=== PATIENT | male | born 1960 | race Caucasian/White ===

== ENCOUNTER → 2016-03-19 | Outpatient (CLI) | payer MEDICARE, MEDICAID ==
[~2016-03-19] MED LIST: AMIT75TA PO; AMITRIPTYLINE PO; CELE-19 PO; CELE1CAP88 PO; CHLO25TA PO; CIAL5TAB PO; CIPR500S PO; COUM2.5T11 PO; DULC10SU2 PR; FENT12PA TD; FLOM5CAP PO; GABAPOW41 PO; LORA-376 PO; LYRI75CA PO; MELA0.02 PO; MELO7.5T6 PO; MOBIC PO; OXYC10TA12 PO; OXYC1TAB16 PO; PERC5TAB6 PO; PERCOCET PO; ROXI15TA12 PO; ROXI1TAB2 PO; SOMA350T PO; TYLE325T5 PO; TYLE650T25 PO; VENL75CA47 PO
--- NOTE | 2016-04-06 01:23 | ECWPNPC ---
PATIENT NAME: NOEL MENDEZ : 1960 GENDER: MALE VISIT DATE: 03/19/2016 DISCHARGE DATE: 03/19/16940 VISIT LOCKED DATE TIME: PHYSICIAN: ARMANDO ORR RESOURCE: ARMANDO ORR REASON FOR APPOINTMENT 1. POST PROECDURE, BACK PAIN HISTORY OF PRESENT ILLNESS HISTORY OF PRESENT ILLNESS: HERE FOR ROUTINE F/U AND MEDICINE MANAGEMENT FOR PERSISTENT LBP AND ABDOMINAL PAIN.RATING PAIN VAS 5/10.FINDS CURRENT CHRONIC PAIN MEDICATION EFFECTIVE AT REDUCING PAIN AND KEEPING HIM COMFORTABLE.CURRENTLY USING FENTANYL PATCH 50MCG Q72H,OXYCODONE 10/325 UP TO 4 PER DAY PRN,AMIRIPTYLINE 75MG AT HS AND CYCLOBENZAPRINE 5MG TID PRN. CONTINUES WITH C/O CONSTIPATION DESPITE COLACE 100MG TID.HAD AMAURY 02-26-16.REPORTS NO IMPROVEMENT IN PAIN POST PROCEDURE. PAIN THE PATIENT DESCRIBES THE PAIN... THE PATIENT DESCRIBES THE PAIN... THE PATIENT DESCRIBES THE PAIN... THE PATIENT DESCRIBES THE PAIN... FALL RISK SCREENING: SCREENING :NO FALLS IN THE PAST YEAR CURRENT MEDICATIONS TAKING KLONOPIN 1 MG TABLET 1 TABLET ORALLY TWICE A DAY (MDD2) TAKING COLACE 100 MG CAPSULE 1 CAPSULE NEEDED ORALLY TIDPRN TAKING METFORMIN HCL 500 MG TABLET 1 TABLET WITH MEALS ORALLY ONE PER DAY X 1 WEEK, THEN BID TAKING CHLORTHALIDONE 25 MG TABLET TAKE BY MOUTH DIRECTED EVERY MORNING ONCE A DAY TAKING EFFEXOR XR 75 MG CAPSULE EXTENDED RELEASE 24 HOUR 3 CAPS ORALLY ONCE A DAY TAKING AMITRIPTYLINE HCL 75 MG TABLET 1 ORALLY QHS TAKING MELOXICAM 7.5MG TABLET 1 TAB(S) ORALLY DAILY TAKING CYCLOBENZAPRINE HCL 5 MG TABLET 1 TABLET ORALLY THREE TIMES A DAY TAKING FENTANYL 50 MCG/HR PATCH 72 HOUR 1 PATCH TO SKIN TRANSDERMAL 1 PATCH Q 72H =MDD TAKING TRAZODONE HCL 50 MG TABLET 2 TABLETS AT BEDTIME NEEDED ORALLY ONCE A DAY TAKING EFFEXOR XR 150 MG CAPSULE EXTENDED RELEASE 24 HOUR TAKE ONE CAPSULE BY MOUTH ONCE A DAY WITH FOOD TAKING PERCOCET 10-325 MG TABLET 1 TABLET NEEDED ORALLY EVERY 6 HRS DISCONTINUED VALIUM 10 MG TABLET 1 ORALLY 1 TAB PRE PROCEDURE MDD1, NOTES: 02/26/16 1045 DISCONTINUED OXYCODONE-ACETAMINOPHEN 10-325 MG TABLET 1 TABLET NEEDED ORALLY EVERY 6 HRS PRN PAIN MDD4, NOTES: 02/25/16 2100 MEDICATION LIST REVIEWED AND RECONCILED WITH THE PATIENT PAST MEDICAL HISTORY HERNIAS RENAL CYST NEUROPATHY LEGS 2006 INITIAL INJURY TO LOWER BACK HERNIATED DISC.. REINJURED IN 2007 ALLERGIES FLAGYL: HIVES: SIDE EFFECTS PAPER ADHESION TAPE: BURNED SKIN OFF: ALLERGY SOCIAL HISTORY GENERAL: TOBACCO USE ARE YOU A:NONSMOKER LEARNING BARRIERS / SPECIAL NEEDS ORIENTED TO PLAN OF CARE: PATIENT, PAIN MANAGEMENT PATIENT, ORIENTED TO PLAN OF CARE: PATIENT, PAIN MANAGEMENT PATIENT. NEW PATIENT PAIN DIARY TODAY'S VISITNOTES FROM 0-10, WHAT LEVEL IS YOUR PAIN TODAY?0 PAIN CLINIC PFS, CLERGY, PUBLIC HEALTH REFERRALS PFS REFERRAL NEEDED?NO CLERGY REFERRAL NEEDED?NO PUBLIC HEALTH REFERRAL NEEDED?NO WAS THE PROVIDER NOTIFIED OF ANY PERTINENT INFO?NO PFS REFERRAL NEEDED?NO CLERGY REFERRAL NEEDED?NO PUBLIC HEALTH REFERRAL NEEDED?NO WAS THE PROVIDER NOTIFIED OF ANY PERTINENT INFO?NO REVIEW OF SYSTEMS CONSTITUTIONAL: ANY CHANGE IN YOUR MEDICAL CONDITION? NO . CHILLS NO . FEVER NO . INFECTION: DO YOU HAVE NEW INFECTIONS? NO . DO YOU HAVE HISTORY OF MRSA? NO . MUSCULOSKELETAL: ANY NEW PATTERNS OF PAIN OR NUMBNESS? NO . GASTROENTEROLOGY: ANY NEW CHANGE IN BOWEL CONTROL? NO . GENITOURINARY: ANY NEW CHANGE IN BLADDER CONTROL? NO . IS THERE A CHANCE YOU COULD BE ? NO . HEMATOLOGY/LYMPH: DO YOU TAKE ANY BLOOD THINNERS? (FOR EXAMPLE- COUMADIN, PLAVIX, AGGRENOX, PLATEL, PRADAXA, OR XARELTO) NO . WHEN WAS YOUR LAST DOSE? DATE: TIME: . NEUROLOGY: HAVE YOU FALLEN IN THE PAST 6 MONTHS? YES . ANY NEW EXTREMITY NUMBNESS OR WEAKNESS? NO . CARDIOLOGY: DO YOU HAVE A PACEMAKER OR DEFIBRILLATOR? NO . RESPIRATORY: HAVE YOU BEEN SICK IN THE PAST WEEK? YES, COLD, FLU LIKE SYMPTOMS . FEVER NO . FLU LIKE SYMPTOMS? NO . COUGH NO . INTEGUMENTARY: DO YOU HAVE ANY RASHES OR OPEN SORES? NO . ALLERGIC/IMMUNO: ARE YOU ALLERGIC TO SHELLFISH OR IV DYE? NO . ANY NEW ALLERGIES? NO . PSYCHIATRIC: DO YOU HAVE THOUGHTS OF HURTING YOURSELF OR SOMEONE ELSE? NO . ARE YOU ABUSED, NEGLECTED, OR IN AN UNSAFE ENVIRONMENT? NO . ENDOCRINOLOGY: ARE YOU DIABETIC? YES . OTHER: DO YOU NEED ANY PRESCRIPTIONS? NO . IF YES, PLEASE LIST: ____ . ANY NEW PROBLEMS WITH YOUR MEDICATIONS? NO . WHEN DID YOU LAST EAT? ____ . WHEN DID YOU LAST DRINK? ____ . WHAT DID YOU LAST DRINK? ____ . NAME OF PERSON DRIVING YOU HOME? ____ . DO YOU HAVE ANY OTHER QUESTIONS OR CONCERNS NO . REVIEWED BY: PROVIDER: ARMANDO ROSE . VITAL SIGNS WT 372 LBS, HT 69.5 IN, BMI 54.14 INDEX, BP 133/81 MM HG, HR 74 /MIN, RR 18 /MIN, TEMP 98.0 F, OXYGEN SAT % 96, NA INITIALS TL 0857, REVIEWED BY: CM. EXAMINATION GENERAL EXAMINATION: LUNGS:LUNG SOUNDS ARE CLEAR. HEART:HEART RATE REGULAR. MUSCULOSKELETAL:*. MUSCULOSKELETAL:*, MUSCLE STRENGTH TESTING 3/5 BILATERAL, PALPATION: POSITIVE FOR PAIN OVER L/S SPINE. POSITIVE FOR PAIN OVER L/S PARSPINALS. DIAGNOSTIC:MRI L/S [id number]-REVIEWED.. 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.27 (PRIMARY) LUMBAR RADICULOPATHY - M54.16 CHRONIC PRESCRIPTION OPIATE USE - Z79.891 TREATMENT PROTRUSION OF INTERVERTEBRAL DISC OF LUMBOSACRAL REGION CONTINUE AMITRIPTYLINE HCL TABLET, 75 MG, 1, ORALLY, QHS, NOTES: 02/25/16 2100 CONTINUE MELOXICAM TABLET, 7.5MG, 1 TAB(S), ORALLY, DAILY, NOTES: 02/26/16 0900 CONTINUE CYCLOBENZAPRINE HCL TABLET, 5 MG, 1 TABLET, ORALLY, THREE TIMES A DAY, NOTES: 02/26/16 0900 REFILL FENTANYL PATCH 72 HOUR, 50 MCG/HR, 1 PATCH TO SKIN, TRANSDERMAL, 1 PATCH Q 72H =MDD, 30 DAY(S), 10, REFILLS 0, NOTES: CHANGED 02/24/16 START OXYCODONE-ACETAMINOPHEN TABLET, 10-325 MG, 1 TABLET NEEDED, ORALLY, EVERY 6 HRS MDD4, 30 DAY(S), 120, REFILLS 0 NOTES: ISTOP REGISTRY REVIEWED AND DEMNOSTRATES COMPLLIANCE. BRINGS IN MEDICATIONS WHICH IS APPROPRIATE FOR WHAT WAS DISPENSED. RECENT URINE TOXICOLOGY REVIEWED. NO UNAUTHORIZED MEDICATIONS. NO ILLICIT SUBSTANCES AND PRESCRIBED MEDICATIONS WERE PRESENT. , RISKS AND BENEFITS OF NARCOTIC/OPIOD MEDICATIONS WERE REVIEWED WITH PATIENT - THIS INCLUDES BUT IS NOT LIMITED TO RISK OF DEPENDANCE/DEVELOPMENT OF ADDICTION, MOOD DISTURBANCE AND DEPRESSION, OSTEOPOROSIS, HORMONAL AND LABIDAL CHANGES, RESPIRATORY DEPRESSION AND . PATIENT IS ADVISED NOT TO DRIVE WHILE ON THESE MEDICATIONS.URINE TOX TODAY. PROCEDURE CODES FA211 ESTABILISHED PATIENT [facility] FACILITY CHARGE G8730 PAIN ASSESS POS TOOL F/U PLAN DOC G8427 DOC MEDS VERIFIED W/PT OR RE FOLLOW UP 2 MONTHS ELECTRONICALLY SIGNED BY MILTON HARRIS ON 04/05/2016 AT 02:58 PM EST DISCLAIMER : THIS IS A VISIT SUMMARY EXTRACTED FROM THE [employer] CHART. IT IS NOT A COPY OF THE [employer] PROGRESS NOTE. ANGELA
== END ==
LOC: M PAIN 09:00
PROVIDERS: ATTEND Nurse Practitioner Family
DX: Z09 Encounter for follow-up examination after completed treatment for conditions other than malignant neoplasm (principal); G89.29 Other chronic pain; M51.27 Other intervertebral disc displacement, lumbosacral region; M54.16 Radiculopathy, lumbar region; R10.9 Unspecified abdominal pain; E11.9 Type 2 diabetes mellitus without complications; Z88.8 Allergy status to other drugs, medicaments and biological substances; L23.1 Allergic contact dermatitis due to adhesives; Z79.891 Long term (current) use of opiate analgesic; Z79.84 Long term (current) use of oral hypoglycemic drugs

== ENCOUNTER → 2016-03-22 | Outpatient (CLI) | payer MEDICARE, MEDICAID ==
--- NOTE | 2016-03-22 14:19 | REP ---
URINARY TRACT SONOGRAM: HISTORY: Elevated serum creatinine. COMPARISON: Comparison CT study is from January 07, 2015. FINDINGS: Scanning at the level of the urinary bladder shows no abnormality. Renal cortical echogenicity pattern is normal bilaterally and contours are smooth. There is no evidence of hydronephrosis, cyst, mass, or calculus in either kidney. Scan quality is inhibited by patient body habitus and limited scanning windows. CT study from January 29, 2015 shows a calcified 2 cm lesion in the lower pole right kidney which cannot be seen sonographically. There appears to be some fatty infiltration of the liver. The right kidney measures 11.7 x 6.1 x 5.1 cm. Left renal dimensions are 12.5 x 5.9 x 5.7 cm. IMPRESSION: Normal urinary tract sonography. The complex lesion seen at the lower pole right kidney on January 07, 2015 CT is not visible sonographically. Signed by Chip Stuart MD 03/22/2016 03:34 P
== END ==
LOC: M RAD 11:03
PROVIDERS: ATTEND Physician Assistant
DX: R79.89 Other specified abnormal findings of blood chemistry (principal)

== ENCOUNTER → 2016-04-21 | Outpatient (CLI) | payer MEDICARE, MEDICAID ==
[~2016-04-21] VITALS: Ht 175.3 cm; Wt 127.0 kg
[~2016-04-21] MED LIST changes: +COLA100C PO; +CYCL5TA PO; +LIDOCAINE 2% INJ 100 MG/5 ML SDV (FOR ANES.) As Ordered ONE; +METF500T PO; +NS 1,000 ML IV SCH; +PROPOFOL 200 MG/20 ML VIAL As Ordered ONE; +TRAZ50TA4 PO
--- NOTE | 2016-04-21 09:29 | ROOR ---
Patient Name: Rio Dinero Procedure Date: 04/21/2016 8:47 AM Date of : 1960 Age: 55 Room: [facility] Gender: Male Note Status: Finalized Procedure: Colonoscopy Indications: Screening for colorectal malignant neoplasm Providers: Torey Montez MD Referring MD: Janey Herr Requesting Provider: Medicines: Monitored Anesthesia Care Complications: No immediate complications. Procedure: Pre-Anesthesia Assessment: - Prior to the procedure, a History and Physical was performed, and patient medications and allergies were reviewed. The patient is competent. The risks and benefits of the procedure and the sedation options and risks were discussed with the patient. All questions were answered and informed consent was obtained. Patient identification and proposed procedure were verified by the physician, the nurse and the anesthesiologist in the endoscopy suite. Mental Status Examination: alert and oriented. Airway Examination: normal oropharyngeal airway and neck mobility. Respiratory Examination: clear to auscultation. CV Examination: normal. Prophylactic Antibiotics: The patient does not require prophylactic antibiotics. Prior Anticoagulants: The patient has taken no previous anticoagulant or antiplatelet agents. ASA Grade Assessment: III - A patient with severe systemic disease. After reviewing the risks and benefits, the patient was deemed in satisfactory condition to undergo the procedure. The anesthesia plan was to use monitored anesthesia care (MAC). Immediately prior to administration of medications, the patient was re-assessed for adequacy to receive sedatives. The heart rate, respiratory rate, oxygen saturations, blood pressure, adequacy of pulmonary ventilation, and response to care were monitored throughout the procedure. The physical status of the patient was re-assessed after the procedure. The Colonoscope was introduced through the anus and advanced to the ileocolonic anastomosis. The colonoscopy was technically difficult and complex due to the patient's position intolerance. Successful completion of the procedure was aided by increasing the dose of sedation medication. The patient tolerated the procedure fairly well. The quality of the bowel preparation was adequate to identify polyps. Findings: The perianal exam findings include non-thrombosed external hemorrhoids. A 7 to 10 mm polyp was found in the rectum. The polyp was semi-pedunculated. The polyp was removed with a hot snare. Resection and retrieval were complete. Estimated blood loss was minimal. A 3 to 6 mm polyp was found in the rectum. The polyp was sessile. The polyp was removed with a hot snare. Resection and retrieval were complete. Estimated blood loss: none. A 3 to 6 mm polyp was found in the rectum. The polyp was sessile. The polyp was removed with a hot snare. Resection and retrieval were complete. Estimated blood loss was minimal. A few small-mouthed diverticula were found in the descending colon. There was evidence of a prior end-to-side colo-colonic anastomosis in the recto-sigmoid colon. This was patent and was characterized by healthy appearing mucosa. The anastomosis was traversed. There was evidence of a prior [id number] ileo-colonic anastomosis in the ascending colon. This was patent and was characterized by healthy appearing mucosa. The anastomosis was traversed. No additional abnormalities were found on retroflexion. Impression: - Non-thrombosed external hemorrhoids found on perianal exam. - One 7 to 10 mm polyp in the rectum, removed with a hot snare. Resected and retrieved. - One 3 to 6 mm polyp in the rectum, removed with a hot snare. Resected and retrieved. - One 3 to 6 mm polyp in the rectum, removed with a hot snare. Resected and retrieved. - Diverticulosis in the descending colon. - Patent end-to-side colo-colonic anastomosis, characterized by healthy appearing mucosa. - Patent [id number] ileo-colonic anastomosis, characterized by healthy appearing mucosa. Recommendation: - Discharge patient to home (ambulatory). - Repeat colonoscopy in 3 years for surveillance. - Telephone my office for pathology results in 2 weeks. Torey Montez MD Torey Montez MD 04/21/2016 9:28:55 AM This report has been signed electronically. Number of Addenda: 0 Note Initiated On: 04/21/2016 8:47 AM Estimated Blood Loss: Estimated blood loss was minimal.
[2016-04-21 09:50] VITALS: BP 149/91
== END | disposition home or self-care (01) ==
LOC: M OPP 07:36
PROVIDERS: ATTEND Surgery
DX: Z12.11 Encounter for screening for malignant neoplasm of colon (principal); K62.1 Rectal polyp; K57.30 Diverticulosis of large intestine without perforation or abscess without bleeding; I10 Essential (primary) hypertension; E11.9 Type 2 diabetes mellitus without complications; R12 Heartburn; R06.83 Snoring; M19.90 Unspecified osteoarthritis, unspecified site; F33.9 Major depressive disorder, recurrent, unspecified; F41.9 Anxiety disorder, unspecified; M51.9 Unspecified thoracic, thoracolumbar and lumbosacral intervertebral disc disorder; E66.01 Morbid (severe) obesity due to excess calories; Z98.0 Intestinal bypass and anastomosis status; Z87.891 Personal history of nicotine dependence; Z79.899 Other long term (current) drug therapy; Z79.891 Long term (current) use of opiate analgesic; Z79.84 Long term (current) use of oral hypoglycemic drugs; Z88.8 Allergy status to other drugs, medicaments and biological substances; Z91.048 Other nonmedicinal substance allergy status; Z86.14 Personal history of Methicillin resistant Staphylococcus aureus infection

== ENCOUNTER → 2016-05-17 | Outpatient (REF) | payer MEDICARE, MEDICAID ==
[~2016-05-17] MED LIST changes: -LIDOCAINE 2% INJ 100 MG/5 ML SDV (FOR ANES.) As Ordered ONE; -NS 1,000 ML IV SCH; -PROPOFOL 200 MG/20 ML VIAL As Ordered ONE
[2016-05-17 11:44] LABS: BASO % 0.4 % (0.0-1.0); EOS # 0.2 K/mm3 (0.0-0.50); EOS % 2.6 % (0.0-3.0); LARGE UNSTAINED CELL # 0.1 K/mm3 (0.0-0.4); LARGE UNSTAINED CELL % 1.4 % (0.0-4.0); LYMPH # 1.7 K/mm3 (1.5-4.5); MEAN CORPUSCULAR HEMOGLOBIN 31.2 pg (27.0-33.0); MEAN CORPUSCULAR HGB CONC 33.8 g/dl (32.0-36.5); MEAN CORPUSCULAR VOLUME 92.3 fl (80.0-96.0); MONO # 0.6 K/mm3 (0.0-0.8); MONO % 6.9 % (0.0-5.0); NEUTROPHILS # 6.2 K/mm3 (1.8-7.7); NEUTROPHILS % 70.6 % (36.0-66.0); PLATELET COUNT, AUTOMATED 216 k/mm3 (150-450); RED CELL DISTRIBUTION WIDTH 14.1 % (11.5-14.5); WHITE BLOOD COUNT 8.8 K/mm3 (4.0-10.0)
[2016-05-17 12:08] LABS: ANION GAP 11 MEQ/L (8-16); BLOOD UREA NITROGEN 24 MG/DL (7-18); CALCIUM LEVEL 9.3 MG/DL (8.5-10.1); CARBON DIOXIDE LEVEL 29 MEQ/L (21-32); CHLORIDE LEVEL 101 MEQ/L (98-107); CREATININE FOR GFR 1.19 MG/DL (0.70-1.30); GLOMERULAR FILTRATION RATE > 60.0 (>56); GLUCOSE, FASTING 124 MG/DL (70-105); POTASSIUM SERUM 3.7 MEQ/L (3.5-5.1); SODIUM LEVEL 141 MEQ/L (136-145)
== END ==
LOC: M LABDRAW1 11:14
PROVIDERS: ATTEND Internal Medicine Cardiovascular Disease
DX: Z01.818 Encounter for other preprocedural examination (principal); I10 Essential (primary) hypertension; E11.9 Type 2 diabetes mellitus without complications; Z79.84 Long term (current) use of oral hypoglycemic drugs; Z79.899 Other long term (current) drug therapy

== ENCOUNTER → 2016-05-28 | Outpatient (CLI) | payer MEDICARE, MEDICAID ==
[~2016-05-28] MED LIST changes: -COLA100C PO; +COLA100C3 PO
--- NOTE | 2016-05-29 00:10 | ECWPNPC ---
PATIENT NAME: NOEL MENDEZ : 1960 GENDER: MALE VISIT DATE: 05/28/2016 DISCHARGE DATE: 05/28/16 1013 VISIT LOCKED DATE TIME: PHYSICIAN: ARMANDO ORR RESOURCE: ARMANDO ORR REASON FOR APPOINTMENT 1. FOLLOWUP HISTORY OF PRESENT ILLNESS HISTORY OF PRESENT ILLNESS: HERE FOR ROUTINE F/U AND MEDICINE MANAGEMENT FOR PERSISTENT LBP AND ABDOMINAL PAIN.RATING PAIN VAS 3/10.FINDS CURRENT CHRONIC PAIN MEDICATION EFFECTIVE AT REDUCING PAIN AND KEEPING HIM COMFORTABLE.CURRENTLY USING FENTANYL PATCH 50MCG Q72H,OXYCODONE 10/325 UP TO 4 PER DAY PRN,AMIRIPTYLINE 75MG AT HS AND CYCLOBENZAPRINE 5MG TID PRN. HAD LESI 02-26-16.REPORTS NO IMPROVEMENT IN PAIN POST PROCEDURE. PAIN THE PATIENT DESCRIBES THE PAIN... THE PATIENT DESCRIBES THE PAIN... THE PATIENT DESCRIBES THE PAIN... THE PATIENT DESCRIBES THE PAIN... THE PATIENT DESCRIBES THE PAIN... FALL RISK SCREENING: SCREENING :NO FALLS IN THE PAST YEAR CURRENT MEDICATIONS TAKING COLACE 100 MG CAPSULE 1 CAPSULE NEEDED ORALLY TIDPRN TAKING PROAIR HFA 108 (90 BASE) MCG/ACT AEROSOL SOLUTION 2 PUFFS NEEDED INHALATION EVERY 4 HRS TAKING BREO ELLIPTA 100-25 MCG/INH AEROSOL POWDER BREATH ACTIVATED 1 PUFF INHALATION ONCE A DAY TAKING CHLORTHALIDONE 25 MG TABLET TAKE BY MOUTH DIRECTED EVERY MORNING ONCE A DAY TAKING EFFEXOR XR 75 MG CAPSULE EXTENDED RELEASE 24 HOUR 1 CAP ORALLY ONCE A DAY TAKING EFFEXOR XR 150 MG CAPSULE EXTENDED RELEASE 24 HOUR TAKE ONE CAPSULE BY MOUTH ONCE A DAY WITH FOOD TAKING CYCLOBENZAPRINE HCL 5 MG TABLET 1 TABLET ORALLY THREE TIMES A DAY, NOTES: 02/26/16 0900 TAKING OXYCODONE-ACETAMINOPHEN 10-325 MG TABLET 1 TABLET NEEDED ORALLY EVERY 6 HRS MDD4 TAKING FENTANYL 50 MCG/HR PATCH 72 HOUR 1 PATCH TO SKIN TRANSDERMAL 1 PATCH Q 72H =MDD, NOTES: CHANGED 02/24/16 TAKING METFORMIN HCL 500 MG TABLET 1 TABLET WITH MEALS ORALLY TWICE DAILY TAKING MELOXICAM 7.5MG TABLET 1 TAB(S) ORALLY DAILY, NOTES: 02/26/16 0900 TAKING AMITRIPTYLINE HCL 75 MG TABLET 1 ORALLY QHS, NOTES: 02/25/16 2100 TAKING TRAZODONE HCL 50 MG TABLET 1-2 TABLETS AT BEDTIME NEEDED ORALLY ONCE A DAY TAKING KLONOPIN 1 MG TABLET 1 TABLET ORALLY TWICE A DAY (MDD2) DISCONTINUED PERCOCET 10-325 MG TABLET 1 TABLET NEEDED ORALLY EVERY 6 HRS DISCONTINUED AZITHROMYCIN 250 MG TABLET 2 TABLETS ON THE FIRST DAY, THEN 1 TABLET DAILY FOR 4 DAYS ORALLY ONCE A DAY DISCONTINUED PREDNISONE 10 MG TABLET 6 TABS/DAY X 3 DAYS, 4 TABS/DAY X 3 DAYS, 2 TABS/DAY X 3 DAYS, 1 TAB/DAY X 3 DAYS ORALLY DIRECTED MEDICATION LIST REVIEWED AND RECONCILED WITH THE PATIENT PAST MEDICAL HISTORY HERNIAS RENAL CYST NEUROPATHY LEGS 2005 INITIAL INJURY TO LOWER BACK HERNIATED DISC.. REINJURED IN 2007 ALLERGIES FLAGYL: HIVES: SIDE EFFECTS PAPER ADHESION TAPE: BURNED SKIN OFF: ALLERGY SURGICAL HISTORY 2 HERNIA REPAIRS IN STOMACH 1989- DIVERTICULITIS SURGERY(4 SURGERIES WITH IN 2011 FOR THIS) 10/2011 HERNIA REPAIR ABD AREA 10/02/2013 RIGHT RENAL CYST ASPIRATION 09/26/13 L HIP REPLACEMENT 02/06/14 RIGHT PARTIAL NEPHRECTOMY 02/04/15 HEART CATH 05/26/2016 SOCIAL HISTORY GENERAL: TOBACCO USE ARE YOU A:CURRENT SMOKER HOW MANY CIGARETTES A DAY DO YOU SMOKE?21-30 HOW SOON AFTER YOU WAKE UP DO YOU SMOKE YOUR FIRST CIGARETTE?WITHIN 5 MIN HOW OFTEN DO YOU SMOKE CIGARETTES?EVERY DAY PATIENT COUNSELED ON THE DANGERS OF TOBACCO USE AND URGED TO QUIT:05/28/2016 ARE YOU INTERESTED IN QUITTING?NOT READY TO QUIT COUNSELED THE PATIENT ON SMOKING EFFECTS, EDUCATION [id number]/24/2017 SMOKING CESSATION INFORMATION GIVEN02/05/2016 VAPORNO E-CIGARETTENO BMI CARE GOAL FOLLOW-UP ABOVE NORMAL BMI FOLLOW-UPGIVING ENCOURAGEMENT TO EXERCISE ALCOHOL SCREENING DID YOU HAVE A DRINK CONTAINING ALCOHOL IN THE PAST YEAR?YES HOW OFTEN DID YOU HAVE SIX OR MORE DRINKS ON ONE OCCASION IN THE PAST YEAR?NEVER (0 POINTS) HOW MANY DRINKS DID YOU HAVE ON A TYPICAL DAY WHEN YOU WERE DRINKING IN THE PAST YEAR?3 OR 4 (1 POINT) HOW OFTEN DID YOU HAVE A DRINK CONTAINING ALCOHOL IN THE PAST YEAR?MONTHLY OR LESS (1 POINT) POINTS2 INTERPRETATIONNEGATIVE RECREATIONAL DRUG USE DRUG USE?NO CAFFEINE CAFFEINE USE?YES HOW OFTEN AND HOW MUCH? ONE CUP COFFEE AND ONE PEPSI HIV / HEP-C SCREENING HIV TEST OFFERED TO PATIENT:YES DATE OFFERED:03/15/2016 TEST ACCEPTED:NO HEP-C TEST OFFERED TO PATIENT:YES DATE OFFERED:03/15/2016 REASON:PATIENT DECLINED TEST ACCEPTED:NO REASON:PATIENT DECLINED OCCUPATION: DISABLED. EXERCISE: NONE. MARITAL STATUS: SINGLE. LANGUAGE: TUVALU[place]. LEARNING BARRIERS / SPECIAL NEEDS CHANGE FROM LAST VISIT?NO BARRIERS TO LEARNING?NO HEARING IMPAIRED?NO VISION IMPAIRED?NO COGNITIVELY IMPAIRED?NO READINESS TO LEARN?YES LEARNING PREFERENCES?NO LEARNING CAPABILITIES PRESENT?YES EMOTIONAL BARRIERS?NO SPECIAL DEVICES?NO NEW PATIENT PAIN DIARY FROM 0-10, WHAT LEVEL IS YOUR PAIN TODAY?3 PAIN CLINIC PFS, CLERGY, PUBLIC HEALTH REFERRALS PFS REFERRAL NEEDED? NO, CLERGY REFERRAL NEEDED? NO, PUBLIC HEALTH REFERRAL NEEDED? NO, WAS THE PROVIDER NOTIFIED OF ANY PERTINENT INFO? NO, PFS REFERRAL NEEDED? NO, CLERGY REFERRAL NEEDED? NO, PUBLIC HEALTH REFERRAL NEEDED? NO, WAS THE PROVIDER NOTIFIED OF ANY PERTINENT INFO? NO. HOSPITALIZATION/MAJOR DIAGNOSTIC PROCEDURE HERNIA REPAIR [place] 1989- [facility] 10/2011 [facility] HERNIA REPAIR 10/02/2013 [facility] SURGERY RELATED 02/06/14 REVIEW OF SYSTEMS CONSTITUTIONAL: ANY CHANGE IN YOUR MEDICAL CONDITION? YES, HAD HEART CATH 05/26/16 (-) . CHILLS NO . FEVER NO . INFECTION: DO YOU HAVE NEW INFECTIONS? NO . DO YOU HAVE HISTORY OF MRSA? YES, 07/2013 ON ABDOMEN . MUSCULOSKELETAL: ANY NEW PATTERNS OF PAIN OR NUMBNESS? YES, PAIN RIGHT SHOULDER--DUE TO POSTITION HE WAS IN FOR HEART CATH . GASTROENTEROLOGY: ANY NEW CHANGE IN BOWEL CONTROL? NO . GENITOURINARY: ANY NEW CHANGE IN BLADDER CONTROL? NO . IS THERE A CHANCE YOU COULD BE ? NO . HEMATOLOGY/LYMPH: DO YOU TAKE ANY BLOOD THINNERS? (FOR EXAMPLE- COUMADIN, PLAVIX, AGGRENOX, PLATEL, PRADAXA, OR XARELTO) NO . WHEN WAS YOUR LAST DOSE? DATE: TIME: . NEUROLOGY: HAVE YOU FALLEN IN THE PAST 6 MONTHS? NO . ANY NEW EXTREMITY NUMBNESS OR WEAKNESS? NO . CARDIOLOGY: DO YOU HAVE A PACEMAKER OR DEFIBRILLATOR? NO . RESPIRATORY: HAVE YOU BEEN SICK IN THE PAST WEEK? NO . FEVER NO . FLU LIKE SYMPTOMS? NO . COUGH NO . INTEGUMENTARY: DO YOU HAVE ANY RASHES OR OPEN SORES? NO . ALLERGIC/IMMUNO: ARE YOU ALLERGIC TO SHELLFISH OR IV DYE? NO . ANY NEW ALLERGIES? NO . PSYCHIATRIC: DO YOU HAVE THOUGHTS OF HURTING YOURSELF OR SOMEONE ELSE? NO . ARE YOU ABUSED, NEGLECTED, OR IN AN UNSAFE ENVIRONMENT? NO . ENDOCRINOLOGY: ARE YOU DIABETIC? YES . OTHER: DO YOU NEED ANY PRESCRIPTIONS? NO . IF YES, PLEASE LIST: ____ . ANY NEW PROBLEMS WITH YOUR MEDICATIONS? NO . WHEN DID YOU LAST EAT? ____ . WHEN DID YOU LAST DRINK? ____ . WHAT DID YOU LAST DRINK? ____ . NAME OF PERSON DRIVING YOU HOME? ____ . DO YOU HAVE ANY OTHER QUESTIONS OR CONCERNS NO . REVIEWED BY: PROVIDER: ARMANDO ROSE . VITAL SIGNS WT 282 LBS, HT 69.5 IN, BMI 41.04 INDEX, BP 145/79 MM HG, HR 102 /MIN, RR 18 /MIN, TEMP 98.9 F, OXYGEN SAT % 95%, NA INITIALS SC 09:28, REVIEWED BY: AD. EXAMINATION GENERAL EXAMINATION: LUNGS:LUNG SOUNDS ARE CLEAR. HEART:HEART RATE REGULAR. MUSCULOSKELETAL:*. MUSCULOSKELETAL:*, MUSCLE STRENGTH TESTING 3/5 BILATERAL, PALPATION: POSITIVE FOR PAIN OVER L/S SPINE. POSITIVE FOR PAIN OVER L/S PARSPINALS. DIAGNOSTIC:MRI L/S [id number]-REVIEWED.. 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.27 (PRIMARY) CHRONIC PRESCRIPTION OPIATE USE - Z79.891 TREATMENT PROTRUSION OF INTERVERTEBRAL DISC OF LUMBOSACRAL REGION CONTINUE COLACE CAPSULE, 100 MG, 1 CAPSULE NEEDED, ORALLY, TIDPRN CONTINUE CYCLOBENZAPRINE HCL TABLET, 5 MG, 1 TABLET, ORALLY, THREE TIMES A DAY, NOTES: 02/26/16 0900 REFILL OXYCODONE-ACETAMINOPHEN TABLET, 10-325 MG, 1 TABLET NEEDED, ORALLY, EVERY 6 HRS MDD4, 30 DAY(S), 120, REFILLS 0 REFILL FENTANYL PATCH 72 HOUR, 50 MCG/HR, 1 PATCH TO SKIN, TRANSDERMAL, 1 PATCH Q 72H =MDD, 30 DAY(S), 10, REFILLS 0, NOTES: CHANGED 02/24/16 CONTINUE MELOXICAM TABLET, 7.5MG, 1 TAB(S), ORALLY, DAILY, NOTES: 02/26/16 0900 CONTINUE AMITRIPTYLINE HCL TABLET, 75 MG, 1, ORALLY, QHS, NOTES: 02/25/162099 NOTES: FALLS CARE PLAN: 1. RECOMMEND REMOVING ALL THROW RUGS. 2. RECOMMEND NIGHT LIGHTS 3. RECOMMEND WEARING RUBBER SOLED SHOES AND TO NOT GO BAREFOOT. 4.. ADVISED TO CHANGE POSITION SLOWLY FROM SUPINE TO STANDING TO AVOID DIZZINESS. 5. ADVISED TO USE ASSISTIVE DEVICE SUCH CANE OR WALKER 6. USE [employer] OR KEEP PORTABLE PHONE READILY AVAILABLE, ISTOP REGISTRY REVIEWED AND DEMNOSTRATES COMPLLIANCE. BRINGS IN MEDICATIONS WHICH IS APPROPRIATE FOR WHAT WAS DISPENSED. RECENT URINE TOXICOLOGY REVIEWED. NO UNAUTHORIZED MEDICATIONS. NO ILLICIT SUBSTANCES AND PRESCRIBED MEDICATIONS WERE PRESENT. , #317- HYPERTENSION SCREENING AND F/U: PATIENT ADVISED TO DO BLOOD PRESSURE CHECKS AT HOMEOR LOCAL PHARMACY. ADVISED TO PRESENT THIS INFORMATION TO PRIMARY CARE PROVIDER IN NEAR FUTURE. LOW SALT DIET/WEIGHT LOSS WAS ADVISED., # 226 TOBACCO USE SCREENING/INTERVENTION: PATIENT CURRENTLY USED TOBACCO. WAS OFFERED SMOKING CESSATION FOR GUIDANCE IN QUITTING THROUGH THE [facility] QUITS PROGRAM AND THE [facility] CESSATION PROGRAM. , #128 - SCREENING BMI AND F/U PLAN IN : BMI ABOVE NORMAL TODAY. DISCUSSED WITH PATIENT NUTRITIONAL FOOD CHOICES TO ASSIST WITH WEIGHT LOSS. RECCOMMENDED REDUCING SALT, SUGAR, SODA INTAKE. RECOMMEND INCREASE ACTIVITY TO INCLUDE WALKING ON A REGULAR BASIS. PROFESSIONAL NUTRITIONAL NUTRITIONAL GUIDANCE WAS OFFERED AND WAS DECLINED. , PATIENT WAS ADVISED TO START A WALKING PROGRAM TO STRENGTHEN LUMBAR PARASPINAL MUSCLES AND IMPROVE MOBILITY. THEY WERE ADVISED THAT THIS WILL IMPROVE WEIGHT LOSS AND ALSO DEPRESSION/FIBROMYALGIA SYMPTOMS. ADVISED TO WALK 10 MINUTES EVERY OTHER DAY ON A FLAT SURFACE. EMPHASIZED THE IMPORTANCE OF DOING THIS CONSISTANTLY AND NOT SPORATICALLY TO AVOID INJURY. STRONG ADVISED NOT TO DO MORE THAN 10 MINUTES EVERY OTHER DSY FOR THE FIRST 4 WEEKS., RISKS AND BENEFITS OF NARCOTIC/OPIOD MEDICATIONS WERE REVIEWED WITH PATIENT - THIS INCLUDES BUT IS NOT LIMITED TO RISK OF DEPENDANCE/DEVELOPMENT OF ADDICTION, MOOD DISTURBANCE AND DEPRESSION, OSTEOPOROSIS, HORMONAL AND LABIDAL CHANGES, RESPIRATORY DEPRESSION AND . PATIENT IS ADVISED NOT TO DRIVE WHILE ON THESE MEDICATIONS. PREVENTIVE MEDICINE INFORMATION ON HCP AND SMOKING CESSATION CLASSES PROVIDED TO PATIENT. PROCEDURE CODES FA211 ESTABILISHED PATIENT [facility] FACILITY CHARGE E0953 BP SCR PRFRM RCMDD DEFIND SCR INTVL G6802 PAIN ASSESS POS TOOL F/U PLAN DOC 3016F PT SCRND UNHLTHY OH USE 1124F ACP DISCUSS-NO [id number] DOCD 0518F FALL PLAN OF CARE DOCD G8427 DOC MEDS VERIFIED W/PT OR RE G8417 BMI >=30 CALCUATE W/FOLLOWUP 3288F FALL RISK ASSESSMENT DOCD 4004F PT TOBACCO SCREEN RCVD TLK DISPOSITION & COMMUNICATION FOLLOW UP 2 MONTHS ELECTRONICALLY SIGNED BY MILTON HARRIS ON 05/28/2016 AT 11:07 AM EDT DISCLAIMER : THIS IS A VISIT SUMMARY EXTRACTED FROM THE [employer] CHART. IT IS NOT A COPY OF THE [facility] PROGRESS NOTE. MTDD
== END ==
LOC: M PAIN 09:20
PROVIDERS: ATTEND Nurse Practitioner Family
DX: M51.27 Other intervertebral disc displacement, lumbosacral region (principal); Z79.891 Long term (current) use of opiate analgesic; Z79.899 Other long term (current) drug therapy; Z79.84 Long term (current) use of oral hypoglycemic drugs; Z88.1 Allergy status to other antibiotic agents; Z91.048 Other nonmedicinal substance allergy status; F17.200 Nicotine dependence, unspecified, uncomplicated; I10 Essential (primary) hypertension; F32.9 Major depressive disorder, single episode, unspecified; E11.9 Type 2 diabetes mellitus without complications; E78.5 Hyperlipidemia, unspecified; J44.9 Chronic obstructive pulmonary disease, unspecified

== ENCOUNTER → 2016-06-07 | Outpatient (REF) | payer MEDICARE, OTHER, MEDICAID ==
[2016-06-07 17:46] LABS: ALBUMIN 3.5 GM/DL (3.2-5.2); ALBUMIN/GLOBULIN RATIO 0.88 (1.00-1.93); ALKALINE PHOSPHATASE 107 U/L (45-117); ALT/SGPT 36 U/L (12-78); ANION GAP 9 MEQ/L (8-16); AST/SGOT 16 U/L (15-37); BILIRUBIN,TOTAL 0.3 MG/DL (0.2-1.0); BLOOD UREA NITROGEN 13 MG/DL (7-18); CALCIUM LEVEL 8.8 MG/DL (8.5-10.1); CARBON DIOXIDE LEVEL 27 MEQ/L (21-32); CHLORIDE LEVEL 102 MEQ/L (98-107); CREATININE FOR GFR 1.22 MG/DL (0.70-1.30); GLOMERULAR FILTRATION RATE > 60.0 (>56); GLUCOSE, FASTING 193 MG/DL (70-105); POTASSIUM SERUM 3.7 MEQ/L (3.5-5.1); SODIUM LEVEL 138 MEQ/L (136-145); TOTAL PROTEIN 7.5 GM/DL (6.4-8.2)
== END ==
LOC: M SFHCCAPE 10:49
PROVIDERS: ATTEND Physician Assistant
DX: I10 Essential (primary) hypertension (principal); E11.9 Type 2 diabetes mellitus without complications; F41.8 Other specified anxiety disorders
CPT/HCPCS: 80053; 83036; 84443; G0463

== ENCOUNTER → 2016-06-16 | Outpatient (REF) | payer MEDICARE, OTHER, MEDICAID | LOC: M SFHCCAPE 10:48 | PROVIDERS: ATTEND Physician Assistant | DX: N52.9 Male erectile dysfunction, unspecified (principal) ==

== ENCOUNTER → 2016-07-26 | Outpatient (CLI) | payer MEDICARE, MEDICAID ==
--- NOTE | 2016-08-13 00:48 | ECWPNPC ---
PATIENT NAME: NOEL MENDEZ : 1960 GENDER: MALE VISIT DATE: 07/26/2016 DISCHARGE DATE: 07/26/16 1506 VISIT LOCKED DATE TIME: PHYSICIAN: ARMANDO ORR RESOURCE: ARMANDO ORR REASON FOR APPOINTMENT 1. BACK HISTORY OF PRESENT ILLNESS HISTORY OF PRESENT ILLNESS: HERE FOR ROUTINE F/U AND MEDICINE MANAGEMENT FOR PERSISTENT LBP AND ABDOMINAL PAIN.RATING PAIN VAS 5/10.FINDS CURRENT CHRONIC PAIN MEDICATION EFFECTIVE AT REDUCING PAIN AND KEEPING HIM COMFORTABLE.CURRENTLY USING FENTANYL PATCH 50MCG Q72H,OXYCODONE 10/325 UP TO 4 PER DAY PRN,AMIRIPTYLINE 75MG AT HS AND CYCLOBENZAPRINE 5MG TID PRN. HAD LESI 02-26-16.REPORTS NO IMPROVEMENT IN PAIN POST PROCEDURE.DESCRIBES PAIN CONSTANT BURNING AND ACHING. PAIN THE PATIENT DESCRIBES THE PAIN... THE PATIENT DESCRIBES THE PAIN... THE PATIENT DESCRIBES THE PAIN... THE PATIENT DESCRIBES THE PAIN... THE PATIENT DESCRIBES THE PAIN... THE PATIENT DESCRIBES THE PAIN... FALL RISK SCREENING: SCREENING :NO FALLS IN THE PAST YEAR CURRENT MEDICATIONS TAKING COLACE 100 MG CAPSULE 1 CAPSULE NEEDED ORALLY TIDPRN TAKING CYCLOBENZAPRINE HCL 5 MG TABLET 1 TABLET ORALLY THREE TIMES A DAY, NOTES: 02/26/16 0900 TAKING MELOXICAM 7.5MG TABLET 1 TAB(S) ORALLY DAILY, NOTES: 02/26/16 0900 TAKING AMITRIPTYLINE HCL 75 MG TABLET 1 ORALLY QHS, NOTES: 02/25/16 2100 TAKING PROAIR HFA 108 (90 BASE) MCG/ACT AEROSOL SOLUTION 2 PUFFS NEEDED INHALATION EVERY 4 HRS TAKING BREO ELLIPTA 100-25 MCG/INH AEROSOL POWDER BREATH ACTIVATED 1 PUFF INHALATION ONCE A DAY TAKING EFFEXOR XR 75 MG CAPSULE EXTENDED RELEASE 24 HOUR 1 CAP ORALLY ONCE A DAY TAKING EFFEXOR XR 150 MG CAPSULE EXTENDED RELEASE 24 HOUR TAKE ONE CAPSULE BY MOUTH ONCE A DAY WITH FOOD TAKING CHLORTHALIDONE 25 MG TABLET TAKE BY MOUTH DIRECTED EVERY MORNING ONCE A DAY TAKING GLUCOMETER 1 METER FOR TEST BLOOD SUGARS ONCE DAILY DX E11.9 TAKING LANCETS - MISCELLANEOUS 1 LANCET FOR DM TESTING DAILY DX E11.9 TAKING ACURA BLOOD GLUCOSE TEST - STRIP 1 STRIP IN VITRO DAILY DX E11.9 TAKING TRAZODONE HCL 50 MG TABLET 3 TABLETS AT BEDTIME NEEDED ORALLY ONCE A DAY TAKING FENTANYL 50 MCG/HR PATCH 72 HOUR 1 PATCH TO SKIN TRANSDERMAL 1 PATCH Q 72H =MDD, NOTES: CHANGED 02/24/16 TAKING OXYCODONE-ACETAMINOPHEN 10-325 MG TABLET 1 TABLET NEEDED ORALLY EVERY 6 HRS MDD4 TAKING METFORMIN HCL 500 MG TABLET 2 TABS ORALLY BID TAKING OXYBUTYNIN CHLORIDE ER 10 MG TABLET EXTENDED RELEASE 24 HOUR 1 TABLET ORALLY ONCE A DAY TAKING KLONOPIN 1 MG TABLET 1 TABLET ORALLY TWICE A DAY (MDD2) NOT-TAKING VIAGRA 100 MG TABLET 1/2-1 TABLET NEEDED ORALLY DAILY MEDICATION LIST REVIEWED AND RECONCILED WITH THE PATIENT PAST MEDICAL HISTORY HERNIAS RENAL CYST NEUROPATHY LEGS 2005 INITIAL INJURY TO LOWER BACK HERNIATED DISC.. REINJURED IN 2007 COPD HTN HYPERLIPIDEMIA MORBID OBESITY ALLERGIES FLAGYL: HIVES: SIDE EFFECTS PAPER ADHESION TAPE: BURNED SKIN OFF: ALLERGY SURGICAL HISTORY 2 HERNIA REPAIRS IN STOMACH DIVERTICULITIS SURGERY(4 SURGERIES WITH IN 2011 FOR THIS) 10/2011 HERNIA REPAIR ABD AREA 10/02/2013 RIGHT RENAL CYST ASPIRATION 09/26/13 L HIP REPLACEMENT 02/06/14 RIGHT PARTIAL NEPHRECTOMY 02/04/15 HEART CATH 05/26/2016 HOSPITALIZATION/MAJOR DIAGNOSTIC PROCEDURE HERNIA REPAIR [place] [facility] 10/2011 [place] HERN[facility] REPA[facility] 10/02/2013 [place] SURGERY RELATED 02/06/14 REVIEW OF SYSTEMS CONSTITUTIONAL: ANY CHANGE IN YOUR MEDICAL CONDITION? NO. PT STATES MEDICATION REGIMEN CONTROLS PAIN MOST OF THE TIME TO A TOLERABLE LEVEL. . CHILLS NO . FEVER NO . INFECTION: DO YOU HAVE NEW INFECTIONS? NO . DO YOU HAVE HISTORY OF MRSA? NO . MUSCULOSKELETAL: ANY NEW PATTERNS OF PAIN OR NUMBNESS? NO . GASTROENTEROLOGY: ANY NEW CHANGE IN BOWEL CONTROL? NO . GENITOURINARY: ANY NEW CHANGE IN BLADDER CONTROL? YES. PT STARTED ON OXYBUTYNIN FOR BLADDER CONTROL . IS THERE A CHANCE YOU COULD BE ? NO . HEMATOLOGY/LYMPH: DO YOU TAKE ANY BLOOD THINNERS? (FOR EXAMPLE- COUMADIN, PLAVIX, AGGRENOX, PLATEL, PRADAXA, OR XARELTO) NO . WHEN WAS YOUR LAST DOSE? DATE: TIME: . NEUROLOGY: HAVE YOU FALLEN IN THE PAST 6 MONTHS? NO . ANY NEW EXTREMITY NUMBNESS OR WEAKNESS? NO . CARDIOLOGY: DO YOU HAVE A PACEMAKER OR DEFIBRILLATOR? NO . RESPIRATORY: HAVE YOU BEEN SICK IN THE PAST WEEK? NO . FEVER NO . FLU LIKE SYMPTOMS? NO . COUGH NO . INTEGUMENTARY: DO YOU HAVE ANY RASHES OR OPEN SORES? NO . ALLERGIC/IMMUNO: ARE YOU ALLERGIC TO SHELLFISH OR IV DYE? NO . ANY NEW ALLERGIES? NO . PSYCHIATRIC: DO YOU HAVE THOUGHTS OF HURTING YOURSELF OR SOMEONE ELSE? NO . ARE YOU ABUSED, NEGLECTED, OR IN AN UNSAFE ENVIRONMENT? NO . ENDOCRINOLOGY: ARE YOU DIABETIC? YES . OTHER: DO YOU NEED ANY PRESCRIPTIONS? NO . IF YES, PLEASE LIST: ____ . ANY NEW PROBLEMS WITH YOUR MEDICATIONS? NO . WHEN DID YOU LAST EAT? ____ . WHEN DID YOU LAST DRINK? ____ . WHAT DID YOU LAST DRINK? ____ . NAME OF PERSON DRIVING YOU HOME? ____ . DO YOU HAVE ANY OTHER QUESTIONS OR CONCERNS NO . REVIEWED BY: PROVIDER: ARMANDO ROSE . VITAL SIGNS WT 290.6 LBS, HT 69.5 IN, BMI 42.29 INDEX, BP 157/90 MM HG, HR 100 /MIN, RR 18 /MIN, TEMP 98.3 F, OXYGEN SAT % 95, SAFE IN ENV? (Y/N) Y, NA INITIALS MP, REVIEWED BY: EMPATIENT STATES BP IS HIGH TODAY HE HAS NOT TAKEN WATER PILL. NURSE NOTIFIED. MP 07/26/16 1415. EXAMINATION GENERAL EXAMINATION: LUNGS:LUNG SOUNDS ARE CLEAR. HEART:HEART RATE REGULAR. MUSCULOSKELETAL:*. MUSCULOSKELETAL:*, MUSCLE STRENGTH TESTING 3/5 BILATERAL, PALPATION: POSITIVE FOR PAIN OVER L/S SPINE. POSITIVE FOR PAIN OVER L/S PARSPINALS. DIAGNOSTIC:MRI L/S [id number].. 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.27 (PRIMARY) CHRONIC PRESCRIPTION OPIATE USE - Z79.891 TREATMENT PROTRUSION OF INTERVERTEBRAL DISC OF LUMBOSACRAL REGION CONTINUE CYCLOBENZAPRINE HCL TABLET, 5 MG, 1 TABLET, ORALLY, THREE TIMES A DAY, NOTES: 02/26/16 0900 CONTINUE AMITRIPTYLINE HCL TABLET, 75 MG, 1, ORALLY, QHS, NOTES: 02/25/16 2100 CONTINUE FENTANYL PATCH 72 HOUR, 50 MCG/HR, 1 PATCH TO SKIN, TRANSDERMAL, 1 PATCH Q 72H =MDD, NOTES: CHANGED 02/24/16 REFILL OXYCODONE-ACETAMINOPHEN TABLET, 10-325 MG, 1 TABLET NEEDED, ORALLY, EVERY 6 HRS MDD4, 30 DAY(S), 120, REFILLS 0 NOTES: ISTOP REGISTRY REVIEWED AND DEMNOSTRATES COMPLLIANCE. BRINGS IN MEDICATIONS WHICH IS APPROPRIATE FOR WHAT WAS DISPENSED. RECENT URINE TOXICOLOGY REVIEWED. NO UNAUTHORIZED MEDICATIONS. NO ILLICIT SUBSTANCES AND PRESCRIBED MEDICATIONS WERE PRESENT. , RISKS AND BENEFITS OF NARCOTIC/OPIOD MEDICATIONS WERE REVIEWED WITH PATIENT - THIS INCLUDES BUT IS NOT LIMITED TO RISK OF DEPENDANCE/DEVELOPMENT OF ADDICTION, MOOD DISTURBANCE AND DEPRESSION, OSTEOPOROSIS, HORMONAL AND LABIDAL CHANGES, RESPIRATORY DEPRESSION AND . PATIENT IS ADVISED NOT TO DRIVE WHILE ON THESE MEDICATIONS, REVIEWED WITH PATIENT THE POTENTIAL RISK OF INCREASED SEDATION, RESPIRATORY SUPPRESSION AND WITH THE COMBINATION OF BENZODIAZAPINE AND OPIOD MEDICATIONS. PATIENT STATES HE UNDERSTANDS THIS RISK AND WISHES TO CONTINUE WITH THERAPY. PROCEDURE CODES FA211 ESTABILISHED PATIENT [facility] CHARGE DISPOSITION & COMMUNICATION FOLLOW UP 2 MONTHS ELECTRONICALLY SIGNED BY MILTON HARRIS ON 08/12/2016 AT 05:11 PM EDT DISCLAIMER : THIS IS A VISIT SUMMARY EXTRACTED FROM THE [employer] CHART. IT IS NOT A COPY OF THE [employer] PROGRESS NOTE. ANGELA
== END ==
LOC: M PAIN 14:20
PROVIDERS: ATTEND Nurse Practitioner Family
DX: M51.27 Other intervertebral disc displacement, lumbosacral region (principal); R10.84 Generalized abdominal pain; Z79.899 Other long term (current) drug therapy; Z79.84 Long term (current) use of oral hypoglycemic drugs; N40.0 Benign prostatic hyperplasia without lower urinary tract symptoms; I10 Essential (primary) hypertension; F32.9 Major depressive disorder, single episode, unspecified; E11.9 Type 2 diabetes mellitus without complications; E78.5 Hyperlipidemia, unspecified; J44.1 Chronic obstructive pulmonary disease with (acute) exacerbation; Z88.1 Allergy status to other antibiotic agents; Z91.048 Other nonmedicinal substance allergy status

== ENCOUNTER → 2016-08-12 | Outpatient (CLI) | payer MEDICARE, MEDICAID ==
--- NOTE | 2016-08-16 08:39 | SLEEPCENT ---
DATE OF PROCEDURE: 08/12/2016 REQUESTING PROVIDER: Venice Colin NP INTERPRETATION: Nocturnal polysomnography was performed due to concern for the obstructive sleep apnea syndrome in this patient with disrupted sleep and morning headaches. 8 hours and 11 minutes of data were reviewed. There were only 409 minutes of sleep identified. Sleep latency was prolonged at 30 minutes. The patient did not achieve rapid eye movement (REM) sleep. Sleep architecture showed poor progression throughout. Overall sleep efficiency was 85%. There was no N3 nor REM sleep identified. The patient's electrocardiogram (EKG) showed a sinus rhythm with an average heart rate of 80 beats per minute. Electroencephalogram (EEG) was mildly artifactual and showed some coarsening in background, possibly medication effect. There are also some alpha intrusions suggesting chronic pain. There were 37 respiratory events identified of 10 seconds in duration or greater for an apnea-hypopnea index of 5.4. The events were primarily obstructive, not exclusive to sleep stage nor body posture. Arousals from respiratory events occurred 3.4 times per hour with some limb activity, but arousals were few. IMPRESSION: Mild obstructive sleep apnea syndrome (G47.33). Apnea-hypopnea index of 5.4. RECOMMENDATIONS: The patient should be encouraged to return to the sleep disorder center for pressure therapy. In the interim, alcohol and sedative avoidance should be practiced and caution exercised during the operation of motor vehicles.
== END ==
LOC: M SLEEP 19:02
PROVIDERS: ATTEND Nurse Practitioner Adult Health
DX: G47.30 Sleep apnea, unspecified (principal)

== ENCOUNTER → 2016-09-06 | Outpatient (REF) | payer MEDICARE ==
[~2016-09-06] MED LIST changes: -CELE-19 PO; +CELE1CAP4 PO; -COLA100C3 PO; +COLA100C5 PO; -COUM2.5T11 PO; +COUM2.5T17 PO; -CYCL5TA PO; +CYCL5TAB PO; -LORA-376 PO; +LORA0.5T11 PO; -MELA0.02 PO; +MELA3TAB49 PO; -MELO7.5T6 PO; +MELO7.5T7 PO; -METF500T PO; +METF500T13 PO; +PERC5TAB12 PO; -PERC5TAB6 PO; +TRAZ50TA11 PO; -TRAZ50TA4 PO
== END ==
LOC: M SMT 12:55
PROVIDERS: ATTEND Urology
DX: N32.81 Overactive bladder (principal); N39.0 Urinary tract infection, site not specified

== ENCOUNTER → 2016-09-21 | Outpatient (CLI) | payer MEDICARE, SELFPAY ==
--- NOTE | 2016-09-22 03:55 | ECWPNPC ---
PATIENT NAME: NOEL MENDEZ : 1960 GENDER: MALE VISIT DATE: 09/21/2016 DISCHARGE DATE: 09/21/16 1451 VISIT LOCKED DATE TIME: PHYSICIAN: ARMANDO ORR RESOURCE: ARMANDO ORR REASON FOR APPOINTMENT 1. BACK HISTORY OF PRESENT ILLNESS HISTORY OF PRESENT ILLNESS: HERE FOR ROUTINE F/U AND MEDICINE MANAGEMENT FOR PERSISTENT LBP AND ABDOMINAL PAIN.RATING PAIN VAS 5/10.FINDS CURRENT CHRONIC PAIN MEDICATION EFFECTIVE AT REDUCING PAIN AND KEEPING HIM COMFORTABLE.CURRENTLY USING FENTANYL PATCH 50MCG Q72H,OXYCODONE 10/325 UP TO 4 PER DAY PRN,AMIRIPTYLINE 75MG AT HS AND CYCLOBENZAPRINE 5MG TID PRN. HAD LESI 02-26-16.REPORTS NO IMPROVEMENT IN PAIN POST PROCEDURE.DESCRIBES PAIN CONSTANT BURNING AND ACHING. PAIN THE PATIENT DESCRIBES THE PAIN... THE PATIENT DESCRIBES THE PAIN... THE PATIENT DESCRIBES THE PAIN... THE PATIENT DESCRIBES THE PAIN... THE PATIENT DESCRIBES THE PAIN... THE PATIENT DESCRIBES THE PAIN... THE PATIENT DESCRIBES THE PAIN... FALL RISK SCREENING: SCREENING :NO FALLS IN THE PAST YEAR CURRENT MEDICATIONS TAKING COLACE 100 MG CAPSULE 1 CAPSULE NEEDED ORALLY TIDPRN TAKING MELOXICAM 7.5MG TABLET 1 TAB(S) ORALLY DAILY TAKING BREO ELLIPTA 100-25 MCG/INH AEROSOL POWDER BREATH ACTIVATED 1 PUFF INHALATION ONCE A DAY TAKING GLUCOMETER 1 METER FOR TEST BLOOD SUGARS ONCE DAILY DX E11.9 TAKING LANCETS - MISCELLANEOUS 1 LANCET FOR DM TESTING DAILY DX E11.9 TAKING ACURA BLOOD GLUCOSE TEST - STRIP 1 STRIP IN VITRO DAILY DX E11.9 TAKING TRAZODONE HCL 50 MG TABLET 3 TABLETS AT BEDTIME NEEDED ORALLY ONCE A DAY TAKING METFORMIN HCL 500 MG TABLET 2 TABS ORALLY BID TAKING OXYBUTYNIN CHLORIDE ER 10 MG TABLET EXTENDED RELEASE 24 HOUR 1 TABLET ORALLY ONCE A DAY TAKING EFFEXOR XR 75 MG CAPSULE EXTENDED RELEASE 24 HOUR 1 CAP ORALLY ONCE A DAY TAKING HYDROXYZINE HCL 50 MG TABLET 1 TABLET NEEDED ORALLY EVERY 8 HRS TAKING PROAIR HFA 108 (90 BASE) MCG/ACT AEROSOL SOLUTION 2 PUFFS NEEDED INHALATION EVERY 4 HRS TAKING CHLORTHALIDONE 25 MG TABLET TAKE BY MOUTH DIRECTED EVERY MORNING ONCE A DAY TAKING FENTANYL 50 MCG/HR PATCH 72 HOUR 1 PATCH TO SKIN TRANSDERMAL 1 PATCH Q 72H =MDD TAKING OXYCODONE-ACETAMINOPHEN 10-325 MG TABLET 1 TABLET NEEDED ORALLY EVERY 6 HRS MDD4 TAKING CYCLOBENZAPRINE HCL 5 MG TABLET 1 TABLET ORALLY THREE TIMES A DAY TAKING CIPROFLOXACIN HCL 500 MG TABLET 1 TABLET 1 HOUR PRIOR TO YOUR CYSTOSCOPY ORALLY ONCE TAKING EFFEXOR XR 150 MG CAPSULE EXTENDED RELEASE 24 HOUR TAKE ONE CAPSULE BY MOUTH ONCE A DAY WITH FOOD NOT-TAKING AMITRIPTYLINE HCL 50 MG TABLET 1 ORALLY QHS, NOTES: 02/25/16 2100 NOT-TAKING KLONOPIN 0.5 MG TABLET 1 TABLET ORALLY TWICE A DAY (MDD2) NOT-TAKING TRAZODONE HCL 50 MG TABLET 3 TABLETS AT BEDTIME NEEDED ORALLY ONCE A DAY NOT-TAKING VIAGRA 100 MG TABLET 1/2-1 TABLET NEEDED ORALLY DAILY MEDICATION LIST REVIEWED AND RECONCILED WITH THE PATIENT PAST MEDICAL HISTORY HERNIAS RENAL CYST NEUROPATHY LEGS 2005 INITIAL INJURY TO LOWER BACK HERNIATED DISC.. REINJURED IN 2007 COPD HTN HYPERLIPIDEMIA MORBID OBESITY ALLERGIES FLAGYL: HIVES: SIDE EFFECTS PAPER ADHESION TAPE: BURNED SKIN OFF: ALLERGY SOCIAL HISTORY GENERAL: TOBACCO USE ARE YOU A:CURRENT SMOKER HOW MANY CIGARETTES A DAY DO YOU SMOKE?21-30 HOW SOON AFTER YOU WAKE UP DO YOU SMOKE YOUR FIRST CIGARETTE?WITHIN 5 MIN HOW OFTEN DO YOU SMOKE CIGARETTES?EVERY DAY PATIENT COUNSELED ON THE DANGERS OF TOBACCO USE AND URGED TO QUIT:06/16/2016 ARE YOU INTERESTED IN QUITTING?NOT READY TO QUIT COUNSELED THE PATIENT ON SMOKING EFFECTS, EDUCATION [id number]/12/2017 VAPORNO E-CIGARETTENO BMI CARE GOAL FOLLOW-UP ABOVE NORMAL BMI FOLLOW-UPGIVING ENCOURAGEMENT TO EXERCISE ALCOHOL SCREENING DID YOU HAVE A DRINK CONTAINING ALCOHOL IN THE PAST YEAR?NO POINTS0 INTERPRETATIONNEGATIVE RECREATIONAL DRUG USE DRUG USE?NO CAFFEINE CAFFEINE USE?YES HIV / HEP-C SCREENING HIV TEST OFFERED TO PATIENT:YES DATE OFFERED:06/16/2016 CONSENT ON FILE TEST ACCEPTED:NO REASON:PATIENT DECLINED TESTED IN PAST HEP-C TEST OFFERED TO PATIENT:YES DATE OFFERED:06/16/2016 TEST ACCEPTED:NO REASON:PATIENT DECLINED CONSENT ON FILE OCCUPATION: DISABLED. DIET: REGULAR. EXERCISE: NONE. MARITAL STATUS: SINGLE. LANGUAGE RWANDAN. LEARNING BARRIERS / SPECIAL NEEDS CHANGE FROM LAST VISIT?NO 07/28/2016 BARRIERS TO LEARNING?NO HEARING IMPAIRED?NO VISION IMPAIRED?NO COGNITIVELY IMPAIRED?NO READINESS TO LEARN?YES LEARNING PREFERENCES?NO LEARNING CAPABILITIES PRESENT?YES EMOTIONAL BARRIERS?NO SPECIAL DEVICES?NO ADMIRALTY LAWYER NEEDED?NO NEW PATIENT PAIN DIARY FROM 0-10, WHAT LEVEL IS YOUR PAIN TODAY?3 PAIN CLINIC PFS, CLERGY, PUBLIC HEALTH REFERRALS PFS REFERRAL NEEDED?NO CLERGY REFERRAL NEEDED?NO PUBLIC HEALTH REFERRAL NEEDED?NO HAS THE PATIENT BEEN EDUCATED REGARDING HIS/HER PLAN OF CARE?YES HAS THE PATIENT BEEN EDUCATED REGARDING PAIN, THE RISK FOR PAIN, THE IMPORTANCE OF EFFECTIVE PAIN MANAGEMENT, AND THE PAIN ASSESSMENT PROCESS?YES REVIEW OF SYSTEMS REVIEWED BY: PROVIDER: ARMANDO ROSE . CONSTITUTIONAL: ANY CHANGE IN YOUR MEDICAL CONDITION? NO . CHILLS NO . FEVER NO . INFECTION: DO YOU HAVE NEW INFECTIONS? NO . DO YOU HAVE HISTORY OF MRSA? NO . MUSCULOSKELETAL: ANY NEW PATTERNS OF PAIN OR NUMBNESS? YES, TORN MUSCLES IN RIGHT LOWER ARM . GASTROENTEROLOGY: ANY NEW CHANGE IN BOWEL CONTROL? NO . GENITOURINARY: ANY NEW CHANGE IN BLADDER CONTROL? NO . IS THERE A CHANCE YOU COULD BE ? NO . HEMATOLOGY/LYMPH: DO YOU TAKE ANY BLOOD THINNERS? (FOR EXAMPLE- COUMADIN, PLAVIX, AGGRENOX, PLATEL, PRADAXA, OR XARELTO) NO . WHEN WAS YOUR LAST DOSE? DATE: TIME: . NEUROLOGY: HAVE YOU FALLEN IN THE PAST 6 MONTHS? NO . ANY NEW EXTREMITY NUMBNESS OR WEAKNESS? NO . CARDIOLOGY: DO YOU HAVE A PACEMAKER OR DEFIBRILLATOR? NO . RESPIRATORY: HAVE YOU BEEN SICK IN THE PAST WEEK? NO . FEVER NO . FLU LIKE SYMPTOMS? NO . COUGH NO . INTEGUMENTARY: DO YOU HAVE ANY RASHES OR OPEN SORES? NO . ALLERGIC/IMMUNO: ARE YOU ALLERGIC TO SHELLFISH OR IV DYE? NO . ANY NEW ALLERGIES? NO . PSYCHIATRIC: DO YOU HAVE THOUGHTS OF HURTING YOURSELF OR SOMEONE ELSE? NO . ARE YOU ABUSED, NEGLECTED, OR IN AN UNSAFE ENVIRONMENT? NO . ENDOCRINOLOGY: ARE YOU DIABETIC? YES . OTHER: DO YOU NEED ANY PRESCRIPTIONS? NO . IF YES, PLEASE LIST: ____ . ANY NEW PROBLEMS WITH YOUR MEDICATIONS? NO . WHEN DID YOU LAST EAT? ____ . WHEN DID YOU LAST DRINK? ____ . WHAT DID YOU LAST DRINK? ____ . NAME OF PERSON DRIVING YOU HOME? ____ . DO YOU HAVE ANY OTHER QUESTIONS OR CONCERNS NO . VITAL SIGNS WT 286.0 LBS, HT 69.5 IN, BMI 41.62 INDEX, BP 141/90 MM HG, HR 106 /MIN, RR 18 /MIN, TEMP 96.0 F, OXYGEN SAT % 96%, NA INITIALS TL 1411, REVIEWED BY: GIA. EXAMINATION GENERAL EXAMINATION: LUNGS:LUNG SOUNDS ARE CLEAR. HEART:HEART RATE REGULAR. MUSCULOSKELETAL:*. MUSCULOSKELETAL:*, MUSCLE STRENGTH TESTING 3/5 BILATERAL, PALPATION: POSITIVE FOR PAIN OVER L/S SPINE. POSITIVE FOR PAIN OVER L/S PARSPINALS. DIAGNOSTIC:MRI L/S [id number]-REVIEWED.. 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 BRINGS IN MEDICATIONS WHICH IS APPROPRIATE FOR WHAT WAS DISPENSED. RECENT URINE TOXICOLOGY REVIEWED. NO UNAUTHORIZED MEDICATIONS. NO ILLICIT SUBSTANCES AND PRESCRIBED MEDICATIONS WERE PRESENT. , RISKS AND BENEFITS OF NARCOTIC/OPIOD MEDICATIONS WERE REVIEWED WITH PATIENT - THIS INCLUDES BUT IS NOT LIMITED TO RISK OF DEPENDANCE/DEVELOPMENT OF ADDICTION, MOOD DISTURBANCE AND DEPRESSION, OSTEOPOROSIS, HORMONAL AND LABIDAL CHANGES, RESPIRATORY DEPRESSION AND . PATIENT IS ADVISED NOT TO DRIVE WHILE ON THESE MEDICATIONS.URINE TOX TODAY. PROCEDURE CODES FA211 ESTABILISHED PATIENT [facility] FACILITY CHARGE DISPOSITION & COMMUNICATION FOLLOW UP 2 MONTHS ELECTRONICALLY SIGNED BY MILTON HARRIS ON 09/21/2016 AT 03:32 PM EDT DISCLAIMER : THIS IS A VISIT SUMMARY EXTRACTED FROM THE [employer] CHART. IT IS NOT A COPY OF THE [employer] PROGRESS NOTE. JOSSD
== END ==
LOC: M PAIN 14:20
PROVIDERS: ATTEND Nurse Practitioner Family
DX: G89.28 Other chronic postprocedural pain (principal); M51.27 Other intervertebral disc displacement, lumbosacral region; J44.9 Chronic obstructive pulmonary disease, unspecified; I10 Essential (primary) hypertension; E78.5 Hyperlipidemia, unspecified; E66.9 Obesity, unspecified; K43.2 Incisional hernia without obstruction or gangrene; F41.8 Other specified anxiety disorders; F51.04 Psychophysiologic insomnia; E11.9 Type 2 diabetes mellitus without complications; G47.33 Obstructive sleep apnea (adult) (pediatric); F17.210 Nicotine dependence, cigarettes, uncomplicated; Z68.41 Body mass index [BMI] 40.0-44.9, adult; Z88.8 Allergy status to other drugs, medicaments and biological substances; L23.1 Allergic contact dermatitis due to adhesives; Z79.51 Long term (current) use of inhaled steroids; Z79.84 Long term (current) use of oral hypoglycemic drugs; Z79.891 Long term (current) use of opiate analgesic; Z79.899 Other long term (current) drug therapy

== ENCOUNTER → 2016-10-21 | Outpatient (CLI) | payer MEDICARE | LOC: M SLEEP 19:41 | PROVIDERS: ATTEND Nurse Practitioner Adult Health | DX: G47.33 Obstructive sleep apnea (adult) (pediatric) (principal) ==

== ENCOUNTER → 2016-11-22 | Outpatient (CLI) | payer MEDICARE, MEDICAID ==
--- NOTE | 2016-12-06 00:50 | ECWPNPC ---
PATIENT NAME: NOEL MENDEZ : 1960 GENDER: MALE VISIT DATE: 11/22/2016 DISCHARGE DATE: 11/22/16 1512 VISIT LOCKED DATE TIME: PHYSICIAN: ARMANDO ORR RESOURCE: ARMANDO ORR REASON FOR APPOINTMENT 1. FOLLOWUP HISTORY OF PRESENT ILLNESS HISTORY OF PRESENT ILLNESS: HERE FOR ROUTINE F/U AND MEDICINE MANAGEMENT FOR PERSISTENT LBP AND ABDOMINAL PAIN.RATING PAIN VAS 3/10.FINDS CURRENT CHRONIC PAIN MEDICATION EFFECTIVE AT REDUCING PAIN AND KEEPING HIM COMFORTABLE.CURRENTLY USING FENTANYL PATCH 50MCG Q72H,OXYCODONE 10/325 UP TO 4 PER DAY PRN,AMIRIPTYLINE 75MG AT HS AND CYCLOBENZAPRINE 5MG TID PRN. HAD LESI 02-26-16.REPORTED NO IMPROVEMENT IN PAIN POST PROCEDURE.DESCRIBES PAIN CONSTANT BURNING AND ACHING.HISTORY OF MULTIPLE ABDOMINAL SURGERIES.MULTIPLE ATTEMPTS AT PT WITH NO IMPROVEMENT. PAIN THE PATIENT DESCRIBES THE PAIN... THE PATIENT DESCRIBES THE PAIN... THE PATIENT DESCRIBES THE PAIN... THE PATIENT DESCRIBES THE PAIN... THE PATIENT DESCRIBES THE PAIN... THE PATIENT DESCRIBES THE PAIN... THE PATIENT DESCRIBES THE PAIN... THE PATIENT DESCRIBES THE PAIN... FALL RISK SCREENING: SCREENING :NO FALLS IN THE PAST YEAR CURRENT MEDICATIONS TAKING COLACE 100 MG CAPSULE 1 CAPSULE NEEDED ORALLY TIDPRN TAKING MELOXICAM 7.5MG TABLET 1 TAB(S) ORALLY DAILY TAKING GLUCOMETER 1 METER FOR TEST BLOOD SUGARS ONCE DAILY DX E11.9 TAKING LANCETS - MISCELLANEOUS 1 LANCET FOR DM TESTING DAILY DX E11.9 TAKING ACURA BLOOD GLUCOSE TEST - STRIP 1 STRIP IN VITRO DAILY DX E11.9 TAKING OXYBUTYNIN CHLORIDE ER 10 MG TABLET EXTENDED RELEASE 24 HOUR 1 TABLET ORALLY ONCE A DAY TAKING CYCLOBENZAPRINE HCL 5 MG TABLET 1 TABLET ORALLY THREE TIMES A DAY TAKING TRAZODONE HCL 50 MG TABLET 3 TABLETS AT BEDTIME NEEDED ORALLY ONCE A DAY TAKING METFORMIN HCL 500 MG TABLET 2 TABS ORALLY BID TAKING CHLORTHALIDONE 25 MG TABLET TAKE BY MOUTH DIRECTED EVERY MORNING ONCE A DAY TAKING EFFEXOR XR 150 MG CAPSULE EXTENDED RELEASE 24 HOUR TAKE ONE CAPSULE BY MOUTH ONCE A DAY WITH FOOD TAKING HYDROXYZINE HCL 50 MG TABLET 1 TABLET NEEDED ORALLY EVERY 8 HRS TAKING EFFEXOR XR 75 MG CAPSULE EXTENDED RELEASE 24 HOUR 1 CAP ORALLY ONCE A DAY TAKING BREO ELLIPTA 100-25 MCG/INH AEROSOL POWDER BREATH ACTIVATED 1 PUFF INHALATION ONCE A DAY TAKING FENTANYL 50 MCG/HR PATCH 72 HOUR 1 PATCH TO SKIN TRANSDERMAL 1 PATCH Q 72H =MDD TAKING OXYCODONE-ACETAMINOPHEN 10-325 MG TABLET 1 TABLET NEEDED ORALLY EVERY 6 HRS MDD4 TAKING PROAIR HFA 108 (90 BASE) MCG/ACT AEROSOL SOLUTION 2 PUFFS NEEDED INHALATION EVERY 4 HRS NOT-TAKING CIPROFLOXACIN HCL 500 MG TABLET 1 TABLET 1 HOUR PRIOR TO YOUR CYSTOSCOPY ORALLY ONCE NOT-TAKING AMITRIPTYLINE HCL 50 MG TABLET 1 ORALLY QHS, NOTES: 02/25/162099 NOT-TAKING KLONOPIN 0.5 MG TABLET 1 TABLET ORALLY TWICE A DAY (MDD2) NOT-TAKING TRAZODONE HCL 50 MG TABLET 3 TABLETS AT BEDTIME NEEDED ORALLY ONCE A DAY NOT-TAKING VIAGRA 100 MG TABLET 1/2-1 TABLET NEEDED ORALLY DAILY MEDICATION LIST REVIEWED AND RECONCILED WITH THE PATIENT PAST MEDICAL HISTORY HERNIAS RENAL CYST NEUROPATHY LEGS 2005 INITIAL INJURY TO LOWER BACK HERNIATED DISC.. REINJURED IN 2007 COPD HTN HYPERLIPIDEMIA MORBID OBESITY ALLERGIES FLAGYL: HIVES: SIDE EFFECTS PAPER ADHESION TAPE: BURNED SKIN OFF: ALLERGY SOCIAL HISTORY GENERAL: TOBACCO USE ARE YOU A:CURRENT SMOKER HOW MANY CIGARETTES A DAY DO YOU SMOKE?21-30 HOW SOON AFTER YOU WAKE UP DO YOU SMOKE YOUR FIRST CIGARETTE?WITHIN 5 MIN HOW OFTEN DO YOU SMOKE CIGARETTES?EVERY DAY PATIENT COUNSELED ON THE DANGERS OF TOBACCO USE AND URGED TO QUIT:11/22/2016 ARE YOU INTERESTED IN QUITTING?THINKING ABOUT QUITTING PT REFUSES INFORMATION ABOUT QUITTING OR CLASSES AT THIS TIME PREVIOUS QUIT ATTEMPTS?YES, MORE THAN 6 MONTHS AGO. COUNSELED THE PATIENT ON SMOKING CESSATION, EDUCATION [id number]/18/2017 VAPORNO E-CIGARETTENO BMI CARE GOAL FOLLOW-UP ABOVE NORMAL BMI FOLLOW-UPGIVING ENCOURAGEMENT TO EXERCISE ALCOHOL SCREENING DID YOU HAVE A DRINK CONTAINING ALCOHOL IN THE PAST YEAR?NO POINTS0 INTERPRETATIONNEGATIVE RECREATIONAL DRUG USE DRUG USE?NO CAFFEINE CAFFEINE USE?YES 1 PEPSI A DAY HIV / HEP-C SCREENING HIV TEST OFFERED TO PATIENT:YES DATE OFFERED:06/16/2016 CONSENT ON FILE TEST ACCEPTED:NO REASON:PATIENT DECLINED TESTED IN PAST HEP-C TEST OFFERED TO PATIENT:YES DATE OFFERED:06/16/2016 TEST ACCEPTED:NO REASON:PATIENT DECLINED CONSENT ON FILE OCCUPATION: DISABLED. DIET: REGULAR. EXERCISE: NONE. MARITAL STATUS: SINGLE. LANGUAGE LUXEMBOURGISH. LEARNING BARRIERS / SPECIAL NEEDS CHANGE FROM LAST VISIT?NO 09/28/2016 BARRIERS TO LEARNING?NO HEARING IMPAIRED?NO VISION IMPAIRED?NO COGNITIVELY IMPAIRED?NO READINESS TO LEARN?YES LEARNING PREFERENCES?NO LEARNING CAPABILITIES PRESENT?YES EMOTIONAL BARRIERS?NO SPECIAL DEVICES?NO NIB ADJUSTER NEEDED?NO NEW PATIENT PAIN DIARY FROM 0-10, WHAT LEVEL IS YOUR PAIN TODAY?3 PAIN CLINIC PFS, CLERGY, PUBLIC HEALTH REFERRALS PFS REFERRAL NEEDED?NO CLERGY REFERRAL NEEDED?NO PUBLIC HEALTH REFERRAL NEEDED?NO HAS THE PATIENT BEEN EDUCATED REGARDING HIS/HER PLAN OF CARE?YES HAS THE PATIENT BEEN EDUCATED REGARDING PAIN, THE RISK FOR PAIN, THE IMPORTANCE OF EFFECTIVE PAIN MANAGEMENT, AND THE PAIN ASSESSMENT PROCESS?YES REVIEW OF SYSTEMS REVIEWED BY: PROVIDER: ARMANDO ROSE . CONSTITUTIONAL: ANY CHANGE IN YOUR MEDICAL CONDITION? NO . CHILLS NO . FEVER NO . INFECTION: DO YOU HAVE NEW INFECTIONS? NO . DO YOU HAVE HISTORY OF MRSA? NO . MUSCULOSKELETAL: ANY NEW PATTERNS OF PAIN OR NUMBNESS? NO . GASTROENTEROLOGY: ANY NEW CHANGE IN BOWEL CONTROL? NO . GENITOURINARY: ANY NEW CHANGE IN BLADDER CONTROL? NO . IS THERE A CHANCE YOU COULD BE ? NO . HEMATOLOGY/LYMPH: DO YOU TAKE ANY BLOOD THINNERS? (FOR EXAMPLE- COUMADIN, PLAVIX, AGGRENOX, PLATEL, PRADAXA, OR XARELTO) NO . WHEN WAS YOUR LAST DOSE? DATE: TIME: . NEUROLOGY: HAVE YOU FALLEN IN THE PAST 6 MONTHS? NO . ANY NEW EXTREMITY NUMBNESS OR WEAKNESS? NO . CARDIOLOGY: DO YOU HAVE A PACEMAKER OR DEFIBRILLATOR? NO . RESPIRATORY: HAVE YOU BEEN SICK IN THE PAST WEEK? NO . FEVER NO . FLU LIKE SYMPTOMS? NO . COUGH NO . INTEGUMENTARY: DO YOU HAVE ANY RASHES OR OPEN SORES? NO . ALLERGIC/IMMUNO: ARE YOU ALLERGIC TO SHELLFISH OR IV DYE? NO . ANY NEW ALLERGIES? NO . PSYCHIATRIC: DO YOU HAVE THOUGHTS OF HURTING YOURSELF OR SOMEONE ELSE? NO . ARE YOU ABUSED, NEGLECTED, OR IN AN UNSAFE ENVIRONMENT? NO . ENDOCRINOLOGY: ARE YOU DIABETIC? YES . OTHER: DO YOU NEED ANY PRESCRIPTIONS? YES . IF YES, PLEASE LIST: __"ALL" __CYCLOBENZAPRINE, FENTANYL PATCH, OXYCODONE . ANY NEW PROBLEMS WITH YOUR MEDICATIONS? NO . WHEN DID YOU LAST EAT? ____ . WHEN DID YOU LAST DRINK? ____ . WHAT DID YOU LAST DRINK? ____ . NAME OF PERSON DRIVING YOU HOME? ____ . DO YOU HAVE ANY OTHER QUESTIONS OR CONCERNS NO . VITAL SIGNS WT 280.4 LBS, HT 69.5 IN, BMI 40.81 INDEX, BP 162/79 MM HG, HR 101 /MIN, RR 18 /MIN, TEMP 97.7 F, OXYGEN SAT % 97%, SAFE IN ENV? (Y/N) YES, REVIEWED BY: BELLA. EXAMINATION GENERAL EXAMINATION: LUNGS:LUNG SOUNDS ARE CLEAR. HEART:HEART RATE REGULAR. MUSCULOSKELETAL:*. MUSCULOSKELETAL:*, MUSCLE STRENGTH TESTING 3/5 BILATERAL, PALPATION: POSITIVE FOR PAIN OVER L/S SPINE. POSITIVE FOR PAIN OVER L/S PARSPINALS. DIAGNOSTIC:MRI L/S [id number].. GASTROENTEROLOGY: GENERAL APPEARANCES:MORBIDLY OBESE.MULTPLE SURGICAL SCARS.. ABDOMEN:NO GUARDING, RIGIDITY OR REBOUND. 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.27 (PRIMARY) PAIN, CHRONIC POSTOPERATIVE - G89.28 CHRONIC PRESCRIPTION OPIATE USE - Z79.891 TREATMENT PROTRUSION OF INTERVERTEBRAL DISC OF LUMBOSACRAL REGION CONTINUE COLACE CAPSULE, 100 MG, 1 CAPSULE NEEDED, ORALLY, TIDPRN REFILL FENTANYL PATCH 72 HOUR, 50 MCG/HR, 1 PATCH TO SKIN, TRANSDERMAL, 1 PATCH Q 72H =MDD, 30 DAY(S), 10, REFILLS 0 REFILL OXYCODONE-ACETAMINOPHEN TABLET, 10-325 MG, 1 TABLET NEEDED, ORALLY, EVERY 6 HRS MDD4, 30 DAY(S), 120, REFILLS 0 NOTES: ISTOP REGISTRY [id number] AND DEMNOSTRATES COMPLLIANCE. BRINGS IN MEDICATIONS WHICH IS APPROPRIATE FOR WHAT WAS DISPENSED. RECENT URINE TOXICOLOGY REVIEWED. NO UNAUTHORIZED MEDICATIONS. NO ILLICIT SUBSTANCES AND PRESCRIBED MEDICATIONS WERE PRESENT. , RISKS AND BENEFITS OF NARCOTIC/OPIOD MEDICATIONS WERE REVIEWED WITH PATIENT - THIS INCLUDES BUT IS NOT LIMITED TO RISK OF DEPENDANCE/DEVELOPMENT OF ADDICTION, MOOD DISTURBANCE AND DEPRESSION, OSTEOPOROSIS, HORMONAL AND LABIDAL CHANGES, RESPIRATORY DEPRESSION AND . PATIENT IS ADVISED NOT TO DRIVE WHILE ON THESE MEDICATIONS. PROCEDURE CODES FA211 ESTABILISHED PATIENT [facility] CHARGE DISPOSITION & COMMUNICATION FOLLOW UP 2 MONTHS ELECTRONICALLY SIGNED BY MILTON HARRIS ON 12/05/2016 AT 10:38 PM EDT DISCLAIMER : THIS IS A VISIT SUMMARY EXTRACTED FROM THE [employer] CHART. IT IS NOT A COPY OF THE [employer] PROGRESS NOTE. ANGELA
== END ==
LOC: M PAIN 14:45
PROVIDERS: ATTEND Nurse Practitioner Family
DX: M51.27 Other intervertebral disc displacement, lumbosacral region (principal); G89.28 Other chronic postprocedural pain; F17.210 Nicotine dependence, cigarettes, uncomplicated; I10 Essential (primary) hypertension; E11.9 Type 2 diabetes mellitus without complications; F32.9 Major depressive disorder, single episode, unspecified; E78.5 Hyperlipidemia, unspecified; J44.9 Chronic obstructive pulmonary disease, unspecified; Z79.891 Long term (current) use of opiate analgesic; Z79.899 Other long term (current) drug therapy; Z79.84 Long term (current) use of oral hypoglycemic drugs; Z88.1 Allergy status to other antibiotic agents; Z91.09 Other allergy status, other than to drugs and biological substances

== ENCOUNTER → 2016-12-30 | Outpatient (REF) | payer MEDICARE, MEDICAID ==
[2016-12-30 18:43] LABS: ALBUMIN 4.2 GM/DL (3.2-5.2); ALBUMIN/GLOBULIN RATIO 1.02 (1.00-1.93); BILIRUBIN,TOTAL 0.5 MG/DL (0.2-1.0); CALCIUM LEVEL 9.6 MG/DL (8.5-10.1); CREATININE FOR GFR 1.37 MG/DL (0.70-1.30); FREE T4 0.98 NG/DL (0.76-1.46); GLOMERULAR FILTRATION RATE 57.4 (>56); POTASSIUM SERUM 4.2 MEQ/L (3.5-5.1); TOTAL PROTEIN 8.3 GM/DL (6.4-8.2)
== END ==
LOC: M SFHCCAPE 10:04
PROVIDERS: ATTEND Physician Assistant
DX: E11.9 Type 2 diabetes mellitus without complications (principal)

== ENCOUNTER → 2017-02-03 | Outpatient (CLI) | payer MEDICARE, MEDICAID ==
--- NOTE | 2017-02-18 01:25 | ECWPNPC ---
PATIENT NAME: NOEL MENDEZ : 1960 GENDER: MALE VISIT DATE: 02/03/2017 DISCHARGE DATE: 02/03/17 1211 VISIT LOCKED DATE TIME: PHYSICIAN: ARMANDO ORR RESOURCE: ARMANDO ORR REASON FOR APPOINTMENT 1. BACK HISTORY OF PRESENT ILLNESS HISTORY OF PRESENT ILLNESS: HERE FOR ROUTINE F/U AND MEDICINE MANAGEMENT FOR PERSISTENT LBP AND ABDOMINAL PAIN.RATING PAIN VAS 5/10.COMPLAINING THAT FENTANYL PATCH FALLS OFF FREQUENTLY DUE TO SWEATING EPISODES. DISCUSSED TRYING TO SLOWLY REDUCE AND DISCONTINUE NARCOTIC PAIN MEDICATION.HE IS RECEPTIVE BUT SCARED HE WILL LOOSE HIS ABILITY TO FUNCTION.KOREY ASSURED HIM THAT WE ARE HERE TO HELP AND THIS WOULD BE A SLOW PROCESS.CURRENTLY USING FENTANYL PATCH 50MCG Q72H,OXYCODONE 10/325 UP TO 4 PER DAY PRN,AND CYCLOBENZAPRINE 5MG TID PRN. HAD LESI 02-26-16.REPORTED NO IMPROVEMENT IN PAIN POST PROCEDURE.DESCRIBES PAIN CONSTANT BURNING AND ACHING.HISTORY OF MULTIPLE ABDOMINAL SURGERIES.MULTIPLE ATTEMPTS AT PT WITH NO IMPROVEMENT. PAIN THE PATIENT DESCRIBES THE PAIN... THE PATIENT DESCRIBES THE PAIN... THE PATIENT DESCRIBES THE PAIN... THE PATIENT DESCRIBES THE PAIN... THE PATIENT DESCRIBES THE PAIN... THE PATIENT DESCRIBES THE PAIN... THE PATIENT DESCRIBES THE PAIN... THE PATIENT DESCRIBES THE PAIN... THE PATIENT DESCRIBES THE PAIN... FALL RISK SCREENING: SCREENING :NO FALLS IN THE PAST YEAR CURRENT MEDICATIONS TAKING HYDROXYZINE HCL 50 MG TABLET 1 TABLET NEEDED ORALLY EVERY 8 HRS TAKING EFFEXOR XR 75 MG CAPSULE EXTENDED RELEASE 24 HOUR 1 CAP ORALLY ONCE A DAY TAKING BREO ELLIPTA 100-25 MCG/INH AEROSOL POWDER BREATH ACTIVATED 1 PUFF INHALATION ONCE A DAY TAKING PROAIR HFA 108 (90 BASE) MCG/ACT AEROSOL SOLUTION 2 PUFFS NEEDED INHALATION EVERY 4 HRS TAKING OXYBUTYNIN CHLORIDE ER 10 MG TABLET EXTENDED RELEASE 24 HOUR 1 TABLET ORALLY ONCE A DAY TAKING CHANTIX STARTING MONTH SARAH 0.5 MG X 11 & 1 MG X 42 TABLET 1 TAB ORALLY DAILY TAKING ATORVASTATIN CALCIUM 10 MG TABLET 1 TABLET ORALLY ONCE A DAY TAKING OXYCODONE-ACETAMINOPHEN 10-325 MG TABLET 1 TABLET NEEDED ORALLY EVERY 6 HRS MDD4 TAKING FENTANYL 50 MCG/HR PATCH 72 HOUR 1 PATCH TO SKIN TRANSDERMAL 1 PATCH Q 72H =MDD TAKING AMBIEN 5 MG TABLET 1 TABLET AT BEDTIME ORALLY ONCE A DAY TAKING MELOXICAM 7.5MG TABLET 1 TAB(S) ORALLY DAILY TAKING CHLORTHALIDONE 25 MG TABLET TAKE ONE TABLET BY MOUTH ONCE A DAY EVERY MORNING TAKING ZOLPIDEM TARTRATE 5 MG TABLET 1 TABLET AT BEDTIME ORALLY ONCE A DAY NOT-TAKING TRAZODONE HCL 50 MG TABLET TAKE THREE TABLETS BY MOUTH ONCE A DAY AT BEDTIME NEEDED DISCONTINUED COLACE 100 MG CAPSULE 1 CAPSULE NEEDED ORALLY TIDPRN UNKNOWN GLUCOMETER 1 METER FOR TEST BLOOD SUGARS ONCE DAILY DX E11.9 UNKNOWN LANCETS - MISCELLANEOUS 1 LANCET FOR DM TESTING DAILY DX E11.9 UNKNOWN ACURA BLOOD GLUCOSE TEST - STRIP 1 STRIP IN VITRO DAILY DX E11.9 UNKNOWN CYCLOBENZAPRINE HCL 5 MG TABLET 1 TABLET ORALLY THREE TIMES A DAY UNKNOWN METFORMIN HCL 500 MG TABLET 2 TABS ORALLY BID UNKNOWN EFFEXOR XR 150 MG CAPSULE EXTENDED RELEASE 24 HOUR TAKE ONE CAPSULE BY MOUTH ONCE A DAY WITH FOOD MEDICATION LIST REVIEWED AND RECONCILED WITH THE PATIENT PAST MEDICAL HISTORY HERNIAS RENAL CYST NEUROPATHY LEGS 2005 INITIAL INJURY TO LOWER BACK HERNIATED DISC.. REINJURED IN 2007 COPD HTN HYPERLIPIDEMIA MORBID OBESITY QUINTON-NONCOMPLIANT WITH MACHINE NUMBNESS IN LEFT THUMB FREQUENT NOSE BLEEDS ALLERGIES FLAGYL: HIVES: SIDE EFFECTS PAPER ADHESION TAPE: BURNED SKIN OFF: ALLERGY SOCIAL HISTORY GENERAL: TOBACCO USE ARE YOU A:CURRENT SMOKER ARE YOU INTERESTED IN QUITTING?THINKING ABOUT QUITTING PT REFUSES INFORMATION ABOUT QUITTING OR CLASSES AT THIS TIME PREVIOUS QUIT ATTEMPTS?YES, MORE THAN 6 MONTHS AGO. COUNSELED THE PATIENT ON SMOKING CESSATION, EDUCATION [id number]/30/2017 HOW MANY CIGARETTES A DAY DO YOU SMOKE?21-30 HOW SOON AFTER YOU WAKE UP DO YOU SMOKE YOUR FIRST CIGARETTE?WITHIN 5 MIN HOW OFTEN DO YOU SMOKE CIGARETTES?EVERY DAY PATIENT COUNSELED ON THE DANGERS OF TOBACCO USE AND URGED TO QUIT:02/03/2017 VAPORNO E-CIGARETTENO BMI CARE GOAL FOLLOW-UP ABOVE NORMAL BMI FOLLOW-UPGIVING ENCOURAGEMENT TO EXERCISE ALCOHOL SCREENING DID YOU HAVE A DRINK CONTAINING ALCOHOL IN THE PAST YEAR?NO POINTS0 INTERPRETATIONNEGATIVE RECREATIONAL DRUG USE DRUG USE?NO CAFFEINE CAFFEINE USE?YES 1 PEPSI A DAY HIV / HEP-C SCREENING HIV TEST OFFERED TO PATIENT:YES DATE OFFERED:06/16/2016 CONSENT ON FILE TEST ACCEPTED:NO REASON:PATIENT DECLINED TESTED IN PAST HEP-C TEST OFFERED TO PATIENT:YES DATE OFFERED:06/16/2016 TEST ACCEPTED:NO REASON:PATIENT DECLINED CONSENT ON FILE OCCUPATION: DISABLED. DIET: REGULAR. EXERCISE: NONE. MARITAL STATUS: SINGLE. LANGUAGE NEPALI. 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 CONSTITUTIONAL: ANY CHANGE IN YOUR MEDICAL CONDITION? NO . CHILLS NO . FEVER NO . INFECTION: DO YOU HAVE NEW INFECTIONS? NO . DO YOU HAVE HISTORY OF MRSA? NO . MUSCULOSKELETAL: ANY NEW PATTERNS OF PAIN OR NUMBNESS? YES . GASTROENTEROLOGY: ANY NEW CHANGE IN BOWEL CONTROL? NO . GENITOURINARY: ANY NEW CHANGE IN BLADDER CONTROL? NO . IS THERE A CHANCE YOU COULD BE ? NO . HEMATOLOGY/LYMPH: DO YOU TAKE ANY BLOOD THINNERS? (FOR EXAMPLE- COUMADIN, PLAVIX, AGGRENOX, PLATEL, PRADAXA, OR XARELTO) NO . WHEN WAS YOUR LAST DOSE? DATE: TIME: . NEUROLOGY: HAVE YOU FALLEN IN THE PAST 6 MONTHS? NO . ANY NEW EXTREMITY NUMBNESS OR WEAKNESS? NO . CARDIOLOGY: DO YOU HAVE A PACEMAKER OR DEFIBRILLATOR? NO . RESPIRATORY: HAVE YOU BEEN SICK IN THE PAST WEEK? NO . FEVER NO . FLU LIKE SYMPTOMS? NO . COUGH NO . INTEGUMENTARY: DO YOU HAVE ANY RASHES OR OPEN SORES? NO . ALLERGIC/IMMUNO: ARE YOU ALLERGIC TO SHELLFISH OR IV DYE? NO . ANY NEW ALLERGIES? NO . PSYCHIATRIC: DO YOU HAVE THOUGHTS OF HURTING YOURSELF OR SOMEONE ELSE? NO . ARE YOU ABUSED, NEGLECTED, OR IN AN UNSAFE ENVIRONMENT? NO . ENDOCRINOLOGY: ARE YOU DIABETIC? YES . OTHER: DO YOU NEED ANY PRESCRIPTIONS? NO . IF YES, PLEASE LIST: ____ . ANY NEW PROBLEMS WITH YOUR MEDICATIONS? NO . WHEN DID YOU LAST EAT? ____ . WHEN DID YOU LAST DRINK? ____ . WHAT DID YOU LAST DRINK? ____ . NAME OF PERSON DRIVING YOU HOME? ____ . DO YOU HAVE ANY OTHER QUESTIONS OR CONCERNS NO . VITAL SIGNS WT 281.0 LBS, HT 69.5 IN, BMI 40.90 INDEX, BP 146/84 MM HG, HR 89 /MIN, RR 18 /MIN, TEMP 98.1 F, OXYGEN SAT % 96%, SAFE IN ENV? (Y/N) YES, NA INITIALS TL 1122, REVIEWED BY: REBEKAH. EXAMINATION GENERAL EXAMINATION: LUNGS:LUNG SOUNDS ARE CLEAR. HEART:HEART RATE REGULAR. MUSCULOSKELETAL:*. DIAGNOSTIC:MRI L/S [id number]-REVIEWED.. GASTROENTEROLOGY: GENERAL APPEARANCES:MORBIDLY OBESE.MULTPLE SURGICAL SCARS.. ABDOMEN:NO GUARDING, RIGIDITY OR REBOUND. 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.27 (PRIMARY) PAIN, CHRONIC POSTOPERATIVE - G89.28 CHRONIC PRESCRIPTION OPIATE USE - Z79.891 TREATMENT PROTRUSION OF INTERVERTEBRAL DISC OF LUMBOSACRAL REGION CONTINUE OXYCODONE-ACETAMINOPHEN TABLET, 10-325 MG, 1 TABLET NEEDED, ORALLY, EVERY 6 HRS MDD4 DECREASE FENTANYL PATCH 72 HOUR, 25 MCG/HR, 1 PATCH TO SKIN, TRANSDERMAL, 1 PATCH Q 72H =MDD, 30 DAY(S), 10, REFILLS 0 CONTINUE CYCLOBENZAPRINE HCL TABLET, 5 MG, 1 TABLET, ORALLY, THREE TIMES A DAY NOTES: ISTOP REGISTRY REVIEWED [id number] AND DEMNOSTRATES COMPLLIANCE. BRINGS IN MEDICATIONS WHICH IS APPROPRIATE FOR WHAT WAS DISPENSED. RECENT URINE TOXICOLOGY REVIEWED. NO UNAUTHORIZED MEDICATIONS. NO ILLICIT SUBSTANCES AND PRESCRIBED MEDICATIONS WERE PRESENT. , RISKS AND BENEFITS OF NARCOTIC/OPIOD MEDICATIONS WERE REVIEWED WITH PATIENT - THIS INCLUDES BUT IS NOT LIMITED TO RISK OF DEPENDANCE/DEVELOPMENT OF ADDICTION, MOOD DISTURBANCE AND DEPRESSION, OSTEOPOROSIS, HORMONAL AND LABIDAL CHANGES, RESPIRATORY DEPRESSION AND . PATIENT IS ADVISED NOT TO DRIVE WHILE ON THESE MEDICATIONS. PROCEDURE CODES FA211 ESTABILISHED PATIENT [facility] CHARGE DISPOSITION & COMMUNICATION FOLLOW UP 4 WEEKS ELECTRONICALLY SIGNED BY MILTON HARRIS ON 02/17/2017 AT 04:30 PM EST DISCLAIMER : THIS IS A VISIT SUMMARY EXTRACTED FROM THE [employer] CHART. IT IS NOT A COPY OF THE [employer] PROGRESS NOTE. ANGELA
== END ==
LOC: M PAIN 11:15
PROVIDERS: ATTEND Nurse Practitioner Family
DX: M51.27 Other intervertebral disc displacement, lumbosacral region (principal); G89.28 Other chronic postprocedural pain; I10 Essential (primary) hypertension; E78.5 Hyperlipidemia, unspecified; J44.9 Chronic obstructive pulmonary disease, unspecified; F17.210 Nicotine dependence, cigarettes, uncomplicated; Z79.891 Long term (current) use of opiate analgesic; Z79.899 Other long term (current) drug therapy; Z88.8 Allergy status to other drugs, medicaments and biological substances; Z91.048 Other nonmedicinal substance allergy status

== ENCOUNTER → 2017-03-09 | Outpatient (CLI) | payer MEDICARE, MEDICAID | LOC: M PAIN 15:00 | DX: M51.27 Other intervertebral disc displacement, lumbosacral region (principal); G89.28 Other chronic postprocedural pain; J44.9 Chronic obstructive pulmonary disease, unspecified; I10 Essential (primary) hypertension; E11.9 Type 2 diabetes mellitus without complications; E78.5 Hyperlipidemia, unspecified; E66.01 Morbid (severe) obesity due to excess calories; Z68.39 Body mass index [BMI] 39.0-39.9, adult; G47.33 Obstructive sleep apnea (adult) (pediatric); F17.210 Nicotine dependence, cigarettes, uncomplicated; L23.1 Allergic contact dermatitis due to adhesives; Z88.8 Allergy status to other drugs, medicaments and biological substances; Z79.891 Long term (current) use of opiate analgesic; Z79.899 Other long term (current) drug therapy | CPT/HCPCS: G0463 ==

== ENCOUNTER → 2017-03-18 | Outpatient (REF) | payer MEDICARE, MEDICAID | LOC: M SMT 17:27 | DX: R30.0 Dysuria (principal) | CPT/HCPCS: 87186 ==

== ENCOUNTER → 2017-03-30 | Outpatient (REF) | payer MEDICARE, MEDICAID ==
[2017-03-30 20:02] LABS: PSA SCREENING 0.83 NG/ML (< 4.0)
== END ==
LOC: M LABNEURO 10:44
DX: Z12.5 Encounter for screening for malignant neoplasm of prostate (principal)

== ENCOUNTER → 2017-03-30 | Outpatient (REF) | payer MEDICARE, MEDICAID ==
[2017-03-30 19:58] LABS: TOTAL PROTEIN 8.2 GM/DL (6.4-8.2)
[2017-03-30 20:00] LABS: FOLATE 8.6 NG/ML; VITAMIN B12 LEVEL 495 PG/ML
[2017-03-30 21:14] LABS: ESTIMATED AVERAGE GLUCOSE 123 MG/DL (60-110); HEMOGLOBIN A1c 5.9 %
[2017-03-31 10:52] LABS: ALBUMIN 4.58 GM/DL (3.29-5.55); ALBUMIN % 55.9 % (55.8-66.1); ALPHA-1-GLOBULIN % 3.5 % (2.9-4.9); ALPHA-2-GLOBULINS % 10.2 % (7.1-11.8); BETA-1-GLOBULINS % 7.2 % (4.7-7.2); BETA-2-GLOBULINS % 5.9 % (3.2-6.5); GAMMA GLOBULIN % 17.3 % (11.1-18.8)
[2017-03-31 10:53] LABS: ALPHA-1-GLOBULINS 0.29 GM/DL (0.17-0.41); ALPHA-2-GLOBULINS 0.84 GM/DL (0.42-0.99); BETA-1-GLOBULINS 0.59 GM/DL (0.28-0.60); BETA-2-GLOBULINS 0.48 GM/DL (0.19-0.55); GAMMA GLOBULINS 1.42 GM/DL (0.65-1.58)
== END ==
LOC: M LABNEURO 10:46
DX: E11.42 Type 2 diabetes mellitus with diabetic polyneuropathy (principal); Z12.5 Encounter for screening for malignant neoplasm of prostate; Z79.899 Other long term (current) drug therapy
CPT/HCPCS: 82525

== ENCOUNTER → 2017-04-08 | Outpatient (CLI) | payer MEDICARE, MEDICAID ==
[2017-04-08 13:45] LABS: BASO # 0.1 10^3/uL (0.0-0.2); BASO % 0.9 % (0.0-1.0); EOS # 0.3 10^3/uL (0.0-0.50); EOS % 3.9 % (0.0-3.0); HEMATOCRIT 50.7 % (42.0-52.0); HEMOGLOBIN 16.3 g/dl (14.0-18.0); IMMATURE GRANULOCYTE % 0.4 % (0-0); LYMPH # 2.3 10^3/uL (1.5-4.5); MEAN CORPUSCULAR HEMOGLOBIN 28.4 pg (27.0-33.0); MEAN CORPUSCULAR HGB CONC 32.1 g/dl (32.0-36.5); MEAN CORPUSCULAR VOLUME 88.5 fl (80.0-96.0); MONO # 0.9 10^3/uL (0.0-0.8); MONO % 10.9 % (0.0-5.0); NEUTROPHILS # 4.3 10^3/uL (1.8-7.7); NEUTROPHILS % 54.9 % (36.0-66.0); PLATELET COUNT, AUTOMATED 198 10^3/uL (150-450); RED BLOOD COUNT 5.73 10^6/uL (4.30-6.10); RED CELL DISTRIBUTION WIDTH 13.2 % (11.5-14.5); WHITE BLOOD COUNT 7.8 10^3/uL (4.0-10.0)
[2017-04-08 14:07] LABS: ALBUMIN/GLOBULIN RATIO 1.08 (1.00-1.93); ALKALINE PHOSPHATASE 112 U/L (45-117); ALT/SGPT 45 U/L (12-78); ANION GAP 7 MEQ/L (8-16); AST/SGOT 36 U/L (7-37); BILIRUBIN,TOTAL 0.3 MG/DL (0.2-1.0); BLOOD UREA NITROGEN 20 MG/DL (7-18); CARBON DIOXIDE LEVEL 29 MEQ/L (21-32); CHLORIDE LEVEL 104 MEQ/L (98-107); CHOLESTEROL LEVEL 176 MG/DL (<200); CHOLESTEROL RISK RATIO 5.333 (<5); CREATININE FOR GFR 1.19 MG/DL (0.70-1.30); GLOMERULAR FILTRATION RATE > 60.0 (>56); GLUCOSE, FASTING 101 MG/DL (70-100); HDL CHOLESTEROL 33 MG/DL (>40); NON-HDL-C 143 MG/DL; POTASSIUM SERUM 4.3 MEQ/L (3.5-5.1); SODIUM LEVEL 140 MEQ/L (136-145); TOTAL PROTEIN 7.7 GM/DL (6.4-8.2); TRIGLYCERIDES LEVEL 325 MG/DL (<150)
[2017-04-08 14:47] LABS: ESTIMATED AVERAGE GLUCOSE 123 MG/DL (60-110); HEMOGLOBIN A1c 5.9 %
== END ==
LOC: M SMT 09:36
DX: E11.9 Type 2 diabetes mellitus without complications (principal); I10 Essential (primary) hypertension; E78.2 Mixed hyperlipidemia
CPT/HCPCS: 80053

== ENCOUNTER → 2017-05-30 | Outpatient (CLI) | payer MEDICARE | LOC: M PAIN 14:00 | DX: M51.27 Other intervertebral disc displacement, lumbosacral region (principal); G62.9 Polyneuropathy, unspecified; J44.9 Chronic obstructive pulmonary disease, unspecified; I10 Essential (primary) hypertension; E78.5 Hyperlipidemia, unspecified; G47.33 Obstructive sleep apnea (adult) (pediatric); R73.03 Prediabetes; F17.210 Nicotine dependence, cigarettes, uncomplicated; Z79.51 Long term (current) use of inhaled steroids; Z79.899 Other long term (current) drug therapy; Z88.8 Allergy status to other drugs, medicaments and biological substances; Z91.09 Other allergy status, other than to drugs and biological substances; Z96.642 Presence of left artificial hip joint | CPT/HCPCS: G0463 ==

== ENCOUNTER → 2017-07-11 | Outpatient (CLI) | payer MEDICARE | LOC: M PAIN 10:30 | DX: M51.27 Other intervertebral disc displacement, lumbosacral region (principal); J44.9 Chronic obstructive pulmonary disease, unspecified; I10 Essential (primary) hypertension; E78.5 Hyperlipidemia, unspecified; G47.33 Obstructive sleep apnea (adult) (pediatric); E11.9 Type 2 diabetes mellitus without complications; F17.210 Nicotine dependence, cigarettes, uncomplicated; E66.01 Morbid (severe) obesity due to excess calories; Z68.41 Body mass index [BMI] 40.0-44.9, adult; Z79.51 Long term (current) use of inhaled steroids; Z79.84 Long term (current) use of oral hypoglycemic drugs; Z79.891 Long term (current) use of opiate analgesic; Z79.899 Other long term (current) drug therapy; Z88.8 Allergy status to other drugs, medicaments and biological substances; Z91.09 Other allergy status, other than to drugs and biological substances; Z96.641 Presence of right artificial hip joint; Z95.5 Presence of coronary angioplasty implant and graft | CPT/HCPCS: G0463 ==

== ENCOUNTER → 2017-08-11 | Outpatient (CLI) | payer MEDICARE | LOC: M PAIN 13:00 | DX: M51.27 Other intervertebral disc displacement, lumbosacral region (principal); G62.9 Polyneuropathy, unspecified; J44.9 Chronic obstructive pulmonary disease, unspecified; E11.9 Type 2 diabetes mellitus without complications; I10 Essential (primary) hypertension; E78.5 Hyperlipidemia, unspecified; G47.33 Obstructive sleep apnea (adult) (pediatric); F17.210 Nicotine dependence, cigarettes, uncomplicated; Z79.51 Long term (current) use of inhaled steroids; Z79.891 Long term (current) use of opiate analgesic; Z79.899 Other long term (current) drug therapy; Z88.8 Allergy status to other drugs, medicaments and biological substances; Z91.09 Other allergy status, other than to drugs and biological substances; Z96.642 Presence of left artificial hip joint | CPT/HCPCS: G0463 ==

== ENCOUNTER → 2017-09-08 | Outpatient (CLI) | payer MEDICARE | LOC: M PAIN 14:30 | DX: M51.27 Other intervertebral disc displacement, lumbosacral region (principal); G89.29 Other chronic pain; E11.9 Type 2 diabetes mellitus without complications; J44.9 Chronic obstructive pulmonary disease, unspecified; I10 Essential (primary) hypertension; E78.5 Hyperlipidemia, unspecified; G47.33 Obstructive sleep apnea (adult) (pediatric); F17.210 Nicotine dependence, cigarettes, uncomplicated; E66.01 Morbid (severe) obesity due to excess calories; Z68.41 Body mass index [BMI] 40.0-44.9, adult; Z79.51 Long term (current) use of inhaled steroids; Z79.84 Long term (current) use of oral hypoglycemic drugs; Z79.891 Long term (current) use of opiate analgesic; Z79.899 Other long term (current) drug therapy; Z88.8 Allergy status to other drugs, medicaments and biological substances; Z91.09 Other allergy status, other than to drugs and biological substances; Z96.642 Presence of left artificial hip joint | CPT/HCPCS: G0463 ==

== ENCOUNTER → 2017-09-12 | Outpatient (REF) | payer MEDICARE ==
[2017-09-12 19:14] LABS: ALBUMIN 3.9 GM/DL (3.2-5.2); ALKALINE PHOSPHATASE 115 U/L (45-117); ALT/SGPT 42 U/L (12-78); ANION GAP 9 MEQ/L (8-16); AST/SGOT 35 U/L (7-37); BILIRUBIN,TOTAL 0.3 MG/DL (0.2-1.0); BLOOD UREA NITROGEN 25 MG/DL (7-18); CALCIUM LEVEL 8.9 MG/DL (8.5-10.1); CARBON DIOXIDE LEVEL 29 MEQ/L (21-32); CHLORIDE LEVEL 101 MEQ/L (98-107); CHOLESTEROL LEVEL 151 MG/DL (<200); CHOLESTEROL RISK RATIO 4.718 (<5); CREATININE FOR GFR 1.28 MG/DL (0.70-1.30); GLOMERULAR FILTRATION RATE > 60.0 (>56); GLUCOSE, FASTING 97 MG/DL (70-100); HDL CHOLESTEROL 32 MG/DL (>40); LDL CHOLESTEROL 77.4 MG/DL (<100); NON-HDL-C 119 MG/DL; POTASSIUM SERUM 3.5 MEQ/L (3.5-5.1); SODIUM LEVEL 139 MEQ/L (136-145); TOTAL PROTEIN 7.8 GM/DL (6.4-8.2); TRIGLYCERIDES LEVEL 208 MG/DL (<150)
[2017-09-12 19:21] LABS: ESTIMATED AVERAGE GLUCOSE 128 MG/DL (60-110); HEMOGLOBIN A1c 6.1 %
== END ==
LOC: M SFHCCAPE 10:24
DX: I10 Essential (primary) hypertension (principal); E11.9 Type 2 diabetes mellitus without complications; E78.2 Mixed hyperlipidemia
CPT/HCPCS: 80053

== ENCOUNTER → 2017-11-09 | Outpatient (CLI) | payer MEDICARE | LOC: M PAIN 14:00 | DX: M51.27 Other intervertebral disc displacement, lumbosacral region (principal); G89.29 Other chronic pain; J44.9 Chronic obstructive pulmonary disease, unspecified; I10 Essential (primary) hypertension; E11.9 Type 2 diabetes mellitus without complications; E78.5 Hyperlipidemia, unspecified; G47.33 Obstructive sleep apnea (adult) (pediatric); F17.200 Nicotine dependence, unspecified, uncomplicated; Z79.51 Long term (current) use of inhaled steroids; Z79.84 Long term (current) use of oral hypoglycemic drugs; Z79.891 Long term (current) use of opiate analgesic; Z79.899 Other long term (current) drug therapy; Z88.8 Allergy status to other drugs, medicaments and biological substances; Z91.09 Other allergy status, other than to drugs and biological substances; Z96.642 Presence of left artificial hip joint | CPT/HCPCS: G0463 ==

== ENCOUNTER → 2017-12-14 | Outpatient (CLI) | payer MEDICARE ==
[~2017-12-14] MED LIST changes: -AMIT75TA PO; -AMITRIPTYLINE PO; -CELE1CAP4 PO; -CELE1CAP88 PO; -CHLO25TA PO; -CIAL5TAB PO; -CIPR500S PO; -COLA100C5 PO; -COUM2.5T17 PO; -CYCL5TAB PO; -DULC10SU2 PR; -FENT12PA TD; -FLOM5CAP PO; -GABAPOW41 PO; +ISOVUE-M 300 61% 15ML VIAL (Q9967) As Ordered; +LIDOCAINE 1% SDV INJ 30 ML VIAL As Ordered; -LORA0.5T11 PO; -LYRI75CA PO; -MELA3TAB49 PO; -MELO7.5T7 PO; -METF500T13 PO; -MOBIC PO; -OXYC10TA12 PO; -OXYC1TAB16 PO; -PERC5TAB12 PO; -PERCOCET PO; -ROXI15TA12 PO; -ROXI1TAB2 PO; -SOMA350T PO; -TRAZ50TA11 PO; -TYLE325T5 PO; -TYLE650T25 PO; -VENL75CA47 PO; +diazePAM 5 MG TAB As Ordered; +methylPREDNISolone SUSP 40 MG/ML (DEPO-medrol) VIAL (J1030) As Ordered; +oxyCODONE 5MG TAB As Ordered
== END ==
LOC: M PAIN 11:15
DX: M51.17 Intervertebral disc disorders with radiculopathy, lumbosacral region (principal); G57.93 Unspecified mononeuropathy of bilateral lower limbs; J44.9 Chronic obstructive pulmonary disease, unspecified; I10 Essential (primary) hypertension; E78.5 Hyperlipidemia, unspecified; E66.01 Morbid (severe) obesity due to excess calories; G47.33 Obstructive sleep apnea (adult) (pediatric); R73.03 Prediabetes; F17.210 Nicotine dependence, cigarettes, uncomplicated; Z79.82 Long term (current) use of aspirin; Z79.84 Long term (current) use of oral hypoglycemic drugs; Z79.891 Long term (current) use of opiate analgesic; Z79.899 Other long term (current) drug therapy; Z88.1 Allergy status to other antibiotic agents; Z91.048 Other nonmedicinal substance allergy status
CPT/HCPCS: J1030

== ENCOUNTER → 2017-12-30 | Outpatient (CLI) | payer MEDICARE | LOC: M PAIN 11:30 | DX: M51.27 Other intervertebral disc displacement, lumbosacral region (principal); J44.9 Chronic obstructive pulmonary disease, unspecified; I10 Essential (primary) hypertension; E11.9 Type 2 diabetes mellitus without complications; E78.5 Hyperlipidemia, unspecified; G47.33 Obstructive sleep apnea (adult) (pediatric); G62.9 Polyneuropathy, unspecified; F17.210 Nicotine dependence, cigarettes, uncomplicated; Z79.51 Long term (current) use of inhaled steroids; Z79.84 Long term (current) use of oral hypoglycemic drugs; Z79.82 Long term (current) use of aspirin; Z79.899 Other long term (current) drug therapy; Z88.8 Allergy status to other drugs, medicaments and biological substances; Z91.09 Other allergy status, other than to drugs and biological substances; Z96.642 Presence of left artificial hip joint | CPT/HCPCS: G0463 ==

== ENCOUNTER → 2018-02-06 | Outpatient (REF) | payer MEDICARE ==
[2018-02-06 17:15] LABS: BASO % 0.3 % (0.0-1.0); EOS # 0.1 10^3/uL (0.0-0.50); EOS % 0.7 % (0.0-3.0); HEMOGLOBIN 18.3 g/dl (13.5-17.5); IMMATURE GRANULOCYTE % 0.5 % (0-3.0); LYMPH # 1.6 10^3/uL (1.5-4.5); LYMPH % 13.8 % (24.0-44.0); MEAN CORPUSCULAR HGB CONC 32.7 g/dl (32.0-36.5); MEAN CORPUSCULAR VOLUME 88.6 fl (80.0-96.0); MONO # 0.7 10^3/uL (0.0-0.8); MONO % 5.9 % (0.0-5.0); NEUTROPHILS % 78.8 % (36.0-66.0); PLATELET COUNT, AUTOMATED 231 10^3/uL (150-450); RED BLOOD COUNT 6.32 10^6/uL (4.30-6.10); RED CELL DISTRIBUTION WIDTH 14.4 % (11.5-14.5); WHITE BLOOD COUNT 11.5 10^3/uL (4.0-10.0)
[2018-02-06 17:27] LABS: ALBUMIN 3.9 GM/DL (3.2-5.2); ALBUMIN/GLOBULIN RATIO 0.95 (1.00-1.93); ALKALINE PHOSPHATASE 111 U/L (45-117); ALT/SGPT 41 U/L (12-78); ANION GAP 11 MEQ/L (8-16); AST/SGOT 43 U/L (7-37); BILIRUBIN,TOTAL 0.6 MG/DL (0.2-1.0); BLOOD UREA NITROGEN 17 MG/DL (7-18); CALCIUM LEVEL 9.4 MG/DL (8.5-10.1); CARBON DIOXIDE LEVEL 26 MEQ/L (21-32); CHLORIDE LEVEL 101 MEQ/L (98-107); CHOLESTEROL LEVEL 187 MG/DL (<200); CHOLESTEROL RISK RATIO 6.032 (<5); GLOMERULAR FILTRATION RATE > 60.0 (>56); GLUCOSE, FASTING 113 MG/DL (70-100); HDL CHOLESTEROL 31 MG/DL (>40); LDL CHOLESTEROL 117 MG/DL (<100); NON-HDL-C 156 MG/DL; POTASSIUM SERUM 3.8 MEQ/L (3.5-5.1); SODIUM LEVEL 138 MEQ/L (136-145); TRIGLYCERIDES LEVEL 195 MG/DL (<150)
[2018-02-06 17:35] LABS: ESTIMATED AVERAGE GLUCOSE 123 MG/DL (60-110); HEMOGLOBIN A1c 5.9 %
== END ==
LOC: M SFHCCAPE 10:21
DX: E78.2 Mixed hyperlipidemia (principal); E11.9 Type 2 diabetes mellitus without complications
CPT/HCPCS: 84443

== ENCOUNTER → 2018-04-26 | Outpatient (CLI) | payer MEDICARE ==
[~2018-04-26] MED LIST changes: +AMBI10TA PO; +AMIT75TA PO; +AMITRIPTYLINE PO; +ATOR1TAB19 PO; +BREO1INH INH; +BUTR5DIS TOP; +CELE1CAP4 PO; +CELE1CAP88 PO; +CHLO25TA PO; +CIAL5TAB PO; +CIPR500S PO; +COLA100C5 PO; +COUM2.5T17 PO; +CYCL5TAB PO; +DULC10SU2 PR; +FENT12PA TD; +FLOM0.4C39 PO; +GABAPOW41 PO; +HYDRO50TAB PO; -ISOVUE-M 300 61% 15ML VIAL (Q9967) As Ordered; -LIDOCAINE 1% SDV INJ 30 ML VIAL As Ordered; +LORA0.5T11 PO; +LYRI75CA PO; +MELA3TAB49 PO; +MELO7.5T7 PO; +METF500T13 PO; +MOBIC PO; +NEUR300C PO; +OXYB15TA PO; +OXYC10TA12 PO; +OXYC10TA3 PO; +PERC5TAB12 PO; +PERCOCET PO; +PROAAER10 INH; +ROXI15TA12 PO; +ROXI1TAB2 PO; +SOMA350T PO; +TRAZ-160 PO; +TYLE325T5 PO; +TYLE650T25 PO; +VENL75CA47 PO; -diazePAM 5 MG TAB As Ordered; -methylPREDNISolone SUSP 40 MG/ML (DEPO-medrol) VIAL (J1030) As Ordered; -oxyCODONE 5MG TAB As Ordered
--- NOTE | 2018-05-09 02:14 | ECWPNPC ---
PATIENT NAME: NOEL MENDEZ : 1960 GENDER: MALE VISIT DATE: 04/26/2018 DISCHARGE DATE: 04/26/18 1529 VISIT LOCKED DATE TIME: PHYSICIAN: ARMANDO ORR RESOURCE: ARMANDO ORR REASON FOR APPOINTMENT 1. 2 MONTHS HISTORY OF PRESENT ILLNESS HISTORY OF PRESENT ILLNESS: HERE FOR F/U OF CHRONIC LOW BACK PAIN ,ABDOMINAL PAIN AND BILATERAL SHOULDER PAIN.REPORTING NEW ONSET OF RIGHT HIP PAIN.HISTORY OF LEFT HIP REPLACEMENT SEVERAL YEARS AGO.HISTORY OF MULTIPLE ABDOMINAL SURGERIES AND HAS CHRONIC SEVERE UMBILICAL HERNIA.RATING PAIN VAS 8/10.FEELS BUTRANS PATCH STARTD 4 MONTHS AGO IS INEFFECTIVE. PAIN THE PATIENT DESCRIBES THE PAIN... FALL RISK SCREENING: SCREENING : NO FALLS IN THE PAST YEAR. CURRENT MEDICATIONS TAKING GLUCOMETER 1 METER FOR TEST BLOOD SUGARS ONCE DAILY DX E11.9 TAKING HYDROXYZINE HCL 50 MG TABLET 1 TABLET NEEDED ORALLY EVERY 8 HRS, NOTES: NONE RECENT TAKING FLOMAX 0.4 MG CAPSULE 1 CAPSULE ORALLY ONCE A DAY TAKING BREO ELLIPTA 100-25 MCG/INH AEROSOL POWDER BREATH ACTIVATED 1 PUFF INHALATION ONCE A DAY TAKING METFORMIN HCL 500 MG TABLET TAKE TWO TABLETS BY MOUTH TWICE A DAY TAKING ASPIRIN 81 81 MG TABLET CHEWABLE 1 TABLET ORALLY ONCE A DAY TAKING LANCETS - MISCELLANEOUS 1 LANCET FOR DM TESTING DAILY DX E11.9 TAKING ACURA BLOOD GLUCOSE TEST - STRIP DIRECTED (ANY GENERIC STRIP AVAILABLE) IN VITRO DAILY DX E11.9 TAKING OXYBUTYNIN CHLORIDE ER 15 MG TABLET EXTENDED RELEASE 24 HOUR 1 TABLET ORALLY ONCE A DAY TAKING MELOXICAM 7.5MG TABLET 1 TAB(S) ORALLY DAILY TAKING ATORVASTATIN CALCIUM 20 MG TABLET 1 TABLET ORALLY ONCE A DAY TAKING OVERNIGHT PULSE OXIMETRY DIRECTED TAKING CYCLOBENZAPRINE HCL 5 MG TABLET 1 TABLET ORALLY 1 TAB AM,1 TAB MIDDAY AND 2 AT BEDTIME TAKING BUTRANS 20 MCG/HR PATCH WEEKLY 1 PATCH TO SKIN TRANSDERMAL Q 7 DAYS =MDD TAKING OXYCODONE-ACETAMINOPHEN 10-325 MG TABLET 1 TABLET NEEDED ORALLY EVERY 6 HRS MDD4 TAKING GABAPENTIN 300 MG CAPSULE 1 CAPSULE ORALLY FOR PAIN TID TAKING ZOLPIDEM TARTRATE 10 MG TABLET 1 TABLET AT BEDTIME NEEDED ORALLY ONCE A DAY TAKING CHLORTHALIDONE 25 MG TABLET TAKE ONE TABLET BY MOUTH ONCE A DAY EVERY MORNING TAKING EFFEXOR XR 150 MG CAPSULE EXTENDED RELEASE 24 HOUR TAKE ONE CAPSULE BY MOUTH ONCE A DAY WITH FOOD TAKING EFFEXOR XR 75 MG CAPSULE EXTENDED RELEASE 24 HOUR 1 CAP ORALLY ONCE A DAY TAKING PROAIR HFA 108 (90 BASE) MCG/ACT AEROSOL SOLUTION 2 PUFFS NEEDED INHALATION EVERY 4 HRS MEDICATION LIST REVIEWED AND RECONCILED WITH THE PATIENT PAST MEDICAL HISTORY HERNIAS RENAL CYST NEUROPATHY LEGS 2005 INITIAL INJURY TO LOWER BACK HERNIATED DISC.. REINJURED IN 2007 COPD HTN HYPERLIPIDEMIA MORBID OBESITY QUINTON-NONCOMPLIANT WITH MACHINE NUMBNESS IN LEFT THUMB FREQUENT NOSE BLEEDS BORDERLINE DIABETES ALLERGIES FLAGYL: HIVES: SIDE EFFECTS PAPER ADHESION TAPE: BURNED SKIN OFF: ALLERGY SURGICAL HISTORY 2 HERNIA REPAIRS IN STOMACH DIVERTICULITIS SURGERY(4 SURGERIES WITH IN 2011 FOR THIS) 10/2011 HERNIA REPAIR ABD AREA 10/02/2013 RIGHT RENAL CYST ASPIRATION 09/26/13 L HIP REPLACEMENT 02/06/14 RIGHT PARTIAL NEPHRECTOMY 02/04/15 HEART CATH 05/26/2016 FAMILY HISTORY FATHER: , DIAGNOSED WITH HEART DISEASE MOTHER: , DIAGNOSED WITH DIABETES SIBLINGS: ALIVE, ONE BROTHER ON A FISHING TRIP. THREE SISTER'S , DIAGNOSED WITH DIABETES, HEART DISEASE SON(S): ALIVE DAUGHTER(S): ALIVE 2 BROTHER(S) , 8 SISTER(S) . 2 SON(S) , 1 DAUGHTER(S) . HOSPITALIZATION/MAJOR DIAGNOSTIC PROCEDURE [facility] 10/2011 REVIEW OF SYSTEMS REVIEWED BY: PROVIDER: ARMANDO ROSE . CONSTITUTIONAL: ANY CHANGE IN YOUR MEDICAL CONDITION? NO . CHILLS NO . FEVER NO . INFECTION: DO YOU HAVE NEW INFECTIONS? NO . DO YOU HAVE HISTORY OF MRSA? NO . MUSCULOSKELETAL: ANY NEW PATTERNS OF PAIN OR NUMBNESS? NO . GASTROENTEROLOGY: ANY NEW CHANGE IN BOWEL CONTROL? NO . GENITOURINARY: ANY NEW CHANGE IN BLADDER CONTROL? NO . IS THERE A CHANCE YOU COULD BE ? NO . HEMATOLOGY/LYMPH: DO YOU TAKE ANY BLOOD THINNERS? (FOR EXAMPLE- COUMADIN, PLAVIX, AGGRENOX, PLATEL, PRADAXA, OR XARELTO) NO . WHEN WAS YOUR LAST DOSE? DATE: TIME: . NEUROLOGY: HAVE YOU FALLEN IN THE PAST 12 MONTHS? YES, PRIOR TO LAST VISIT . ANY NEW EXTREMITY NUMBNESS OR WEAKNESS? NO . CARDIOLOGY: DO YOU HAVE A PACEMAKER OR DEFIBRILLATOR? NO . RESPIRATORY: HAVE YOU BEEN SICK IN THE PAST WEEK? NO . FEVER NO . FLU LIKE SYMPTOMS? NO . COUGH NO . INTEGUMENTARY: DO YOU HAVE ANY RASHES OR OPEN SORES? NO . ALLERGIC/IMMUNO: ARE YOU ALLERGIC TO IV DYE? NO . ANY NEW ALLERGIES? NO . PSYCHIATRIC: DO YOU HAVE THOUGHTS OF HURTING YOURSELF OR SOMEONE ELSE? NO . ARE YOU ABUSED, NEGLECTED, OR IN AN UNSAFE ENVIRONMENT? NO . ENDOCRINOLOGY: ARE YOU DIABETIC? YES . OTHER: DO YOU NEED ANY PRESCRIPTIONS? NO . IF YES, PLEASE LIST: ____ . ANY NEW PROBLEMS WITH YOUR MEDICATIONS? NO . WHEN DID YOU LAST EAT? ____ . WHEN DID YOU LAST DRINK? ____ . WHAT DID YOU LAST DRINK? ____ . NAME OF PERSON DRIVING YOU HOME? ____ . DO YOU HAVE ANY OTHER QUESTIONS OR CONCERNS NO . VITAL SIGNS WT 287.6 LBS, HT 69.5 IN, BMI 41.86 INDEX, BP 150/89 MM HG, HR 103 /MIN, RR 18 /MIN, TEMP 96.8 F, OXYGEN SAT % 95%, NA INITIALS SC 14:18, REVIEWED BY: EM. EXAMINATION GENERAL EXAMINATION: GENERAL APPEARANCE:AWAKE,ALERT ,PLEAASANT . PSYCHAFFECT NORMAL . LUNGS:LUNG BOYD ARE CLEAR TO AUSCULTATION BILATERALLY. GOOD MOVEMENT OF AIR . HEART:S1, S2 IN A REGULAR RATE AND RHYTHM. NO SIGNIFICANT MURMURS, RUBS OR GALLOPS NOTED . 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.27 (PRIMARY) INCISIONAL HERNIA - K43.2 CHRONIC POST-OPERATIVE PAIN - G89.28 CHRONIC PRESCRIPTION OPIATE USE - Z79.899 TREATMENT PROTRUSION OF INTERVERTEBRAL DISC OF LUMBOSACRAL REGION CONTINUE MELOXICAM TABLET, 7.5MG, 1 TAB(S), ORALLY, DAILY CONTINUE CYCLOBENZAPRINE HCL TABLET, 5 MG, 1 TABLET, ORALLY, 1 TAB AM,1 TAB MIDDAY AND 2 AT BEDTIME STOP BUTRANS PATCH WEEKLY, 20 MCG/HR, 1 PATCH TO SKIN, TRANSDERMAL, Q 7 DAYS =MDD REFILL OXYCODONE-ACETAMINOPHEN TABLET, 10-325 MG, 1 TABLET NEEDED, ORALLY, EVERY 6 HRS MDD4, 30 DAY(S), 120, REFILLS 0 START MORPHINE SULFATE ER TABLET EXTENDED RELEASE, 15 MG, 1 TABLET, ORALLY, EVERY 12 HRS MDD2, 30 DAY(S), 60, REFILLS 0 NOTES: ISTOP REGISTRY REVIEWED AND DEMONSTRATES COMPLLIANCE. (REF #[id number] ) BRINGS IN MEDICATIONS WHICH IS APPROPRIATE FOR WHAT WAS DISPENSED. RECENT URINE TOXICOLOGY REVIEWED. NO UNAUTHORIZED MEDICATIONS. NO ILLICIT SUBSTANCES AND PRESCRIBED MEDICATIONS WERE PRESENT. URINE TOX TODAY, RISKS AND BENEFITS OF NARCOTIC/OPIOD MEDICATIONS WERE REVIEWED WITH PATIENT - THIS INCLUDES BUT IS NOT LIMITED TO RISK OF DEPENDANCE/DEVELOPMENT OF ADDICTION, MOOD DISTURBANCE AND DEPRESSION, OSTEOPOROSIS, HORMONAL AND LABIDAL CHANGES, RESPIRATORY DEPRESSION AND . PATIENT IS ADVISED NOT TO DRIVE OR DRINK ALCOHOL WHILE ON THESE MEDICATIONS, [facility] NARCOTIC AGREEMENT WAS REVIEWED AND UPDATEDSIGNED TODAY BY THE PATIENT. SEE ATTACHED DOCUMENT FOR FULL DETAILS; SPECIFIC ISSUES WERE REVIEWED: 1) KEEP PAIN MEDS IN THEIR ORIGINAL BOTTLES AND ANY WEEKLY PLANNERS ARE TO BE BROUGHT TO THE PAIN CENTER AT EVERY VISIT. 2) THE PATIENT IS NOT TO INCREASE DOSING OR TIMING OF THEIR PAIN MEDICATION WITHOUT SPECIFIC DIRECTION OF THEIR PAIN CENTERPROVIDER (NOT ER OR OTHER PROVIDERS). 3) ALL PAIN MEDS ARE TO BE KEPT SECURED, IN A LOCKED BOX. 4) NO PAIN MEDS ARE TO BE SHARED WITH ANY OTHER PERSON FOR ANY REASON. 5) NO PAIN MEDS MAY BE TAKEN FROM ANY FRIENDS OR RELATIVES FOR ANY REASON 6) NO MEDS OR SUBSTANCES WHICH ARE NOT LEGAL ARE TO BE USED- NO MARIJUANA, NO COCAINE, AMPHETAMINES, HEROIN, OR OTHERS ARE EVER TO BE USED. 7)URINE TESTING IS DONE TO ACCOUNT FOR MEDS AND SUBSTANCES BEING TAKEN AND WILL BE DONE RANDOMLY. PROCEDURE CODES FA211 ESTABILISHED PATIENT [facility] CHARGE DISPOSITION & COMMUNICATION FOLLOW UP 6-8WKS ELECTRONICALLY SIGNED BY MILTON MEAD ON 05/08/2018 AT 01:27 PM EST DISCLAIMER : THIS IS A VISIT SUMMARY EXTRACTED FROM THE [facility] CHART. IT IS NOT A COPY OF THE [employer] PROGRESS NOTE. ANGELA
== END ==
LOC: M PAIN 14:30
PROVIDERS: ATTEND Nurse Practitioner Family
DX: M51.27 Other intervertebral disc displacement, lumbosacral region (principal); G89.28 Other chronic postprocedural pain; K43.2 Incisional hernia without obstruction or gangrene; E11.9 Type 2 diabetes mellitus without complications; J44.9 Chronic obstructive pulmonary disease, unspecified; I10 Essential (primary) hypertension; E78.5 Hyperlipidemia, unspecified; G47.33 Obstructive sleep apnea (adult) (pediatric); E66.01 Morbid (severe) obesity due to excess calories; Z68.41 Body mass index [BMI] 40.0-44.9, adult; Z79.51 Long term (current) use of inhaled steroids; Z79.84 Long term (current) use of oral hypoglycemic drugs; Z79.82 Long term (current) use of aspirin; Z79.891 Long term (current) use of opiate analgesic; Z79.899 Other long term (current) drug therapy; Z88.8 Allergy status to other drugs, medicaments and biological substances; Z91.09 Other allergy status, other than to drugs and biological substances; Z86.79 Personal history of other diseases of the circulatory system; Z96.642 Presence of left artificial hip joint

== ENCOUNTER → 2018-06-07 | Outpatient (REF) | payer MEDICARE ==
[~2018-06-07] MED LIST changes: +MORP15TASA PO
[2018-06-07 16:55] LABS: ALBUMIN 4.1 GM/DL (3.2-5.2); ALT/SGPT 36 U/L (12-78); BILIRUBIN,TOTAL 0.5 MG/DL (0.2-1.0); BLOOD UREA NITROGEN 21 MG/DL (7-18); CALCIUM LEVEL 9.2 MG/DL (8.5-10.1); CARBON DIOXIDE LEVEL 29 MEQ/L (21-32); CHLORIDE LEVEL 98 MEQ/L (98-107); CHOLESTEROL LEVEL 154 MG/DL (<200); CHOLESTEROL RISK RATIO 4.967 (<5); CREATININE FOR GFR 1.28 MG/DL (0.70-1.30); GLOMERULAR FILTRATION RATE > 60.0 (>56); GLUCOSE, FASTING 108 MG/DL (70-100); HDL CHOLESTEROL 31 MG/DL (>40); LDL CHOLESTEROL 97 MG/DL (<100); NON-HDL-C 123 MG/DL; POTASSIUM SERUM 3.7 MEQ/L (3.5-5.1); SODIUM LEVEL 136 MEQ/L (136-145); TOTAL PROTEIN 8.4 GM/DL (6.4-8.2); TRIGLYCERIDES LEVEL 130 MG/DL (<150)
[2018-06-07 17:08] LABS: BASO # 0.1 10^3/uL (0.0-0.2); BASO % 0.6 % (0.0-1.0); EOS # 0.3 10^3/uL (0.0-0.50); EOS % 3.1 % (0.0-3.0); HEMATOCRIT 54.2 % (42.0-52.0); LYMPH % 24.2 % (24.0-44.0); MEAN CORPUSCULAR HEMOGLOBIN 29.3 pg (27.0-33.0); MEAN CORPUSCULAR HGB CONC 33.2 g/dl (32.0-36.5); MEAN CORPUSCULAR VOLUME 88.1 fl (80.0-96.0); MONO # 0.8 10^3/uL (0.0-0.8); NEUTROPHILS # 5.2 10^3/uL (1.8-7.7); NEUTROPHILS % 61.9 % (36.0-66.0); PLATELET COUNT, AUTOMATED 237 10^3/uL (150-450); RED BLOOD COUNT 6.15 10^6/uL (4.30-6.10); WHITE BLOOD COUNT 8.3 10^3/uL (4.0-10.0)
== END ==
LOC: M SFHCCAPE 09:36
PROVIDERS: ATTEND Physician Assistant
DX: D75.1 Secondary polycythemia (principal); E78.2 Mixed hyperlipidemia

== ENCOUNTER → 2018-06-12 | Outpatient (REF) | payer MEDICARE ==
[~2018-06-12] MED LIST changes: +CHLO125TA PO; +FENT12DI12 TD; -FENT12PA TD
[2018-06-13 17:07] LABS: FREE T4 1.1 NG/DL (0.76-1.46); THYROID STIMULATING HORMONE 3.46 uIU/ML (0.358-3.740)
[2018-06-13 17:08] LABS: APPEARANCE, URINE MANUAL TURBID (CLEAR); COLOR, URINE MANUAL YELLOW (YELLOW)
[2018-06-13 17:09] LABS: BILIRUBIN, URINE MANUAL NEGATIVE (NEGATIVE); GLUCOSE, URINE (UA) MANUAL NEGATIVE (NEGATIVE); KETONE, URINE MANUAL NEGATIVE (NEGATIVE); LEUKOCYTE ESTERASE, URINE MAN TRACE (NEGATIVE); NITRITE, URINE MANUAL NEGATIVE (NEGATIVE); PROTEIN, URINE MANUAL 1+ mg/dL (NEGATIVE); SPECIFIC GRAVITY,URINE MANUAL 1.025 (1.002-1.035); UROBILINOGEN, URINE MANUAL NORMAL (NORMAL)
[2018-06-13 17:10] LABS: BLOOD URINE MANUAL NEGATIVE (NEGATIVE)
[2018-06-13 17:20] LABS: HEMOGLOBIN A1c 5.8 %
[2018-06-13 17:29] LABS: AMORPHOUS SEDIMENT, URINE LARGE AMOUNT (NEGATIVE); BACTERIA, URINE NONE SEEN; HYALINE CAST, URINE NONE SEEN /lpf (0-1); RBC, URINE NONE SEEN /hpf (0-3); SQUAMOUS EPITHELIAL CELL URINE SMALL AMOUNT /hpf (SMALL AMT)
== END ==
LOC: M SFHCCAPE 15:07
PROVIDERS: ATTEND Physician Assistant
DX: R63.4 Abnormal weight loss (principal); R73.09 Other abnormal glucose; Z12.5 Encounter for screening for malignant neoplasm of prostate; R68.81 Early satiety
CPT/HCPCS: 81000; 83036; 84439; 84443; 87086; G0103

== ENCOUNTER → 2018-06-28 | Outpatient (CLI) | payer MEDICARE ==
[~2018-06-28] MED LIST changes: +GASTROGRAFIN SOLUTION 30ML (Q9963) As Ordered ONE; +ISOVUE-370 76% 100ML VIAL (Q9967) As Ordered ONE
--- NOTE | 2018-06-28 11:36 | REP ---
Noncontrast chest CT: History: Low dose screening exam. Tobacco dependence. Abdomen fullness. Hernia. No comparison chest CT. Comparison chest x-ray is from January 27, 2015. Findings: Digital preliminary grinder carbon plant radiograph is unremarkable. There is a 4 mm nodule in the right posterior lung sulcus in the right lower lobe on page 79 of 95. There is also a 4 mm noncalcified nodule with somewhat ill-defined margins in the left lower lobe on page 68 of 95. No other pulmonary nodule is appreciated. There is some areas of fissural thickening on the right in the minor fissure and in the major fissure. These are benign. Vascular calcification is noted along the course of the left coronary artery. No other significant finding. A low-density area is visible in the left lobe of the liver consistent with the patient's known hepatic cyst. Impression: Lung-RADS category 2 benign findings. There is a 4 mm nodule in each lower lobe. Repeat screening CT study recommended 1 year. Electronically Signed by Chip Stuart MD 06/28/2018 03:48 P
--- NOTE | 2018-06-28 13:41 | REP ---
CT abdomen and pelvis with IV and oral contrast: History: Abdominal fullness. Hernia. Without obstruction. Early satiety. Comparison CT study: July 25, 2014. CT contrast dose: 100 mL of intravenous Isovue [address] findings: Digital preliminary barrel drum cutter radiograph demonstrates bowel loops in a epigastric abdominal wall hernia. Bowel gas pattern is unremarkable. Axial CT images demonstrate the lung bases are essentially clear. No pleural effusion or abdominal ascites is seen. There is a cyst in the left lobe of the liver again noted measuring 3.5 cm in greatest diameter. This is a little larger but not new when compared with the 2015 study. The liver and spleen are otherwise homogeneous in texture. Normal in size. No adrenal lesion is seen. No abnormality is noted in the gallbladder or the pancreas. The kidneys enhance symmetrically. There is focal cortical scarring in the lower pole of the right kidney with some peripheral parenchymal cortical calcification or suturing. There is some adjacent fibrosis in a linear fashion in the inferior perirenal fat and the findings are felt to be most compatible with postsurgical change. The patient is apparently status post partial nephrectomy on the right. The previously noted complex cystic lesion is no longer apparent. The left kidney is unremarkable. No retroperitoneal mass or adenopathy is seen. There is a tiny right paralumbar hernia transmitting retroperitoneal fat postoperatively. There is a large epigastric ventral hernia transmitting a portion of the transverse colon and a smaller short loop of small intestine. Neither of these loops appear to be obstructed. The abdominal wall defect measures 9 cm and right to left dimension by 10 cm craniocaudal. Urinary bladder, seminal vesicles, and prostate are unremarkable. Moderate colonic stool is present. The patient appears to be status post partial right hemicolectomy. There is also evidence of a suture line in the left colon. No colonic mass lesion is seen. No pelvic adenopathy is observed. Bone window settings show some degenerative changes in the spine. A prosthetic left hip is present. Impression: Large ventral hernia containing unobstructed loops of transverse colon and small bowel. Status post partial right nephrectomy. Benign left hepatic cyst. Status post previous partial colonic resections. Electronically Signed by Chip Stuart MD 06/28/2018 04:01 P
== END ==
LOC: M RAD 09:08
PROVIDERS: ATTEND Physician Assistant
DX: Z12.2 Encounter for screening for malignant neoplasm of respiratory organs (principal); R68.81 Early satiety; K43.2 Incisional hernia without obstruction or gangrene; F17.210 Nicotine dependence, cigarettes, uncomplicated; R91.8 Other nonspecific abnormal finding of lung field; K76.89 Other specified diseases of liver; Z90.49 Acquired absence of other specified parts of digestive tract
CPT/HCPCS: 74177; G0297; Q9963; Q9967

== ENCOUNTER → 2018-06-29 | Outpatient (CLI) | payer MEDICARE ==
[~2018-06-29] MED LIST changes: -GASTROGRAFIN SOLUTION 30ML (Q9963) As Ordered ONE; -ISOVUE-370 76% 100ML VIAL (Q9967) As Ordered ONE
--- NOTE | 2018-07-15 23:38 | ECWPNPC ---
PATIENT NAME: NOEL MENDEZ : 1960 GENDER: MALE VISIT DATE: 06/29/2018 DISCHARGE DATE: 06/29/18 1122 VISIT LOCKED DATE TIME: PHYSICIAN: ARMANDO ORR RESOURCE: ARMANDO ORR REASON FOR APPOINTMENT 1. BACK HISTORY OF PRESENT ILLNESS HISTORY OF PRESENT ILLNESS: HERE FOR F/U OF CHRONIC LOW BACK PAIN ,ABDOMINAL PAIN AND BILATERAL SHOULDER PAIN.REPORTING NEW ONSET OF RIGHT HIP PAIN.HISTORY OF LEFT HIP REPLACEMENT SEVERAL YEARS AGO.HISTORY OF MULTIPLE ABDOMINAL SURGERIES AND HAS CHRONIC SEVERE UMBILICAL HERNIA.RATING PAIN VAS 7/10.CURRENTLY FOLLOWING WITH ONCOLOGY FOR BLOOD DYSCRASIA. PAIN THE PATIENT DESCRIBES THE PAIN... THE PATIENT DESCRIBES THE PAIN... FALL RISK SCREENING: SCREENING :NO FALLS REPORTED IN THE LAST YEAR CURRENT MEDICATIONS TAKING GLUCOMETER 1 METER FOR TEST BLOOD SUGARS ONCE DAILY DX E11.9 TAKING LANCETS - MISCELLANEOUS 1 LANCET FOR DM TESTING DAILY DX E11.9 TAKING ACURA BLOOD GLUCOSE TEST - STRIP DIRECTED (ANY GENERIC STRIP AVAILABLE) IN VITRO DAILY DX E11.9 TAKING OVERNIGHT PULSE OXIMETRY DIRECTED TAKING MELOXICAM 7.5MG TABLET 1 TAB(S) ORALLY DAILY TAKING EFFEXOR XR 75 MG CAPSULE EXTENDED RELEASE 24 HOUR 1 CAP ORALLY ONCE A DAY TAKING EFFEXOR XR 150 MG CAPSULE EXTENDED RELEASE 24 HOUR TAKE ONE CAPSULE BY MOUTH ONCE A DAY WITH FOOD TAKING CYCLOBENZAPRINE HCL 5 MG TABLET 1 TABLET ORALLY 1 TAB AM,1 TAB MIDDAY AND 2 AT BEDTIME TAKING GABAPENTIN 300 MG CAPSULE 1 CAPSULE ORALLY FOR PAIN TID TAKING HYDROXYZINE HCL 50 MG TABLET 1 TABLET NEEDED ORALLY EVERY 8 HRS TAKING FLOMAX 0.4 MG CAPSULE 1 CAPSULE ORALLY ONCE A DAY TAKING METFORMIN HCL 500 MG TABLET TAKE TWO TABLETS BY MOUTH TWICE A DAY TAKING ASPIRIN 81 81 MG TABLET CHEWABLE 1 TABLET ORALLY ONCE A DAY TAKING OXYBUTYNIN CHLORIDE ER 15 MG TABLET EXTENDED RELEASE 24 HOUR 1 TABLET ORALLY ONCE A DAY TAKING ATORVASTATIN CALCIUM 20 MG TABLET 1 TABLET ORALLY ONCE A DAY TAKING PROAIR HFA 108 (90 BASE) MCG/ACT AEROSOL SOLUTION 2 PUFFS NEEDED INHALATION EVERY 4 HRS TAKING BREO ELLIPTA 100-25 MCG/INH AEROSOL POWDER BREATH ACTIVATED 1 PUFF INHALATION ONCE A DAY TAKING CHLORTHALIDONE 25 MG TABLET TAKE ONE TABLET BY MOUTH ONCE A DAY EVERY MORNING TAKING OXYCODONE-ACETAMINOPHEN 10-325 MG TABLET 1 TABLET NEEDED ORALLY EVERY 6 HRS MDD4 TAKING MORPHINE SULFATE ER 15 MG TABLET EXTENDED RELEASE 1 TABLET ORALLY EVERY 12 HRS MDD2 TAKING ZOLPIDEM TARTRATE 10 MG TABLET 1 TABLET AT BEDTIME NEEDED ORALLY ONCE A DAY MEDICATION LIST REVIEWED AND RECONCILED WITH THE PATIENT PAST MEDICAL HISTORY HERNIAS RENAL CYST NEUROPATHY LEGS 2005 INITIAL INJURY TO LOWER BACK HERNIATED DISC.. REINJURED IN 2007 COPD HTN HYPERLIPIDEMIA MORBID OBESITY QUINTON-NONCOMPLIANT WITH MACHINE NUMBNESS IN LEFT THUMB FREQUENT NOSE BLEEDS BORDERLINE DIABETES HIGH RED BLOOD CELL COUNT ALLERGIES FLAGYL: HIVES - SIDE EFFECTS PAPER ADHESION TAPE: BURNED SKIN OFF - ALLERGY SURGICAL HISTORY 2 HERNIA REPAIRS IN STOMACH DIVERTICULITIS SURGERY(4 SURGERIES WITH IN 2011 FOR THIS) 10/2011 HERNIA REPAIR ABD AREA 10/02/2013 RIGHT RENAL CYST ASPIRATION 09/26/13 L HIP REPLACEMENT 02/06/14 RIGHT PARTIAL NEPHRECTOMY 02/04/15 HEART CATH 05/26/2016 FAMILY HISTORY FATHER: , DIAGNOSED WITH HEART DISEASE MOTHER: , DIABETES SIBLINGS: ALIVE, ONE BROTHER ON A FISHING TRIP. THREE SISTER'S , DIABETES, HEART DISEASE SON(S): ALIVE DAUGHTER(S): ALIVE 2 BROTHER(S) , 8 SISTER(S) . 2 SON(S) , 1 DAUGHTER(S) . SOCIAL HISTORY GENERAL: TOBACCO USE ARE YOU A:CURRENT SMOKER ARE YOU INTERESTED IN QUITTING?NOT READY TO QUIT COUNSELED THE PATIENT ON SMOKING EFFECTS, EDUCATION [id number] HOW MANY CIGARETTES A DAY DO YOU SMOKE?11-20 HOW OFTEN DO YOU SMOKE CIGARETTES?EVERY DAY PATIENT COUNSELED ON THE DANGERS OF TOBACCO USE AND URGED TO QUIT:06/29/2018 VAPORNO E-CIGARETTENO HIV / HEP-C SCREENING HIV TEST OFFERED TO PATIENT:YES DATE OFFERED:06/16/2016 CONSENT ON FILE TEST ACCEPTED:NO REASON:PATIENT DECLINED TESTED IN PAST HEP-C TEST OFFERED TO PATIENT:YES DATE OFFERED:06/16/2016 TEST ACCEPTED:NO REASON:PATIENT DECLINED CONSENT ON FILE EDUCATION LEVEL OF EDUCATION:HIGH SCHOOL DIET: REGULAR. LANGUAGE CUBAN. NEW PATIENT PAIN DIARY FROM 0-10, WHAT LEVEL IS YOUR PAIN TODAY?5 BMI CARE GOAL FOLLOW-UP ABOVE NORMAL BMI FOLLOW-UPGIVING ENCOURAGEMENT TO EXERCISE RECREATIONAL DRUG USE DRUG USE?NO EXERCISE: NONE. LEARNING BARRIERS / SPECIAL NEEDS CHANGE FROM LAST VISIT?NO 06/12/2018 BARRIERS TO LEARNING?NO HEARING IMPAIRED?NO VISION IMPAIRED?NO COGNITIVELY IMPAIRED?NO READINESS TO LEARN?YES LEARNING PREFERENCES?NO LEARNING CAPABILITIES PRESENT?YES EMOTIONAL BARRIERS?NO SPECIAL DEVICES?NO LACE MENDER NEEDED?NO LUNG CANCER SCREENING SMOKING STATUS:CURRENT SMOKER IS THE PATIENT BETWEEN THE AGE OF 56 AND 78?YES HAS THE PATIENT EVER BEEN DIAGNOSED WITH LUNG CANCER?NO PACK YEARS = NUMBER OF PACKS PER DAY SMOKED X NUMBER OF YEARS SMOKED:40 CREATE REFERRAL:GENERATE AND CREATE REFERRAL TO THE ONCOLOGY NURSE NAVIGATOR (SMP) LISTING USING THE LDCT SCAN PROCEDURE PAIN CLINIC PFS, CLERGY, PUBLIC HEALTH REFERRALS PFS REFERRAL NEEDED?NO CLERGY REFERRAL NEEDED?NO PUBLIC HEALTH REFERRAL NEEDED?NO HAS THE PATIENT BEEN EDUCATED REGARDING HIS/HER PLAN OF CARE?YES HAS THE PATIENT BEEN EDUCATED REGARDING PAIN, THE RISK FOR PAIN, THE IMPORTANCE OF EFFECTIVE PAIN MANAGEMENT, AND THE PAIN ASSESSMENT PROCESS?YES LATEX QUESTIONNAIRE LATEX ALLERGY : HAVE YOU EVER DEVELOPED ANY TYPE OF REACTION AFTER HANDLING LATEX PRODUCTS SUCH RUBBER GLOVES, CONDOMS, DIAPHRAGMS, BALLOONS, SOCKS, OR UNDERWEAR?NO LATEX ALLERGY : HAVE YOU EVER DEVELOPED ANY TYPE OF REACTION DURING OR AFTER DENTAL APPOINTMENT, VAGINAL/RECTAL EXAMINATION, SURGICAL PROCEDURE, OR ANY OTHER EXPOSURE?NO LATEX RISK : HAVE YOU EVER HAD ANY DIFFICULTY BREATHING OR HIVES AFTER EATING OR HANDLING ANY FRUITS, OR VEGETABLES; SUCH KIWI, BANANAS, STONE FRUITS, OR CHESTNUTSNO LATEX RISK : DO YOU HAVE A PREVIOUS PERSONAL HISTORY OF MORE THAN NINE SURGERIES, SPINA BIFIDA, OR REPEATED CATHERTIZATIONS? NO LATEX RISK : ARE YOU FREQUENTLY EXPOSED TO LATEX PRODUCTS IN YOUR OCCUPATION?NO DATE ASKED : 06/12/2018 CAFFEINE CAFFEINE USE?YES 1 PEPSI A DAY ADVANCE DIRECTIVE ADVANCE DIRECTIVE DISCUSSED WITH PATIENT:YES PATIENT GIVEN HCP INFORMATION. PATIENT DECLINED ASSISTANCE IN FILLING OUT. 06/29/18 JERICA QUAKER [id number] SCIENTOLOGIST MARITAL STATUS: SINGLE. ALCOHOL SCREENING DID YOU HAVE A DRINK CONTAINING ALCOHOL IN THE PAST YEAR?NO POINTS0 INTERPRETATIONNEGATIVE OCCUPATION: DISABLED. SEXUAL HX HAD SEX IN THE LAST 12 MONTHS (VAGINAL, ORAL, OR ANAL)?YES WITHWOMEN ONLY USE PROTECTION?NO HAVE YOU EVER HAD AN STD?NO REVIEWED WITH PATIENT 06/29/18 1046 JS. HOSPITALIZATION/MAJOR DIAGNOSTIC PROCEDURE [facility] 10/2011 REVIEW OF SYSTEMS REVIEWED BY: PROVIDER: ARMANDO ROSE . CONSTITUTIONAL: ANY CHANGE IN YOUR MEDICAL CONDITION? NO . CHILLS NO . FEVER NO . INFECTION: DO YOU HAVE NEW INFECTIONS? NO . DO YOU HAVE HISTORY OF MRSA? YES . MUSCULOSKELETAL: ANY NEW PATTERNS OF PAIN OR NUMBNESS? NO . GASTROENTEROLOGY: ANY NEW CHANGE IN BOWEL CONTROL? NO . GENITOURINARY: ANY NEW CHANGE IN BLADDER CONTROL? NO . IS THERE A CHANCE YOU COULD BE ? NO . HEMATOLOGY/LYMPH: DO YOU TAKE ANY BLOOD THINNERS? (FOR EXAMPLE- COUMADIN, PLAVIX, AGGRENOX, PLATEL, PRADAXA, OR XARELTO) NO . WHEN WAS YOUR LAST DOSE? DATE: TIME: . NEUROLOGY: HAVE YOU FALLEN IN THE PAST 12 MONTHS? NO . ANY NEW EXTREMITY NUMBNESS OR WEAKNESS? NO . CARDIOLOGY: DO YOU HAVE A PACEMAKER OR DEFIBRILLATOR? NO . RESPIRATORY: HAVE YOU BEEN SICK IN THE PAST WEEK? YES, STATES HE HAD A COLD LAST WEEK, ONLY FEELING A LITTLE BETTER NOW . FEVER YES . FLU LIKE SYMPTOMS? NO . COUGH YES . INTEGUMENTARY: DO YOU HAVE ANY RASHES OR OPEN SORES? NO . ALLERGIC/IMMUNO: ARE YOU ALLERGIC TO IV DYE? NO . ANY NEW ALLERGIES? NO . PSYCHIATRIC: DO YOU HAVE THOUGHTS OF HURTING YOURSELF OR SOMEONE ELSE? NO . ARE YOU ABUSED, NEGLECTED, OR IN AN UNSAFE ENVIRONMENT? NO . ENDOCRINOLOGY: ARE YOU DIABETIC? YES . OTHER: DO YOU NEED ANY PRESCRIPTIONS? NO . IF YES, PLEASE LIST: ____ . ANY NEW PROBLEMS WITH YOUR MEDICATIONS? NO . WHEN DID YOU LAST EAT? ____ . WHEN DID YOU LAST DRINK? ____ . WHAT DID YOU LAST DRINK? ____ . NAME OF PERSON DRIVING YOU HOME? ____ . DO YOU HAVE ANY OTHER QUESTIONS OR CONCERNS NO . VITAL SIGNS WT 280 LBS, HT 69.5 IN, BMI 40.75 INDEX, BP 132/77 MM HG, HR 90 /MIN, RR 18 /MIN, TEMP 98.1 F, OXYGEN SAT % 95%, SAFE IN ENV? (Y/N) YES, NA INITIALS WY 10:37, REVIEWED BY: JS. EXAMINATION GENERAL EXAMINATION: GENERAL APPEARANCE:AWAKE,ALERT ,PLEAASANT . PSYCHAFFECT NORMAL . LUNGS:LUNG BOYD ARE CLEAR TO AUSCULTATION BILATERALLY. GOOD MOVEMENT OF AIR . HEART:S1, S2 IN A REGULAR RATE AND RHYTHM. NO SIGNIFICANT MURMURS, RUBS OR GALLOPS NOTED . 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.27 (PRIMARY) INCISIONAL HERNIA - K43.2 CHRONIC POST-OPERATIVE PAIN - G89.28 CHRONIC PRESCRIPTION OPIATE USE - Z79.899 TREATMENT PROTRUSION OF INTERVERTEBRAL DISC OF LUMBOSACRAL REGION REFILL OXYCODONE-ACETAMINOPHEN TABLET, 10-325 MG, 1 TABLET NEEDED, ORALLY, EVERY 6 HRS MDD4, 30 DAY(S), 120, REFILLS 0 REFILL MORPHINE SULFATE ER TABLET EXTENDED RELEASE, 15 MG, 1 TABLET, ORALLY, EVERY 12 HRS MDD2, 30 DAY(S), 60, REFILLS 0 NOTES: ISTOP REGISTRY REVIEWED AND DEMONSTRATES COMPLLIANCE. BRINGS IN MEDICATIONS WHICH IS APPROPRIATE FOR WHAT WAS DISPENSED. RECENT URINE TOXICOLOGY REVIEWED. NO UNAUTHORIZED MEDICATIONS. NO ILLICIT SUBSTANCES AND PRESCRIBED MEDICATIONS WERE PRESENT. , RISKS AND BENEFITS OF NARCOTIC/OPIOD MEDICATIONS WERE REVIEWED WITH PATIENT - THIS INCLUDES BUT IS NOT LIMITED TO RISK OF DEPENDANCE/DEVELOPMENT OF ADDICTION, MOOD DISTURBANCE AND DEPRESSION, OSTEOPOROSIS, HORMONAL AND LABIDAL CHANGES, RESPIRATORY DEPRESSION AND . PATIENT IS ADVISED NOT TO DRIVE OR DRINK ALCOHOL WHILE ON THESE MEDICATIONS. PROCEDURE CODES FA211 ESTABILISHED PATIENT [facility] CHARGE DISPOSITION & COMMUNICATION FOLLOW UP 3 MONTHS ELECTRONICALLY SIGNED BY MILTON MEAD ON 07/15/2018 AT 08:18 AM EDT DISCLAIMER : THIS IS A VISIT SUMMARY EXTRACTED FROM THE [employer] CHART. IT IS NOT A COPY OF THE [employer] PROGRESS NOTE. ANGELA
== END ==
LOC: M PAIN 10:00
PROVIDERS: ATTEND Nurse Practitioner Family
DX: M51.27 Other intervertebral disc displacement, lumbosacral region (principal); K43.2 Incisional hernia without obstruction or gangrene; G89.28 Other chronic postprocedural pain; Z96.642 Presence of left artificial hip joint; J44.9 Chronic obstructive pulmonary disease, unspecified; I10 Essential (primary) hypertension; E78.5 Hyperlipidemia, unspecified; G47.33 Obstructive sleep apnea (adult) (pediatric); F17.210 Nicotine dependence, cigarettes, uncomplicated; Z88.1 Allergy status to other antibiotic agents; Z91.09 Other allergy status, other than to drugs and biological substances; Z86.14 Personal history of Methicillin resistant Staphylococcus aureus infection; E11.9 Type 2 diabetes mellitus without complications; E66.01 Morbid (severe) obesity due to excess calories; Z68.41 Body mass index [BMI] 40.0-44.9, adult; Z79.51 Long term (current) use of inhaled steroids; Z79.82 Long term (current) use of aspirin; Z79.84 Long term (current) use of oral hypoglycemic drugs; Z79.891 Long term (current) use of opiate analgesic; Z79.899 Other long term (current) drug therapy

== ENCOUNTER → 2018-10-16 | Outpatient (CLI) | payer MEDICARE ==
[~2018-10-16] MED LIST changes: +HYDR1TAB33 PO; -HYDRO50TAB PO; -TRAZ-160 PO; +TRAZ-252 PO
--- NOTE | 2018-11-02 00:02 | ECWPNPC ---
PATIENT NAME: NOEL MENDEZ : 1960 GENDER: MALE VISIT DATE: 10/16/2018 DISCHARGE DATE: 10/16/18 1204 VISIT LOCKED DATE TIME: PHYSICIAN: ARMANDO ORR RESOURCE: ARMANDO ORR REASON FOR APPOINTMENT 1. BACK HISTORY OF PRESENT ILLNESS HISTORY OF PRESENT ILLNESS: HERE FOR F/U OF CHRONIC LOW BACK PAIN ,ABDOMINAL PAIN AND BILATERAL SHOULDER PAIN.HISTORY OF LEFT HIP REPLACEMENT SEVERAL YEARS AGO.HISTORY OF MULTIPLE ABDOMINAL SURGERIES AND HAS CHRONIC SEVERE UMBILICAL HERNIA.RATING PAIN VAS 5/10. PAIN THE PATIENT DESCRIBES THE PAIN... THE PATIENT DESCRIBES THE PAIN... THE PATIENT DESCRIBES THE PAIN... FALL RISK SCREENING: SCREENING :NO FALLS REPORTED IN THE LAST YEAR CURRENT MEDICATIONS TAKING GLUCOMETER 1 METER FOR TEST BLOOD SUGARS ONCE DAILY DX E11.9 TAKING LANCETS - MISCELLANEOUS 1 LANCET FOR DM TESTING DAILY DX E11.9 TAKING ACURA BLOOD GLUCOSE TEST - STRIP DIRECTED (ANY GENERIC STRIP AVAILABLE) IN VITRO DAILY DX E11.9 TAKING OVERNIGHT PULSE OXIMETRY DIRECTED TAKING EFFEXOR XR 150 MG CAPSULE EXTENDED RELEASE 24 HOUR TAKE ONE CAPSULE BY MOUTH ONCE A DAY WITH FOOD TAKING CYCLOBENZAPRINE HCL 5 MG TABLET 1 TABLET ORALLY 1 TAB AM,1 TAB MIDDAY AND 2 AT BEDTIME TAKING GABAPENTIN 300 MG CAPSULE 1 CAPSULE ORALLY FOR PAIN TID TAKING HYDROXYZINE HCL 50 MG TABLET 1 TABLET NEEDED ORALLY EVERY 8 HRS TAKING HYDROXYZINE HCL 50 MG TABLET 1 TABLET NEEDED ORALLY EVERY 8 HRS TAKING METFORMIN HCL 500 MG TABLET TAKE TWO TABLETS BY MOUTH TWICE A DAY TAKING ASPIRIN 81 81 MG TABLET CHEWABLE 1 TABLET ORALLY ONCE A DAY TAKING OXYBUTYNIN CHLORIDE ER 15 MG TABLET EXTENDED RELEASE 24 HOUR 1 TABLET ORALLY ONCE A DAY TAKING PROAIR HFA 108 (90 BASE) MCG/ACT AEROSOL SOLUTION 2 PUFFS NEEDED INHALATION EVERY 4 HRS TAKING BREO ELLIPTA 100-25 MCG/INH AEROSOL POWDER BREATH ACTIVATED 1 PUFF INHALATION ONCE A DAY TAKING ATORVASTATIN CALCIUM 20 MG TABLET 1 TABLET ORALLY ONCE A DAY TAKING CHLORTHALIDONE 25 MG TABLET TAKE ONE TABLET BY MOUTH ONCE A DAY EVERY MORNING TAKING ZOLPIDEM TARTRATE 10 MG TABLET 1 TABLET AT BEDTIME NEEDED ORALLY ONCE A DAY TAKING FLOMAX 0.4 MG CAPSULE 1 CAPSULE ORALLY ONCE A DAY TAKING MORPHINE SULFATE ER 15 MG TABLET EXTENDED RELEASE 1 TABLET ORALLY EVERY 12 HRS MDD2 TAKING OXYCODONE-ACETAMINOPHEN 10-325 MG TABLET 1 TABLET NEEDED ORALLY EVERY 6 HRS MDD4 TAKING EFFEXOR XR 75 MG CAPSULE EXTENDED RELEASE 24 HOUR 1 CAP ORALLY ONCE A DAY TAKING MELOXICAM 7.5MG TABLET 1 TAB(S) ORALLY DAILY TAKING EFFEXOR XR 150 MG CAPSULE EXTENDED RELEASE 24 HOUR 1 CAPSULE WITH FOOD ORALLY ONCE A DAY MEDICATION LIST REVIEWED AND RECONCILED WITH THE PATIENT PAST MEDICAL HISTORY HERNIAS RENAL CYST NEUROPATHY LEGS 2005 INITIAL INJURY TO LOWER BACK HERNIATED DISC.. REINJURED IN 2007 COPD HTN HYPERLIPIDEMIA MORBID OBESITY QUINTON-NONCOMPLIANT WITH MACHINE NUMBNESS IN LEFT THUMB FREQUENT NOSE BLEEDS BORDERLINE DIABETES HIGH RED BLOOD CELL COUNT ALLERGIES FLAGYL: HIVES - SIDE EFFECTS PAPER ADHESION TAPE: BURNED SKIN OFF - ALLERGY SURGICAL HISTORY 2 HERNIA REPAIRS IN STOMACH 1989- DIVERTICULITIS SURGERY(4 SURGERIES WITH IN 2011 FOR THIS) 10/2011 HERNIA REPAIR ABD AREA 10/02/2013 RIGHT RENAL CYST ASPIRATION 09/26/13 L HIP REPLACEMENT 02/06/14 RIGHT PARTIAL NEPHRECTOMY 02/04/15 HEART CATH 05/26/2016 FAMILY HISTORY FATHER: , DIAGNOSED WITH HEART DISEASE MOTHER: , DIABETES SIBLINGS: ALIVE, ONE BROTHER ON A FISHING TRIP. THREE SISTER'S , DIABETES, HEART DISEASE SON(S): ALIVE DAUGHTER(S): ALIVE 2 BROTHER(S) , 8 SISTER(S) . 2 SON(S) , 1 DAUGHTER(S) . SOCIAL HISTORY GENERAL: TOBACCO USE ARE YOU A:CURRENT SMOKER ARE YOU INTERESTED IN QUITTING?NOT READY TO QUIT COUNSELED THE PATIENT ON SMOKING EFFECTS, EDUCATION [id number]/25/2019 HOW MANY CIGARETTES A DAY DO YOU SMOKE?11-20 HOW OFTEN DO YOU SMOKE CIGARETTES?EVERY DAY PATIENT COUNSELED ON THE DANGERS OF TOBACCO USE AND URGED TO QUIT:10/16/2018 VAPORNO E-CIGARETTENO HIV / HEP-C SCREENING HIV TEST OFFERED TO PATIENT:YES DATE OFFERED:06/16/2016 CONSENT ON FILE TEST ACCEPTED:NO REASON:PATIENT DECLINED TESTED IN PAST HEP-C TEST OFFERED TO PATIENT:YES DATE OFFERED:06/16/2016 TEST ACCEPTED:NO REASON:PATIENT DECLINED CONSENT ON FILE EDUCATION LEVEL OF EDUCATION:HIGH SCHOOL DIET: REGULAR. LANGUAGE SAO TOMEAN. NEW PATIENT PAIN DIARY FROM 0-10, WHAT LEVEL IS YOUR PAIN TODAY?5 BMI CARE GOAL FOLLOW-UP ABOVE NORMAL BMI FOLLOW-UPGIVING ENCOURAGEMENT TO EXERCISE RECREATIONAL DRUG USE DRUG USE?NO EXERCISE: NONE. LEARNING BARRIERS / SPECIAL NEEDS CHANGE FROM LAST VISIT?NO 06/12/2018 BARRIERS TO LEARNING?NO HEARING IMPAIRED?NO VISION IMPAIRED?NO COGNITIVELY IMPAIRED?NO READINESS TO LEARN?YES LEARNING PREFERENCES?NO LEARNING CAPABILITIES PRESENT?YES EMOTIONAL BARRIERS?NO SPECIAL DEVICES?NO TRANSPLANT CASE MANAGER NEEDED?NO LUNG CANCER SCREENING SMOKING STATUS:CURRENT SMOKER IS THE PATIENT BETWEEN THE AGE OF 56 AND 78?YES HAS THE PATIENT EVER BEEN DIAGNOSED WITH LUNG CANCER?NO PACK YEARS = NUMBER OF PACKS PER DAY SMOKED X NUMBER OF YEARS SMOKED:40 CREATE REFERRAL:GENERATE AND CREATE REFERRAL TO THE ONCOLOGY NURSE NAVIGATOR (SMP) LISTING USING THE LDCT SCAN PROCEDURE PAIN CLINIC PFS, CLERGY, PUBLIC HEALTH REFERRALS PFS REFERRAL NEEDED?NO CLERGY REFERRAL NEEDED?NO PUBLIC HEALTH REFERRAL NEEDED?NO WAS THE PROVIDER NOTIFIED OF ANY PERTINENT INFO?YES HAS THE PATIENT BEEN EDUCATED REGARDING HIS/HER PLAN OF CARE?YES HAS THE PATIENT BEEN EDUCATED REGARDING PAIN, THE RISK FOR PAIN, THE IMPORTANCE OF EFFECTIVE PAIN MANAGEMENT, AND THE PAIN ASSESSMENT PROCESS?YES LATEX QUESTIONNAIRE LATEX ALLERGY : HAVE YOU EVER DEVELOPED ANY TYPE OF REACTION AFTER HANDLING LATEX PRODUCTS SUCH RUBBER GLOVES, CONDOMS, DIAPHRAGMS, BALLOONS, SOCKS, OR UNDERWEAR?NO LATEX ALLERGY : HAVE YOU EVER DEVELOPED ANY TYPE OF REACTION DURING OR AFTER DENTAL APPOINTMENT, VAGINAL/RECTAL EXAMINATION, SURGICAL PROCEDURE, OR ANY OTHER EXPOSURE?NO LATEX RISK : HAVE YOU EVER HAD ANY DIFFICULTY BREATHING OR HIVES AFTER EATING OR HANDLING ANY FRUITS, OR VEGETABLES; SUCH KIWI, BANANAS, STONE FRUITS, OR CHESTNUTSNO LATEX RISK : DO YOU HAVE A PREVIOUS PERSONAL HISTORY OF MORE THAN NINE SURGERIES, SPINA BIFIDA, OR REPEATED CATHERIZATIONS? NO LATEX RISK : ARE YOU FREQUENTLY EXPOSED TO LATEX PRODUCTS IN YOUR OCCUPATION?NO DATE ASKED : 10/16/2018 CAFFEINE CAFFEINE USE?YES 1 PEPSI A DAY ADVANCE DIRECTIVE ADVANCE DIRECTIVE DISCUSSED WITH PATIENT:YES PT DECLINES ASSISTANCE, DECLINES HCP AT THIS TIME RESTORATIONISM [id number] BUDDHISM MARITAL STATUS: SINGLE. ALCOHOL SCREENING DID YOU HAVE A DRINK CONTAINING ALCOHOL IN THE PAST YEAR?NO POINTS0 INTERPRETATIONNEGATIVE OCCUPATION: DISABLED. SEXUAL HX HAD SEX IN THE LAST 12 MONTHS (VAGINAL, ORAL, OR ANAL)?YES WITHWOMEN ONLY USE PROTECTION?NO HAVE YOU EVER HAD AN STD?NO REVIEWED WITH PATIENT 06/29/18 1046 JS. HOSPITALIZATION/MAJOR DIAGNOSTIC PROCEDURE [facility] 10/2011 REVIEW OF SYSTEMS REVIEWED BY: PROVIDER: ARMANDO ROSE . CONSTITUTIONAL: ANY CHANGE IN YOUR MEDICAL CONDITION? NO . CHILLS NO . FEVER NO . INFECTION: DO YOU HAVE NEW INFECTIONS? NO . DO YOU HAVE HISTORY OF MRSA? YES, PT STATES IT WAS AN OLD WOUND IN ABDOMEN 2013, NO ISSUES . MUSCULOSKELETAL: ANY NEW PATTERNS OF PAIN OR NUMBNESS? NO . GASTROENTEROLOGY: ANY NEW CHANGE IN BOWEL CONTROL? NO . GENITOURINARY: ANY NEW CHANGE IN BLADDER CONTROL? NO . IS THERE A CHANCE YOU COULD BE ? NO . HEMATOLOGY/LYMPH: DO YOU TAKE ANY BLOOD THINNERS? (FOR EXAMPLE- COUMADIN, PLAVIX, AGGRENOX, PLATEL, PRADAXA, OR XARELTO) NO . WHEN WAS YOUR LAST DOSE? DATE: TIME: . NEUROLOGY: HAVE YOU FALLEN IN THE PAST 12 MONTHS? NO . ANY NEW EXTREMITY NUMBNESS OR WEAKNESS? NO . CARDIOLOGY: DO YOU HAVE A PACEMAKER OR DEFIBRILLATOR? NO . RESPIRATORY: HAVE YOU BEEN SICK IN THE PAST WEEK? NO . FEVER NO . FLU LIKE SYMPTOMS? NO . COUGH NO . INTEGUMENTARY: DO YOU HAVE ANY RASHES OR OPEN SORES? NO . ALLERGIC/IMMUNO: ARE YOU ALLERGIC TO IV DYE? NO . ANY NEW ALLERGIES? NO . PSYCHIATRIC: DO YOU HAVE THOUGHTS OF HURTING YOURSELF OR SOMEONE ELSE? NO . ARE YOU ABUSED, NEGLECTED, OR IN AN UNSAFE ENVIRONMENT? NO . ENDOCRINOLOGY: ARE YOU DIABETIC? YES, FSBS 140 . OTHER: DO YOU NEED ANY PRESCRIPTIONS? NO . IF YES, PLEASE LIST: ____ . ANY NEW PROBLEMS WITH YOUR MEDICATIONS? NO . WHEN DID YOU LAST EAT? ____ . WHEN DID YOU LAST DRINK? ____ . WHAT DID YOU LAST DRINK? ____ . NAME OF PERSON DRIVING YOU HOME? ____ . DO YOU HAVE ANY OTHER QUESTIONS OR CONCERNS NO . VITAL SIGNS WT 292.8 LBS, HT 69.5 IN, BMI 42.61 INDEX, BP 140/84 MM HG, HR 83 /MIN, RR 18 /MIN, TEMP 98.6 F, OXYGEN SAT % 96%, SAFE IN ENV? (Y/N) Y, NA INITIALS AW 1118, REVIEWED BY: IVETTE. EXAMINATION GENERAL EXAMINATION: GENERALAWAKE,ALERT ,PLEAASANT . PSYCHAFFECT NORMAL . LUNGS:LUNG BOYD ARE CLEAR TO AUSCULTATION BILATERALLY. GOOD MOVEMENT OF AIR . HEART:S1, S2 IN A REGULAR RATE AND RHYTHM. NO SIGNIFICANT MURMURS, RUBS OR GALLOPS NOTED . 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.27 (PRIMARY) ABDOMINAL PAIN, CHRONIC, GENERALIZED - R10.84 TREATMENT PROTRUSION OF INTERVERTEBRAL DISC OF LUMBOSACRAL REGION CONTINUE CYCLOBENZAPRINE HCL TABLET, 5 MG, 1 TABLET, ORALLY, 1 TAB AM,1 TAB MIDDAY AND 2 AT BEDTIME REFILL GABAPENTIN CAPSULE, 300 MG, 1 CAPSULE, ORALLY FOR PAIN, TID, 30 DAY(S), 90 CAPSULE, REFILLS 5 CONTINUE MORPHINE SULFATE ER TABLET EXTENDED RELEASE, 15 MG, 1 TABLET, ORALLY, EVERY 12 HRS MDD2 REFILL OXYCODONE-ACETAMINOPHEN TABLET, 10-325 MG, 1 TABLET NEEDED, ORALLY, EVERY 6 HRS MDD4, 30 DAY(S), 120, REFILLS 0 NOTES: ISTOP REGISTRY REVIEWED AND DEMONSTRATES COMPLLIANCE. BRINGS IN MEDICATIONS WHICH IS APPROPRIATE FOR WHAT WAS DISPENSED. RECENT URINE TOXICOLOGY REVIEWED. NO UNAUTHORIZED MEDICATIONS. NO ILLICIT SUBSTANCES AND PRESCRIBED MEDICATIONS WERE PRESENT. , RISKS AND BENEFITS OF NARCOTIC/OPIOD MEDICATIONS WERE REVIEWED WITH PATIENT - THIS INCLUDES BUT IS NOT LIMITED TO RISK OF DEPENDANCE/DEVELOPMENT OF ADDICTION, MOOD DISTURBANCE AND DEPRESSION, OSTEOPOROSIS, HORMONAL AND LABIDAL CHANGES, RESPIRATORY DEPRESSION AND . PATIENT IS ADVISED NOT TO DRIVE OR DRINK ALCOHOL WHILE ON THESE MEDICATIONS. PROCEDURE CODES FA211 ESTABILISHED PATIENT [facility] CHARGE DISPOSITION & COMMUNICATION FOLLOW UP 3 MONTHS (REASON: MED MGMNT) ELECTRONICALLY SIGNED BY MILTON MEDA ON 11/01/2018 AT 09:53 AM EDT DISCLAIMER : THIS IS A VISIT SUMMARY EXTRACTED FROM THE [facility] CHART. IT IS NOT A COPY OF THE [facility] PROGRESS NOTE. MTDD
== END ==
LOC: M PAIN 11:15
PROVIDERS: ATTEND Nurse Practitioner Family
DX: M51.27 Other intervertebral disc displacement, lumbosacral region (principal); R10.84 Generalized abdominal pain; G89.29 Other chronic pain; J44.9 Chronic obstructive pulmonary disease, unspecified; I10 Essential (primary) hypertension; E78.5 Hyperlipidemia, unspecified; G47.33 Obstructive sleep apnea (adult) (pediatric); E11.9 Type 2 diabetes mellitus without complications; Z96.642 Presence of left artificial hip joint; F17.210 Nicotine dependence, cigarettes, uncomplicated; Z88.1 Allergy status to other antibiotic agents; Z91.09 Other allergy status, other than to drugs and biological substances; Z86.14 Personal history of Methicillin resistant Staphylococcus aureus infection; E66.01 Morbid (severe) obesity due to excess calories; Z68.41 Body mass index [BMI] 40.0-44.9, adult; Z79.82 Long term (current) use of aspirin; Z79.51 Long term (current) use of inhaled steroids; Z79.84 Long term (current) use of oral hypoglycemic drugs; Z79.891 Long term (current) use of opiate analgesic; Z79.899 Other long term (current) drug therapy

== ENCOUNTER → 2018-10-17 | Outpatient (REF) | payer MEDICARE ==
[2018-10-17 17:06] LABS: BASO % 0.5 % (0.0-1.0); EOS # 0.2 10^3/uL (0.0-0.50); EOS % 2.9 % (0.0-3.0); HEMATOCRIT 52.7 % (42.0-52.0); HEMOGLOBIN 17.1 g/dl (13.5-17.5); LYMPH # 1.7 10^3/uL (1.5-4.5); LYMPH % 21.9 % (24.0-44.0); MEAN CORPUSCULAR HEMOGLOBIN 29.2 pg (27.0-33.0); MEAN CORPUSCULAR HGB CONC 32.4 g/dl (32.0-36.5); MEAN CORPUSCULAR VOLUME 90.1 fl (80.0-96.0); MONO # 0.5 10^3/uL (0.0-0.8); MONO % 6.8 % (0.0-5.0); NEUTROPHILS # 5.1 10^3/uL (1.8-7.7); NEUTROPHILS % 67.4 % (36.0-66.0); PLATELET COUNT, AUTOMATED 180 10^3/uL (150-450); RED BLOOD COUNT 5.85 10^6/uL (4.30-6.10); WHITE BLOOD COUNT 7.6 10^3/uL (4.0-10.0)
[2018-10-17 17:25] LABS: ALBUMIN 3.8 GM/DL (3.2-5.2); ALT/SGPT 47 U/L (12-78); BILIRUBIN,TOTAL 0.3 MG/DL (0.2-1.0); BLOOD UREA NITROGEN 15 MG/DL (7-18); CARBON DIOXIDE LEVEL 26 MEQ/L (21-32); CHLORIDE LEVEL 103 MEQ/L (98-107); CHOLESTEROL LEVEL 178 MG/DL (<200); CHOLESTEROL RISK RATIO 5.393 (<5); GLOMERULAR FILTRATION RATE > 60.0 (>56); GLUCOSE, FASTING 96 MG/DL (70-100); HDL CHOLESTEROL 33 MG/DL (>40); LDL CHOLESTEROL 68 MG/DL (<100); NON-HDL-C 145 MG/DL; POTASSIUM SERUM 4.2 MEQ/L (3.5-5.1); SODIUM LEVEL 138 MEQ/L (136-145); TOTAL PROTEIN 7.8 GM/DL (6.4-8.2); TRIGLYCERIDES LEVEL 385 MG/DL (<150)
[2018-10-17 17:29] LABS: HEMOGLOBIN A1c 6.4 %
== END ==
LOC: M SFHCCAPE 10:32
PROVIDERS: ATTEND Physician Assistant
DX: I10 Essential (primary) hypertension (principal); E11.9 Type 2 diabetes mellitus without complications; R79.89 Other specified abnormal findings of blood chemistry

== ENCOUNTER 2018-11-13 08:57 | Emergency (ER) | payer MEDICARE ==
[~2018-11-13] VITALS: Ht 180.3 cm; Wt 127.3 kg
[2018-11-13] MEDS ORDERED: ONDANSETRON 4MG/2ML VIAL (J2405) IV ONE (09:45)
[2018-11-13] MEDS: MORPHINE 4 MG/ML 1ML VIAL/SYRINGE (J2270) IV PRN ×2 (10:02→11:04)
[2018-11-13 12:18] VITALS: BP 130/84
--- NOTE | 2018-11-13 12:24 | REP ---
Left tib-fib series: Two views. History: Trauma. Findings: There is a nondisplaced and possibly incomplete fracture of the proximal fibular diaphysis. No proximal tibial fracture is seen. Impression: Nondisplaced proximal fibular diaphyseal fracture. Electronically Signed by Chip Stuart MD 11/13/2018 10:13 A
--- NOTE | 2018-11-13 12:24 | REP ---
Left ankle series: Four views. History: Trauma. Findings: Four views of the left ankle demonstrate a posterior tibial fracture which is intra-articular seen on the lateral radiograph. The medial malleolus and lateral malleolus appear intact. There is some medial malleolar spurring. Achilles calcaneal spurring is noted. There is soft tissue swelling anteriorly and medially and laterally about the ankle. Impression: Isolated posterior tibial "malleolar" fracture. Interarticular. Diffuse swelling. Tibiotalar spurring. Heel spurring. Electronically Signed by Chip Stuart MD 11/13/2018 10:12 A
[2018-11-22] MEDS ORDERED: MOBI4TAB PO (14:24)
== END 2018-11-13 12:29 | disposition home or self-care (01) ==
LOC: EDBD 08:57 → M ED 08:57
DX: S82.832A Other fracture of upper and lower end of left fibula, initial encounter for closed fracture (principal); S82.892A Other fracture of left lower leg, initial encounter for closed fracture; W01.0XXA Fall on same level from slipping, tripping and stumbling without subsequent striking against object, initial encounter; Y92.018 Other place in single-family (private) house as the place of occurrence of the external cause; E11.9 Type 2 diabetes mellitus without complications; J44.9 Chronic obstructive pulmonary disease, unspecified; I10 Essential (primary) hypertension; G62.9 Polyneuropathy, unspecified; G89.29 Other chronic pain; Z79.899 Other long term (current) drug therapy; Z79.84 Long term (current) use of oral hypoglycemic drugs; Z88.8 Allergy status to other drugs, medicaments and biological substances; Z91.048 Other nonmedicinal substance allergy status; F17.210 Nicotine dependence, cigarettes, uncomplicated
CPT/HCPCS: 29515; 73590; 73610; 96374; 96375; 96376; 99284; J2270; J2405

== ENCOUNTER → 2018-11-22 | Outpatient (REF) | payer MEDICARE ==
[~2018-11-22] MED LIST changes: +MOBI4TAB PO
[2018-11-23 12:04] LABS: HEMATOCRIT 51.6 % (42.0-52.0); HEMOGLOBIN 16.4 g/dl (13.5-17.5); MEAN CORPUSCULAR HEMOGLOBIN 27.9 pg (27.0-33.0); MEAN CORPUSCULAR HGB CONC 31.8 g/dl (32.0-36.5); MEAN CORPUSCULAR VOLUME 87.9 fl (80.0-96.0); PLATELET COUNT, AUTOMATED 215 10^3/uL (150-450); RED BLOOD COUNT 5.87 10^6/uL (4.30-6.10); WHITE BLOOD COUNT 6.5 10^3/uL (4.0-10.0)
[2018-11-23 12:14] LABS: INR 1.03; PROTHROMBIN TIME 13.2 SECONDS (11.8-14.0)
== END ==
LOC: M LABDRAWC 11:23
PROVIDERS: ATTEND Orthopaedic Surgery Sports Medicine
DX: Z01.818 Encounter for other preprocedural examination (principal); S82.392A Other fracture of lower end of left tibia, initial encounter for closed fracture

== ENCOUNTER → 2018-11-22 | Outpatient (CLI) | payer MEDICARE ==
--- NOTE | 2018-11-22 16:43 | REP ---
CHEST, TWO VIEWS: Two views of the chest are performed and compared to prior study of 01/27/2015. There is mild stable chronic interstitial prominence. No acute infiltrate is seen. The heart is not enlarged. The mediastinal silhouette is unchanged with mild calcification of the thoracic aorta. There are mild degenerative changes of the spine. IMPRESSION: No acute pulmonary disease. Electronically Signed by Madi Gilliam MD 11/23/2018 04:59 P
== END ==
LOC: M CLY 14:43
PROVIDERS: ATTEND Orthopaedic Surgery Sports Medicine
DX: Z01.818 Encounter for other preprocedural examination (principal); S82.892A Other fracture of left lower leg, initial encounter for closed fracture; G47.33 Obstructive sleep apnea (adult) (pediatric); W19.XXXA Unspecified fall, initial encounter; Y92.9 Unspecified place or not applicable

== ENCOUNTER 2018-12-07 11:12 | Day surgery (SDC) | payer MEDICARE ==
[~2018-12-07] VITALS: Ht 177.8 cm; Wt 125.2 kg
[~2018-12-07 11:12] MED LIST changes: +LIDOCAINE 1% MDV 20ML VIAL SQ PRN; +LIDOCAINE 2% INJ 100 MG/5 ML SDV (FOR ANES.) As Ordered ONE; +LR 1,000 ML IV ONE; +ONDANSETRON 4MG/2ML VIAL (J2405) As Ordered ONE; +PROPOFOL 200 MG/20 ML VIAL As Ordered ONE; +ROCURONIUM BROMIDE 50 MG/5 ML VIAL As Ordered ONE; +ceFAZolin SOD 2 GM in IV 1 EA IV ONE; +dexameTHASONE 4 MG/ML 1ML VIAL (J1100) As Ordered ONE
[2018-12-07] MEDS ORDERED: LIDOCAINE 1% MDV 20ML VIAL ONE ×2 (11:13)
[2018-12-07] MEDS ORDERED: dexameTHASONE 10 MG/1 ML VIAL PRES.FREE (J1100) ONE (11:13)
[2018-12-07] MEDS ORDERED: PROPOFOL 200 MG/20 ML VIAL As Ordered ONE (12:41)
[2018-12-07] MEDS ORDERED: METOCLOPRAMIDE INJ 10MG/2ML VIAL (J2765) As Ordered ONE (12:41)
[2018-12-07] MEDS ORDERED: ONDANSETRON 4MG/2ML VIAL (J2405) As Ordered ONE ×2 (12:41→15:10)
[2018-12-07] MEDS ORDERED: LIDOCAINE 2% INJ 100 MG/5 ML SDV (FOR ANES.) As Ordered ONE (12:41)
[2018-12-07] MEDS ORDERED: ceFAZolin 1GM INJ (J0690 PER 500MG) As Ordered ONE (12:43)
[2018-12-07] MEDS ORDERED: ROCURONIUM BROMIDE 50 MG/5 ML VIAL As Ordered ONE (12:44)
[2018-12-07] MEDS ORDERED: fentaNYL 100 MCG/2 ML INJECTION (J3010) As Ordered ONE ×5 (12:48→16:12)
[2018-12-07] MEDS ORDERED: BUPIVACAINE HCL 0.25% 10 ML VIAL As Ordered ONE (12:57)
[2018-12-07] MEDS ORDERED: MIDAZOLAM INJ 2 MG/2 ML VIAL (J2250) As Ordered ONE ×2 (12:57→15:56)
[2018-12-07] MEDS ORDERED: BUPIVACAINE HCL 0.25% 30 ML VIAL As Ordered ONE ×3 (12:57→15:13)
[2018-12-07] MEDS ORDERED: ALBUTEROL SULFATE 2.5 MG/0.5 ML INH NEB SOLN As Ordered ONE (12:58)
[2018-12-07] MEDS ORDERED: SUGAMMADEX SODIUM 500 MG/5 ML VIAL (BRIDION) As Ordered ONE (14:15)
[2018-12-07] MEDS ORDERED: MIDAZOLAM INJ 2 MG/2 ML VIAL (J2250) IV ONE (15:00)
[2018-12-07] MEDS ORDERED: METOCLOPRAMIDE INJ 10MG/2ML VIAL (J2765) IV PRN (15:00)
[2018-12-07] MEDS ORDERED: LR 1,000 ML IV SCH ×2 (15:00→15:30)
[2018-12-07] MEDS ORDERED: ONDANSETRON 4MG/2ML VIAL (J2405) IV PRN ×2 (15:00→15:30)
[2018-12-07] MEDS ORDERED: HYDROMORPHONE HCL 0.5 MG/ 0.5 ML SYRINGE (J1170 PER 1) As Ordered ONE ×2 (15:01→15:11)
[2018-12-07] MEDS ORDERED: ACETAMINOPHEN 1000MG 100ML IV BTL (OFIRMEV) (J0131 PER 10MG) As Ordered ONE (15:02)
[2018-12-07] MEDS: fentaNYL 100 MCG/2 ML INJECTION (J3010) IV PRN ×4 (15:05→15:25)
[2018-12-07] MEDS ORDERED: oxyCODONE 5MG TAB As Ordered ONE ×2 (15:11→15:51)
[2018-12-07] MEDS: HYDROMORPHONE HCL 0.5 MG/ 0.5 ML SYRINGE (J1170 PER 1) IV PRN ×2 (15:15→15:30)
[2018-12-07] MEDS: oxyCODONE 5MG TAB PO PRN ×2 (15:20→15:54)
[2018-12-07] MEDS ORDERED: PERCOCET 5MG/325MG TAB PO PRN (15:30)
[2018-12-07] MEDS ORDERED: GASTROGRAFIN SOLUTION 30ML PO SCH (15:30)
[2018-12-07] MEDS ORDERED: ONDANSETRON 4 MG TAB (S0181) PO PRN (15:30)
[2018-12-07] MEDS ORDERED: MORPHINE 4 MG/ML 1ML VIAL/SYRINGE (J2270) IV PRN (15:30)
[2018-12-07] MEDS ORDERED: ACETAMINOPHEN *IV* 1,000 MG IV ONE ×2 (15:30)
--- NOTE | 2018-12-07 15:57 | RO ---
DATE OF SURGERY: 12/07/2018 PREOPERATIVE DIAGNOSIS: Left ankle fracture. POSTOPERATIVE DIAGNOSIS: Left ankle fracture. PREOPERATIVE PLANNED PROCEDURE: Left ankle open reduction, internal fixation (syndesmosis screws). PROCEDURE PERFORMED: Left ankle open reduction, internal fixation (syndesmosis screws). SURGEON: Dr. Ramos WEB PORTAL DEVELOPER: Dr. Mccormack TYPE OF ANESTHETIC: General anesthesia anesthetic plus block. OPERATIVE PREAMBLE: This 58-year-old man tripped on a laundry basket. He sustained a syndesmosis injury to his left ankle. This confirmed in the clinic by stress views widening on the syndesmosis as well as the medial joint space and high fibula fracture. We talked about the pros, cons, risks, benefits of nonsurgical versus surgical management to perform an open reduction, internal fixation. I reiterated these risks in preoperative holding. I marked the left lower extremity and proceeded with surgery. OPERATIVE REPORT: Patient was brought to operating theater. Placed supine on the operating table. Bone foam leg elevator was used. All bony prominences were padded. Bump was placed under left hip. 42 inch tourniquet was applied and appropriately padded to the left thigh. Two grams of IV Ancef was administered. General anesthesia was induced. The leg was prepped and draped in the usual sterile fashion, allowed to thoroughly dry at least 3 minutes before draping. Preoperative time-out was performed to confirm the site and the patient and the operation. I began by identifying the level of the syndesmosis with intraoperative radiographs as well as a ruler placed on the skin. I made a 2 inch incision centered over the lateral aspect to the distal fibula of the limb of syndesmosis. I carried this dissection down through skin and subcutaneous tissue to meticulous hemostasis. I identified level of the syndesmosis. I placed a [place] elevator into the syndesmosis. It was indeed unstable and had an obvious syndesmosis injury. I then used a 2.5 mm long drill from the [employer] foot. This was from the [employer] modular foot to drill two parallel screws across the joint surface at the level the syndesmosis. These were 60 mm long and 55 mm long 3.5 mm corticoid cortical screws. I tightened these down but did not over tension the syndesmosis. I drilled and placed the screws with the ankle in neutral amount of dorsiflexion. I used direct visualization of the syndesmosis as well as squeezing the syndesmosis together by hand. I took final radiographs AP, mortise and lateral radiographs. The reduction appeared anatomic. No obvious widening with external rotation testing. I took contralateral radiographs again to compare and these appeared to have comparable syndesmosis on both sides. I thoroughly irrigated the wound. Tourniquet was let down. Subcutaneous tissues were closed with interrupted #2-0 Vicryl suture. The skin was cleaned with dry dressing, followed by application of rossana to close the skin. Adaptic, 4 x 8 gauze and ABD dressing with sterile below knee 6 inch cast padding was applied. Three-sided plaster of Melvina splint was applied and overwrapped with sterile 6 inch Joaquín bandages. Drapes and dressings were removed. This was allowed to harden with the foot in neutral. The patient was woken up from general anesthetic, transferred off the operating table and taken to the postanesthetic care unit stable condition. All sponge, needle and instruments counts were correct. Estimated blood loss 50 mL. No complications. Plan for the patient is he is to be non-weightbearing with crutches. Followup in clinic in 2 weeks' time. They should be discharged home criteria as long they are stable postoperative.
[2018-12-07] MEDS ORDERED: ACETAMINOPHEN TAB 650MG DOSE (2X325MG) PO PRN (16:00)
--- NOTE | 2018-12-07 16:24 | REP ---
Partial left ankle series: Three views. History: ORIF. Intraoperative imaging. 46 seconds of fluoroscopy time is reported. Findings: A sequence of three last image hold fluoroscopic spot radiographs of the ankle document tib-fib screw fixation. No laterality markers are visible. Electronically Signed by Chip Stuart MD 12/07/2018 04:34 P
[2018-12-07 17:30] VITALS: BP 138/79
== END 2018-12-07 17:45 | disposition home or self-care (01) ==
LOC: M SDC 11:12
PROVIDERS: ATTEND Orthopaedic Surgery Sports Medicine
DX: S82.92XA Unspecified fracture of left lower leg, initial encounter for closed fracture (principal); W18.00XA Striking against unspecified object with subsequent fall, initial encounter; Y92.008 Other place in unspecified non-institutional (private) residence as the place of occurrence of the external cause; Y93.89 Activity, other specified; Y99.9 Unspecified external cause status; I10 Essential (primary) hypertension; J44.9 Chronic obstructive pulmonary disease, unspecified; E78.49 Other hyperlipidemia; G47.33 Obstructive sleep apnea (adult) (pediatric); F17.210 Nicotine dependence, cigarettes, uncomplicated; E66.01 Morbid (severe) obesity due to excess calories; E11.9 Type 2 diabetes mellitus without complications; K21.9 Gastro-esophageal reflux disease without esophagitis; K44.9 Diaphragmatic hernia without obstruction or gangrene; F41.9 Anxiety disorder, unspecified; F32.9 Major depressive disorder, single episode, unspecified; Z79.84 Long term (current) use of oral hypoglycemic drugs; Z79.899 Other long term (current) drug therapy
CPT/HCPCS: 27829; 76000; C1713; J0131; J0690; J1100; J2250; J2405; J2765; J3010

== ENCOUNTER → 2019-02-26 | Outpatient (CLI) | payer MEDICARE ==
[~2019-02-26] MED LIST changes: -LIDOCAINE 1% MDV 20ML VIAL SQ PRN; -LIDOCAINE 2% INJ 100 MG/5 ML SDV (FOR ANES.) As Ordered ONE; -LR 1,000 ML IV ONE; -ONDANSETRON 4MG/2ML VIAL (J2405) As Ordered ONE; -OXYB15TA PO; +OXYB1TAB13 PO; -PROPOFOL 200 MG/20 ML VIAL As Ordered ONE; -ROCURONIUM BROMIDE 50 MG/5 ML VIAL As Ordered ONE; -ceFAZolin SOD 2 GM in IV 1 EA IV ONE; -dexameTHASONE 4 MG/ML 1ML VIAL (J1100) As Ordered ONE
--- NOTE | 2019-03-06 00:44 | ECWPNPC ---
PATIENT NAME: NOEL MENDEZ : 1960 GENDER: MALE VISIT DATE: 02/26/2019 DISCHARGE DATE: 02/26/19 1300 VISIT LOCKED DATE TIME: PHYSICIAN: ARMANDO ORR RESOURCE: ARMANDO ORR REASON FOR APPOINTMENT 1. MEDICARE BLUE/BACK HISTORY OF PRESENT ILLNESS HISTORY OF PRESENT ILLNESS: HERE FOR F/U OF CHRONIC ABDOMINAL AND LOW BACK PAIN.HAD A FALL IN AND FRACTURED LEFT ANKLE.HAS HAD A CAST ON AND USING CRUTCHES.SINCE THEN HE HAS HAD A SIGNIFICANT INCREASE IN LOW BACK PAIN.RATING PAIN VAS 3-8/10 VAS.REVIEWED MRI AND DISCUSSED TREATMENT OPTIONS.FINDS CURRENT MEDICATION SOMEWHAT EFFECTIVE BUT SINCE FALL HE HAS BEEN VERY UNCOMFORTABLE. PAIN THE PATIENT DESCRIBES THE PAIN... FALL RISK SCREENING: SCREENING :NO FALLS REPORTED IN THE LAST YEAR CURRENT MEDICATIONS TAKING CHLORTHALIDONE 25 MG TABLET TAKE ONE TABLET BY MOUTH ONCE A DAY EVERY MORNING TAKING FLOMAX 0.4 MG CAPSULE 1 CAPSULE ORALLY ONCE A DAY TAKING EFFEXOR XR 75 MG CAPSULE EXTENDED RELEASE 24 HOUR 1 CAP ORALLY ONCE A DAY TAKING EFFEXOR XR 150 MG CAPSULE EXTENDED RELEASE 24 HOUR 1 CAPSULE WITH FOOD ORALLY ONCE A DAY TAKING MELOXICAM 7.5MG TABLET 1 TAB(S) ORALLY DAILY TAKING HYDROXYZINE HCL 50 MG TABLET 1 TABLET NEEDED ORALLY EVERY 8 HRS TAKING BREO ELLIPTA 100-25 MCG/INH AEROSOL POWDER BREATH ACTIVATED 1 PUFF INHALATION ONCE A DAY TAKING GLUCOMETER 1 METER FOR TEST BLOOD SUGARS ONCE DAILY DX E11.9 TAKING LANCETS - MISCELLANEOUS 1 LANCET FOR DM TESTING DAILY DX E11.9 TAKING ACURA BLOOD GLUCOSE TEST - STRIP DIRECTED (ANY GENERIC STRIP AVAILABLE) IN VITRO DAILY DX E11.9 TAKING OVERNIGHT PULSE OXIMETRY DIRECTED TAKING NOCTURNAL OXIMETRY ROOM AIR DIRECTED TAKING METFORMIN HCL 500 MG TABLET 2 TABS ORALLY BID TAKING PROAIR HFA 108 (90 BASE) MCG/ACT AEROSOL SOLUTION 2 PUFFS NEEDED INHALATION EVERY 4 HRS TAKING CYCLOBENZAPRINE HCL 5 MG TABLET 1 TABLET ORALLY 1 TAB AM,1 TAB MIDDAY AND 2 AT BEDTIME TAKING GABAPENTIN 300 MG CAPSULE 1 CAPSULE ORALLY FOR PAIN TID TAKING ZOLPIDEM TARTRATE 10 MG TABLET 1 TABLET AT BEDTIME NEEDED ORALLY ONCE A DAY TAKING OXYCODONE-ACETAMINOPHEN 10-325 MG TABLET 1 TABLET NEEDED ORALLY EVERY 6 HRS MDD4 TAKING MORPHINE SULFATE ER 15 MG TABLET EXTENDED RELEASE 1 TABLET ORALLY EVERY 12 HRS MDD2 TAKING OXYBUTYNIN CHLORIDE ER 15 MG TABLET EXTENDED RELEASE 24 HOUR 1 TABLET ORALLY ONCE A DAY TAKING ATORVASTATIN CALCIUM 20 MG TABLET 1 TABLET ORALLY ONCE A DAY TAKING ASPIRIN 81 81 MG TABLET CHEWABLE 1 TABLET ORALLY ONCE A DAY MEDICATION LIST REVIEWED AND RECONCILED WITH THE PATIENT PAST MEDICAL HISTORY HERNIAS RENAL CYST NEUROPATHY LEGS 2005 INITIAL INJURY TO LOWER BACK HERNIATED DISC.. 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 THREE SISTER'S , DIABETES, UNSPECIFIED HEART DISEASE SON(S): ALIVE DAUGHTER(S): ALIVE 2 BROTHER(S) , 8 SISTER(S) . 2 SON(S) , 1 DAUGHTER(S) . SOCIAL HISTORY GENERAL: TOBACCO USE ARE YOU A:CURRENT SMOKER ARE YOU INTERESTED IN QUITTING?NOT READY TO QUIT COUNSELED THE PATIENT ON SMOKING EFFECTS, EDUCATION [id number]/23/2019 HOW MANY CIGARETTES A DAY DO YOU SMOKE?21-30 HOW SOON AFTER YOU WAKE UP DO YOU SMOKE YOUR FIRST CIGARETTE?6-30 MIN HOW OFTEN DO YOU SMOKE CIGARETTES?EVERY DAY PATIENT COUNSELED ON THE DANGERS OF TOBACCO USE AND URGED TO QUIT:02/26/2019 ADDITIONAL FINDINGS: TOBACCO USERHEAVY CIGARETTE SMOKER (20-39 CIGS/DAY) SMOKING CESSATION INFORMATION GIVEN11/22/2018 VAPORNO E-CIGARETTENO HIV / HEP-C SCREENING HIV TEST OFFERED TO PATIENT:YES DATE OFFERED:11/22/2018 CONSENT ON FILE TEST ACCEPTED:NO HEP-C TEST OFFERED TO PATIENT:YES DATE OFFERED:11/22/2018 REASON:PATIENT DECLINED TESTED IN PAST TEST ACCEPTED:NO REASON:PATIENT DECLINED CONSENT ON FILE BROCHURE PROVIDED TO PATIENTNO -DECLINED OTHERS AT HOME: CHILD. EDUCATION LEVEL OF EDUCATION:HIGH SCHOOL DIET: REGULAR. LANGUAGE MONGOLIAN. DOMESTIC VIOLENCE DO YOU FEEL SAFE IN YOUR ENVIRONMENT?YES BMI CARE GOAL FOLLOW-UP ABOVE NORMAL BMI FOLLOW-UPGIVING ENCOURAGEMENT TO EXERCISE RECREATIONAL DRUG USE DRUG USE?NO EXERCISE: NONE. LEARNING BARRIERS / SPECIAL NEEDS CHANGE FROM LAST VISIT?NO 11/22/18 BARRIERS TO LEARNING?NO HEARING IMPAIRED?NO VISION IMPAIRED?NO COGNITIVELY IMPAIRED?NO READINESS TO LEARN?YES LEARNING PREFERENCES?NO LEARNING CAPABILITIES PRESENT?YES EMOTIONAL BARRIERS?NO SPECIAL DEVICES?YES :WALKER -CAST SCOW HAND NEEDED?NO LUNG CANCER SCREENING SMOKING STATUS:CURRENT SMOKER IS THE PATIENT BETWEEN THE AGE OF 56 AND 78?YES HAS THE PATIENT EVER BEEN DIAGNOSED WITH LUNG CANCER?NO PACK YEARS = NUMBER OF PACKS PER DAY SMOKED X NUMBER OF YEARS SMOKED:40 CREATE REFERRAL:GENERATE AND CREATE REFERRAL TO THE ONCOLOGY NURSE NAVIGATOR (SMP) LISTING USING THE LDCT SCAN PROCEDURE PAIN CLINIC PFS, CLERGY, PUBLIC HEALTH REFERRALS PFS REFERRAL NEEDED?NO CLERGY REFERRAL NEEDED?NO PUBLIC HEALTH REFERRAL NEEDED?NO WAS THE PROVIDER NOTIFIED OF ANY PERTINENT INFO?YES HAS THE PATIENT BEEN EDUCATED REGARDING HIS/HER PLAN OF CARE?YES HAS THE PATIENT BEEN EDUCATED REGARDING PAIN, THE RISK FOR PAIN, THE IMPORTANCE OF EFFECTIVE PAIN MANAGEMENT, AND THE PAIN ASSESSMENT PROCESS?YES LATEX QUESTIONNAIRE LATEX ALLERGY : HAVE YOU EVER DEVELOPED ANY TYPE OF REACTION AFTER HANDLING LATEX PRODUCTS SUCH RUBBER GLOVES, CONDOMS, DIAPHRAGMS, BALLOONS, SOCKS, OR UNDERWEAR?NO LATEX ALLERGY : HAVE YOU EVER DEVELOPED ANY TYPE OF REACTION DURING OR AFTER DENTAL APPOINTMENT, VAGINAL/RECTAL EXAMINATION, SURGICAL PROCEDURE, OR ANY OTHER EXPOSURE?NO LATEX RISK : HAVE YOU EVER HAD ANY DIFFICULTY BREATHING OR HIVES AFTER EATING OR HANDLING ANY FRUITS, OR VEGETABLES; SUCH KIWI, BANANAS, STONE FRUITS, OR CHESTNUTSNO LATEX RISK : DO YOU HAVE A PREVIOUS PERSONAL HISTORY OF MORE THAN NINE SURGERIES, SPINA BIFIDA, OR REPEATED CATHERIZATIONS? YES - PLEASE INDICATE : > 9 SURGERIES LATEX RISK : ARE YOU FREQUENTLY EXPOSED TO LATEX PRODUCTS IN YOUR OCCUPATION?NO DATE ASKED : 02/26/2019 CAFFEINE CAFFEINE USE?YES 1 PEPSI A DAY ADVANCE DIRECTIVE ADVANCE DIRECTIVE DISCUSSED WITH PATIENT:YES 02/26/19 PT DOES NOT HAVE ANY ADVANCED DIRECTIVES, HCP INFORMATION GIVEN TO AND ASSISTANCE OFFERED IN COMPLETING FORM IF NEEDED. 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 ALCOHOL SCREENING DID YOU HAVE A DRINK CONTAINING ALCOHOL IN THE PAST YEAR?NO POINTS0 INTERPRETATIONNEGATIVE OCCUPATION: DISABLED. SEXUAL HX HAD SEX IN THE LAST 12 MONTHS (VAGINAL, ORAL, OR ANAL)?YES WITHWOMEN ONLY USE PROTECTION?NO HAVE YOU EVER HAD AN STD?NO REVIEWED WITH PATIENT 06/29/18 1046 JS. HOSPITALIZATION/MAJOR DIAGNOSTIC PROCEDURE [facility] 10/2011 MULTIPLE FOR SURGERIES REVIEW OF SYSTEMS REVIEWED BY: PROVIDER: ARMANDO ROSE . CONSTITUTIONAL: ANY CHANGE IN YOUR MEDICAL CONDITION? YES, FRACTURED LEFT ANKLE IN . CHILLS NO . FEVER NO . INFECTION: DO YOU HAVE NEW INFECTIONS? NO . DO YOU HAVE HISTORY OF MRSA? YES, ABDOMINAL WOUND AFTER 2012 . MUSCULOSKELETAL: ANY NEW PATTERNS OF PAIN OR NUMBNESS? YES, PAIN IN LEFT GOES HALF WAY DOWN HIS LEG. THIS HAS INCREASED OVER THE LAST 3 MONTHS. NUMBNESS LEFT HAND AND BOTH FEET IS WORSE OVER THE PAST COUPLE OF MONTHS . GASTROENTEROLOGY: ANY NEW CHANGE IN BOWEL CONTROL? NO . GENITOURINARY: ANY NEW CHANGE IN BLADDER CONTROL? NO . IS THERE A CHANCE YOU COULD BE ? NO . HEMATOLOGY/LYMPH: DO YOU TAKE ANY BLOOD THINNERS? (FOR EXAMPLE- COUMADIN, PLAVIX, AGGRENOX, PLATEL, PRADAXA, OR XARELTO) NO . WHEN WAS YOUR LAST DOSE? DATE: TIME: . NEUROLOGY: HAVE YOU FALLEN IN THE PAST 12 MONTHS? YES, ONCE IN NOV. TRIPPED ON A SHEET. FRACTURED LEFT ANKLE . ANY NEW EXTREMITY NUMBNESS OR WEAKNESS? NO . CARDIOLOGY: DO YOU HAVE A PACEMAKER OR DEFIBRILLATOR? NO . RESPIRATORY: HAVE YOU BEEN SICK IN THE PAST WEEK? NO PT MARKED WRONG ON TODAY'S PAIN DIARY . FEVER NO . FLU LIKE SYMPTOMS? NO . COUGH NO . INTEGUMENTARY: DO YOU HAVE ANY RASHES OR OPEN SORES? NO . ALLERGIC/IMMUNO: ARE YOU ALLERGIC TO IV DYE? NO . ANY NEW ALLERGIES? NO . PSYCHIATRIC: DO YOU HAVE THOUGHTS OF HURTING YOURSELF OR SOMEONE ELSE? NO . ARE YOU ABUSED, NEGLECTED, OR IN AN UNSAFE ENVIRONMENT? NO . ENDOCRINOLOGY: ARE YOU DIABETIC? YES, . OTHER: DO YOU NEED ANY PRESCRIPTIONS? YES . IF YES, PLEASE LIST: ALL . ANY NEW PROBLEMS WITH YOUR MEDICATIONS? NO . WHEN DID YOU LAST EAT? ____ . WHEN DID YOU LAST DRINK? ____ . WHAT DID YOU LAST DRINK? ____ . NAME OF PERSON DRIVING YOU HOME? ____ . DO YOU HAVE ANY OTHER QUESTIONS OR CONCERNS PLANS ON GETTING FLU SHOT IN MAR . VITAL SIGNS WT 290.2 LBS, HT 69.5 IN, BMI 42.24 INDEX, BP 146/78 MM HG, HR 99 /MIN, RR 18 /MIN, TEMP 98.9 F, OXYGEN SAT % 96%, SAFE IN ENV? (Y/N) Y, NA INITIALS SC 12:04, REVIEWED BY: ALTAGRACIA. EXAMINATION GENERAL EXAMINATION: GENERAL ALERT,NO DISTRESS . PSYCH AFFECT NORMAL . LUNGS: LUNG SOUNDS ARE CLEAR . HEART: HEART RATE REGULAR . MUSCULOSKELETAL: MST 5/5 BILAT. LOWER EXTREMITIES . FOR BILAT. SIJ TENDERNESS LEFT SIJ . DIAGNOSTIC TESTS REVIEWED CT L/S [id number] . 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.27 (PRIMARY) SACROILIITIS - M46.1 TREATMENT PROTRUSION OF INTERVERTEBRAL DISC OF LUMBOSACRAL REGION INCREASE GABAPENTIN TABLET, 600 MG, 1 CAPSULE, ORALLY, TID, 30 DAY(S), 90, REFILLS 5 REFILL OXYCODONE-ACETAMINOPHEN TABLET, 10-325 MG, 1 TABLET NEEDED, ORALLY, EVERY 6 HRS MDD4, 30 DAY(S), 120, REFILLS 0 REFILL MORPHINE SULFATE ER TABLET EXTENDED RELEASE, 15 MG, 1 TABLET, ORALLY, EVERY 12 HRS MDD2, 30 DAYS, 60, REFILLS 0 NOTES: LEFT SIJ, ISTOP REGISTRY REVIEWED AND DEMONSTRATES COMPLLIANCE. BRINGS IN MEDICATIONS WHICH IS APPROPRIATE FOR WHAT WAS DISPENSED. RECENT URINE TOXICOLOGY REVIEWED. NO UNAUTHORIZED MEDICATIONS. NO ILLICIT SUBSTANCES AND PRESCRIBED MEDICATIONS WERE PRESENT. . OTHERS NOTES: SACROILIAC JOINT PAIN MATERIAL WAS PRINTED. PREVENTIVE MEDICINE PAIN CLINIC TEACHING: PROCEDURE TEACHING PRINTED INFORMATION ON SACROILIAC JOINT PAIN GIVEN TO PT. AND THE SACROILIAC JOINT BLOCK PROCEDURE EXPLAINED TO PT. ALONG WITH PRE-PROCEDURE INSTRUCTIONS AND PT. VERBALIZED UNDERSTANDING. PT. WAS REMINDED TO HAVE FLU SHOT 30 DAYS PRIOR TO OR AFTER THE PROCEDURE.. PROCEDURE CODES FA211 ESTABILISHED PATIENT [facility] FACILITY CHARGE DISPOSITION & COMMUNICATION FOLLOW UP POST/URINE TOX TOO (REASON: LEFT SIJ) ELECTRONICALLY SIGNED BY MILTON MEAD ON 03/05/2019 AT 01:52 PM EST DISCLAIMER : THIS IS A VISIT SUMMARY EXTRACTED FROM THE [employer] CHART. IT IS NOT A COPY OF THE [employer] PROGRESS NOTE. ANGELA
== END ==
LOC: M PAIN 11:30
PROVIDERS: ATTEND Nurse Practitioner Family
DX: M51.27 Other intervertebral disc displacement, lumbosacral region (principal); M46.1 Sacroiliitis, not elsewhere classified

== ENCOUNTER → 2019-03-12 | Outpatient (REF) | payer MEDICARE ==
[2019-03-12 16:59] LABS: BASO % 0.6 % (0.0-1.0); EOS # 0.3 10^3/uL (0.0-0.5); EOS % 3.7 % (0.0-3.0); HEMATOCRIT 49.8 % (42.0-52.0); HEMOGLOBIN 15.4 g/dl (13.5-17.5); LYMPH # 1.7 10^3/uL (1.5-5.0); LYMPH % 24.9 % (24.0-44.0); MEAN CORPUSCULAR HEMOGLOBIN 27.6 pg (27.0-33.0); MEAN CORPUSCULAR HGB CONC 30.9 g/dl (32.0-36.5); MEAN CORPUSCULAR VOLUME 89.4 fl (80.0-96.0); MONO # 0.7 10^3/uL (0.0-0.8); MONO % 10.4 % (0.0-5.0); NEUTROPHILS # 4.1 10^3/uL (1.5-8.5); NEUTROPHILS % 60.1 % (36.0-66.0); PLATELET COUNT, AUTOMATED 209 10^3/uL (150-450); RED BLOOD COUNT 5.57 10^6/uL (4.30-6.10); WHITE BLOOD COUNT 6.8 10^3/uL (4.0-10.0)
[2019-03-12 17:03] LABS: ALBUMIN 3.6 GM/DL (3.2-5.2); ALT/SGPT 26 U/L (12-78); BILIRUBIN,TOTAL 0.6 MG/DL (0.2-1.0); BLOOD UREA NITROGEN 23 MG/DL (7-18); CALCIUM LEVEL 9.1 MG/DL (8.5-10.1); CARBON DIOXIDE LEVEL 29 MEQ/L (21-32); CHLORIDE LEVEL 105 MEQ/L (98-107); CHOLESTEROL LEVEL 130 MG/DL (<200); CHOLESTEROL RISK RATIO 4.482 (<5); FOLATE 8.9 NG/ML; GLOMERULAR FILTRATION RATE > 60.0 (>56); GLUCOSE, FASTING 99 MG/DL (70-100); HDL CHOLESTEROL 29 MG/DL (>40); LDL CHOLESTEROL 63 MG/DL (<100); NON-HDL-C 101 MG/DL; POTASSIUM SERUM 3.8 MEQ/L (3.5-5.1); SODIUM LEVEL 140 MEQ/L (136-145); TOTAL 25(OH) VITAMIN D 12.5 NG/ML (30.0-100.0); TOTAL PROTEIN 7.4 GM/DL (6.4-8.2); TRIGLYCERIDES LEVEL 192 MG/DL (<150); VITAMIN B12 LEVEL 888 PG/ML
[2019-03-12 17:07] LABS: HEMOGLOBIN A1c 6.1 %
== END ==
LOC: M SFHCCAPE 10:29
PROVIDERS: ATTEND Physician Assistant
DX: E11.9 Type 2 diabetes mellitus without complications (principal); R53.83 Other fatigue; I10 Essential (primary) hypertension; D75.1 Secondary polycythemia

== ENCOUNTER → 2019-03-14 | Outpatient (REF) | payer MEDICARE ==
[2019-03-15 18:46] LABS: CREATININE, URINE 88.7 MG/DL; MALB URINE SIEMENS 14.1 MG/L; MAU/CREAT RATIO 15.8 MCG/MG (0.0-30.0)
== END ==
LOC: M SFHCCAPE 16:59
PROVIDERS: ATTEND Physician Assistant
DX: E11.9 Type 2 diabetes mellitus without complications (principal)

== ENCOUNTER → 2019-05-16 | Outpatient (CLI) | payer MEDICARE ==
[~2019-05-16] MED LIST changes: +BUPIVACAINE HCL 0.25% 30 ML VIAL As Ordered ONE; +ISOVUE-M 300 61% 15ML VIAL (Q9967) As Ordered ONE; +LIDOCAINE 1% SDV INJ 30 ML VIAL As Ordered ONE; -LORA0.5T11 PO; +LORA0.5T5 PO; +OXYB15TA14 PO; -OXYB1TAB13 PO; +TRIAMCINOLONE ACETONIDE SUSP 40 MG/ML VIAL (J3301) As Ordered ONE; +diazePAM 5 MG TAB As Ordered ONE; +oxyCODONE 5MG TAB As Ordered ONE
--- NOTE | 2019-05-16 16:38 | REP ---
A left SI joint: Two views limited study. History: Left SI joint injection for pain. 30 seconds of fluoroscopy time is reported. Findings: Two last image hold fluoroscopically obtained spot radiographs document needle position associated with SI joint injection procedure. Electronically Signed by Chip Stuart MD 05/16/2019 04:29 P
--- NOTE | 2019-05-19 05:13 | ECWPNPC ---
PATIENT NAME: NOEL MENDEZ : 1960 GENDER: MALE VISIT DATE: 05/16/2019 DISCHARGE DATE: 05/16/19 1503 VISIT LOCKED DATE TIME: PHYSICIAN: ALAYNA REED MD RESOURCE: ALAYNA REED MD REASON FOR APPOINTMENT 1. LEFT SIJ HISTORY OF PRESENT ILLNESS HISTORY OF PRESENT ILLNESS: PAIN THE PATIENT DESCRIBES THE PAIN... FALL RISK SCREENING: SCREENING :NO FALLS REPORTED IN THE LAST YEAR CURRENT MEDICATIONS TAKING MELOXICAM 7.5MG TABLET 1 TAB(S) ORALLY DAILY, NOTES: 05/15/2019 1000 TAKING GLUCOMETER 1 METER FOR TEST BLOOD SUGARS ONCE DAILY DX E11.9 TAKING LANCETS - MISCELLANEOUS 1 LANCET FOR DM TESTING DAILY DX E11.9 TAKING ACURA BLOOD GLUCOSE TEST - STRIP DIRECTED (ANY GENERIC STRIP AVAILABLE) IN VITRO DAILY DX E11.9 TAKING OVERNIGHT PULSE OXIMETRY DIRECTED TAKING NOCTURNAL OXIMETRY ROOM AIR DIRECTED TAKING OXYBUTYNIN CHLORIDE ER 15 MG TABLET EXTENDED RELEASE 24 HOUR 1 TABLET ORALLY ONCE A DAY, NOTES: 05/15/2019 1000 TAKING GABAPENTIN 600 MG TABLET 1 CAPSULE ORALLY TID, NOTES: 05/16/2019 1100 TAKING OXYGEN DIRECTED NASAL CANNULA TAKING FLOMAX 0.4 MG CAPSULE 1 CAPSULE ORALLY ONCE A DAY, NOTES: 05/15/2019 1000 TAKING BREO ELLIPTA 100-25 MCG/INH AEROSOL POWDER BREATH ACTIVATED 1 PUFF INHALATION ONCE A DAY, NOTES: 05/15/2019 1000 TAKING METFORMIN HCL 500 MG TABLET 2 TABS ORALLY BID, NOTES: 05/15/2019 PM TAKING PROAIR HFA 108 (90 BASE) MCG/ACT AEROSOL SOLUTION 2 PUFFS NEEDED INHALATION EVERY 4 HRS, NOTES: 05/15/2019 1000 TAKING ATORVASTATIN CALCIUM 20 MG TABLET 1 TABLET ORALLY ONCE A DAY, NOTES: 05/15/2019 1000 TAKING ASPIRIN 81 81 MG TABLET CHEWABLE 1 TABLET ORALLY ONCE A DAY, NOTES: 2 ONTHS AGO TAKING ERGOCALCIFEROL 1.25 MG (20768 UT) CAPSULE 1 CAPSULE ORALLY ONCE A WEEK, NOTES: 05/15/2019 1000 TAKING HYDROXYZINE HCL 50 MG TABLET 1 TABLET NEEDED ORALLY EVERY 8 HRS, NOTES: 05/15/2019 1000 TAKING OXYCODONE-ACETAMINOPHEN 10-325 MG TABLET 1 TABLET NEEDED ORALLY EVERY 6 HRS MDD4, NOTES: 05/15/2019 2300 TAKING MORPHINE SULFATE ER 15 MG TABLET EXTENDED RELEASE 1 TABLET ORALLY EVERY 12 HRS MDD2, NOTES: 05/16/2019 1100 TAKING CYCLOBENZAPRINE HCL 5 MG TABLET 1 TABLET ORALLY 1 TAB AM,1 TAB MIDDAY AND 2 AT BEDTIME, NOTES: 05/15/2019 2300 TAKING CHLORTHALIDONE 25 MG TABLET TAKE ONE TABLET BY MOUTH ONCE A DAY EVERY MORNING , NOTES: 05/15/2019 28647 TAKING EFFEXOR XR 75 MG CAPSULE EXTENDED RELEASE 24 HOUR 1 CAP ORALLY ONCE A DAY, NOTES: 05/15/2019 1000 TAKING EFFEXOR XR 150 MG CAPSULE EXTENDED RELEASE 24 HOUR 1 CAPSULE WITH FOOD ORALLY ONCE A DAY, NOTES: 05/15/2019 1000 TAKING ZOLPIDEM TARTRATE 10 MG TABLET 1 TABLET AT BEDTIME NEEDED ORALLY ONCE A DAY, NOTES: 05/15/2019 230 MEDICATION LIST REVIEWED AND RECONCILED WITH THE PATIENT PAST MEDICAL HISTORY HERNIAS RENAL CYST NEUROPATHY LEGS 2005 INITIAL INJURY TO LOWER BACK HERNIATED DISC.. 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 THREE SISTER'S , DIABETES, UNSPECIFIED HEART DISEASE SON(S): ALIVE DAUGHTER(S): ALIVE 2 BROTHER(S) , 8 SISTER(S) . 2 SON(S) , 1 DAUGHTER(S) . SOCIAL HISTORY GENERAL: TOBACCO USE ARE YOU A:CURRENT SMOKER ARE YOU INTERESTED IN QUITTING?NOT READY TO QUIT COUNSELED THE PATIENT ON SMOKING EFFECTS, EDUCATION [id number]/23/2019 HOW MANY CIGARETTES A DAY DO YOU SMOKE?21-30 HOW SOON AFTER YOU WAKE UP DO YOU SMOKE YOUR FIRST CIGARETTE?6-30 MIN HOW OFTEN DO YOU SMOKE CIGARETTES?EVERY DAY PATIENT COUNSELED ON THE DANGERS OF TOBACCO USE AND URGED TO QUIT:05/16/2019 ADDITIONAL FINDINGS: TOBACCO USERHEAVY CIGARETTE SMOKER (20-39 CIGS/DAY) SMOKING CESSATION INFORMATION GIVEN11/22/2018 VAPORNO E-CIGARETTENO HIV / HEP-C SCREENING HIV TEST OFFERED TO PATIENT:YES DATE OFFERED:11/22/2018 CONSENT ON FILE TEST ACCEPTED:NO HEP-C TEST OFFERED TO PATIENT:YES DATE OFFERED:11/22/2018 REASON:PATIENT DECLINED TESTED IN PAST TEST ACCEPTED:NO REASON:PATIENT DECLINED CONSENT ON FILE BROCHURE PROVIDED TO PATIENTNO -DECLINED OTHERS AT HOME: CHILD. EDUCATION LEVEL OF EDUCATION:HIGH SCHOOL DIET: REGULAR. LANGUAGE SOMALI. DOMESTIC VIOLENCE DO YOU FEEL SAFE IN YOUR ENVIRONMENT?YES BMI CARE GOAL FOLLOW-UP ABOVE NORMAL BMI FOLLOW-UPGIVING ENCOURAGEMENT TO EXERCISE RECREATIONAL DRUG USE DRUG USE?NO EXERCISE: NONE. LEARNING BARRIERS / SPECIAL NEEDS CHANGE FROM LAST VISIT?NO 11/22/18 BARRIERS TO LEARNING?NO HEARING IMPAIRED?NO VISION IMPAIRED?NO COGNITIVELY IMPAIRED?NO READINESS TO LEARN?YES LEARNING PREFERENCES?NO LEARNING CAPABILITIES PRESENT?YES EMOTIONAL BARRIERS?NO SPECIAL DEVICES?YES :WALKER -CAST CENTER CONSULTANT NEEDED?NO LUNG CANCER SCREENING SMOKING STATUS:CURRENT SMOKER IS THE PATIENT BETWEEN THE AGE OF 56 AND 78?YES HAS THE PATIENT EVER BEEN DIAGNOSED WITH LUNG CANCER?NO PACK YEARS = NUMBER OF PACKS PER DAY SMOKED X NUMBER OF YEARS SMOKED:40 CREATE REFERRAL:GENERATE AND CREATE REFERRAL TO THE ONCOLOGY NURSE NAVIGATOR (SMP) LISTING USING THE LDCT SCAN PROCEDURE PAIN CLINIC PFS, CLERGY, PUBLIC HEALTH REFERRALS PFS REFERRAL NEEDED?NO CLERGY REFERRAL NEEDED?NO PUBLIC HEALTH REFERRAL NEEDED?NO WAS THE PROVIDER NOTIFIED OF ANY PERTINENT INFO?YES HAS THE PATIENT BEEN EDUCATED REGARDING HIS/HER PLAN OF CARE?YES HAS THE PATIENT BEEN EDUCATED REGARDING PAIN, THE RISK FOR PAIN, THE IMPORTANCE OF EFFECTIVE PAIN MANAGEMENT, AND THE PAIN ASSESSMENT PROCESS?YES LATEX QUESTIONNAIRE LATEX ALLERGY : HAVE YOU EVER DEVELOPED ANY TYPE OF REACTION AFTER HANDLING LATEX PRODUCTS SUCH RUBBER GLOVES, CONDOMS, DIAPHRAGMS, BALLOONS, SOCKS, OR UNDERWEAR?NO LATEX ALLERGY : HAVE YOU EVER DEVELOPED ANY TYPE OF REACTION DURING OR AFTER DENTAL APPOINTMENT, VAGINAL/RECTAL EXAMINATION, SURGICAL PROCEDURE, OR ANY OTHER EXPOSURE?NO DATE ASKED : 02/26/2019 LATEX RISK : HAVE YOU EVER HAD ANY DIFFICULTY BREATHING OR HIVES AFTER EATING OR HANDLING ANY FRUITS, OR VEGETABLES; SUCH KIWI, BANANAS, STONE FRUITS, OR CHESTNUTSNO LATEX RISK : DO YOU HAVE A PREVIOUS PERSONAL HISTORY OF MORE THAN NINE SURGERIES, SPINA BIFIDA, OR REPEATED CATHERIZATIONS? YES - PLEASE INDICATE : > 9 SURGERIES LATEX RISK : ARE YOU FREQUENTLY EXPOSED TO LATEX PRODUCTS IN YOUR OCCUPATION?NO CAFFEINE CAFFEINE USE?YES 1 PEPSI A DAY ADVANCE DIRECTIVE ADVANCE DIRECTIVE DISCUSSED WITH PATIENT:YES 02/26/19 PT DOES NOT HAVE ANY ADVANCED DIRECTIVES, HCP INFORMATION GIVEN TO AND ASSISTANCE OFFERED IN COMPLETING FORM IF NEEDED. SYNAGOGUE [id number] ORTHODOXY MARITAL STATUS: SINGLE. ALCOHOL SCREENING DID YOU HAVE A DRINK CONTAINING ALCOHOL IN THE PAST YEAR?NO POINTS0 INTERPRETATIONNEGATIVE OCCUPATION: DISABLED. SEXUAL HX HAD SEX IN THE LAST 12 MONTHS (VAGINAL, ORAL, OR ANAL)?YES WITHWOMEN ONLY USE PROTECTION?NO HAVE YOU EVER HAD AN STD?NO REVIEWED WITH PATIENT 06/29/18 1046 JS. HOSPITALIZATION/MAJOR DIAGNOSTIC PROCEDURE [facility] 10/2011 MULTIPLE FOR SURGERIES REVIEW OF SYSTEMS REVIEWED BY: PROVIDER: . CONSTITUTIONAL: ANY CHANGE IN YOUR MEDICAL CONDITION? NO . CHILLS NO . FEVER NO . INFECTION: DO YOU HAVE NEW INFECTIONS? NO . DO YOU HAVE HISTORY OF MRSA? YES . MUSCULOSKELETAL: ANY NEW PATTERNS OF PAIN OR NUMBNESS? NO . GASTROENTEROLOGY: ANY NEW CHANGE IN BOWEL CONTROL? NO . GENITOURINARY: ANY NEW CHANGE IN BLADDER CONTROL? NO . IS THERE A CHANCE YOU COULD BE ? NO . HEMATOLOGY/LYMPH: DO YOU TAKE ANY BLOOD THINNERS? (FOR EXAMPLE- COUMADIN, PLAVIX, AGGRENOX, PLATEL, PRADAXA, OR XARELTO) NO . WHEN WAS YOUR LAST DOSE? DATE: TIME: . NEUROLOGY: HAVE YOU FALLEN IN THE PAST 12 MONTHS? YES- FELL NOV 2018 FRACTURED LEFT ANKLE . ANY NEW EXTREMITY NUMBNESS OR WEAKNESS? NO . CARDIOLOGY: DO YOU HAVE A PACEMAKER OR DEFIBRILLATOR? NO . RESPIRATORY: HAVE YOU BEEN SICK IN THE PAST WEEK? NO . FEVER NO . FLU LIKE SYMPTOMS? NO . COUGH NO . INTEGUMENTARY: DO YOU HAVE ANY RASHES OR OPEN SORES? YES- ABRASION ON RIGHT HAND . ALLERGIC/IMMUNO: ARE YOU ALLERGIC TO IV DYE? NO . ANY NEW ALLERGIES? NO . PSYCHIATRIC: DO YOU HAVE THOUGHTS OF HURTING YOURSELF OR SOMEONE ELSE? NO . ARE YOU ABUSED, NEGLECTED, OR IN AN UNSAFE ENVIRONMENT? NO . ENDOCRINOLOGY: ARE YOU DIABETIC? YES . OTHER: DO YOU NEED ANY PRESCRIPTIONS? NO . IF YES, PLEASE LIST: ____ . ANY NEW PROBLEMS WITH YOUR MEDICATIONS? NO . WHEN DID YOU LAST EAT? 05/15/2019 2200 . WHEN DID YOU LAST DRINK? 05/16/2019 1000 . WHAT DID YOU LAST DRINK? PEPSI . NAME OF PERSON DRIVING YOU HOME? YOLY- SISTER . DO YOU HAVE ANY OTHER QUESTIONS OR CONCERNS NO . VITAL SIGNS WT 291.4 LBS, HT 69.5 IN, BMI 42.41 INDEX, BP 140/78 MM HG, HR 91 /MIN, RR 18 /MIN, TEMP 97.4 F, OXYGEN SAT % 95%, SAFE IN ENV? (Y/N) YES, NA INITIALS AW 1339, REVIEWED BY: NINI. ASSESSMENTS SACROILIITIS - M46.1 (PRIMARY) TREATMENT SACROILIITIS [facility] FLUORO GUIDANCE (PAIN)[id number] PROCEDURES PN SI PRE PROCEDURE DIAGNOSIS SACROILIITIS, SACROILIAC JOINT DYSFUNCTION POST PROCEDURE DIAGNOSIS SACROILIITIS, SACROILIAC JOINT DYSFUNCTION PROCEDURE LEFT SACROILIAC JOINT BLOCK SURGEON DR. ALAYNA REED SOURCING CONSULTANT NONE ANESTHESIA LOCAL PRE PROCEDURE NOTE PATIENT WITH HISTORY OF CHRONIC LOW BACK PAIN. I EVALUATED THE PATIENT AND REVIEWED THE CHART. I WENT OVER THE RISKS, ALTERNATIVES, AND BENEFITS ASSOCIATED WITH THIS PROCEDURE. THE PATIENT WOULD LIKE TO PROCEED AND GAVE CONSENT TO PERFORM THE PROCEDURE. THE PATIENT DENIES UNEXPLAINABLE WEIGHT LOSS, FEVER, CHILLS, OR NEW CHANGES IN URINARY OR BOWEL CONTROL DESCRIPTION OF PROCEDURE THE PATIENT WAS BROUGHT TO THE PROCEDURE ROOM AND PLACED IN THE PRONE POSITION. THE LUMBOSACRAL AREA WAS CLEANED WITH CHLORAPREP SOLUTION AND DRAPED ASEPTICALLY. THE PROCEDURE WAS DONE UNDER STERILE CONDITIONS. I CHECKED LATERALITY AND THE LEVEL WHERE THE PROCEDURE WAS GOING TO BE PERFORMED WITH THE PATIENT AND THE SUPPORTING STAFF AT THE MOMENT OF THE TIME OUT IN THE PROCEDURE ROOM. UNDER FLUOROSCOPIC GUIDANCE, TARGET POINT WAS SELECTED AT THE LOWER BORDER OF THE LEFT SACROILIAC JOINT. TARGET POINT WAS SELECTED AFTER MEDIAL ROTATION AND TILT OF THE MAGNIFIER OF THE C-ARM. LIDOCAINE WAS USED TO NUMB THE SKIN AND SUBCUTANEOUS TISSUE BELOW IT. A SPINAL NEEDLE, 22-GAUGE, WAS ADVANCED UNDER FLUOROSCOPIC GUIDANCE AND FOLLOWING PATIENT FEEDBACK UNTIL THE TARGET AREA WAS TOUCHED. THE POSITION OF THE NEEDLE WAS VERIFIED WITH AP AND LATERAL VIEWS. AFTER PROPER POSITION OF THE NEEDLE WAS ACHIEVED, ISOVUE M DYE 30%, 0.25 ML, WAS INJECTED SHOWING SPREAD OF THE DYE. THEN, A SOLUTION OF 40 MG OF KENALOG WAS INJECTED IN LEFT JOINT WITH 3 ML OF BUPIVACAINE 0.125%. THERE WAS NO EVIDENCE OF BLOOD, PARESTHESIA OR CEREBROSPINAL FLUID DURING THE PROCEDURE. THE PATIENT WAS SENT TO THE RECOVERY ROOM. THE PATIENT WAS MOVING THE EXTREMITIES AND DOING WELL. THERE WAS NO COMPLICATION DURING THE PROCEDURE. FLUOROSCOPY TIME WAS 30 SECONDS POST PROCEDURE NOTE THE PATIENT WILL BE SEEN IN A FOLLOW UP IN THE NEXT FEW WEEKS. I AM LOOKING FOR LONG LASTING PAIN RELIEF FOR THE PATIENT WITH THIS INJECTION. INSTRUCTIONS WERE GIVEN, QUESTIONS WERE ANSWERED, AND THE PATIENT EXPRESSED UNDERSTANDING AND AGREED WITH THE PLAN. I, SHANEL TATUM, DOCUMENTED THE ABOVE INFORMATION ACTING A SCRIBE FOR DR. REED. I HAVE REVIEWED THE ABOVE DOCUMENT, WRITTEN BY SHANEL TATUM SCRIBE AND I VERIFY THAT IT IS ACCURATE. PROCEDURE CODES 09053 INJECT SACROILIAC JOINT, MODIFIERS: LT [id number] RADXPS IN END [id number] PXD DISPOSITION & COMMUNICATION FOLLOW UP 3 WEEKS ELECTRONICALLY SIGNED BY ALAYNA REED MD, MD ON 05/18/2019 AT 09:37 AM EDT DISCLAIMER : THIS IS A VISIT SUMMARY EXTRACTED FROM THE [employer] CHART. IT IS NOT A COPY OF THE [employer] PROGRESS NOTE. MTDD
== END ==
LOC: M PAIN 13:30
PROVIDERS: ATTEND Anesthesiology
DX: M46.1 Sacroiliitis, not elsewhere classified (principal); J44.9 Chronic obstructive pulmonary disease, unspecified; I10 Essential (primary) hypertension; E78.5 Hyperlipidemia, unspecified; G47.33 Obstructive sleep apnea (adult) (pediatric); E11.9 Type 2 diabetes mellitus without complications; Z96.642 Presence of left artificial hip joint; F17.210 Nicotine dependence, cigarettes, uncomplicated; Z88.1 Allergy status to other antibiotic agents; Z91.09 Other allergy status, other than to drugs and biological substances; Z86.14 Personal history of Methicillin resistant Staphylococcus aureus infection; E66.01 Morbid (severe) obesity due to excess calories; Z68.41 Body mass index [BMI] 40.0-44.9, adult; Z79.51 Long term (current) use of inhaled steroids; Z79.82 Long term (current) use of aspirin; Z79.84 Long term (current) use of oral hypoglycemic drugs; Z79.891 Long term (current) use of opiate analgesic; Z79.899 Other long term (current) drug therapy
CPT/HCPCS: G0260; J3301; Q9967

== ENCOUNTER → 2019-07-02 | Outpatient (CLI) | payer MEDICARE ==
[~2019-07-02] MED LIST changes: -BUPIVACAINE HCL 0.25% 30 ML VIAL As Ordered ONE; -ISOVUE-M 300 61% 15ML VIAL (Q9967) As Ordered ONE; -LIDOCAINE 1% SDV INJ 30 ML VIAL As Ordered ONE; -TRIAMCINOLONE ACETONIDE SUSP 40 MG/ML VIAL (J3301) As Ordered ONE; -diazePAM 5 MG TAB As Ordered ONE; -oxyCODONE 5MG TAB As Ordered ONE
--- NOTE | 2019-07-05 02:18 | ECWPNPC ---
PATIENT NAME: NOEL MENDEZ : 1960 GENDER: MALE VISIT DATE: 07/02/2019 DISCHARGE DATE: 07/02/19 06 VISIT LOCKED DATE TIME: PHYSICIAN: ARMANDO ORR RESOURCE: ARMANDO ORR REASON FOR APPOINTMENT 1. POST [facility] HISTORY OF PRESENT ILLNESS HISTORY OF PRESENT ILLNESS: PATIENT IS AGREEABLE TO TELEPHONE VISIT TODAY. HAD LEFT [facility] ON 05/16/2019. REPORTING 2 OR 3 DAYS OF IMPROVEMENT AND THEN PAIN ABRUPTLY RETURNED TO BASELINE. MEDICATION IS SOMEWHAT EFFECTIVE AT REDUCING PAIN AND KEEPING HIM FUNCTIONAL. RATING PAIN VAS 7/10. DENIES SIDE EFFECTS WITH HIS MEDICATIONS. CONTINUES WITH BURNING PAIN IN BOTH HANDS AND FEET. GABAPENTIN IS AT MAXIMUM DOSE OF 600 MG 3 TIMES A DAY. HE HAS NOTICED SOME IMPROVEMENT WITH GABAPENTIN BUT FEELS IT MIGHT BE WEARING OFF. PAIN THE PATIENT DESCRIBES THE PAIN... FALL RISK SCREENING: SCREENING :NO FALLS REPORTED IN THE LAST YEAR CURRENT MEDICATIONS TAKING MELOXICAM 7.5MG TABLET 1 TAB(S) ORALLY DAILY TAKING GLUCOMETER 1 METER FOR TEST BLOOD SUGARS ONCE DAILY DX E11.9 TAKING LANCETS - MISCELLANEOUS 1 LANCET FOR DM TESTING DAILY DX E11.9 TAKING ACURA BLOOD GLUCOSE TEST - STRIP DIRECTED (ANY GENERIC STRIP AVAILABLE) IN VITRO DAILY DX E11.9 TAKING OVERNIGHT PULSE OXIMETRY DIRECTED TAKING NOCTURNAL OXIMETRY ROOM AIR DIRECTED TAKING OXYBUTYNIN CHLORIDE ER 15 MG TABLET EXTENDED RELEASE 24 HOUR 1 TABLET ORALLY ONCE A DAY TAKING GABAPENTIN 600 MG TABLET 1 CAPSULE ORALLY TID TAKING OXYGEN DIRECTED NASAL CANNULA TAKING FLOMAX 0.4 MG CAPSULE 1 CAPSULE ORALLY ONCE A DAY TAKING BREO ELLIPTA 100-25 MCG/INH AEROSOL POWDER BREATH ACTIVATED 1 PUFF INHALATION ONCE A DAY TAKING PROAIR HFA 108 (90 BASE) MCG/ACT AEROSOL SOLUTION 2 PUFFS NEEDED INHALATION EVERY 4 HRS TAKING ATORVASTATIN CALCIUM 20 MG TABLET 1 TABLET ORALLY ONCE A DAY TAKING ASPIRIN 81 81 MG TABLET CHEWABLE 1 TABLET ORALLY ONCE A DAY TAKING ERGOCALCIFEROL 1.25 MG (81783 UT) CAPSULE 1 CAPSULE ORALLY ONCE A WEEK TAKING HYDROXYZINE HCL 50 MG TABLET 1 TABLET NEEDED ORALLY EVERY 8 HRS TAKING CYCLOBENZAPRINE HCL 5 MG TABLET 1 TABLET ORALLY 1 TAB AM,1 TAB MIDDAY AND 2 AT BEDTIME TAKING EFFEXOR XR 75 MG CAPSULE EXTENDED RELEASE 24 HOUR 1 CAP ORALLY ONCE A DAY TAKING EFFEXOR XR 150 MG CAPSULE EXTENDED RELEASE 24 HOUR 1 CAPSULE WITH FOOD ORALLY ONCE A DAY TAKING ZOLPIDEM TARTRATE 10 MG TABLET 1 TABLET AT BEDTIME NEEDED ORALLY ONCE A DAY TAKING METFORMIN HCL 500 MG TABLET TAKE TWO TABLETS BY MOUTH TWICE A DAY TAKING CHLORTHALIDONE 25 MG TABLET TAKE ONE TABLET BY MOUTH ONCE A DAY EVERY MORNING TAKING OXYCODONE-ACETAMINOPHEN 10-325 MG TABLET 1 TABLET NEEDED ORALLY EVERY 6 HRS MDD4 TAKING MORPHINE SULFATE ER 15 MG TABLET EXTENDED RELEASE 1 TABLET ORALLY EVERY 12 HRS MDD2 MEDICATION LIST REVIEWED AND RECONCILED WITH THE PATIENT PAST MEDICAL HISTORY HERNIAS RENAL CYST NEUROPATHY LEGS 2005 INITIAL INJURY TO LOWER BACK HERNIATED DISC.. 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 THREE SISTER'S , DIABETES, UNSPECIFIED HEART DISEASE SON(S): ALIVE DAUGHTER(S): ALIVE 2 BROTHER(S) , 8 SISTER(S) . 2 SON(S) , 1 DAUGHTER(S) . SOCIAL HISTORY GENERAL: TOBACCO USE ARE YOU A:CURRENT SMOKER ARE YOU INTERESTED IN QUITTING?NOT READY TO QUIT COUNSELED THE PATIENT ON SMOKING EFFECTS, EDUCATION [id number]/27/2020 HOW MANY CIGARETTES A DAY DO YOU SMOKE?21-30 HOW SOON AFTER YOU WAKE UP DO YOU SMOKE YOUR FIRST CIGARETTE?6-30 MIN HOW OFTEN DO YOU SMOKE CIGARETTES?EVERY DAY PATIENT COUNSELED ON THE DANGERS OF TOBACCO USE AND URGED TO QUIT:07/02/2019 ADDITIONAL FINDINGS: TOBACCO USERHEAVY CIGARETTE SMOKER (20-39 CIGS/DAY) SMOKING CESSATION INFORMATION GIVEN11/22/2018 VAPORNO E-CIGARETTENO LATEX QUESTIONNAIRE LATEX ALLERGY : HAVE YOU EVER DEVELOPED ANY TYPE OF REACTION AFTER HANDLING LATEX PRODUCTS SUCH RUBBER GLOVES, CONDOMS, DIAPHRAGMS, BALLOONS, SOCKS, OR UNDERWEAR?NO LATEX ALLERGY : HAVE YOU EVER DEVELOPED ANY TYPE OF REACTION DURING OR AFTER DENTAL APPOINTMENT, VAGINAL/RECTAL EXAMINATION, SURGICAL PROCEDURE, OR ANY OTHER EXPOSURE?NO LATEX RISK : HAVE YOU EVER HAD ANY DIFFICULTY BREATHING OR HIVES AFTER EATING OR HANDLING ANY FRUITS, OR VEGETABLES; SUCH KIWI, BANANAS, STONE FRUITS, OR CHESTNUTSNO LATEX RISK : DO YOU HAVE A PREVIOUS PERSONAL HISTORY OF MORE THAN NINE SURGERIES, SPINA BIFIDA, OR REPEATED CATHERIZATIONS? YES - PLEASE INDICATE : > 9 SURGERIES LATEX RISK : ARE YOU FREQUENTLY EXPOSED TO LATEX PRODUCTS IN YOUR OCCUPATION?NO DATE ASKED : 07/02/2019 LUNG CANCER SCREENING SMOKING STATUS:CURRENT SMOKER IS THE PATIENT BETWEEN THE AGE OF 56 AND 78?YES HAS THE PATIENT EVER BEEN DIAGNOSED WITH LUNG CANCER?NO PACK YEARS = NUMBER OF PACKS PER DAY SMOKED X NUMBER OF YEARS SMOKED:40 CREATE REFERRAL:GENERATE AND CREATE REFERRAL TO THE ONCOLOGY NURSE NAVIGATOR (SMP) LISTING USING THE LDCT SCAN PROCEDURE BMI CARE GOAL FOLLOW-UP ABOVE NORMAL BMI FOLLOW-UPGIVING ENCOURAGEMENT TO EXERCISE ALCOHOL SCREENING DID YOU HAVE A DRINK CONTAINING ALCOHOL IN THE PAST YEAR?NO POINTS0 INTERPRETATIONNEGATIVE RECREATIONAL DRUG USE DRUG USE?NO CAFFEINE CAFFEINE USE?YES 1 PEPSI A DAY SEXUAL HX HAD SEX IN THE LAST 12 MONTHS (VAGINAL, ORAL, OR ANAL)?YES WITHWOMEN ONLY USE PROTECTION?NO HAVE YOU EVER HAD AN STD?NO HIV / HEP-C SCREENING HIV TEST OFFERED TO PATIENT:YES DATE OFFERED:11/22/2018 CONSENT ON FILE TEST ACCEPTED:NO HEP-C TEST OFFERED TO PATIENT:YES DATE OFFERED:11/22/2018 REASON:PATIENT DECLINED TESTED IN PAST TEST ACCEPTED:NO REASON:PATIENT DECLINED CONSENT ON FILE BROCHURE PROVIDED TO PATIENTNO -DECLINED VOODOO [id number] [employer]ANI LANGUAGE [employer]. EDUCATION LEVEL OF EDUCATION:HIGH SCHOOL LEARNING BARRIERS / SPECIAL NEEDS CHANGE FROM LAST VISIT?NO 11/22/18 BARRIERS TO LEARNING?NO HEARING IMPAIRED?NO VISION IMPAIRED?NO COGNITIVELY IMPAIRED?NO READINESS TO LEARN?YES LEARNING PREFERENCES?NO LEARNING CAPABILITIES PRESENT?YES EMOTIONAL BARRIERS?NO SPECIAL DEVICES?YES :WALKER -CAST FLIGHT INFORMATION EXPEDITER NEEDED?NO DOMESTIC VIOLENCE DO YOU FEEL SAFE IN YOUR ENVIRONMENT?YES OCCUPATION: DISABLED. DIET: REGULAR. EXERCISE: NONE. MARITAL STATUS: SINGLE. OTHERS AT HOME: CHILD. NEW PATIENT PAIN DIARY TODAY'S VISITNOTES 07/02/2019 PATIENT DESCRIBES PAIN :ACHING, HAVE IT ALL THE TIME, SHOOTING FROM 0-10, WHAT LEVEL IS YOUR PAIN TODAY?5 PAIN CLINIC PFS, CLERGY, PUBLIC HEALTH REFERRALS PFS REFERRAL NEEDED?NO CLERGY REFERRAL NEEDED?NO PUBLIC HEALTH REFERRAL NEEDED?NO WAS THE PROVIDER NOTIFIED OF ANY PERTINENT INFO?YES HAS THE PATIENT BEEN EDUCATED REGARDING HIS/HER PLAN OF CARE?YES HAS THE PATIENT BEEN EDUCATED REGARDING PAIN, THE RISK FOR PAIN, THE IMPORTANCE OF EFFECTIVE PAIN MANAGEMENT, AND THE PAIN ASSESSMENT PROCESS?YES ADVANCE DIRECTIVE ADVANCE DIRECTIVE DISCUSSED WITH PATIENT:YES 07/02/2019 PT DOES NOT HAVE ANY ADVANCED DIRECTIVES, HCP INFORMATION GIVEN AT LAST VISIT, DECLINED ASSISTANCE WITH FORM. JS HOSPITALIZATION/MAJOR DIAGNOSTIC PROCEDURE [facility] 10/2011 MULTIPLE FOR SURGERIES REVIEW OF SYSTEMS REVIEWED BY: PROVIDER: ARMANDO ROSE . CONSTITUTIONAL: ANY CHANGE IN YOUR MEDICAL CONDITION? NO . CHILLS NO . FEVER NO . INFECTION: DO YOU HAVE NEW INFECTIONS? NO . DO YOU HAVE HISTORY OF MRSA? NO . MUSCULOSKELETAL: ANY NEW PATTERNS OF PAIN OR NUMBNESS? NO . GASTROENTEROLOGY: ANY NEW CHANGE IN BOWEL CONTROL? NO . GENITOURINARY: ANY NEW CHANGE IN BLADDER CONTROL? NO . IS THERE A CHANCE YOU COULD BE ? NO . HEMATOLOGY/LYMPH: DO YOU TAKE ANY BLOOD THINNERS? (FOR EXAMPLE- COUMADIN, PLAVIX, AGGRENOX, PLATEL, PRADAXA, OR XARELTO) NO . WHEN WAS YOUR LAST DOSE? DATE: TIME: . NEUROLOGY: HAVE YOU FALLEN IN THE PAST 12 MONTHS? YES, STATES FALL , DISCUSSED AT PREVIOUS VISIT . ANY NEW EXTREMITY NUMBNESS OR WEAKNESS? NO . CARDIOLOGY: DO YOU HAVE A PACEMAKER OR DEFIBRILLATOR? NO . RESPIRATORY: HAVE YOU BEEN SICK IN THE PAST WEEK? NO . FEVER NO . FLU LIKE SYMPTOMS? NO . COUGH NO . INTEGUMENTARY: DO YOU HAVE ANY RASHES OR OPEN SORES? NO . ALLERGIC/IMMUNO: ARE YOU ALLERGIC TO IV DYE? NO . ANY NEW ALLERGIES? NO . PSYCHIATRIC: DO YOU HAVE THOUGHTS OF HURTING YOURSELF OR SOMEONE ELSE? NO . ARE YOU ABUSED, NEGLECTED, OR IN AN UNSAFE ENVIRONMENT? NO . ENDOCRINOLOGY: ARE YOU DIABETIC? YES, BORDERLINE . OTHER: DO YOU NEED ANY PRESCRIPTIONS? NO . IF YES, PLEASE LIST: ____ . ANY NEW PROBLEMS WITH YOUR MEDICATIONS? NO . WHEN DID YOU LAST EAT? ____ . WHEN DID YOU LAST DRINK? ____ . WHAT DID YOU LAST DRINK? ____ . NAME OF PERSON DRIVING YOU HOME? ____ . DO YOU HAVE ANY OTHER QUESTIONS OR CONCERNS NO . 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.27 (PRIMARY) CHRONIC PRESCRIPTION OPIATE USE - Z79.899 CHRONIC POST-OPERATIVE PAIN - G89.28 TREATMENT PROTRUSION OF INTERVERTEBRAL DISC OF LUMBOSACRAL REGION CONTINUE OXYCODONE-ACETAMINOPHEN TABLET, 10-325 MG, 1 TABLET NEEDED, ORALLY, EVERY 6 HRS MDD4 CONTINUE MORPHINE SULFATE ER TABLET EXTENDED RELEASE, 15 MG, 1 TABLET, ORALLY, EVERY 12 HRS MDD2 NOTES: ISTOP REGISTRY REVIEWED AND DEMONSTRATES COMPLLIANCE.RECENT URINE TOXICOLOGY REVIEWED. NO UNAUTHORIZED MEDICATIONS. NO ILLICIT SUBSTANCES AND PRESCRIBED MEDICATIONS WERE PRESENT. URINE TOX AT FOLLOW-UP TOTAL TIME SPENT DURING TELEPHONE VISIT WAS APPROXIMATELY 12 MINUTES. OTHERS NOTES: NO VITALS OBTAINED DUE TO PHONE VISIT. DISPOSITION & COMMUNICATION FOLLOW UP 6 WEEKS (REASON: URINE TOX/MED MGMNT) ELECTRONICALLY SIGNED BY MILTON MEAD ON 07/04/2019 AT 02:40 PM EDT DISCLAIMER : THIS IS A VISIT SUMMARY EXTRACTED FROM THE [employer] CHART. IT IS NOT A COPY OF THE [employer] PROGRESS NOTE. ANGELA
== END ==
LOC: M PAIN 10:30
PROVIDERS: ATTEND Nurse Practitioner Family
DX: M51.27 Other intervertebral disc displacement, lumbosacral region (principal); G89.28 Other chronic postprocedural pain; J44.9 Chronic obstructive pulmonary disease, unspecified; I10 Essential (primary) hypertension; E11.9 Type 2 diabetes mellitus without complications; G47.33 Obstructive sleep apnea (adult) (pediatric); Z96.642 Presence of left artificial hip joint; F17.210 Nicotine dependence, cigarettes, uncomplicated; Z88.1 Allergy status to other antibiotic agents; Z91.09 Other allergy status, other than to drugs and biological substances; Z79.51 Long term (current) use of inhaled steroids; Z79.82 Long term (current) use of aspirin; Z79.84 Long term (current) use of oral hypoglycemic drugs; Z79.891 Long term (current) use of opiate analgesic; Z79.899 Other long term (current) drug therapy

== ENCOUNTER → 2019-08-09 | Outpatient (REF) | payer MEDICARE ==
[2019-08-09 13:11] LABS: BASO # 0.1 10^3/uL (0.0-0.2); BASO % 0.6 % (0.0-1.0); EOS # 0.3 10^3/uL (0.0-0.5); EOS % 3.2 % (0.0-3.0); HEMATOCRIT 51.5 % (42.0-52.0); HEMOGLOBIN 16.9 g/dl (13.5-17.5); LYMPH % 25.2 % (24.0-44.0); MEAN CORPUSCULAR HEMOGLOBIN 29.3 pg (27.0-33.0); MEAN CORPUSCULAR HGB CONC 32.8 g/dl (32.0-36.5); MEAN CORPUSCULAR VOLUME 89.3 fl (80.0-96.0); MONO # 0.8 10^3/uL (0.0-0.8); MONO % 9.5 % (0.0-5.0); NEUTROPHILS # 4.8 10^3/uL (1.5-8.5); NEUTROPHILS % 61.2 % (36.0-66.0); PLATELET COUNT, AUTOMATED 198 10^3/uL (150-450); RED BLOOD COUNT 5.77 10^6/uL (4.30-6.10); WHITE BLOOD COUNT 7.9 10^3/uL (4.0-10.0)
[2019-08-09 14:00] LABS: ALBUMIN 3.8 GM/DL (3.2-5.2); ALT/SGPT 70 U/L (12-78); BILIRUBIN,TOTAL 0.3 MG/DL (0.2-1.0); BLOOD UREA NITROGEN 22 MG/DL (7-18); CARBON DIOXIDE LEVEL 25 MEQ/L (21-32); CHLORIDE LEVEL 103 MEQ/L (98-107); CHOLESTEROL LEVEL 176 MG/DL (<200); CHOLESTEROL RISK RATIO 6.518 (<5); CREATININE FOR GFR 1.36 MG/DL (0.70-1.30); GLOMERULAR FILTRATION RATE 57.5 (>56); GLUCOSE, FASTING 146 MG/DL (70-100); HDL CHOLESTEROL 27 MG/DL (>40); NON-HDL-C 149 MG/DL; POTASSIUM SERUM 3.5 MEQ/L (3.5-5.1); SODIUM LEVEL 138 MEQ/L (136-145); TOTAL 25(OH) VITAMIN D 29.3 NG/ML (30.0-100.0); TOTAL PROTEIN 7.9 GM/DL (6.4-8.2); TRIGLYCERIDES LEVEL 464 MG/DL (<150)
[2019-08-09 14:06] LABS: HEMOGLOBIN A1c 6.2 %
[2019-08-14 12:19] LABS: TESTOSTERONE %FREE+WEAKLY BOUN 15.5 % (9.0-46.0); TESTOSTERONE FREE+WEAKLY BOUND 17.2 ng/dL (40.0-250.0); TESTOSTERONE TOTAL 111 ng/dL (264-916)
== END ==
LOC: M SFHCCLAY 08:00
PROVIDERS: ATTEND Physician Assistant
DX: I10 Essential (primary) hypertension (principal); E11.9 Type 2 diabetes mellitus without complications; E78.2 Mixed hyperlipidemia; R79.89 Other specified abnormal findings of blood chemistry; R53.83 Other fatigue; E55.9 Vitamin D deficiency, unspecified

== ENCOUNTER → 2019-08-13 | Outpatient (CLI) | payer MEDICARE ==
--- NOTE | 2019-08-15 03:46 | ECWPNPC ---
PATIENT NAME: NOEL MENDEZ : 1960 GENDER: MALE VISIT DATE: 08/13/2019 DISCHARGE DATE: 08/13/19 1103 VISIT LOCKED DATE TIME: PHYSICIAN: ARMANDO ORR RESOURCE: ARMANDO ORR REASON FOR APPOINTMENT 1. URINE TOX/MED MGMNT-PHYSICAL VISIT HISTORY OF PRESENT ILLNESS GENERAL: THIS IS A 3 MONTH FOLLOW-UP AND MEDICINE MANAGEMENT FOR PERSISTENT LOW BACK PAIN, ABDOMINAL PAIN AND GENERALIZED JOINT PAIN. CONTINUES TO FIND MEDICATION HELPFUL AT REDUCING HIS PAIN AND KEEPING HIM FUNCTIONAL. DENIES SIDE EFFECTS. BRINGS IN MEDICATIONS WHICH IS APPROPRIATE FOR WHAT WAS DISPENSED. -. FALL RISK SCREENING: SCREENING :ONE FALL WITH INJURY IN THE PAST YEAR PAIN SCREENING: PATIENT HAS A COMPLAINT OF ACUTE OR CHRONIC PAIN :YES 08/13/19 INTENSITY OF PAIN (SCALE OF 1 TO 10):5 WHAT DOES YOUR PAIN FEEL LIKE:ACHING, BURNING, CONTINOUS, SHARP, STABBING, THROBBING, SHOOTING PAIN IS INCREASED BY: STANDING PAIN IS DECREASED BY: SITTING, REST NURSING NOTE: -. PAIN CENTER INTAKE QUESTIONS: DO YOU HAVE A HISTORY OF MRSA? :YES STOMACH DO YOU TAKE A BLOOD THINNERS? :NO DO YOU HAVE ANY BLEEDING DISORDERS? :NO ANY NEW NUMBNESS OR WEAKNESS IN YOUR LEGS OR ARMS? :NO ANY PACEMAKER,DEFIBRILLATOR, OR DORSAL COLUMN STIMULATOR? :NO DO YOU HAVE ANY RASHES OR OPEN SORES? :NO ARE YOU ALLERGIC TO IV DYE? :NO ARE YOU DIABETIC? :YES ANY NEW PROBLEMS WITH YOUR MEDICATIONS? :NO HAVE YOU RECEIVED A VACCINE IN THE PAST 30 DAYS? :NO DO YOU PLAN TO RECEIVE A VACCINE IN THE NEXT 21 DAYS? :NO DO YOU NEED ANY PRESCRIPTION? :YES OXY, MORPHINE DO YOU TAKE ANY IMMUNOSUPPRESSIVE MEDICATIONS? :NO CURRENT MEDICATIONS TAKING MELOXICAM 7.5MG TABLET 1 TAB(S) ORALLY DAILY TAKING GLUCOMETER 1 METER FOR TEST BLOOD SUGARS ONCE DAILY DX E11.9 TAKING LANCETS - MISCELLANEOUS 1 LANCET FOR DM TESTING DAILY DX E11.9 TAKING ACURA BLOOD GLUCOSE TEST - STRIP DIRECTED (ANY GENERIC STRIP AVAILABLE) IN VITRO DAILY DX E11.9 TAKING OVERNIGHT PULSE OXIMETRY DIRECTED TAKING NOCTURNAL OXIMETRY ROOM AIR DIRECTED TAKING OXYBUTYNIN CHLORIDE ER 15 MG TABLET EXTENDED RELEASE 24 HOUR 1 TABLET ORALLY ONCE A DAY TAKING GABAPENTIN 600 MG TABLET 1 CAPSULE ORALLY TID TAKING OXYGEN DIRECTED NASAL CANNULA TAKING FLOMAX 0.4 MG CAPSULE 1 CAPSULE ORALLY ONCE A DAY TAKING PROAIR HFA 108 (90 BASE) MCG/ACT AEROSOL SOLUTION 2 PUFFS NEEDED INHALATION EVERY 4 HRS TAKING ATORVASTATIN CALCIUM 20 MG TABLET 1 TABLET ORALLY ONCE A DAY TAKING ERGOCALCIFEROL 1.25 MG (29371 UT) CAPSULE 1 CAPSULE ORALLY ONCE A WEEK TAKING HYDROXYZINE HCL 50 MG TABLET 1 TABLET NEEDED ORALLY EVERY 8 HRS TAKING CYCLOBENZAPRINE HCL 5 MG TABLET 1 TABLET ORALLY 1 TAB AM,1 TAB MIDDAY AND 2 AT BEDTIME TAKING EFFEXOR XR 75 MG CAPSULE EXTENDED RELEASE 24 HOUR 1 CAP ORALLY ONCE A DAY TAKING EFFEXOR XR 150 MG CAPSULE EXTENDED RELEASE 24 HOUR 1 CAPSULE WITH FOOD ORALLY ONCE A DAY TAKING METFORMIN HCL 500 MG TABLET TAKE TWO TABLETS BY MOUTH TWICE A DAY TAKING CHLORTHALIDONE 25 MG TABLET TAKE ONE TABLET BY MOUTH ONCE A DAY EVERY MORNING TAKING ZOLPIDEM TARTRATE 10 MG TABLET 1 TABLET AT BEDTIME NEEDED ORALLY ONCE A DAY TAKING BREO ELLIPTA 100-25 MCG/INH AEROSOL POWDER BREATH ACTIVATED 1 PUFF INHALATION ONCE A DAY TAKING OXYCODONE-ACETAMINOPHEN 10-325 MG TABLET 1 TABLET NEEDED ORALLY EVERY 6 HRS MDD4 TAKING MORPHINE SULFATE ER 15 MG TABLET EXTENDED RELEASE 1 TABLET ORALLY EVERY 12 HRS MDD2 NOT-TAKING ASPIRIN 81 81 MG TABLET CHEWABLE 1 TABLET ORALLY ONCE A DAY MEDICATION LIST REVIEWED AND RECONCILED WITH THE PATIENT PAST MEDICAL HISTORY HERNIAS RENAL CYST NEUROPATHY LEGS 2005 INITIAL INJURY TO LOWER BACK HERNIATED DISC.. 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 THREE SISTER'S , DIABETES, UNSPECIFIED HEART DISEASE SON(S): ALIVE DAUGHTER(S): ALIVE 2 BROTHER(S) , 8 SISTER(S) . 2 SON(S) , 1 DAUGHTER(S) . SOCIAL HISTORY GENERAL: TOBACCO USE ARE YOU A:CURRENT SMOKER ARE YOU INTERESTED IN QUITTING?NOT READY TO QUIT COUNSELED THE PATIENT ON SMOKING EFFECTS, EDUCATION [id number]/08/2020 HOW MANY CIGARETTES A DAY DO YOU SMOKE?21-30 HOW SOON AFTER YOU WAKE UP DO YOU SMOKE YOUR FIRST CIGARETTE?6-30 MIN HOW OFTEN DO YOU SMOKE CIGARETTES?EVERY DAY PATIENT COUNSELED ON THE DANGERS OF TOBACCO USE AND URGED TO QUIT:07/02/2019 ADDITIONAL FINDINGS: TOBACCO USERHEAVY CIGARETTE SMOKER (20-39 CIGS/DAY) SMOKING CESSATION INFORMATION GIVEN11/22/2018 VAPORNO E-CIGARETTENO LATEX QUESTIONNAIRE LATEX ALLERGY : HAVE YOU EVER DEVELOPED ANY TYPE OF REACTION AFTER HANDLING LATEX PRODUCTS SUCH RUBBER GLOVES, CONDOMS, DIAPHRAGMS, BALLOONS, SOCKS, OR UNDERWEAR?NO LATEX ALLERGY : HAVE YOU EVER DEVELOPED ANY TYPE OF REACTION DURING OR AFTER DENTAL APPOINTMENT, VAGINAL/RECTAL EXAMINATION, SURGICAL PROCEDURE, OR ANY OTHER EXPOSURE?NO DATE ASKED : 07/02/2019 LATEX RISK : HAVE YOU EVER HAD ANY DIFFICULTY BREATHING OR HIVES AFTER EATING OR HANDLING ANY FRUITS, OR VEGETABLES; SUCH KIWI, BANANAS, STONE FRUITS, OR CHESTNUTSNO LATEX RISK : DO YOU HAVE A PREVIOUS PERSONAL HISTORY OF MORE THAN NINE SURGERIES, SPINA BIFIDA, OR REPEATED CATHERIZATIONS? YES - PLEASE INDICATE : > 9 SURGERIES LATEX RISK : ARE YOU FREQUENTLY EXPOSED TO LATEX PRODUCTS IN YOUR OCCUPATION?NO LUNG CANCER SCREENING SMOKING STATUS:CURRENT SMOKER IS THE PATIENT BETWEEN THE AGE OF 56 AND 78?YES HAS THE PATIENT EVER BEEN DIAGNOSED WITH LUNG CANCER?NO PACK YEARS = NUMBER OF PACKS PER DAY SMOKED X NUMBER OF YEARS SMOKED:40 CREATE REFERRAL:GENERATE AND CREATE REFERRAL TO THE ONCOLOGY NURSE NAVIGATOR (SMP) LISTING USING THE LDCT SCAN PROCEDURE BMI CARE GOAL FOLLOW-UP ABOVE NORMAL BMI FOLLOW-UPGIVING ENCOURAGEMENT TO EXERCISE ALCOHOL SCREENING DID YOU HAVE A DRINK CONTAINING ALCOHOL IN THE PAST YEAR?NO POINTS0 INTERPRETATIONNEGATIVE RECREATIONAL DRUG USE DRUG USE?NO CAFFEINE CAFFEINE USE?YES 1 PEPSI A DAY SEXUAL HX HAD SEX IN THE LAST 12 MONTHS (VAGINAL, ORAL, OR ANAL)?YES WITHWOMEN ONLY USE PROTECTION?NO HAVE YOU EVER HAD AN STD?NO HIV / HEP-C SCREENING HIV TEST OFFERED TO PATIENT:YES DATE OFFERED:11/22/2018 CONSENT ON FILE TEST ACCEPTED:NO HEP-C TEST OFFERED TO PATIENT:YES DATE OFFERED:11/22/2018 REASON:PATIENT DECLINED TESTED IN PAST TEST ACCEPTED:NO REASON:PATIENT DECLINED CONSENT ON FILE BROCHURE PROVIDED TO PATIENTNO -DECLINED GNOSTICIST [id number] [employer] LANGUAGE [employer]. 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 DIET: REGULAR. EXERCISE: NONE. MARITAL STATUS: SINGLE. OTHERS AT HOME: CHILD. NEW PATIENT PAIN DIARY TODAY'S VISITNOTES 07/02/2019 PATIENT DESCRIBES PAIN :ACHING, HAVE IT ALL THE TIME, SHOOTING FROM 0-10, WHAT LEVEL IS YOUR PAIN TODAY?5 PAIN CLINIC PFS, CLERGY, PUBLIC HEALTH REFERRALS PFS REFERRAL NEEDED?NO CLERGY REFERRAL NEEDED?NO PUBLIC HEALTH REFERRAL NEEDED?NO WAS THE PROVIDER NOTIFIED OF ANY PERTINENT INFO?YES HAS THE PATIENT BEEN EDUCATED REGARDING HIS/HER PLAN OF CARE?YES HAS THE PATIENT BEEN EDUCATED REGARDING PAIN, THE RISK FOR PAIN, THE IMPORTANCE OF EFFECTIVE PAIN MANAGEMENT, AND THE PAIN ASSESSMENT PROCESS?YES ADVANCE DIRECTIVE ADVANCE DIRECTIVE DISCUSSED WITH PATIENT:YES PT DOES NOT HAVE ANY ADVANCED DIRECTIVES, HCP INFORMATION GIVEN AT LAST VISIT, DECLINED ASSISTANCE WITH FORM. HOSPITALIZATION/MAJOR DIAGNOSTIC PROCEDURE [facility] 10/2011 MULTIPLE FOR SURGERIES REVIEW OF SYSTEMS CONSTITUTIONAL: ANY RECENT FEVER OR ILLNESS NO . CHILLS NO . GASTROENTEROLOGY: BOWEL INCONTINENCE NO . ANY NEW CHANGE IN BOWEL CONTROL? NO . ABDOMINAL PAIN NO . CONSTIPATION NO . GENITOURINARY: ANY NEW CHANGE IN BLADDER CONTROL? NO . IS THERE A CHANCE YOU COULD BE ? NO . URINARY INCONTINENCE NO . CARDIOLOGY: CHEST PRESSURE NO . CHEST PAIN NO . RESPIRATORY: COUGH NO . SHORTNESS OF BREATH NO . VITAL SIGNS WT 308.2 LBS, HT 69.5 IN, BMI 44.86 INDEX, BP 137/91 MM HG, HR 101 /MIN, RR 18 /MIN, TEMP 97.3 F, OXYGEN SAT % 95%, SAFE IN ENV? (Y/N) Y, NA INITIALS SC 10:17, REVIEWED BY: DAE. EXAMINATION GENERAL EXAMINATION: GENERALAWAKE,ALERT ,PLEASANT . PSYCHAFFECT NORMAL . LUNGS:LUNG BOYD ARE CLEAR TO AUSCULTATION BILATERALLY. GOOD MOVEMENT OF AIR . HEART:S1, S2 IN A REGULAR RATE AND RHYTHM. NO SIGNIFICANT MURMURS, RUBS OR GALLOPS NOTED . 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 (REF # ) BRINGS IN MEDICATIONS WHICH IS APPROPRIATE FOR WHAT WAS DISPENSED. RECENT URINE TOXICOLOGY REVIEWED. NO UNAUTHORIZED MEDICATIONS. NO ILLICIT SUBSTANCES AND PRESCRIBED MEDICATIONS WERE PRESENT. ORAL SWAB FOR TOXICOLOGY TODAY , RISKS OF NARCOTIC/OPIOD MEDICATIONS INCLUDES BUT IS NOT LIMITED TO RISK OF DEPENDANCE/DEVELOPMENT OF ADDICTION, MOOD DISTURBANCE AND DEPRESSION, OSTEOPOROSIS, HORMONAL AND LABIDAL CHANGES, RESPIRATORY DEPRESSION AND . PATIENT IS ADVISED NOT TO DRIVE OR DRINK ALCOHOL WHILE ON THESE MEDICATIONS. PROCEDURE CODES [id number] ESTABILISHED PATIENT [facility] CHARGE DISPOSITION & COMMUNICATION FOLLOW UP 3 MONTHS (REASON: MED MGMNT/ABDOMINAL PAIN/LBP) ELECTRONICALLY SIGNED BY MILTON MEAD ON 08/14/2019 AT 03:03 PM EDT DISCLAIMER : THIS IS A VISIT SUMMARY EXTRACTED FROM THE [employer] CHART. IT IS NOT A COPY OF THE [employer] PROGRESS NOTE. ANGELA
== END ==
LOC: M PAIN 10:15
PROVIDERS: ATTEND Nurse Practitioner Family
DX: M51.27 Other intervertebral disc displacement, lumbosacral region (principal); Z79.899 Other long term (current) drug therapy; G89.28 Other chronic postprocedural pain

== ENCOUNTER → 2019-12-04 | Outpatient (REF) | payer MEDICARE ==
[2019-12-04 12:44] LABS: BASO # 0.1 10^3/uL (0.0-0.2); BASO % 0.6 % (0.0-1.0); EOS # 0.3 10^3/uL (0.0-0.5); EOS % 3.4 % (0.0-3.0); HEMATOCRIT 50.5 % (42.0-52.0); HEMOGLOBIN 16.3 g/dl (13.5-17.5); LYMPH # 2.3 10^3/uL (1.5-5.0); LYMPH % 27.3 % (24.0-44.0); MEAN CORPUSCULAR HEMOGLOBIN 29.2 pg (27.0-33.0); MEAN CORPUSCULAR HGB CONC 32.3 g/dl (32.0-36.5); MEAN CORPUSCULAR VOLUME 90.5 fl (80.0-96.0); MONO % 11.8 % (0.0-5.0); NEUTROPHILS # 4.8 10^3/uL (1.5-8.5); NEUTROPHILS % 56.3 % (36.0-66.0); PLATELET COUNT, AUTOMATED 197 10^3/uL (150-450); RED BLOOD COUNT 5.58 10^6/uL (4.30-6.10); WHITE BLOOD COUNT 8.5 10^3/uL (4.0-10.0)
[2019-12-04 13:48] LABS: HEMOGLOBIN A1c 6.3 %
[2019-12-04 14:52] LABS: MALB URINE SIEMENS 11.6 MG/L
[2019-12-04 18:18] LABS: ALBUMIN 3.8 GM/DL (3.2-5.2); ALT/SGPT 61 U/L (12-78); BILIRUBIN,TOTAL 0.5 MG/DL (0.2-1.0); BLOOD UREA NITROGEN 26 MG/DL (7-18); CALCIUM LEVEL 9.4 MG/DL (8.5-10.1); CARBON DIOXIDE LEVEL 27 MEQ/L (21-32); CHLORIDE LEVEL 100 MEQ/L (98-107); CHOLESTEROL LEVEL 168 MG/DL (<200); CHOLESTEROL RISK RATIO 4.941 (<5); FREE T4 0.82 NG/DL (0.76-1.46); GLOMERULAR FILTRATION RATE > 60.0 (>56); GLUCOSE, FASTING 114 MG/DL (70-100); HDL CHOLESTEROL 34 MG/DL (>40); LDL CHOLESTEROL 66 MG/DL (<100); NON-HDL-C 134 MG/DL; POTASSIUM SERUM 3.9 MEQ/L (3.5-5.1); SODIUM LEVEL 138 MEQ/L (136-145); TOTAL 25(OH) VITAMIN D 40.2 NG/ML (30.0-100.0); TOTAL PROTEIN 7.7 GM/DL (6.4-8.2); TRIGLYCERIDES LEVEL 340 MG/DL (<150)
== END ==
LOC: M SFHCCLAY 11:02
PROVIDERS: ATTEND Physician Assistant
DX: R94.6 Abnormal results of thyroid function studies (principal); R63.5 Abnormal weight gain; R13.10 Dysphagia, unspecified; E11.9 Type 2 diabetes mellitus without complications; E55.9 Vitamin D deficiency, unspecified; N40.0 Benign prostatic hyperplasia without lower urinary tract symptoms
CPT/HCPCS: 36415; 80053; 80061; 82043; 82306; 83036; 84439; 84443; 85025; G0103

== ENCOUNTER → 2019-12-11 | Outpatient (CLI) | payer MEDICARE ==
--- NOTE | 2019-12-17 10:35 | REP ---
THYROID ULTRASOUND HISTORY: Right-sided thyroid fullness. TECHNIQUE: Real-time sonographic evaluation of the thyroid is performed. FINDINGS: The thyroid is not significantly enlarged. The right lobes measures 4.2 x 2.2 x 2.9 cm and the left lobe 4.6 x 2.0 x 2.4 cm. Echotexture is diffusely heterogeneous with somewhat lobulated margins of the thyroid. However, no discrete cystic or solid nodule is seen. IMPRESSION: Heterogeneous lobulated thyroid is not significantly enlarged. No discrete cystic of solid nodule bilaterally. MTDD
== END ==
LOC: M RAD 11:57
PROVIDERS: ATTEND Physician Assistant
DX: E07.89 Other specified disorders of thyroid (principal); R94.6 Abnormal results of thyroid function studies

== ENCOUNTER → 2019-12-12 | Outpatient (CLI) | payer MEDICARE ==
--- NOTE | 2019-12-17 16:36 | ECWPNPC ---
PATIENT NAME: NOEL MENDEZ : 1960 GENDER: MALE VISIT DATE: 12/12/2019 DISCHARGE DATE: 12/12/19 1018 VISIT LOCKED DATE TIME: PHYSICIAN: ARMANDO ORR PHYSICIAN PAGER NO: ACTIVE RESOURCE: ARMANDO ORR REASON FOR APPOINTMENT 1. LOW BACK PAIN/ABD PAIN HISTORY OF PRESENT ILLNESS PAIN CENTER INTAKE QUESTIONS: DO YOU HAVE A HISTORY OF MRSA? :NO DO YOU TAKE A BLOOD THINNERS? :NO DO YOU HAVE ANY BLEEDING DISORDERS? :NO ANY NEW NUMBNESS OR WEAKNESS IN YOUR LEGS OR ARMS? :NO ANY PACEMAKER,DEFIBRILLATOR, OR DORSAL COLUMN STIMULATOR? :NO DO YOU HAVE ANY RASHES OR OPEN SORES? :NO ARE YOU ALLERGIC TO IV DYE? :NO ARE YOU DIABETIC? :NO ANY NEW PROBLEMS WITH YOUR MEDICATIONS? :NO HAVE YOU RECEIVED A VACCINE IN THE PAST 30 DAYS? :NO DO YOU PLAN TO RECEIVE A VACCINE IN THE NEXT 21 DAYS? :NO DO YOU NEED ANY PRESCRIPTION? :NO DO YOU TAKE ANY IMMUNOSUPPRESSIVE MEDICATIONS? :NO IS THERE A CHANCE YOU COULD BE ? :NO ARE YOU BREAST FEEDING? :NO GENERAL: THIS IS A 3 MONTH FOLLOW-UP AND MEDICINE MANAGEMENT FOR PERSISTENT LOW BACK PAIN, ABDOMINAL PAIN AND GENERALIZED JOINT PAIN. CONTINUES TO FIND MEDICATION HELPFUL AT REDUCING HIS PAIN AND KEEPING HIM FUNCTIONAL. DENIES SIDE EFFECTS. BRINGS IN MEDICATIONS WHICH IS APPROPRIATE FOR WHAT WAS DISPENSED. - - -. FALL RISK SCREENING: SCREENING :NO FALLS REPORTED IN THE LAST YEAR PAIN SCREENING: PATIENT HAS A COMPLAINT OF ACUTE OR CHRONIC PAIN :YES LOCATION OF PAIN:NECK, LEFT SHOULDER, RIGHT SHOULDER, MID BACK, FEET NURSING NOTE: - -. CURRENT MEDICATIONS TAKING MELOXICAM 7.5MG TABLET 1 TAB(S) ORALLY DAILY TAKING GLUCOMETER 1 METER FOR TEST BLOOD SUGARS ONCE DAILY DX E11.9 TAKING LANCETS - MISCELLANEOUS 1 LANCET FOR DM TESTING DAILY DX E11.9 TAKING ACURA BLOOD GLUCOSE TEST - STRIP DIRECTED (ANY GENERIC STRIP AVAILABLE) IN VITRO DAILY DX E11.9 TAKING OVERNIGHT PULSE OXIMETRY DIRECTED TAKING NOCTURNAL OXIMETRY ROOM AIR DIRECTED TAKING OXYBUTYNIN CHLORIDE ER 15 MG TABLET EXTENDED RELEASE 24 HOUR 1 TABLET ORALLY ONCE A DAY TAKING OXYGEN DIRECTED NASAL CANNULA TAKING FLOMAX 0.4 MG CAPSULE 1 CAPSULE ORALLY ONCE A DAY TAKING PROAIR HFA 108 (90 BASE) MCG/ACT AEROSOL SOLUTION 2 PUFFS NEEDED INHALATION EVERY 4 HRS TAKING ERGOCALCIFEROL 1.25 MG (62545 UT) CAPSULE 1 CAPSULE ORALLY ONCE A WEEK TAKING HYDROXYZINE HCL 50 MG TABLET 1 TABLET NEEDED ORALLY EVERY 8 HRS TAKING EFFEXOR XR 75 MG CAPSULE EXTENDED RELEASE 24 HOUR 1 CAP ORALLY ONCE A DAY TAKING EFFEXOR XR 150 MG CAPSULE EXTENDED RELEASE 24 HOUR 1 CAPSULE WITH FOOD ORALLY ONCE A DAY TAKING METFORMIN HCL 500 MG TABLET TAKE TWO TABLETS BY MOUTH TWICE A DAY TAKING CHLORTHALIDONE 25 MG TABLET TAKE ONE TABLET BY MOUTH ONCE A DAY EVERY MORNING TAKING ZOLPIDEM TARTRATE 10 MG TABLET 1 TABLET AT BEDTIME NEEDED ORALLY ONCE A DAY TAKING BREO ELLIPTA 100-25 MCG/INH AEROSOL POWDER BREATH ACTIVATED 1 PUFF INHALATION ONCE A DAY TAKING ATORVASTATIN CALCIUM 20 MG TABLET 1 TABLET ORALLY ONCE A DAY TAKING GABAPENTIN 600 MG TABLET 1 CAPSULE ORALLY TID TAKING CYCLOBENZAPRINE HCL 5 MG TABLET 1 TABLET ORALLY 1 TAB AM,1 TAB MIDDAY AND 2 AT BEDTIME TAKING OXYCODONE-ACETAMINOPHEN 10-325 MG TABLET 1 TABLET NEEDED ORALLY EVERY 6 HRS MDD4 TAKING MORPHINE SULFATE ER 15 MG TABLET EXTENDED RELEASE 1 TABLET ORALLY EVERY 12 HRS MDD2 NOT-TAKING ASPIRIN 81 81 MG TABLET CHEWABLE 1 TABLET ORALLY ONCE A DAY MEDICATION LIST REVIEWED AND RECONCILED WITH THE PATIENT PAST MEDICAL HISTORY HERNIAS RENAL CYST NEUROPATHY LEGS 2005 INITIAL INJURY TO LOWER BACK HERNIATED DISC.. 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 THREE SISTER'S , UNSPECIFIED HEART DISEASE, DIABETES SON(S): ALIVE DAUGHTER(S): ALIVE 2 BROTHER(S) , 8 SISTER(S) . 2 SON(S) , 1 DAUGHTER(S) . SOCIAL HISTORY GENERAL: TOBACCO USE ARE YOU A:CURRENT SMOKER ARE YOU INTERESTED IN QUITTING?NOT READY TO QUIT COUNSELED THE PATIENT ON SMOKING EFFECTS, EDUCATION [id number]/08/2020 HOW MANY CIGARETTES A DAY DO YOU SMOKE?11-20 HOW SOON AFTER YOU WAKE UP DO YOU SMOKE YOUR FIRST CIGARETTE?6-30 MIN HOW OFTEN DO YOU SMOKE CIGARETTES?EVERY DAY PATIENT COUNSELED ON THE DANGERS OF TOBACCO USE AND URGED TO QUIT:07/02/2019 ADDITIONAL FINDINGS: TOBACCO USERHEAVY CIGARETTE SMOKER (20-39 CIGS/DAY) SMOKING CESSATION INFORMATION GIVEN12/12/2019 VAPORNO E-CIGARETTENO LATEX QUESTIONNAIRE LATEX ALLERGY : HAVE YOU EVER DEVELOPED ANY TYPE OF REACTION AFTER HANDLING LATEX PRODUCTS SUCH RUBBER GLOVES, CONDOMS, DIAPHRAGMS, BALLOONS, SOCKS, OR UNDERWEAR?NO LATEX ALLERGY : HAVE YOU EVER DEVELOPED ANY TYPE OF REACTION DURING OR AFTER DENTAL APPOINTMENT, VAGINAL/RECTAL EXAMINATION, SURGICAL PROCEDURE, OR ANY OTHER EXPOSURE?NO DATE ASKED : 07/02/2019 LATEX RISK : HAVE YOU EVER HAD ANY DIFFICULTY BREATHING OR HIVES AFTER EATING OR HANDLING ANY FRUITS, OR VEGETABLES; SUCH KIWI, BANANAS, STONE FRUITS, OR CHESTNUTSNO LATEX RISK : DO YOU HAVE A PREVIOUS PERSONAL HISTORY OF MORE THAN NINE SURGERIES, SPINA BIFIDA, OR REPEATED CATHERIZATIONS? YES - PLEASE INDICATE : > 9 SURGERIES LATEX RISK : ARE YOU FREQUENTLY EXPOSED TO LATEX PRODUCTS IN YOUR OCCUPATION?NO LUNG CANCER SCREENING SMOKING STATUS:CURRENT SMOKER IS THE PATIENT BETWEEN THE AGE OF 56 AND 78?YES HAS THE PATIENT EVER BEEN DIAGNOSED WITH LUNG CANCER?NO PACK YEARS = NUMBER OF PACKS PER DAY SMOKED X NUMBER OF YEARS SMOKED:40 CREATE REFERRAL:GENERATE AND CREATE REFERRAL TO THE ONCOLOGY NURSE NAVIGATOR (SMP) LISTING USING THE LDCT SCAN PROCEDURE BMI CARE GOAL FOLLOW-UP ABOVE NORMAL BMI FOLLOW-UPGIVING ENCOURAGEMENT TO EXERCISE ALCOHOL SCREENING DID YOU HAVE A DRINK CONTAINING ALCOHOL IN THE PAST YEAR?NO POINTS0 INTERPRETATIONNEGATIVE RECREATIONAL DRUG USE DRUG USE?NO CAFFEINE CAFFEINE USE?YES 1 PEPSI A DAY SEXUAL HX HAD SEX IN THE LAST 12 MONTHS (VAGINAL, ORAL, OR ANAL)?YES WITHWOMEN ONLY USE PROTECTION?NO HAVE YOU EVER HAD AN STD?NO HIV / HEP-C SCREENING HIV TEST OFFERED TO PATIENT:YES DATE OFFERED:11/22/2018 CONSENT ON FILE TEST ACCEPTED:NO HEP-C TEST OFFERED TO PATIENT:YES DATE OFFERED:11/22/2018 REASON:PATIENT DECLINED TESTED IN PAST TEST ACCEPTED:NO REASON:PATIENT DECLINED CONSENT ON FILE BROCHURE PROVIDED TO PATIENTNO -DECLINED ANGLICAN [id number] 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 EDUCATION LEVEL OF EDUCATION:HIGH SCHOOL LEARNING BARRIERS / SPECIAL NEEDS CHANGE FROM LAST VISIT?NO 11/22/18 BARRIERS TO LEARNING?NO HEARING IMPAIRED?NO VISION IMPAIRED?NO COGNITIVELY IMPAIRED?NO READINESS TO LEARN?YES LEARNING PREFERENCES?NO LEARNING CAPABILITIES PRESENT?YES EMOTIONAL BARRIERS?NO SPECIAL DEVICES?YES :WALKER -CAST DIGITAL CONTROLS TECHNICAL OFFICER NEEDED?NO DOMESTIC VIOLENCE DO YOU FEEL SAFE IN YOUR ENVIRONMENT?YES OCCUPATION: DISABLED. DIET: REGULAR. EXERCISE: NONE. MARITAL STATUS: SINGLE. OTHERS AT HOME: CHILD. NEW PATIENT PAIN DIARY TODAY'S VISITNOTES 07/02/2019 PATIENT DESCRIBES PAIN :ACHING, HAVE IT ALL THE TIME, SHOOTING FROM 0-10, WHAT LEVEL IS YOUR PAIN TODAY?5 PAIN CLINIC PFS, CLERGY, PUBLIC HEALTH REFERRALS PFS REFERRAL NEEDED?NO CLERGY REFERRAL NEEDED?NO PUBLIC HEALTH REFERRAL NEEDED?NO WAS THE PROVIDER NOTIFIED OF ANY PERTINENT INFO?YES HAS THE PATIENT BEEN EDUCATED REGARDING HIS/HER PLAN OF CARE?YES HAS THE PATIENT BEEN EDUCATED REGARDING PAIN, THE RISK FOR PAIN, THE IMPORTANCE OF EFFECTIVE PAIN MANAGEMENT, AND THE PAIN ASSESSMENT PROCESS?YES ADVANCE DIRECTIVE ADVANCE DIRECTIVE DISCUSSED WITH PATIENT:YES PT DOES NOT HAVE ANY ADVANCED DIRECTIVES, HCP INFORMATION GIVEN AT LAST VISIT, DECLINED ASSISTANCE WITH FORM. HOSPITALIZATION/MAJOR DIAGNOSTIC PROCEDURE [facility] 10/2011 MULTIPLE FOR SURGERIES REVIEW OF SYSTEMS CONSTITUTIONAL: ANY RECENT FEVER NO . CHILLS NO . GASTROENTEROLOGY: BOWEL INCONTINENCE NO . ANY NEW CHANGE IN BOWEL CONTROL? NO . HISTORY OF UNUSUAL ABDOMINAL PAIN OR CRAMPING NOT MENTIONED NO . CONSTIPATION NO . GENITOURINARY: ANY NEW CHANGE IN BLADDER CONTROL? NO . IS THERE A CHANCE YOU COULD BE ? NO . URINARY INCONTINENCE NO . CARDIOLOGY: NEW CHEST PRESSURE NO . HISTORY OF CHEST PAIN,IRREGULAR HEART BEAT NOT MENTIONED NO . RESPIRATORY: COUGH NO . SHORTNESS OF BREATH NO . VITAL SIGNS WT 311.8 LBS, HT 69.5 IN, BMI 45.38 INDEX, BP 142/78 MM HG, HR 99 /MIN, RR 18 /MIN, TEMP 97.6 F, OXYGEN SAT % 95%, NA INITIALS AW 0941. EXAMINATION GENERAL EXAMINATION: GENERALAWAKE,ALERT ,PLEASANT . PSYCHAFFECT NORMAL . LUNGS:LUNG BOYD ARE CLEAR TO AUSCULTATION BILATERALLY. GOOD MOVEMENT OF AIR . HEART:S1, S2 IN A REGULAR RATE AND RHYTHM. NO SIGNIFICANT MURMURS, RUBS OR GALLOPS NOTED . 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.27 (PRIMARY) OTHER CHRONIC PAIN - G89.29 GENERALIZED ABDOMINAL PAIN - R10.84 CHRONIC PRESCRIPTION OPIATE USE - Z79.891 TREATMENT PROTRUSION OF INTERVERTEBRAL DISC OF LUMBOSACRAL REGION REFILL OXYCODONE-ACETAMINOPHEN TABLET, 10-325 MG, 1 TABLET NEEDED, ORALLY, EVERY 6 HRS MDD4, 30 DAYS, 120, REFILLS 0 REFILL MORPHINE SULFATE ER TABLET EXTENDED RELEASE, 15 MG, 1 TABLET, ORALLY, EVERY 12 HRS MDD2, 30 DAYS, 60, REFILLS 0 CONTINUE GABAPENTIN TABLET, 600 MG, 1 CAPSULE, ORALLY, TID CONTINUE CYCLOBENZAPRINE HCL TABLET, 5 MG, 1 TABLET, ORALLY, 1 TAB AM,1 TAB MIDDAY AND 2 AT BEDTIME PROCEDURE CODES FA211 ESTABILISHED PATIENT [facility] CHARGE DISPOSITION & COMMUNICATION FOLLOW UP 3 MONTHS (REASON: MED MGMNT LBP/ABD PAIN) ELECTRONICALLY SIGNED BY MILTON MEAD ON 12/17/2019 AT 03:46 PM EDT DISCLAIMER : THIS IS A VISIT SUMMARY EXTRACTED FROM THE [employer] CHART. IT IS NOT A COPY OF THE [employer] PROGRESS NOTE. MTDD
== END ==
LOC: M PAIN 09:30
PROVIDERS: ATTEND Nurse Practitioner Family
DX: M51.27 Other intervertebral disc displacement, lumbosacral region (principal); G89.29 Other chronic pain; R10.84 Generalized abdominal pain; J44.9 Chronic obstructive pulmonary disease, unspecified; I10 Essential (primary) hypertension; E66.01 Morbid (severe) obesity due to excess calories; G47.33 Obstructive sleep apnea (adult) (pediatric); R73.03 Prediabetes; F17.210 Nicotine dependence, cigarettes, uncomplicated; Z79.84 Long term (current) use of oral hypoglycemic drugs; Z79.891 Long term (current) use of opiate analgesic; Z79.899 Other long term (current) drug therapy; Z88.1 Allergy status to other antibiotic agents; Z91.048 Other nonmedicinal substance allergy status; Z68.42 Body mass index [BMI] 45.0-49.9, adult

== ENCOUNTER → 2020-01-17 | Outpatient (REF) | payer MEDICARE ==
[2020-01-17 16:28] LABS: ALBUMIN 3.8 GM/DL (3.2-5.2); BILIRUBIN,DIRECT 0.2 MG/DL (0.0-0.2); BILIRUBIN,TOTAL 0.7 MG/DL (0.2-1.0); FREE T4 0.88 NG/DL (0.76-1.46); THYROID STIMULATING HORMONE 2.63 uIU/ML (0.358-3.740)
== END ==
LOC: M SFHCCLAY 10:28
PROVIDERS: ATTEND Physician Assistant
DX: R79.89 Other specified abnormal findings of blood chemistry (principal); Z79.899 Other long term (current) drug therapy

== ENCOUNTER → 2020-02-11 | Outpatient (CLI) | payer MEDICARE ==
--- NOTE | 2020-02-11 13:10 | REP ---
INDICATION: LUNG SCREENING. COMPARISON: Low-dose lung screening CT of the chest dated 06/28/2018. TECHNIQUE: The study is performed without IV contrast. The images are presented at lung windowing only. FINDINGS: There is a 4 mm left lower lobe lung nodule on image 66, unchanged. There is a 4 mm right lower lobe lung nodule on image 81, unchanged. These lung nodules are category 2 lung lesions with the probability of malignancy less than 1%. There is a new right lung ground-glass density measuring 9 mm on image 48. There is a new ground-glass right lung density measuring 10 mm on image 49. These new ground-glass densities are category 2 lung lesions with the probability of malignancy less than 1%. There are no other lung nodules or masses. There are no infiltrates pleural effusions. IMPRESSION: There are 4 category 1 lung lesions as described all of which are category 2 lung lesions. Probability of malignancy less than 1%. Recommend follow-up low-dose lung screening chest CT in 1 year. <Electronically signed by Madi Gil > 02/11/20 [id number]
== END ==
LOC: M RAD 10:03
PROVIDERS: ATTEND Physician Assistant
DX: Z12.2 Encounter for screening for malignant neoplasm of respiratory organs (principal); Z87.891 Personal history of nicotine dependence

== ENCOUNTER → 2020-02-15 | Outpatient (CLI) | payer MEDICARE | LOC: M LABSMTC 11:14 | PROVIDERS: ATTEND Anesthesiology | DX: Z01.812 Encounter for preprocedural laboratory examination (principal); Z20.828 Contact with and (suspected) exposure to other viral communicable diseases ==

== ENCOUNTER → 2020-03-14 | Outpatient (CLI) | payer MEDICARE | LOC: M LABSMTC 09:42 | PROVIDERS: ATTEND Anesthesiology | DX: Z01.812 Encounter for preprocedural laboratory examination (principal); Z20.822 Contact with and (suspected) exposure to COVID-19 ==

== ENCOUNTER 2020-03-19 08:18 | Day surgery (SDC) | payer MEDICARE ==
[~2020-03-19] VITALS: Ht 177.8 cm; Wt 133.8 kg
[~2020-03-19 08:18] MED LIST changes: +LIDOCAINE 2% 100MG/5ML SDV (FOR ANES.) As Ordered ONE; +NS 1,000 ML IV ONE; +propofoL 200 MG/20 ML VIAL As Ordered ONE
--- OUTSIDE RECORDS SUMMARY | 2020-03-19 08:23 | CCD ---
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 Name Role Phone Loli Balderas Unavailable PROBLEMS Type Condition ICD9-CM Code [id number] Code Onset Dates Condition S tatus SNOMED Code Notes Problem Intervertebral disc disorders with radiculopathy , lumbosacral region M51.17 Active 5558024 Problem Depression with anxiety F41.8 Active 74544082 6 Problem COPD exacerbation J44.1 Active 406414835 Problem Moderate chronic obstructive pulmonary disease J44 .9 Active 873982925 Problem Current smoker F17.200 Active 46195232 Problem Psychophysiological insomnia F51.04 Active 425 996816 Problem Chronic prescription opiate use Z79.891 Active 651715177 Problem Intervertebral disc disorder with radiculopathy of lumbosacral region M51.17 Active 88607154 Problem Hyperlipidemia E78.5 Active 08227758 Problem BPH loc w urin obs/LUTS N40.1 Active 00090835 7 Problem Abdominal pain, chronic, generalized R10.84 Act tayler 150393796 Problem Protrusion of intervertebral disc of lumbosacral region M51.27 Active 76525471 Problem Diabetes E11.9 Active 55133813 Problem Tobacco dependence due to cigarettes F17.210 Active [id number] Problem QUINTON (obstructive sleep apnea) G47.33 Active 66 017894 Problem Tobacco dependence F17.200 Active 77001771 Problem Polycythemia D75.1 Active 244907279 Problem Mixed hyperlipidemia E78.2 Active 455027445 Problem Morbid obesity with BMI of 40.0-44.9, adult E66.01 Active 668909697 Problem Prostate cancer screening Z12.5 Active 898603 002 Problem Bilateral low back pain, with sciatica presence unspecifie d M54.5 Active 812306933 Problem Insomnia, unspecified type G47.00 Active 63304 2001 Problem Incisional hernia K43.2 Active 189291083 Problem Feeling of incomplete bladder emptying R39.14 A ctive 112574996 Problem Chronic post-operative pain G89.28 Active 1097 50396581903 Problem Dysuria R30.0 Active 35184926 Problem Chronic prescription opiate use Z79.899 Active 451026138 Problem Other chronic pain G89.29 Active 11624962 Problem Chronic obstructive pulmonary disease, unspecified COPD ty pe J44.9 Active 83182290 Problem Leukocytosis, unspecified type D72.829 Active 1 74314513 Problem Vitamin D deficiency E55.9 Active 64606001 Problem Erectile dysfunction, unspecified erectile dysfunction typ e N52.9 Active 234193432 Problem BPH (benign prostatic hyperplasia) N40.0 Activ e 319619059 Problem Dysphagia, unspecified type R13.10 Active 4073 9000 Problem OAB (overactive bladder) N32.81 Active 7988429 02 Problem 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 Active 94418910 Problem Pain, chronic postoperative G89.28 Active 1097 57281076057 Problem Essential (primary) hypertension I10 Active 51802180 Problem Benign prostatic hyperplasia , unspecified whether lower urinary tract symptoms present N40.0 Active 297466268 Problem Nocturnal oxygen desaturation G47.34 Active 23 2041907 Problem Depression F32.9 Active 00976562 Problem Sacroiliitis M46.1 Active 43984251 Problem Obstructive sleep apnea G47.33 Active 25004118 ALLERGIES Allergen (clinical drug ingredient) Drug/Non Drug Allergy do cumented on EMR Reaction Allergy Type Onset Date Status Paper adhesion tape Burned skin off Non Drug Allergy Active metronidazole Flagyl([facility] Code:[address]-16) Hives Drug Allergy Active ENCOUNTERS from 1960 to 2020-03-14 Encounter Location Date Provider Diagnosis [facility] [address] [place] [address] Mar, Loli Balderas Protrusion of intervertebral disc of lum bosacral region M51.27 IMMUNIZATIONS Vaccine Route Administration Date Status Influenza (18 yrs & older) Flublok IM Intramuscular Mar 14, 2019 Administered Influenza (18 yrs & older) Flublok IM Intramuscular Feb 13, 2018 Administered Influenza (6mo & up) Fluzone IM Intramuscular Jan 10, 2017 Ad ministered Influenza (6mo & up) Fluzone IM Intramuscular Feb 05, 2016 Ad ministered Influenza (6mo & up) Fluzone Unknown Mar 28, 2015 Ref used Influenza (6mo & up) Fluzone Unknown Feb 18, 2015 Ref used Influenza (18 yrs & older) Flublok Unknown Dec 04, 2019 Administered Influenza (6mo & up) Fluzone Unknown Jan 23, 2015 Ref used Influenza (6mo & up) Fluzone IM Intramuscular Dec 04, 2014 Ad ministered Influenza (6mo & up) Fluzone Unknown August 01, 2014 Ref used SOCIAL HISTORY Tobacco Use: Social History Observation Description Date Details (start date - stop date) Current Smoker Sex Assigned At : Social History Observation Description Sex Assigned At Unknown Education: Question Answer Notes Level of Education: High School Audit Question Answer Notes Total Score: 0 Interpretation: Alcohol Education Spiritism: Question Answer Notes Spiritism 21 Judaism Sexual Hx: Question Answer Notes Had sex in the last 12 months (vaginal, oral, or anal)? Yes Have you ever had an STD? No with Women only Use protection? No Drug and Alcohol Question Answer Notes Total Score: 0 Interpretation: No problems reported Alcohol Screening: Question Answer Notes Did you have a drink containing alcohol in the past year? No Points 0 Interpretation Negative BMI Care Goal Follow-Up Question Answer Notes Above Normal BMI Follow-Up Giving encouragement to exercise Tobacco Use: Question Answer Notes Are you a: current smoker Additional Findings: Tobacco User Heavy cigarette smoker (20 -39 cigs/day) Smoking Cessation Information Given 12/12/2019 Patient counseled on the dangers of tobacco use and urged to quit: 07/02/2019 How many cigarettes a day do you smoke? 11-20 Are you interested in quitting? Not ready to quit Counseled the patient on smoking effects, education provided 08/13/2019 REASON FOR REFERRAL No Information VITAL SIGNS No information MEDICATIONS Medication SIG (Take, Route, Frequency, Duration) Notes Start Da te End Date Status Nocturnal oximetry Room Air as directed Nov, Active Metformin HCl 500 MG TAKE TWO TABLETS BY MOUTH TWICE A DAY for 45 Active Overnight Pulse Oximetry as directed Feb, Active Effexor XR 150 MG 1 capsule with food Orally Once a day for 90 d ays Oct, Active Aspirin 81 81 MG 1 tablet Orally Once a day Not-Taking HydrOXYzine HCl 50 MG 1 tablet as needed Orally every 8 hrs for 90 Active Atorvastatin Calcium 20 MG 1 tablet Orally Once a day for 90 Active Effexor XR 75 MG 1 cap Orally Once a day for 90 days Active Morphine Sulfate ER 15 MG 1 tablet Orally every 12 hrs mdd2 for 30 Days Feb, Active Acura Blood Glucose Test - as directed (ANY GENERIC ST RIP AVAILABLE) In Vitro daily Dx E11.9 for 90 Active Meloxicam 7.5mg 1 tab(s) orally daily for 90 Active Oxygen as directed nasal cannula Mar, Active Chlorthalidone 25 mg TAKE ONE TABLET BY MOUTH ONCE A DAY EVERY M ORNING for 90 Active Breo Ellipta 100-25 MCG/INH 1 puff Inhalation Once a day for 30 Active Glucometer 1 meter for test blood sugars once daily DX E11 .9 for 90 day(s) Jun, Active Oxycodone-Acetaminophen 10-325 MG 1 tablet as needed O rally every 6 hrs mdd4 for 30 days Mar, Active Zolpidem Tartrate 10 MG 1 tablet at bedtime as neede d Orally Once a day for 30 days Sep, Active Ergocalciferol 1.25 MG (87699 UT) 1 capsule Orally once a week for 84 Active Omeprazole 40 MG 1 capsule 30 minutes before morning meal Orally Daily for 90 day(s) Active Lancets - 1 lancet for DM testing Daily DX E11.9 for 90 Active Cyclobenzaprine HCl 5 MG 1 tablet Orally 1 tab AM,1 t ab midday and 2 at bedtime for 30 Days May, Active ProAir HFA 108 (90 Base) MCG/ACT 2 puffs as needed Inhalation every 4 hrs Active Gabapentin 600 MG 1 capsule Orally TID Aug, Active Flomax 0.4 MG 1 capsule Orally Once a day for 30 Active Oxybutynin Chloride ER 15 MG 1 tablet Orally Once a day for 30 Active PROCEDURES No Information RESULTS No Results REASON FOR VISIT OXYCODONE MEDICAL (GENERAL) HISTORY Type Description Date Medical History Large Ventral Hernias Medical History Renal Cyst s/p partial Right Nephrectomy Medical History Neuropathy Medical History 2005 initial injury to lower back herniated disc.. 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 Status post partial right nephrectomy. Benign left hepatic cyst. Status post previous partial colonic resections. Surgical History 2 hernia repairs to abdominal wall Surgical History Diverticulitis surgery(4 surgeries with in 2011 for this) 10/2011 Surgical History Hernia repair abdominal wall 10/02/2013 Surgical History Right renal cyst aspiration 09/26/13 Surgical History L hip replacement 02/06/14 Surgical History Right partial nephrectomy 02/04/15 Surgical History Cardiac Cath 05/26/2016 Surgical History repair left ankle fracture with screws 0 11/28/18 Hospitalization History [facility] 10/2011 Hospitalization History multiple for surgeries Goals Section No Information Health Concerns No Information MEDICAL EQUIPMENT No Information MENTAL STATUS No Information FUNCTIONAL STATUS No Information ASSESSMENTS Encounter Date Diagnosis Assessment Notes Treatment Notes Treatm ent Clinical Notes Mar, Protrusion of intervertebral disc of lumbosacral region (ICD-10 - M51.27) PLAN OF TREATMENT Medication Medication Name Sig Start Date Stop Date Meloxicam 7.5mg 1 tab(s) orally daily for 90 Oxybutynin Chloride ER 15 MG 1 tablet Orally Once a day for 30 Breo Ellipta 100-25 MCG/INH 1 puff Inhalation Once a day for 30 Ergocalciferol 1.25 MG (14397 UT) 1 capsule Orally once a week or 84 Omeprazole 40 MG 1 capsule 30 minutes before morning meal Orally Daily for 90 day(s) Morphine Sulfate ER 15 MG 1 tablet Orally every 12 hrs mdd2 for 30 Days Feb, Zolpidem Tartrate 10 MG 1 tablet at bedtime as neede d Orally Once a day for 30 days Sep, Oxycodone-Acetaminophen 10-325 MG 1 tablet as needed O rally every 6 hrs mdd4 for 30 days Mar, Next Appt Details Provider Name:Loli Balderas, 2020-03-24 10 :30:00 AM, [address] [place], [address], Provider Name:Janey Mert Herr, 2020-04 10:30:00 AM, [address], [place], [address], Insurance Providers Payer Name Payer Address Payer Phone Insured Name Patient Relati onship to Insured Coverage Start Date Coverage End Date MEDICARE Part A and B [address] [facility] [phone] [phone] NOEL MENDEZ self MEDICARE BLUE PPO [id number] [place] [id number] NOEL MENDEZ self
--- OUTSIDE RECORDS SUMMARY | 2020-03-19 08:23 | CCD ---
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 Name Role Phone Janey Herr Unavailable PROBLEMS Type Condition ICD9-CM Code FOI31-DL Code Onset Dates Condition S tatus SNOMED Code Notes Problem Intervertebral disc disorders with radiculopathy , lumbosacral region M51.17 Active 7119529 Problem Depression with anxiety F41.8 Active 23183129 6 Problem COPD exacerbation J44.1 Active 308204356 Problem Moderate chronic obstructive pulmonary disease J44 .9 Active 913863906 Problem Current smoker F17.200 Active 60763441 Problem Psychophysiological insomnia F51.04 Active 425 918665 Problem Chronic prescription opiate use Z79.891 Active 724848748 Problem Intervertebral disc disorder with radiculopathy of lumbosacral region M51.17 Active 46044773 Problem Hyperlipidemia E78.5 Active 97862029 Problem BPH loc w urin obs/LUTS N40.1 Active 32868078 7 Problem Abdominal pain, chronic, generalized R10.84 Act tayler 348094872 Problem Protrusion of intervertebral disc of lumbosacral region M51.27 Active 38809898 Problem Diabetes E11.9 Active 33207963 Problem Tobacco dependence due to cigarettes F17.210 Active 59374546225872135 Problem QUINTON (obstructive sleep apnea) G47.33 Active 95 849537 Problem Tobacco dependence F17.200 Active 85116326 Problem Polycythemia D75.1 Active 260809477 Problem Mixed hyperlipidemia E78.2 Active 868275440 Problem Morbid obesity with BMI of 40.0-44.9, adult E66.01 Active 169458282 Problem Prostate cancer screening Z12.5 Active 377936 002 Problem Bilateral low back pain, with sciatica presence unspecifie d M54.5 Active 630250309 Problem Insomnia, unspecified type G47.00 Active 58983 2001 Problem Incisional hernia K43.2 Active 370861453 Problem Feeling of incomplete bladder emptying R39.14 A ctive 660545205 Problem Chronic post-operative pain G89.28 Active 1097 04566721541 Problem Dysuria R30.0 Active 28908185 Problem Chronic prescription opiate use Z79.899 Active 891606642 Problem Other chronic pain G89.29 Active 80670971 Problem Chronic obstructive pulmonary disease, unspecified COPD ty pe J44.9 Active 59871822 Problem Leukocytosis, unspecified type D72.829 Active 1 78383988 Problem Vitamin D deficiency E55.9 Active 80566267 Problem Erectile dysfunction, unspecified erectile dysfunction typ e N52.9 Active 095772504 Problem BPH (benign prostatic hyperplasia) N40.0 Activ e 919243947 Problem Dysphagia, unspecified type R13.10 Active 4073 9000 Problem OAB (overactive bladder) N32.81 Active 5162137 02 Problem 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 Active 58313759 Problem Pain, chronic postoperative G89.28 Active 1097 13523106286 Problem Essential (primary) hypertension I10 Active 67489577 Problem Benign prostatic hyperplasia , unspecified whether lower urinary tract symptoms present N40.0 Active 983054474 Problem Nocturnal oxygen desaturation G47.34 Active 23 4436220 Problem Depression F32.9 Active 86989256 Problem Sacroiliitis M46.1 Active 17020028 Problem Obstructive sleep apnea G47.33 Active 04787212 ALLERGIES Allergen (clinical drug ingredient) Drug/Non Drug Allergy do cumented on EMR Reaction Allergy Type Onset Date Status Paper adhesion tape Burned skin off Non Drug Allergy Active metronidazole Flagyl([facility] Code:[address]-65) Hives Drug Allergy Active ENCOUNTERS from 1961 to 2020-03-05 Encounter Location Date Provider Diagnosis [facility] [place] [address] 30 D ec, 2019 Janey [place] Encounter for screening for lung cancer Z12.2 IMMUNIZATIONS Vaccine Route Administration Date Status Influenza [...] Notes Total Score: 0 Interpretation: Alcohol Education Orthodox: Question Answer Notes Orthodox 21 Yazidi Sexual Hx: Question Answer Notes Had sex [...] Vitro daily Dx E11.9 for 90 Active Cyclobenzaprine HCl 5 MG 1 tablet Orally 1 tab AM,1 t ab midday and 2 at bedtime for 30 Days May, Active Oxygen as directed nasal cannula Mar, Active Chlorthalidone 25 mg TAKE ONE TABLET BY MOUTH ONCE A DAY EVERY M ORNING for 90 Active Breo Ellipta 100-25 MCG/INH 1 puff Inhalation Once a day for 30 Active Glucometer 1 meter for test blood sugars once daily DX E11 .9 for 90 day(s) Jun, Active Ergocalciferol 1.25 MG (74125 UT) 1 capsule Orally once a week f or 90 days Mar, Active Zolpidem Tartrate 10 MG 1 tablet at bedtime as neede d Orally Once a day for 30 days Sep, Active Meloxicam 7.5mg 1 tab(s) orally daily for 90 Active Omeprazole 40 MG 1 capsule 30 minutes before morning meal Orally Daily for 90 day(s) Active Lancets - 1 lancet for DM testing Daily DX E11.9 for 90 Active Gabapentin 600 MG 1 capsule Orally TID Aug, Active Flomax 0.4 MG 1 capsule Orally Once a day for 30 Active ProAir HFA 108 (90 Base) MCG/ACT 2 puffs as needed Inhalation every 4 hrs Active Oxybutynin Chloride ER 15 MG 1 tablet Orally Once a day for 30 Active Oxycodone-Acetaminophen 10-325 MG 1 tablet as needed O rally every 6 hrs mdd4 for 30 days Feb, Active PROCEDURES No Information RESULTS No Results REASON FOR VISIT Low Dose CT Chest Review MEDICAL (GENERAL) HISTORY Type Description Date Medical [...] fracture with screws 0 11/28/18 Hospitalization History [facility] 10/2011 Hospitalization History multiple for surgeries Goals Section No Information Health Concerns No Information MEDICAL EQUIPMENT No Information MENTAL STATUS No Information FUNCTIONAL STATUS No Information ASSESSMENTS Encounter Date Diagnosis Assessment Notes Treatment Notes Treatm ent Clinical Notes Feb, Encounter for screening for lung cancer (ICD-10 - Z12.2) PLAN OF TREATMENT Medication Medication Name Sig Start Date Stop Date Oxybutynin Chloride ER 15 MG 1 tablet Orally Once a day for 30 Oxycodone-Acetaminophen 10-325 MG 1 tablet as needed O rally every 6 hrs mdd4 for 30 days Feb, Breo Ellipta 100-25 MCG/INH 1 puff Inhalation Once a day for 30 Meloxicam 7.5mg 1 tab(s) orally daily for 90 Omeprazole 40 MG 1 capsule 30 minutes before morning meal Orally Daily for 90 day(s) Morphine Sulfate ER 15 MG 1 tablet Orally every 12 hrs mdd2 for 30 Days Feb, Zolpidem Tartrate 10 MG 1 tablet at bedtime as neede d Orally Once a day for 30 days Sep, Future Test Test Name Order Date Low Dose Lung Screening CT Chest [id number] Next Appt Details Provider Name:Loli Balderas 2020-03-13 09 :30:00 AM, [address] [place], [address], Provider Name:Janey Herr 2020-04 10:30:00 AM, [address], [place], [address], Insurance Providers Payer Name Payer Address Payer Phone Insured Name Patient Relati onship to Insured Coverage Start Date Coverage End Date MEDICARE BLUE PPO [address] [id number] NOEL MENDEZ self MEDICARE Part A and B [address] [place] [phone] [phone] NOEL MENDEZ self
--- OUTSIDE RECORDS SUMMARY | 2020-03-19 08:23 | CCD ---
Author Author [facility] Organization [facility] Address Unknown Phone Unavailable Care Team Providers Care Superintendent Mechanical Name Role Phone Fran Mercedes Unavailable PROBLEMS Type Condition ICD9-CM Code VUM22-FI Code Onset Dates Condition S tatus SNOMED Code Notes Problem Intervertebral disc disorders with radiculopathy , lumbosacral region M51.17 Active 2918337 Problem Depression with anxiety F41.8 Active 93818383 6 Problem COPD exacerbation J44.1 Active 250639459 Problem Moderate chronic obstructive pulmonary disease J44 .9 Active 349143813 Problem Current smoker F17.200 Active 69421072 Problem Psychophysiological insomnia F51.04 Active 425 870396 Problem Chronic prescription opiate use Z79.891 Active 774773929 Problem Intervertebral disc disorder with radiculopathy of lumbosacral region M51.17 Active 04168530 Problem Hyperlipidemia E78.5 Active 38860631 Problem BPH loc w urin obs/LUTS N40.1 Active 36590860 7 Problem Abdominal pain, chronic, generalized R10.84 Act tayler 346672487 Problem Protrusion of intervertebral disc of lumbosacral region M51.27 Active 48472901 Problem Diabetes E11.9 Active 06434445 Problem Tobacco dependence due to cigarettes F17.210 Active 41533843432117015 Problem QUINTON (obstructive sleep apnea) G47.33 Active 78 496284 Problem Tobacco dependence F17.200 Active 68188770 Problem Polycythemia D75.1 Active 906361755 Problem Mixed hyperlipidemia E78.2 Active 065732311 Problem Morbid obesity with BMI of 40.0-44.9, adult E66.01 Active 171833394 Problem Prostate cancer screening Z12.5 Active 236500 002 Problem Bilateral low back pain, with sciatica presence unspecifie d M54.5 Active 927796954 Problem Insomnia, unspecified type G47.00 Active 98125 2001 Problem Incisional hernia K43.2 Active 054530678 Problem Feeling of incomplete bladder emptying R39.14 A ctive 746767941 Problem Chronic post-operative pain G89.28 Active 1097 08105796165 Problem Dysuria R30.0 Active 26540562 Problem Chronic prescription opiate use Z79.899 Active 819446388 Problem Other chronic pain G89.29 Active 09111698 Problem Chronic obstructive pulmonary disease, unspecified COPD ty pe J44.9 Active 69006875 Problem Leukocytosis, unspecified type D72.829 Active 1 61641892 Problem Vitamin D deficiency E55.9 Active 37386303 Problem Erectile dysfunction, unspecified erectile dysfunction typ e N52.9 Active 754628114 Problem BPH (benign prostatic hyperplasia) N40.0 Activ e 299643061 Problem Dysphagia, unspecified type R13.10 Active 4073 9000 Problem OAB (overactive bladder) N32.81 Active 5431712 02 Problem 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 Active 80024156 Problem Pain, chronic postoperative G89.28 Active 1097 22609428077 Problem Essential (primary) hypertension I10 Active 21687061 Problem Benign prostatic hyperplasia , unspecified whether lower urinary tract symptoms present N40.0 Active 618837585 Problem Nocturnal oxygen desaturation G47.34 Active 23 0463563 Problem Depression F32.9 Active 02701053 Problem Sacroiliitis M46.1 Active 92556567 Problem Obstructive sleep apnea G47.33 Active 34321346 ALLERGIES Allergen (clinical drug ingredient) Drug/Non Drug Allergy do cumented on EMR Reaction Allergy Type Onset Date Status Paper adhesion tape Burned skin off Non Drug Allergy Active metronidazole Flagyl([facility] Code:[address]-49) Hives Drug Allergy Active ENCOUNTERS from 1961 to 2020-02-14 Encounter Location Date Provider Diagnosis [facility] [address] [place] [id number] 09 Feb, 2020 Fran Mercedes Protrusion of intervertebral disc of lum bosacral region M51.27 IMMUNIZATIONS Vaccine Route Administration Date Status Influenza (18 yrs & older) Flublok IM Intramuscular Feb 13, 2018 Administered Influenza (6mo & up) Fluzone IM Intramuscular Jan 10, 2017 Ad ministered Influenza (6mo & up) Fluzone IM Intramuscular Feb 05, 2016 Ad ministered Influenza (6mo & up) Fluzone Unknown Mar 28, 2015 Ref used Influenza (18 yrs & older) Flublok Unknown Dec 04, 2019 Administered Influenza (6mo & up) Fluzone Unknown Feb 18, 2015 Ref used Influenza (18 yrs & older) Flublok IM Intramuscular Mar 14, 2019 Administered Influenza (6mo & up) Fluzone [...] Notes Total Score: 0 Interpretation: Alcohol Education Religious: Question Answer Notes Religious 21 Shinto Sexual Hx: Question Answer Notes Had sex [...] oximetry Room Air as directed Nov, Active Atorvastatin Calcium 20 MG 1 tablet Orally Once a day for 90 Active Overnight Pulse Oximetry as directed Feb, Active Metformin HCl 500 MG TAKE TWO TABLETS BY MOUTH TWICE A DAY for 45 Active Aspirin 81 81 MG 1 tablet Orally Once a day Not-Taking HydrOXYzine HCl 50 MG 1 tablet as needed Orally every 8 hrs for 90 Active Breo Ellipta 100-25 MCG/INH 1 puff Inhalation Once a day for 30 Active Effexor XR 75 MG 1 cap Orally Once a day for 90 days Active Morphine Sulfate ER 15 MG 1 tablet Orally every 12 hrs mdd2 for 30 Days Feb, Active Glucometer 1 meter for test blood sugars once daily DX E11 .9 for 90 day(s) Jun, Active Cyclobenzaprine HCl 5 MG 1 tablet Orally 1 tab AM,1 t ab midday and 2 at bedtime for 30 Days May, Active Oxygen as directed nasal cannula Mar, Active Chlorthalidone 25 mg TAKE ONE TABLET BY MOUTH ONCE A DAY EVERY M ORNING for 90 Active Lancets - 1 lancet for DM testing Daily DX E11.9 for 90 Active Oxybutynin Chloride ER 15 MG 1 tablet Orally Once a day for 30 Active Ergocalciferol 1.25 MG (99200 UT) 1 capsule Orally once a week f or 90 days Mar, Active Effexor XR 150 MG 1 capsule with food Orally Once a day for 90 d ays Oct, Active Meloxicam 7.5mg 1 tab(s) orally daily for 90 Active Omeprazole 40 MG 1 capsule 30 minutes before morning meal Orally Daily for 90 day(s) Active [employer] Blood Glucose Test - as directed (ANY GENERIC ST RIP AVAILABLE) In Vitro daily Dx E11.9 for 90 Active Gabapentin 600 MG 1 capsule Orally TID Aug, Active Flomax 0.4 MG 1 capsule Orally Once a day for 30 Active ProAir HFA 108 (90 Base) MCG/ACT 2 puffs as needed Inhalation every 4 hrs Active Zolpidem Tartrate 10 MG 1 tablet at bedtime as neede d Orally Once a day for 30 days Sep, Active Oxycodone-Acetaminophen 10-325 MG 1 tablet as needed O rally every 6 hrs mdd4 for 30 days Feb, Active PROCEDURES No Information RESULTS No Results REASON FOR VISIT MORPHINE AND PERCOCET REFILL MEDICAL (GENERAL) HISTORY Type Description Date Medical [...] fracture with screws 0 11/28/18 Hospitalization History [facility] 10/2011 Hospitalization History multiple for surgeries Goals Section No Information Health Concerns No Information MEDICAL EQUIPMENT No Information MENTAL STATUS No Information FUNCTIONAL STATUS No Information ASSESSMENTS Encounter Date Diagnosis Assessment Notes Treatment Notes Treatm ent Clinical Notes Feb, Protrusion of intervertebral disc of lumbosacral region (ICD-10 - M51.27) PLAN OF TREATMENT Medication Medication Name Sig Start Date Stop Date Zolpidem Tartrate 10 MG 1 tablet at bedtime as neede d Orally Once a day for 30 days Sep, Oxycodone-Acetaminophen 10-325 MG 1 tablet as needed O rally every 6 hrs mdd4 for 30 days Feb, Morphine Sulfate ER 15 MG 1 tablet Orally every 12 hrs mdd2 for 30 Days Feb, Meloxicam 7.5mg 1 tab(s) orally daily for 90 Omeprazole 40 MG 1 capsule 30 minutes before morning meal Orally Daily for 90 day(s) Next Appt Details Provider Name:Loli Balderas, 2020-03-13 09 :30:00 AM, [address] [place], [address], Provider Name:Janey Herr, 2020-04 10:30:00 AM, [address] [place] [address], [phone], Insurance Providers Payer Name Payer Address Payer Phone Insured Name Patient Relati onship to Insured Coverage Start Date Coverage End Date MEDICARE Part A and B [address] [facility] [phone] NOEL MENDEZ self MEDICARE BLUE [address] [id number] NOEL MENDEZ self
--- OUTSIDE RECORDS SUMMARY | 2020-03-19 08:23 | CCD ---
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 Name Role Phone Janey Herr Unavailable PROBLEMS Type Condition ICD9-CM Code YPS04-WS Code Onset Dates Condition S tatus SNOMED Code Notes Problem Intervertebral disc disorders with radiculopathy , lumbosacral region M51.17 Active 4767105 Problem Depression with anxiety F41.8 Active 28501545 6 Problem COPD exacerbation J44.1 Active 802043867 Problem Moderate chronic obstructive pulmonary disease J44 .9 Active 694431875 Problem Current smoker F17.200 Active 63503567 Problem Psychophysiological insomnia F51.04 Active 425 343482 Problem Chronic prescription opiate use Z79.891 Active 094094915 Problem Intervertebral disc disorder with radiculopathy of lumbosacral region M51.17 Active 66976104 Problem Hyperlipidemia E78.5 Active 99539755 Problem BPH loc w urin obs/LUTS N40.1 Active 84831630 7 Problem Abdominal pain, chronic, generalized R10.84 Act tayler 572447458 Problem Protrusion of intervertebral disc of lumbosacral region M51.27 Active 18527544 Problem Diabetes E11.9 Active 54624332 Problem Tobacco dependence due to cigarettes F17.210 Active 21730875801846587 Problem QUINTON (obstructive sleep apnea) G47.33 Active 35 581798 Problem Tobacco dependence F17.200 Active 72590581 Problem Polycythemia D75.1 Active 743424210 Problem Mixed hyperlipidemia E78.2 Active 544091053 Problem Morbid obesity with BMI of 40.0-44.9, adult E66.01 Active 224373912 Problem Prostate cancer screening Z12.5 Active 255549 002 Problem Bilateral low back pain, with sciatica presence unspecifie d M54.5 Active 141931244 Problem Insomnia, unspecified type G47.00 Active 57604 2001 Problem Incisional hernia K43.2 Active 364343429 Problem Feeling of incomplete bladder emptying R39.14 A ctive 355988499 Problem Chronic post-operative pain G89.28 Active 1097 60662328584 Problem Dysuria R30.0 Active 58969619 Problem Chronic prescription opiate use Z79.899 Active 122373075 Problem Other chronic pain G89.29 Active 86003520 Problem Chronic obstructive pulmonary disease, unspecified COPD ty pe J44.9 Active 02196399 Problem Leukocytosis, unspecified type D72.829 Active 1 29684712 Problem Vitamin D deficiency E55.9 Active 19635602 Problem Erectile dysfunction, unspecified erectile dysfunction typ e N52.9 Active 317795046 Problem BPH (benign prostatic hyperplasia) N40.0 Activ e 978583920 Problem Dysphagia, unspecified type R13.10 Active 4073 9000 Problem OAB (overactive bladder) N32.81 Active 2581761 02 Problem 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 Active 24378570 Problem Pain, chronic postoperative G89.28 Active 1097 88148189143 Problem Essential (primary) hypertension I10 Active 85318328 Problem Benign prostatic hyperplasia , unspecified whether lower urinary tract symptoms present N40.0 Active 268362869 Problem Nocturnal oxygen desaturation G47.34 Active 23 4934103 Problem Depression F32.9 Active 51607741 Problem Sacroiliitis M46.1 Active 45896263 Problem Obstructive sleep apnea G47.33 Active 51552801 ALLERGIES Allergen (clinical drug ingredient) Drug/Non Drug Allergy do cumented on EMR Reaction Allergy Type Onset Date Status Paper adhesion tape Burned skin off Non Drug Allergy Active metronidazole Flagyl([facility] Code:[address]-45) Hives Drug Allergy Active ENCOUNTERS from 1961 to 2020-03-05 Encounter Location Date Provider Diagnosis [facility] [place]ir[place] [address] Feb Janey Herr Dysphagia, unspecified type R13.10 IMMUNIZATIONS Vaccine Route Administration Date Status Influenza [...] Notes Total Score: 0 Interpretation: Alcohol Education Mandaeism: Question Answer Notes Mandaeism 21 Hoahaoism Sexual Hx: Question Answer Notes Had sex [...] ONCE A DAY EVERY M ORNING for Active Breo Ellipta 100-25 MCG/INH 1 puff Inhalation Once a day for 30 Active Glucometer 1 meter for test blood sugars once daily DX E11 .9 for 90 day(s) Jun, Active Ergocalciferol 1.25 MG (03647 UT) 1 capsule Orally once a week [...] Information RESULTS No Results REASON FOR VISIT change dose of medication MEDICAL (GENERAL) HISTORY Type Description Date Medical [...] fracture with screws 0 11/28/18 Hospitalization History [facility] 10/2011 Hospitalization History multiple for surgeries Goals Section No Information Health Concerns No Information MEDICAL EQUIPMENT No Information MENTAL STATUS No Information FUNCTIONAL STATUS No Information ASSESSMENTS Encounter Date Diagnosis Assessment Notes Treatment Notes Treatm ent Clinical Notes Feb, Dysphagia, unspecified type (ICD-10 - R13.10) PLAN OF TREATMENT Medication Medication Name Sig [...] Once a day for 30 days Sep, Next Appt Details Provider Name:Loli Balderas, 2020-03-13 09 :30:00 AM, [address] [place], [address], Provider Name:Janey Herr, 2020-04 10:30:00 AM, [address] [place] [address], [phone], Insurance Providers Payer Name Payer Address Payer Phone Insured Name Patient Relati onship to Insured Coverage Start Date Coverage End Date MEDICARE BLUE PPO [address] [id number] NOEL MENDEZ self MEDICARE Part A and [address] [place] [phone] NOEL MENDEZ self
--- OUTSIDE RECORDS SUMMARY | 2020-03-19 08:23 | CCD ---
Author Author [facility] Organization [facility] Address Unknown Phone Unavailable Care Team Providers Care Ui Architect Name Role Phone Fran Mercedes Unavailable PROBLEMS Type Condition ICD9-CM Code [id number] Code Onset Dates Condition S tatus SNOMED Code Notes Problem Intervertebral disc disorders with radiculopathy , lumbosacral region M51.17 Active 1731116 Problem Depression with anxiety F41.8 Active 02421230 6 Problem COPD exacerbation J44.1 Active 137221809 Problem Moderate chronic obstructive pulmonary disease J44 .9 Active 799142938 Problem Current smoker F17.200 Active 99769818 Problem Psychophysiological insomnia F51.04 Active 425 212141 Problem Chronic prescription opiate use Z79.891 Active 800091033 Problem Intervertebral disc disorder with radiculopathy of lumbosacral region M51.17 Active 96417724 Problem Hyperlipidemia E78.5 Active 36599949 Problem BPH loc w urin obs/LUTS N40.1 Active 68056079 7 Problem Abdominal pain, chronic, generalized R10.84 Act tayler 380270569 Problem Protrusion of intervertebral disc of lumbosacral region M51.27 Active 77758145 Problem Diabetes E11.9 Active 47357311 Problem Tobacco dependence due to cigarettes F17.210 Active 30444521082784189 Problem QUINTON (obstructive sleep apnea) G47.33 Active 78 713118 Problem Tobacco dependence F17.200 Active 51706916 Problem Polycythemia D75.1 Active 705746490 Problem Mixed hyperlipidemia E78.2 Active 666963642 Problem Morbid obesity with BMI of 40.0-44.9, adult E66.01 Active 518012666 Problem Prostate cancer screening Z12.5 Active 135149 002 Problem Bilateral low back pain, with sciatica presence unspecifie d M54.5 Active 262283078 Problem Insomnia, unspecified type G47.00 Active 00080 2001 Problem Incisional hernia K43.2 Active 174429661 Problem Feeling of incomplete bladder emptying R39.14 A ctive 398696012 Problem Chronic post-operative pain G89.28 Active 1097 21471726555 Problem Dysuria R30.0 Active 15075586 Problem Chronic prescription opiate use Z79.899 Active 080110157 Problem Other chronic pain G89.29 Active 39423407 Problem Chronic obstructive pulmonary disease, unspecified COPD ty pe J44.9 Active 39591176 Problem Leukocytosis, unspecified type D72.829 Active 1 63291394 Problem Vitamin D deficiency E55.9 Active 91928036 Problem Erectile dysfunction, unspecified erectile dysfunction typ e N52.9 Active 997665534 Problem BPH (benign prostatic hyperplasia) N40.0 Activ e 748983919 Problem Dysphagia, unspecified type R13.10 Active 4073 9000 Problem OAB (overactive bladder) N32.81 Active 6000155 02 Problem 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 Active 73001943 Problem Pain, chronic postoperative G89.28 Active 1097 28152546703 Problem Essential (primary) hypertension I10 Active 57432887 Problem Benign prostatic hyperplasia , unspecified whether lower urinary tract symptoms present N40.0 Active 871236804 Problem Nocturnal oxygen desaturation G47.34 Active 23 1096318 Problem Depression F32.9 Active 28675381 Problem Sacroiliitis M46.1 Active 55780336 Problem Obstructive sleep apnea G47.33 Active 14403162 ALLERGIES Allergen (clinical drug ingredient) Drug/Non Drug Allergy do cumented on EMR Reaction Allergy Type Onset Date Status Paper adhesion tape Burned skin off Non Drug Allergy Active metronidazole Flagyl([facility] Code:[address]-51) Hives Drug Allergy Active ENCOUNTERS from 1961 to 2020-03-03 Encounter Location Date Provider Diagnosis [facility] [address] [place] [id number] Feb, Fran Mercedes Protrusion of intervertebral disc of [...] Notes Total Score: 0 Interpretation: Alcohol Education Muslim: Question Answer Notes Muslim 21 Mormonism Sexual Hx: Question Answer Notes Had sex [...] Notes Start Da te End Date Status Overnight Pulse Oximetry as directed Feb, Active Metformin HCl 500 MG TAKE TWO TABLETS BY MOUTH TWICE A DAY for 45 Active Omeprazole 40 MG 1 capsule 30 minutes before morning meal Orally Daily for 90 day(s) Active Effexor XR 150 MG 1 capsule with food Orally Once a day for 90 d ays Oct, Active HydrOXYzine HCl 50 MG 1 tablet as needed Orally every 8 hrs for 90 Active Nocturnal oximetry Room Air as directed Nov, Active Atorvastatin Calcium 20 MG 1 tablet Orally Once a day for 90 Active Aspirin 81 81 MG 1 tablet Orally Once a day Not-Taking [employer] Blood Glucose Test - as directed (ANY GENERIC ST RIP AVAILABLE) In Vitro daily Dx E11.9 for 90 Active Lancets - 1 lancet for DM testing Daily DX E11.9 for 90 Active Gabapentin 600 MG 1 capsule Orally TID Aug, Active Glucometer 1 meter for test blood sugars once daily DX E11 .9 for 90 day(s) Jun, Active Ergocalciferol 1.25 MG (70071 UT) 1 capsule Orally once a week f or 90 days Mar, Active Meloxicam 7.5mg 1 tab(s) orally daily for 90 Active Morphine Sulfate ER 15 MG 1 tablet Orally every 12 hrs mdd2 for 30 Days Feb, Active Effexor XR 75 MG 1 cap Orally Once a day for 90 days Active Chlorthalidone 25 mg TAKE ONE TABLET BY MOUTH ONCE A DAY EVERY M ORNING for Active Cyclobenzaprine HCl 5 MG 1 tablet Orally 1 tab AM,1 t ab mid and 2 at bedtime for 30 Days May, Active Oxygen as directed nasal cannula Mar, Active Breo Ellipta 100-25 MCG/INH 1 puff Inhalation Once a day for 30 Active ProAir HFA 108 (90 Base) MCG/ACT 2 puffs as needed Inhalation every 4 hrs Active Oxybutynin Chloride ER 15 MG 1 tablet Orally Once a day for 30 Active Flomax 0.4 MG 1 capsule Orally Once a day for 30 Active Zolpidem Tartrate 10 MG 1 tablet at bedtime as neede d Orally Once a day for 30 days Sep, Active Oxycodone-Acetaminophen 10-325 MG 1 tablet as needed O rally every 6 hrs mdd4 for 30 days Feb, Active PROCEDURES No Information RESULTS No Results REASON FOR VISIT refill Morphine MEDICAL (GENERAL) HISTORY Type Description Date Medical [...] fracture with screws 0 11/28/18 Hospitalization History [facility] 10/2011 Hospitalization History multiple for surgeries [...] 6 hrs mdd4 for 30 days Feb, Meloxicam 7.5mg 1 tab(s) orally daily for 90 Oxybutynin Chloride ER 15 MG 1 tablet Orally Once a day for 30 Morphine Sulfate ER 15 MG 1 tablet Orally every 12 hrs mdd2 for 30 Days Feb, Breo Ellipta 100-25 MCG/INH 1 puff Inhalation Once a day for 30 Omeprazole 40 MG 1 capsule 30 minutes before morning meal Orally Daily for 90 day(s) Next Appt Details Provider Name:Loli Balderas, 2020-03-13 09 :30:00 AM, [address] [place], [place], [address], Provider Name:Janey Herr, 2020-04 10:30:00 AM, [address], [place], [address], Insurance Providers Payer Name Payer Address Payer Phone Insured Name Patient Relati onship to Insured Coverage Start Date Coverage End Date MEDICARE Part A and B [address] [facility] [id number] NOEL MENDEZ self MEDICARE BLUE [address]PO [address] [id number] NOEL MENDEZ self
--- OUTSIDE RECORDS SUMMARY | 2020-03-19 08:23 | CCD ---
Author Author [facility] Organization [facility] Address Unknown Phone Unavailable Care Team Providers Care Tobacco Stemmer Machine Name Role Phone Leona Lu Unavailable PROBLEMS Type Condition ICD9-CM Code SVM27-DD Code Onset Dates Condition S tatus SNOMED Code Notes Problem Intervertebral disc disorders with radiculopathy , lumbosacral region M51.17 Active 5065819 Problem Depression with anxiety F41.8 Active 79343289 6 Problem COPD exacerbation J44.1 Active 337927481 Problem Moderate chronic obstructive pulmonary disease J44 .9 Active 064303447 Problem Current smoker F17.200 Active 77927602 Problem Psychophysiological insomnia F51.04 Active 425 218126 Problem Chronic prescription opiate use Z79.891 Active 617155895 Problem Intervertebral disc disorder with radiculopathy of lumbosacral region M51.17 Active 14155366 Problem Hyperlipidemia E78.5 Active 98654517 Problem BPH loc w urin obs/LUTS N40.1 Active 35866770 7 Problem Abdominal pain, chronic, generalized R10.84 Act tayler 206614462 Problem Protrusion of intervertebral disc of lumbosacral region M51.27 Active 35039156 Problem Diabetes E11.9 Active 11971496 Problem Tobacco dependence due to cigarettes F17.210 Active 97523838945091598 Problem QUINTON (obstructive sleep apnea) G47.33 Active 47 291337 Problem Tobacco dependence F17.200 Active 03502347 Problem Polycythemia D75.1 Active 924768558 Problem Mixed hyperlipidemia E78.2 Active 748449684 Problem Morbid obesity with BMI of 40.0-44.9, adult E66.01 Active 414813143 Problem Prostate cancer screening Z12.5 Active 239522 002 Problem Bilateral low back pain, with sciatica presence unspecifie d M54.5 Active 808645715 Problem Insomnia, unspecified type G47.00 Active 51512 2001 Problem Incisional hernia K43.2 Active 515823773 Problem Feeling of incomplete bladder emptying R39.14 A ctive 858785590 Problem Chronic post-operative pain G89.28 Active 1097 15333991059 Problem Dysuria R30.0 Active 49841410 Problem Chronic prescription opiate use Z79.899 Active 954741725 Problem Other chronic pain G89.29 Active 55761252 Problem Chronic obstructive pulmonary disease, unspecified COPD ty pe J44.9 Active 78618571 Problem Leukocytosis, unspecified type D72.829 Active 1 31474508 Problem Vitamin D deficiency E55.9 Active 00380890 Problem Erectile dysfunction, unspecified erectile dysfunction typ e N52.9 Active 517977141 Problem BPH (benign prostatic hyperplasia) N40.0 Activ e 453465578 Problem Dysphagia, unspecified type R13.10 Active 4073 9000 Problem OAB (overactive bladder) N32.81 Active 2219312 02 Problem 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 Active 00522049 Problem Pain, chronic postoperative G89.28 Active 1097 89876162376 Problem Essential (primary) hypertension I10 Active 42468820 Problem Benign prostatic hyperplasia , unspecified whether lower urinary tract symptoms present N40.0 Active 219216639 Problem Nocturnal oxygen desaturation G47.34 Active 23 5701568 Problem Depression F32.9 Active 41026426 Problem Sacroiliitis M46.1 Active 01410048 Problem Obstructive sleep apnea G47.33 Active 59992195 ALLERGIES Allergen (clinical drug ingredient) Drug/Non Drug Allergy do cumented on EMR Reaction Allergy Type Onset Date Status Paper adhesion tape Burned skin off Non Drug Allergy Active metronidazole Flagyl([facility] Code:[address]-53) Hives Drug Allergy Active ENCOUNTERS from 1961 to 2020-02-16 Encounter Location Date Provider Diagnosis [facility] [place] [address] Feb Leona Lu IMMUNIZATIONS Vaccine Route Administration Date Status Influenza [...] Education Religious: Question Answer Notes Religious 21 Judaism Sexual Hx: Question Answer Notes [...] MG 1 capsule Orally TID Aug, Active Morphine Sulfate ER 15 MG 1 tablet Orally every 12 hrs mdd2 for 30 Days Feb, Active Ergocalciferol 1.25 MG (17982 UT) 1 capsule Orally once a week f or 90 days Mar, Active Meloxicam 7.5mg 1 tab(s) orally daily for 90 Active Glucometer 1 meter for test blood sugars once daily DX E11 .9 for 90 day(s) Jun, Active Effexor XR 75 MG 1 cap [...] a day for 30 days Sep, Active Flomax 0.4 MG 1 capsule Orally Once a day for 30 Active Oxybutynin Chloride ER 15 MG 1 tablet Orally Once a day for 30 Active Oxycodone-Acetaminophen 10-325 MG 1 tablet as needed O rally every 6 hrs mdd4 for 30 days Feb, Active PROCEDURES No Information RESULTS No Results REASON FOR VISIT renewal MEDICAL (GENERAL) HISTORY Type Description Date Medical [...] fracture with screws 0 11/28/18 Hospitalization History [facility] 10/2011 Hospitalization History multiple for surgeries Goals Section No Information Health Concerns No Information MEDICAL EQUIPMENT No Information MENTAL STATUS No Information FUNCTIONAL STATUS No Information ASSESSMENTS No Information PLAN OF TREATMENT Medication Medication Name Sig Start Date Stop Date Oxybutynin Chloride ER 15 MG 1 tablet Orally Once a day for 30 Oxycodone-Acetaminophen 10-325 MG 1 tablet as needed O rally every 6 hrs mdd4 for 30 days Feb, Meloxicam 7.5mg 1 tab(s) orally daily for 90 Zolpidem Tartrate 10 MG 1 tablet at bedtime as neede d Orally Once a day for 30 days Sep, Morphine Sulfate ER 15 MG 1 tablet Orally every 12 hrs mdd2 for 30 Days Feb, Breo Ellipta 100-25 MCG/INH 1 puff Inhalation Once a day for 30 Omeprazole 40 MG 1 capsule 30 minutes before morning meal Orally Daily for 90 day(s) Next Appt Details Provider Name:Loli Balderas, 2020-03-13 09 :30:00 AM, [address] [place], [address], Provider Name:Janey Herr, 2020-04 10:30:00 AM, [place], [address], Insurance Providers Payer Name Payer Address Payer Phone Insured Name Patient Relati onship to Insured Coverage Start Date Coverage End Date MEDICARE Part A and B [address] [facility] [id number] NOEL MENDEZ self MEDICARE BLUE [address] [place] [address] NOEL MENDEZ self
--- OUTSIDE RECORDS SUMMARY | 2020-03-19 08:23 | CCD ---
Author Author [facility] Organization [facility] Address Unknown Phone Unavailable Care Team Providers Care Weaver Dobby Loom Name Role Phone Janey Herr Unavailable PROBLEMS Type Condition ICD9-CM Code UWH20-CD Code Onset Dates Condition S tatus SNOMED Code Notes Problem Intervertebral disc disorders with radiculopathy , lumbosacral region M51.17 Active 4108323 Problem Depression with anxiety F41.8 Active 61688354 6 Problem COPD exacerbation J44.1 Active 934576230 Problem Moderate chronic obstructive pulmonary disease J44 .9 Active 162000557 Problem Current smoker F17.200 Active 66336920 Problem Psychophysiological insomnia F51.04 Active 425 713130 Problem Chronic prescription opiate use Z79.891 Active 441887489 Problem Intervertebral disc disorder with radiculopathy of lumbosacral region M51.17 Active 64064709 Problem Hyperlipidemia E78.5 Active 08523876 Problem BPH loc w urin obs/LUTS N40.1 Active 28726017 7 Problem Abdominal pain, chronic, generalized R10.84 Act tayler 029283906 Problem Protrusion of intervertebral disc of lumbosacral region M51.27 Active 83886546 Problem Diabetes E11.9 Active 00852939 Problem Tobacco dependence due to cigarettes F17.210 Active 99582731996745315 Problem QUINTON (obstructive sleep apnea) G47.33 Active 14 016447 Problem Tobacco dependence F17.200 Active 20790868 Problem Polycythemia D75.1 Active 738081870 Problem Mixed hyperlipidemia E78.2 Active 601728700 Problem Morbid obesity with BMI of 40.0-44.9, adult E66.01 Active 805912915 Problem Prostate cancer screening Z12.5 Active 742912 002 Problem Bilateral low back pain, with sciatica presence unspecifie d M54.5 Active 178291604 Problem Insomnia, unspecified type G47.00 Active 24365 2000 Problem Incisional hernia K43.2 Active 398105619 Problem Feeling of incomplete bladder emptying R39.14 A ctive 184739319 Problem Chronic post-operative pain G89.28 Active 1097 50991204019 Problem Dysuria R30.0 Active 77971322 Problem Chronic prescription opiate use Z79.899 Active 102444753 Problem Other chronic pain G89.29 Active 23694053 Problem Chronic obstructive pulmonary disease, unspecified COPD ty pe J44.9 Active 07359049 Problem Leukocytosis, unspecified type D72.829 Active 1 88423927 Problem Vitamin D deficiency E55.9 Active 91409382 Problem Erectile dysfunction, unspecified erectile dysfunction typ e N52.9 Active 745463488 Problem BPH (benign prostatic hyperplasia) N40.0 Activ e 879666987 Problem Dysphagia, unspecified type R13.10 Active 4073 9000 Problem OAB (overactive bladder) N32.81 Active 7065315 02 Problem 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 Active 52516630 Problem Pain, chronic postoperative G89.28 Active 1097 59037265343 Problem Essential (primary) hypertension I10 Active 95953891 Problem Benign prostatic hyperplasia , unspecified whether lower urinary tract symptoms present N40.0 Active 835049919 Problem Nocturnal oxygen desaturation G47.34 Active 23 1503762 Problem Depression F32.9 Active 40846360 Problem Sacroiliitis M46.1 Active 50056606 Problem Obstructive sleep apnea G47.33 Active 12863499 ALLERGIES Allergen (clinical drug ingredient) Drug/Non Drug Allergy do cumented on EMR Reaction Allergy Type Onset Date Status Paper adhesion tape Burned skin off Non Drug Allergy Active metronidazole Flagyl([facility] Code:[address]-89) Hives Drug Allergy Active ENCOUNTERS from 1960 to 2020-03-05 Encounter Location Date Provider Diagnosis [facility] [address] [place] [address] Feb Janey Herr Insomnia, unspecified type G47.00 IMMUNIZATIONS Vaccine Route Administration Date Status Influenza [...] Notes Total Score: 0 Interpretation: Alcohol Education Buddhist: Question Answer Notes Buddhist 21 Sabianist Sexual Hx: Question Answer Notes Had sex [...] 90 day(s) Jun, Active Ergocalciferol 1.25 MG (66707 UT) 1 capsule Orally once a week [...] Information RESULTS No Results REASON FOR VISIT Refill - Ambien MEDICAL (GENERAL) HISTORY Type Description Date Medical [...] fracture with screws 0 11/28/18 Hospitalization History [facility] 10/2011 Hospitalization History multiple for surgeries Goals Section No Information Health Concerns No Information MEDICAL EQUIPMENT No Information MENTAL STATUS No Information FUNCTIONAL STATUS No Information ASSESSMENTS Encounter Date Diagnosis Assessment Notes Treatment Notes Treatm ent Clinical Notes Feb, Insomnia, unspecified type (ICD-10 - G47.00) PLAN OF TREATMENT Medication Medication Name Sig [...] Name:Loli Balderas, 2020-03-13 09 :30:00 AM, [address] [place], [address], Provider Name:Janey Herr, 2020-04 10:30:00 AM, [address] [place] [address], [address], Insurance Providers Payer Name Payer Address Payer Phone Insured Name Patient Relati onship to Insured Coverage Start Date Coverage End Date MEDICARE Part A and B [address] [facility] [id number] NOEL MENDEZ self MEDICARE BLUE [address]PO [address] [address] [id number] NOEL MENDEZ self
--- OUTSIDE RECORDS SUMMARY | 2020-03-19 08:23 | CCD ---
Author Author [facility] Organization [facility] Address Unknown Phone Unavailable Care Team Providers Care Tape Rules Printing Machine Operator Name Role Phone Janey Herr Unavailable PROBLEMS Type Condition ICD9-CM Code UFZ70-VF Code Onset Dates Condition S tatus SNOMED Code Notes Problem Intervertebral disc disorders with radiculopathy , lumbosacral region M51.17 Active 6856651 Problem Depression with anxiety F41.8 Active 89824669 6 Problem COPD exacerbation J44.1 Active 698243097 Problem Moderate chronic obstructive pulmonary disease J44 .9 Active 979214988 Problem Current smoker F17.200 Active 02911313 Problem Psychophysiological insomnia F51.04 Active 425 745083 Problem Chronic prescription opiate use Z79.891 Active 445250411 Problem Intervertebral disc disorder with radiculopathy of lumbosacral region M51.17 Active 64102712 Problem Hyperlipidemia E78.5 Active 89722930 Problem BPH loc w urin obs/LUTS N40.1 Active 44056614 7 Problem Abdominal pain, chronic, generalized R10.84 Act tayler 481803199 Problem Protrusion of intervertebral disc of lumbosacral region M51.27 Active 17643831 Problem Diabetes E11.9 Active 25590734 Problem Tobacco dependence due to cigarettes F17.210 Active 72312733956932232 Problem QUINTON (obstructive sleep apnea) G47.33 Active 17 020842 Problem Tobacco dependence F17.200 Active 60686807 Problem Polycythemia D75.1 Active 814549332 Problem Mixed hyperlipidemia E78.2 Active 997627368 Problem Morbid obesity with BMI of 40.0-44.9, adult E66.01 Active 697536477 Problem Prostate cancer screening Z12.5 Active 958984 002 Problem Bilateral low back pain, with sciatica presence unspecifie d M54.5 Active 467332826 Problem Insomnia, unspecified type G47.00 Active 92759 2001 Problem Incisional hernia K43.2 Active 120930207 Problem Feeling of incomplete bladder emptying R39.14 A ctive 578739583 Problem Chronic post-operative pain G89.28 Active 1097 38205141656 Problem Dysuria R30.0 Active 07243605 Problem Chronic prescription opiate use Z79.899 Active 869004434 Problem Other chronic pain G89.29 Active 75571710 Problem Chronic obstructive pulmonary disease, unspecified COPD ty pe J44.9 Active 44592533 Problem Leukocytosis, unspecified type D72.829 Active 1 16718107 Problem Vitamin D deficiency E55.9 Active 86334184 Problem Erectile dysfunction, unspecified erectile dysfunction typ e N52.9 Active 519735934 Problem BPH (benign prostatic hyperplasia) N40.0 Activ e 420181665 Problem Dysphagia, unspecified type R13.10 Active 4073 9000 Problem OAB (overactive bladder) N32.81 Active 0644882 02 Problem 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 Active 87290234 Problem Pain, chronic postoperative G89.28 Active 1097 28902073284 Problem Essential (primary) hypertension I10 Active 61347471 Problem Benign prostatic hyperplasia , unspecified whether lower urinary tract symptoms present N40.0 Active 298541073 Problem Nocturnal oxygen desaturation G47.34 Active 23 7271406 Problem Depression F32.9 Active 67616572 Problem Sacroiliitis M46.1 Active 41864735 Problem Obstructive sleep apnea G47.33 Active 27734410 ALLERGIES Allergen (clinical drug ingredient) Drug/Non Drug Allergy do cumented on EMR Reaction Allergy Type Onset Date Status Paper adhesion tape Burned skin off Non Drug Allergy Active metronidazole Flagyl([facility] Code:[address]-76) Hives Drug Allergy Active ENCOUNTERS from 1961 to 2020-03-06 Encounter Location Date Provider Diagnosis [facility] [place] [address] Feb Janey Herr IMMUNIZATIONS Vaccine Route Administration Date Status Influenza [...] Notes Total Score: 0 Interpretation: Alcohol Education Rastafarian: Question Answer Notes Rastafarian 21 Caodaism Sexual Hx: Question Answer Notes Had sex [...] 90 day(s) Jun, Active Ergocalciferol 1.25 MG (87751 UT) 1 capsule Orally once a week [...] Information RESULTS No Results REASON FOR VISIT Handicap Form MEDICAL (GENERAL) HISTORY Type Description Date Medical [...] fracture with screws 0 11/28/18 Hospitalization History [facility] 10/2011 Hospitalization History multiple for surgeries Goals [...] Name:Loli Balderas, 2020-03-13 09 :30:00 AM, [address] [place], [address], Provider Name:Janey Herr, 2020-04 10:30:00 AM, [address] [place] [address], [address], Insurance Providers Payer Name Payer Address Payer Phone Insured Name Patient Relati onship to Insured Coverage Start Date Coverage End Date MEDICARE Part A and B [address] [facility] [id number] NOEL MENDEZ self MEDICARE BLUE [address]PO [address] [place] [address] NOEL MENDEZ self
--- OUTSIDE RECORDS SUMMARY | 2020-03-19 08:24 | CCD ---
Author Author [facility] Organization [facility] Address Unknown Phone Unavailable Care Team Providers Care Architecture Drafter Name Role Phone Janey Herr Unavailable PROBLEMS Type Condition ICD9-CM Code [id number] Code Onset Dates Condition S tatus SNOMED Code Notes Problem Intervertebral disc disorders with radiculopathy , lumbosacral region M51.17 Active 5127905 Problem Depression with anxiety F41.8 Active 39569053 6 Problem COPD exacerbation J44.1 Active 254429294 Problem Moderate chronic obstructive pulmonary disease J44 .9 Active 376990397 Problem Current smoker F17.200 Active 36085969 Problem Psychophysiological insomnia F51.04 Active 425 556029 Problem Chronic prescription opiate use Z79.891 Active 053121391 Problem Intervertebral disc disorder with radiculopathy of lumbosacral region M51.17 Active 58642863 Problem Hyperlipidemia E78.5 Active 47794348 Problem BPH loc w urin obs/LUTS N40.1 Active 11017745 7 Problem Abdominal pain, chronic, generalized R10.84 Act tayler 983662302 Problem Protrusion of intervertebral disc of lumbosacral region M51.27 Active 67261687 Problem Diabetes E11.9 Active 06602044 Problem Tobacco dependence due to cigarettes F17.210 Active 00010278504042251 Problem QUINTON (obstructive sleep apnea) G47.33 Active 70 553065 Problem Tobacco dependence F17.200 Active 27264104 Problem Polycythemia D75.1 Active 607096387 Problem Mixed hyperlipidemia E78.2 Active 732787754 Problem Morbid obesity with BMI of 40.0-44.9, adult E66.01 Active 030457777 Problem Prostate cancer screening Z12.5 Active 110903 002 Problem Bilateral low back pain, with sciatica presence unspecifie d M54.5 Active 405801794 Problem Insomnia, unspecified type G47.00 Active 91871 2001 Problem Incisional hernia K43.2 Active 564416596 Problem Feeling of incomplete bladder emptying R39.14 A ctive 400913076 Problem Chronic post-operative pain G89.28 Active 1097 55835877669 Problem Dysuria R30.0 Active 46964815 Problem Chronic prescription opiate use Z79.899 Active 270396840 Problem Other chronic pain G89.29 Active 93052973 Problem Chronic obstructive pulmonary disease, unspecified COPD ty pe J44.9 Active 28078531 Problem Leukocytosis, unspecified type D72.829 Active 1 30304264 Problem Vitamin D deficiency E55.9 Active 04644393 Problem Erectile dysfunction, unspecified erectile dysfunction typ e N52.9 Active 939370765 Problem BPH (benign prostatic hyperplasia) N40.0 Activ e 167354083 Problem Dysphagia, unspecified type R13.10 Active 4073 9000 Problem OAB (overactive bladder) N32.81 Active 0709321 02 Problem 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 Active 76894326 Problem Pain, chronic postoperative G89.28 Active 1097 49657298608 Problem Essential (primary) hypertension I10 Active 47496137 Problem Benign prostatic hyperplasia , unspecified whether lower urinary tract symptoms present N40.0 Active 867433166 Problem Nocturnal oxygen desaturation G47.34 Active 23 2733504 Problem Depression F32.9 Active 88905742 Problem Sacroiliitis M46.1 Active 32080207 Problem Obstructive sleep apnea G47.33 Active 86739584 ALLERGIES Allergen (clinical drug ingredient) Drug/Non Drug Allergy do cumented on EMR Reaction Allergy Type Onset Date Status Paper adhesion tape Burned skin off Non Drug Allergy Active metronidazole Flagyl([facility] Code:[address]-99) Hives Drug Allergy Active ENCOUNTERS from 1961 to 2020-02-11 Encounter Location Date Provider Diagnosis [facility] Nir[place] [address] Jan Janey Herr Dysphagia, unspecified type R13.10 ; Debbie vated TSH R79.89 ; Elevated AST (SGOT) R74.01 ; Hoarseness R49.0 ; Seborrheic keratosis L82.1 ; Mixed hyperlipidemia E78.2 and Diabetes E11.9 IMMUNIZATIONS Vaccine Route Administration Date Status Influenza (18 yrs & older) Flublok IM Intramuscular Feb 13, 2018 Administered Influenza (6mo & up) Fluzone IM Intramuscular Jan 10, 2017 Ad ministered Influenza (6mo & up) Fluzone IM Intramuscular Feb 05, 2016 Ad ministered Influenza (18 yrs & older) Flublok Unknown Dec 04, 2019 Administered Influenza (6mo & up) Fluzone Unknown Mar [...] Notes Total Score: 0 Interpretation: Alcohol Education Mormonism: Question Answer Notes Mormonism 21 Latter Day Sexual Hx: Question Answer Notes Had sex [...] REASON FOR REFERRAL No Information VITAL SIGNS Weight 307 lbs lbs Jan, Height 69.5 in Jan, BMI 44.68 kg/m2 Jan, Heart Rate 95 /min Jan, Respiratory Rate 18 /min Jan, Temperature 98.4 degrees Fahrenheit Jan, Oximetry 95%ra Jan, Blood pressure systolic 139 mm Hg Jan, Blood pressure diastolic 81 mm Hg Jan, MEDICATIONS Medication SIG (Take, Route, Frequency, Duration) Notes Start Da te End Date Status HydrOXYzine HCl 50 MG 1 tablet as needed Orally every 8 hrs for 90 Active Atorvastatin Calcium 20 MG 1 tablet Orally Once a day for 90 Active Nocturnal oximetry Room Air as directed Nov, Active Metformin HCl 500 MG TAKE TWO TABLETS BY MOUTH TWICE A DAY for 45 Active Effexor XR 75 MG 1 cap Orally Once a day for 90 days Active Aspirin 81 81 MG 1 tablet Orally Once a day Not-Taking Breo Ellipta 100-25 MCG/INH 1 puff Inhalation Once a day for 30 Active Ergocalciferol 1.25 MG (41146 UT) 1 capsule Orally once a week f or 90 days Mar, Active Morphine Sulfate ER 15 MG 1 [...] Oxygen as directed nasal cannula Mar, Active Effexor XR 150 MG 1 capsule with food Orally Once a day for 90 d ays Oct, Active Lancets - 1 lancet for DM testing Daily DX E11.9 for 90 Active Oxybutynin Chloride ER 15 MG 1 tablet Orally Once a day for 30 Active Chlorthalidone 25 mg TAKE ONE TABLET BY MOUTH ONCE A DAY EVERY M ORNING for 90 Active Omeprazole 20 MG Orally Active Meloxicam 7.5mg 1 tab(s) orally daily for 90 Active Overnight Pulse Oximetry as directed Feb, Active [employer] Blood Glucose Test - as directed (ANY GENERIC ST RIP AVAILABLE) In Vitro daily Dx E11.9 for 90 Active Oxycodone-Acetaminophen 10-325 MG 1 tablet as needed O rally every 6 hrs mdd4 for 30 days Jan, Active ProAir HFA 108 (90 Base) MCG/ACT 2 puffs as needed Inhalation every 4 hrs Active Gabapentin 600 MG 1 capsule Orally TID Aug, Active Flomax 0.4 MG 1 capsule Orally Once a day for 30 Active Zolpidem Tartrate 10 MG 1 tablet at bedtime as neede d Orally Once a day for 30 days Sep, Active PROCEDURES No Information RESULTS No Results REASON FOR VISIT 2 wk reagan MEDICAL (GENERAL) HISTORY Type Description Date Medical [...] fracture with screws 0 11/28/18 Hospitalization History [facility] 10/2011 Hospitalization History multiple for surgeries Goals Section No Information Health Concerns No Information MEDICAL EQUIPMENT No Information MENTAL STATUS No Information FUNCTIONAL STATUS No Information ASSESSMENTS Encounter Date Diagnosis Assessment Notes Treatment Notes Treatm ent Clinical Notes Jan, Dysphagia, unspecified type (ICD-10 - R13.10) Patient reports improvement of dysphagia with use of omeprazole. He is in agreement to follow through with general surgery consultation. He asks that our office call and reschedule this. Discussed warning signs, symptoms and seek immediate medical attention for. Patient reports understanding and agreement with plan. Jan, Elevated TSH (ICD-10 - R79.89) Patient education was given. Thyroid ultrasound reviewed. Repeat free T4 and TSH ordered and completed today and office. Jan, Elevated AST (SGOT) (ICD-10 - R74.01) Mild elevation of AST as noted above. Patient has history of fatty liver disease. We'll continue to monitor. Jan, Hoarseness (ICD-10 - R49.0) Patient education was given. Patient continues to experience hoarseness. He does feel that dysphagia has improved with use of omeprazole. He is in agreement to follow through with general surgery consultation. If unrevealing, will refer to ENT. Patient reports understanding and is in agreement with plan. Jan, Seborrheic keratosis (ICD-10 - L82.1) Patient education was given. Benign seborrheic keratosis. Continue to monitor. Jan, Mixed hyperlipidemia (ICD-10 - E78.2) Jan, Diabetes (ICD-10 - E11.9) Jan, Other Patient educati on was given. Due for colon cancer screening. Patient has pending appointment with Gen. surgery for evaluation of dysphagia. Recommend he follow through with endoscopy/colonoscopy PLAN OF TREATMENT Medication Medication Name Sig Start Date Stop Date Meloxicam 7.5mg 1 tab(s) orally daily for 90 Zolpidem Tartrate 10 MG 1 tablet at bedtime as neede d Orally Once a day for 30 days Sep, Omeprazole 20 MG Orally Morphine Sulfate ER 15 MG 1 tablet Orally every 12 hrs mdd2 for 30 Days Feb, Treatment Notes Assessment Notes Clinical Notes Dysphagia, unspecified type Patient repo rts improvement of dysphagia with use of omeprazole. He is in agreement to follow through with general surgery consultation. He asks that our office call and reschedule this. Discussed dora vásquez signs, symptoms and seek immediate medical attention for. Patient reports understanding and agreement with plan. Elevated TSH Patient education wa s given. Thyroid ultrasound reviewed. Repeat free T4 and TSH ordered and completed today and office. Elevated AST (SGOT) Mild elevation of T as noted above. Patient has history of fatty liver disease. We'll continue to monitor. Hoarseness Patient education wa s given. Patient continues to experience hoarseness. He does feel that dysphagia has improved with use of omeprazole. He is in agreement to follow through with general surgery consultation. If unrevealing, will refer to ENT. Patient reports understanding and is in agreement with plan. Seborrheic keratosis Patient education w as given. Benign seborrheic keratosis. Continue to monitor. Treatment Notes Test Name Order Date FREE T4 & TSH PANEL 2020-02-11 LIVER PROFILE 2020-02-11 Future Test Test Name Order Date LIPID PANEL (CARDIAC RISK) 20200418 Comprehensive Metabolic Profile (CMP) 20200418 CBC with Differential 20200418 FREE T4 & TSH PANEL 20200418 HEMOGLOBIN A1c 20200418 Next Appt Details 3 Months, prn Reason: Provider Name:Loli Balderas, 2020-03-13 09 :30:00 AM, [address] [place], [address], Provider Name:Janey Herr, 2020-04 10:30:00 AM, [address] [place] [address], [phone], Insurance Providers Payer Name Payer Address Payer Phone Insured Name Patient Relati onship to Insured Coverage Start Date Coverage End Date MEDICARE BLUE PPO [address] [facility] [address] [place] [address] NOEL MENDEZ self MEDICARE Part A and [address] [place] [phone] NOEL MENDEZ self
--- OUTSIDE RECORDS SUMMARY | 2020-03-19 08:24 | CCD ---
Author Author [facility] Organization [facility] Address Unknown Phone Unavailable Care Team Providers Care Global Ceo Name Role Phone Janey Herr Unavailable PROBLEMS Type Condition ICD9-CM Code [id number] Code Onset Dates Condition S tatus SNOMED Code Notes Problem Intervertebral disc disorders with radiculopathy , lumbosacral region M51.17 Active 8214056 Problem Depression with anxiety F41.8 Active 54767212 6 Problem COPD exacerbation J44.1 Active 039353250 Problem Moderate chronic obstructive pulmonary disease J44 .9 Active 293654929 Problem Current smoker F17.200 Active 67942634 Problem Psychophysiological insomnia F51.04 Active 425 587498 Problem Chronic prescription opiate use Z79.891 Active 477746083 Problem Intervertebral disc disorder with radiculopathy of lumbosacral region M51.17 Active 91482898 Problem Hyperlipidemia E78.5 Active 49091749 Problem BPH loc w urin obs/LUTS N40.1 Active 50089543 7 Problem Abdominal pain, chronic, generalized R10.84 Act tayler 763657517 Problem Protrusion of intervertebral disc of lumbosacral region M51.27 Active 84367742 Problem Diabetes E11.9 Active 27174704 Problem Tobacco dependence due to cigarettes F17.210 Active 84067301679394924 Problem QUINTON (obstructive sleep apnea) G47.33 Active 40 600939 Problem Tobacco dependence F17.200 Active 21992234 Problem Polycythemia D75.1 Active 033142264 Problem Mixed hyperlipidemia E78.2 Active 261455007 Problem Morbid obesity with BMI of 40.0-44.9, adult E66.01 Active 957811541 Problem Prostate cancer screening Z12.5 Active 585900 002 Problem Bilateral low back pain, with sciatica presence unspecifie d M54.5 Active 086007821 Problem Insomnia, unspecified type G47.00 Active 83697 2001 Problem Incisional hernia K43.2 Active 347626228 Problem Feeling of incomplete bladder emptying R39.14 A ctive 873439484 Problem Chronic post-operative pain G89.28 Active 1097 87886209259 Problem Dysuria R30.0 Active 39355642 Problem Chronic prescription opiate use Z79.899 Active 111026983 Problem Other chronic pain G89.29 Active 56398538 Problem Chronic obstructive pulmonary disease, unspecified COPD ty pe J44.9 Active 66588419 Problem Leukocytosis, unspecified type D72.829 Active 1 06670396 Problem Vitamin D deficiency E55.9 Active 54098168 Problem Erectile dysfunction, unspecified erectile dysfunction typ e N52.9 Active 025767764 Problem BPH (benign prostatic hyperplasia) N40.0 Activ e 148593323 Problem Dysphagia, unspecified type R13.10 Active 4073 9000 Problem OAB (overactive bladder) N32.81 Active 5715438 02 Problem 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 Active 50345520 Problem Pain, chronic postoperative G89.28 Active 1097 00802682778 Problem Essential (primary) hypertension I10 Active 63026912 Problem Benign prostatic hyperplasia , unspecified whether lower urinary tract symptoms present N40.0 Active 213889798 Problem Nocturnal oxygen desaturation G47.34 Active 23 0997357 Problem Depression F32.9 Active 85260875 Problem Sacroiliitis M46.1 Active 68967212 Problem Obstructive sleep apnea G47.33 Active 95122509 ALLERGIES Allergen (clinical drug ingredient) Drug/Non Drug Allergy do cumented on EMR Reaction Allergy Type Onset Date Status Paper adhesion tape Burned skin off Non Drug Allergy Active metronidazole Flagyl([facility] Code:[address]-50) Hives Drug Allergy Active ENCOUNTERS from 1961 to 2020-01-29 Encounter [place] [address] 16 Jan, 2020 Janey Herr IMMUNIZATIONS Vaccine Route Administration Date [...] Unknown Feb 18, 2015 Ref used Influenza (6mo & up) Fluzone Unknown Jan [...] Notes Total Score: 0 Interpretation: Alcohol Education Voodoo: Question Answer Notes Voodoo 21 Alevism Sexual Hx: Question Answer Notes Had sex [...] Notes Start Da te End Date Status Aspirin 81 81 MG 1 tablet Orally Once a day Not-Taking Atorvastatin Calcium 20 MG 1 tablet Orally Once a day for 90 Active HydrOXYzine HCl 50 MG 1 tablet as needed Orally every 8 hrs for 90 Active Metformin HCl 500 MG TAKE TWO TABLETS BY MOUTH TWICE A DAY for 45 Active Ergocalciferol 1.25 MG (31560 UT) 1 capsule Orally once a week f or 90 days Mar, Active Effexor XR 75 MG 1 cap Orally Once a day for 90 days Active Breo Ellipta 100-25 MCG/INH 1 puff Inhalation Once a day for 30 Active Chlorthalidone 25 mg TAKE ONE TABLET BY MOUTH ONCE A DAY EVERY M ORNING for 90 Active Oxybutynin Chloride ER 15 MG 1 tablet Orally Once a day for 30 Active Glucometer 1 meter for test blood sugars once daily DX E11 .9 for 90 day(s) Jun, Active Cyclobenzaprine HCl 5 MG 1 tablet Orally 1 tab AM,1 t ab midday and 2 at bedtime for 30 Days May, Active Overnight Pulse Oximetry as directed Feb, Active Effexor XR 150 MG 1 capsule with food Orally Once a day for 90 d ays Oct, Active [employer] Blood Glucose Test - as directed (ANY GENERIC ST RIP AVAILABLE) In Vitro daily Dx E11.9 for 90 Active Oxygen as directed nasal cannula Mar, Active Zolpidem Tartrate 10 MG 1 tablet at bedtime as neede d Orally Once a day for 30 days Sep, Active Omeprazole 20 MG Orally Active Lancets - 1 lancet for DM testing Daily DX E11.9 for 90 Active Nocturnal oximetry Room Air as directed Nov, Active Meloxicam 7.5mg 1 tab(s) orally daily for 90 Active Oxycodone-Acetaminophen 10-325 MG 1 tablet as needed O rally every 6 hrs mdd4 for 30 days Jan, Active Gabapentin 600 MG 1 capsule Orally TID Aug, Active Morphine Sulfate ER 15 MG 1 tablet Orally every 12 hrs mdd2 for 30 Days Jan, Active ProAir HFA 108 (90 Base) MCG/ACT 2 puffs as needed Inhalation every 4 hrs Active Flomax 0.4 MG 1 capsule Orally Once a day for 30 Active PROCEDURES No Information RESULTS No Results REASON FOR VISIT CT low dose MEDICAL (GENERAL) HISTORY Type Description Date Medical [...] fracture with screws 0 11/28/18 Hospitalization History [facility] 10/2011 Hospitalization History multiple for surgeries Goals Section No Information Health Concerns No Information MEDICAL EQUIPMENT No Information MENTAL STATUS No Information FUNCTIONAL STATUS No Information ASSESSMENTS No Information PLAN OF TREATMENT Medication Medication Name Sig Start Date Stop Date Omeprazole 20 MG Orally Next Appt Details Provider Name:Loli Balderas, 2020-03-13 09 :30:00 AM, [address] [place], [address], Provider Name:Janey Herr, 2020-04 10:30:00 AM, [address] [place] [address], [phone], Insurance Providers Payer Name Payer Address Payer Phone Insured Name Patient Relati onship to Insured Coverage Start Date Coverage End Date MEDICARE Part A and [address] [facility] [id number] [phone] NOEL MENDEZ self MEDICARE BLUE PPO [address] [facility] BLUE [address] [address] NOEL MENDEZ self
--- OUTSIDE RECORDS SUMMARY | 2020-03-19 08:24 | CCD ---
Author Author [facility] Organization [facility] Address Unknown Phone Unavailable Care Team Providers Care Serology Teacher Name Role Phone Janey Herr Unavailable PROBLEMS Type Condition ICD9-CM Code [id number] Code Onset Dates Condition S tatus SNOMED Code Notes Problem Intervertebral disc disorders with radiculopathy , lumbosacral region M51.17 Active 8645708 Problem Depression with anxiety F41.8 Active 55672798 6 Problem COPD exacerbation J44.1 Active 496680987 Problem Moderate chronic obstructive pulmonary disease J44 .9 Active 765334401 Problem Current smoker F17.200 Active 18631261 Problem Psychophysiological insomnia F51.04 Active 425 141792 Problem Chronic prescription opiate use Z79.891 Active 250746823 Problem Intervertebral disc disorder with radiculopathy of lumbosacral region M51.17 Active 52560937 Problem Hyperlipidemia E78.5 Active 39644003 Problem BPH loc w urin obs/LUTS N40.1 Active 09755346 7 Problem Abdominal pain, chronic, generalized R10.84 Act tayler 589363686 Problem Protrusion of intervertebral disc of lumbosacral region M51.27 Active 04217787 Problem Diabetes E11.9 Active 59380216 Problem Tobacco dependence due to cigarettes F17.210 Active 06036811146833190 Problem QUINTON (obstructive sleep apnea) G47.33 Active 74 502708 Problem Tobacco dependence F17.200 Active 85556960 Problem Polycythemia D75.1 Active 200242585 Problem Mixed hyperlipidemia E78.2 Active 180961445 Problem Morbid obesity with BMI of 40.0-44.9, adult E66.01 Active 465121962 Problem Prostate cancer screening Z12.5 Active 983012 002 Problem Bilateral low back pain, with sciatica presence unspecifie d M54.5 Active 328139268 Problem Insomnia, unspecified type G47.00 Active 96164 2001 Problem Incisional hernia K43.2 Active 419592116 Problem Feeling of incomplete bladder emptying R39.14 A ctive 307168071 Problem Chronic post-operative pain G89.28 Active 1097 44493994908 Problem Dysuria R30.0 Active 31086754 Problem Chronic prescription opiate use Z79.899 Active 199809456 Problem Other chronic pain G89.29 Active 51580021 Problem Chronic obstructive pulmonary disease, unspecified COPD ty pe J44.9 Active 88087432 Problem Leukocytosis, unspecified type D72.829 Active 1 75975194 Problem Vitamin D deficiency E55.9 Active 77115731 Problem Erectile dysfunction, unspecified erectile dysfunction typ e N52.9 Active 310088439 Problem BPH (benign prostatic hyperplasia) N40.0 Activ e 336692864 Problem Dysphagia, unspecified type R13.10 Active 4073 9000 Problem OAB (overactive bladder) N32.81 Active 0880183 02 Problem 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 Active 66035002 Problem Pain, chronic postoperative G89.28 Active 1097 77112745317 Problem Essential (primary) hypertension I10 Active 18212082 Problem Benign prostatic hyperplasia , unspecified whether lower urinary tract symptoms present N40.0 Active 715705633 Problem Nocturnal oxygen desaturation G47.34 Active 23 6655652 Problem Depression F32.9 Active 03347108 Problem Sacroiliitis M46.1 Active 54963792 Problem Obstructive sleep apnea G47.33 Active 35138408 ALLERGIES Allergen (clinical drug ingredient) Drug/Non Drug Allergy do cumented on EMR Reaction Allergy Type Onset Date Status Paper adhesion tape Burned skin off Non Drug Allergy Active metronidazole Flagyl([facility] Code:[address]-43) Hives Drug Allergy Active ENCOUNTERS from 1961 to 2020-01-17 Encounter Location Date Provider Diagnosis [facility] [address] [place] [address] [address] 2019 Janey Herr IMMUNIZATIONS Vaccine Route Administration Date [...] Notes Total Score: 0 Interpretation: Alcohol Education Sikhism: Question Answer Notes Sikhism 21 Mu-Ism Sexual Hx: Question Answer Notes Had sex [...] MEDICATIONS Medication SIG (Take, Route, Frequency, Duration) Start Date En d Date Status Aspirin 81 81 MG 1 tablet Orally Once a day Not-Taking Atorvastatin Calcium 20 MG 1 tablet Orally Once a day for 90 Active HydrOXYzine HCl 50 MG 1 tablet as needed Orally every 8 hrs for 90 Active Metformin HCl 500 MG TAKE TWO TABLETS BY MOUTH TWICE A DAY for 45 Active Ergocalciferol 1.25 MG (05615 UT) 1 capsule Orally once a we ek for 90 days Mar, Active Effexor XR 75 [...] for test blood sugars once daily DX E11.9 for 90 day(s) Jun, Active Cyclobenzaprine HCl 5 MG 1 tablet Orally 1 tab AM,1 t ab midday and 2 at bedtime for 30 Days May, Active Overnight Pulse Oximetry as directed Feb, Act tayler Effexor XR 150 MG 1 capsule with food Orally Once a day fo r 90 days Oct, Active [employer] Blood Glucose Test - as directed (ANY GENERIC ST RIP AVAILABLE) In Vitro daily Dx E11.9 for 90 Active Oxygen as directed nasal cannula Mar, Ac tive Zolpidem Tartrate 10 MG 1 tablet at [...] 600 MG 1 capsule Orally TID Aug, Ac tive Morphine Sulfate ER 15 MG 1 tablet Orally every 12 hrs mdd2 for 30 Days Jan, Active ProAir HFA 108 (90 Base) MCG/ACT 2 puffs as needed Inhalation every 4 hrs Active Flomax 0.4 MG 1 capsule Orally Once a day for 30 Active PROCEDURES No Information RESULTS No Results REASON FOR VISIT Gen. surgery consultation MEDICAL (GENERAL) HISTORY Type Description Date Medical [...] Name:Loli Balderas, 2020-03-13 09 :30:00 AM, [address] [place], [address], Provider Name:Janey Herr, 2020-04 10:30:00 AM, [address] [place] [address], [phone], Insurance Providers Payer Name Payer Address Payer Phone Insured Name Patient Relati onship to Insured Coverage Start Date Coverage End Date MEDICARE Part A and B [facility] [address] [facility] [phone] NOEL MENDEZ self MEDICARE BLUE PPO [address] [facility] [id number] [address] NOEL MENDEZ self
--- OUTSIDE RECORDS SUMMARY | 2020-03-19 08:24 | CCD ---
Author Author [facility] Organization [facility] Address Unknown Phone Unavailable Care Team Providers Care Shift Mgr Name Role Phone Janey Herr Unavailable PROBLEMS Type Condition ICD9-CM Code FYB20-BS Code Onset Dates Condition S tatus SNOMED Code Notes Problem Intervertebral disc disorders with radiculopathy , lumbosacral region M51.17 Active 2588232 Problem Depression with anxiety F41.8 Active 80111188 6 Problem COPD exacerbation J44.1 Active 561378820 Problem Moderate chronic obstructive pulmonary disease J44 .9 Active 827087443 Problem Current smoker F17.200 Active 26834159 Problem Psychophysiological insomnia F51.04 Active 425 020503 Problem Chronic prescription opiate use Z79.891 Active 755245372 Problem Intervertebral disc disorder with radiculopathy of lumbosacral region M51.17 Active 46965350 Problem Hyperlipidemia E78.5 Active 25104207 Problem BPH loc w urin obs/LUTS N40.1 Active 67301918 7 Problem Abdominal pain, chronic, generalized R10.84 Act tayler 269693601 Problem Protrusion of intervertebral disc of lumbosacral region M51.27 Active 54769658 Problem Diabetes E11.9 Active 38007411 Problem Tobacco dependence due to cigarettes F17.210 Active 09952037928690574 Problem QUINTON (obstructive sleep apnea) G47.33 Active 34 379956 Problem Tobacco dependence F17.200 Active 73361334 Problem Polycythemia D75.1 Active 286241545 Problem Mixed hyperlipidemia E78.2 Active 345328006 Problem Morbid obesity with BMI of 40.0-44.9, adult E66.01 Active 027652629 Problem Prostate cancer screening Z12.5 Active 563464 002 Problem Bilateral low back pain, with sciatica presence unspecifie d M54.5 Active 773628171 Problem Insomnia, unspecified type G47.00 Active 56895 2001 Problem Incisional hernia K43.2 Active 628683335 Problem Feeling of incomplete bladder emptying R39.14 A ctive 957860206 Problem Chronic post-operative pain G89.28 Active 1097 95426169871 Problem Dysuria R30.0 Active 86601852 Problem Chronic prescription opiate use Z79.899 Active 129659529 Problem Other chronic pain G89.29 Active 49121032 Problem Chronic obstructive pulmonary disease, unspecified COPD ty pe J44.9 Active 97416656 Problem Leukocytosis, unspecified type D72.829 Active 1 50549245 Problem Vitamin D deficiency E55.9 Active 11316487 Problem Erectile dysfunction, unspecified erectile dysfunction typ e N52.9 Active 874670095 Problem BPH (benign prostatic hyperplasia) N40.0 Activ e 346323726 Problem Dysphagia, unspecified type R13.10 Active 4073 9000 Problem OAB (overactive bladder) N32.81 Active 7589244 02 Problem 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 Active 51789793 Problem Pain, chronic postoperative G89.28 Active 1097 63570676668 Problem Essential (primary) hypertension I10 Active 75490648 Problem Benign prostatic hyperplasia , unspecified whether lower urinary tract symptoms present N40.0 Active 842865824 Problem Nocturnal oxygen desaturation G47.34 Active 23 5178566 Problem Depression F32.9 Active 10773233 Problem Sacroiliitis M46.1 Active 57798817 Problem Obstructive sleep apnea G47.33 Active 79789772 ALLERGIES Allergen (clinical drug ingredient) Drug/Non Drug Allergy do cumented on EMR Reaction Allergy Type Onset Date Status Paper adhesion tape Burned skin off Non Drug Allergy Active metronidazole Flagyl([facility] Code:[address]-52) Hives Drug Allergy Active ENCOUNTERS from 1961 to 2020-02-05 Encounter Location Date Provider Diagnosis [facility] Niranjan [place] [address] 30 Jan Janey Herr Insomnia, unspecified type G47.00 IMMUNIZATIONS [...] Notes Total Score: 0 Interpretation: Alcohol Education Buddhism: Question Answer Notes Buddhism 21 Bahai Sexual Hx: Question Answer Notes Had sex [...] day for 30 Active Ergocalciferol 1.25 MG (26788 UT) 1 capsule Orally once a week [...] A DAY EVERY M ORNING for Active Omeprazole 20 MG Orally Active Meloxicam [...] Information RESULTS No Results REASON FOR VISIT Refills MEDICAL (GENERAL) HISTORY Type Description Date Medical [...] fracture with screws 0 11/28/18 Hospitalization History [facility] 10/2011 Hospitalization History multiple for surgeries Goals Section No Information Health Concerns No Information MEDICAL EQUIPMENT No Information MENTAL STATUS No Information FUNCTIONAL STATUS No Information ASSESSMENTS Encounter Date Diagnosis Assessment Notes Treatment Notes Treatm ent Clinical Notes Jan, Insomnia, unspecified type (ICD-10 - G47.00) PLAN [...] 12 hrs mdd2 for 30 Days Feb, Next Appt Details Provider Name:Loli Balderas, 2020-03-13 09 :30:00 AM, [address] [place], [address], Provider Name:Janey Herr, 2020-04 10:30:00 AM, [address] [place] [address], [address], Insurance Providers Payer Name Payer Address Payer Phone Insured Name Patient Relati onship to Insured Coverage Start Date Coverage End Date MEDICARE BLUE PPO [address] [facility] BLUE CROSS [facility] [id number] NOEL MENDEZ self MEDICARE Part A and B [facility] [address] [place] [address] [phone] NOEL MENDEZ self
--- OUTSIDE RECORDS SUMMARY | 2020-03-19 08:24 | CCD ---
Author Author [facility] Organization [facility] Address Unknown Phone Unavailable Care Team Providers Care Metal Mold Dresser Name Role Phone Loli Balderas Unavailable PROBLEMS Type Condition ICD9-CM Code ERT95-BA Code Onset Dates Condition S tatus SNOMED Code Notes Problem Protrusion of intervertebral disc of lumbosacral region M51.27 Active 16042156 Problem COPD exacerbation J44.1 Active 148653322 Problem Intervertebral disc disorders with radiculopathy , lumbosacral region M51.17 Active 5530956 Problem Current smoker F17.200 Active 94350130 Problem Depression with anxiety F41.8 Active 01326540 6 Problem Chronic prescription opiate use Z79.891 Active 594507662 Problem Moderate chronic obstructive pulmonary disease J44 .9 Active 011381746 Problem BPH loc w urin obs/LUTS N40.1 Active 43574322 7 Problem Abdominal pain, chronic, generalized R10.84 Act tayler 942137212 Problem Feeling of incomplete bladder emptying R39.14 A ctive 107286661 Problem Chronic post-operative pain G89.28 Active 1092 27629466457 Problem Diabetes E11.9 Active 73884945 Problem Hyperlipidemia E78.5 Active 36377397 Problem QUINTON (obstructive sleep apnea) G47.33 Active 78 387878 Problem Pain, chronic postoperative G89.28 Active 1097 65048458530 Problem Mixed hyperlipidemia E78.2 Active 029195111 Problem Morbid obesity with BMI of 40.0-44.9, adult E66.01 Active 233822501 Problem Tobacco dependence due to cigarettes F17.210 Active 98848615048994005 Problem Depression F32.9 Active 69897350 Problem Insomnia, unspecified type G47.00 Active 59708 2001 Problem Incisional hernia K43.2 Active 050925817 Problem Tobacco dependence F17.200 Active 26361047 Problem Polycythemia D75.1 Active 983372271 Problem Dysuria R30.0 Active 54616889 Problem Chronic prescription opiate use Z79.899 Active 053758244 Problem Prostate cancer screening Z12.5 Active 241229 002 Problem Bilateral low back pain, with sciatica presence unspecifie d M54.5 Active 349927026 Problem Intervertebral disc disorder with radiculopathy of lumbosacral region M51.17 Active 28829523 Problem Other chronic pain G89.29 Active 63519011 Problem Chronic obstructive pulmonary disease, unspecified COPD ty pe J44.9 Active 76217555 Problem Obstructive sleep apnea G47.33 Active 85564964 Problem OAB (overactive bladder) N32.81 Active 9617320 02 Problem Vitamin D deficiency E55.9 Active 66085956 Problem Psychophysiological insomnia F51.04 Active 425 093583 Problem Essential (primary) hypertension I10 Active 58559511 Problem Erectile dysfunction, unspecified erectile dysfunction typ e N52.9 Active 632704117 Problem BPH (benign prostatic hyperplasia) N40.0 Activ e 971162453 Problem Leukocytosis, unspecified type D72.829 Active 1 70578561 Problem Benign prostatic hyperplasia , unspecified whether lower urinary tract symptoms present N40.0 Active 920545374 Problem 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 Active 47656349 Problem Nocturnal oxygen desaturation G47.34 Active 23 6824860 Problem Sacroiliitis M46.1 Active 06914195 ALLERGIES Allergen (clinical drug ingredient) Drug/Non Drug Allergy do cumented on EMR Reaction Allergy Type Onset Date Status Paper adhesion tape Burned skin off Non Drug Allergy Active metronidazole Flagyl([facility] Code:[address]-49) Hives Drug Allergy Active ENCOUNTERS from 1961 to 2020-01-15 Encounter Location Date Provider Diagnosis [facility] [address] [place] [address] Jan, Loli Balderas Protrusion of intervertebral disc of [...] Notes Total Score: 0 Interpretation: Alcohol Education Faith: Question Answer Notes Faith 21 Anabaptist Sexual Hx: Question Answer Notes Had sex [...] Duration) Start Date En d Date Status Lancets - 1 lancet for DM testing Daily DX E11.9 for 90 Active Flomax 0.4 MG 1 capsule Orally Once a day for 30 Active Metformin HCl 500 MG TAKE TWO TABLETS BY MOUTH TWICE A DAY for 45 Active Oxycodone-Acetaminophen 10-325 MG 1 tablet as needed O rally every 6 hrs mdd4 for 30 days Jan, Active Glucometer 1 meter for test blood sugars once daily DX E11.9 for 90 day(s) Jun, Active Breo Ellipta 100-25 MCG/INH 1 puff Inhalation Once a day for 30 Active Effexor XR 150 MG 1 capsule with food Orally Once a day fo r 90 days Oct, Active Oxygen as directed nasal cannula Mar, Ac tive Effexor XR 75 MG 1 cap Orally Once a day for 90 days Active Ergocalciferol 1.25 MG (60583 UT) 1 capsule Orally once a we ek for 90 days Mar, Active ProAir HFA 108 (90 Base) MCG/ACT 2 puffs as needed Inhalation every 4 hrs Active HydrOXYzine HCl 50 MG 1 tablet as needed Orally every 8 hrs for 90 Active Zolpidem Tartrate 10 MG 1 tablet at bedtime as neede d Orally Once a day for 30 days Sep, Active Nocturnal oximetry Room Air as directed Nov, Active Atorvastatin Calcium 20 MG 1 tablet Orally Once a day for 90 Active Overnight Pulse Oximetry as directed Feb, Act tayler Morphine Sulfate ER 15 MG 1 tablet Orally every 12 hrs mdd2 for 30 Days Jan, Active Oxybutynin Chloride ER 15 MG 1 tablet Orally Once a day for 30 Active Chlorthalidone 25 mg TAKE ONE TABLET BY MOUTH ONCE A DAY EVERY M ORNING for 90 Active Aspirin 81 81 MG 1 tablet Orally Once a day Not-Taking Cyclobenzaprine HCl 5 MG 1 tablet Orally 1 tab AM,1 t ab midday and 2 at bedtime for 30 Days May, Active Meloxicam 7.5mg 1 tab(s) orally daily for 90 Active Gabapentin 600 MG 1 capsule Orally TID Aug, Ac tive [employer] Blood Glucose Test - as directed (ANY GENERIC ST RIP AVAILABLE) In Vitro daily Dx E11.9 for 90 Active PROCEDURES No Information RESULTS No Results REASON FOR VISIT morphine/oxy/cyclo MEDICAL (GENERAL) HISTORY Type Description Date Medical History Hernias Medical History Renal Cyst Medical History Neuropathy legs Medical History 2005 initial injury to lower back herniated disc.. 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 Surgical History 2 hernia repairs to abdominal wall Surgical History Diverticulitis surgery(4 surgeries with in 2011 for this) 10/2011 Surgical History Hernia repair abdominal wall 10/02/2013 Surgical History Right renal cyst aspiration 09/26/13 Surgical History L hip replacement 02/06/14 Surgical History Right partial nephrectomy 02/04/15 Surgical History Cardiac Cath 05/26/2016 Surgical History repair left ankle fracture with screws 0 11/28/18 Hospitalization History [facility] 10/2011 Hospitalization History multiple for surgeries Goals Section No Information Health Concerns No Information MEDICAL EQUIPMENT No Information MENTAL STATUS No Information FUNCTIONAL STATUS No Information ASSESSMENTS Encounter Date Diagnosis Notes Jan, Protrusion of intervertebral disc of lumbosacral region (ICD-10 - M51.27) PLAN OF TREATMENT Medication Medication Name Sig Start Date Stop Date Morphine Sulfate ER 15 MG 1 tablet Orally every 12 hrs mdd2 for 30 Days Jan, Gabapentin 600 MG 1 capsule Orally TID Aug, Oxycodone-Acetaminophen 10-325 MG 1 tablet as needed O rally every 6 hrs mdd4 for 30 days Jan, Cyclobenzaprine HCl 5 MG 1 tablet Orally 1 tab AM,1 t ab midday and 2 at bedtime for 30 Days May, Flomax 0.4 MG 1 capsule Orally Once a day for 30 Next Appt Details Provider Name:Janey Herr, 2020-01 10:00:00 AM, [address] [place], [address], Provider Name:Loli Balderas, 2020-03-13 09 :30:00 AM, [address] [place], [address], Insurance Providers Payer Name Payer Address Payer Phone Insured Name Patient Relati onship to Insured Coverage Start Date Coverage End Date MEDICARE BLUE PPO [address] [facility] [address] [place] [id number] NOEL MENDEZ self MEDICARE Part A and B [address] [place] [phone] NOEL MENDEZ self
--- OUTSIDE RECORDS SUMMARY | 2020-03-19 08:24 | CCD | Continuity of Care Document ---
Author Author Rio MONTEZ MD Organization Unknown Address [address] [facility] [address] [place] [address] Phone [phone] Care Team Providers Care Life Science Technical Officer Name Role Phone Janey Herr P.A.-C AUTM [phone] More Hawkins M.D. AUTM Problems Active Problems Provider Date Incisional hernia Wiley Lee M.D. Onset: 11/15/2012 Methicillin resistant Staphylococcus aureus Wiley Lee M.D. Onset: 11/15/2012 Essential hypertension Onset: 02/20/2016 Social History Type Date Description Comments Sex Unknown Smokeless Tobacco Never Used Smokeless Tobacco ETOH Use Denies alcohol use Recreational Drug Use Denies Drug Use Tobacco Use Start: Unknown Patient is a current smoker, smo kes every day 1 ppd for 38 years Smoking Status Reviewed: 12/11/18 Patient is a current smoker, smokes every day 1 ppd for 38 years Allergies, Adverse Reactions, Alerts Active Allergies Reaction Severity Comments Date Flagyl HIVES 11/15/2012 Adhesives Zapata 02/20/2016 Medications Active Medications SIG Qnty Indications Ordering Provide r Date Meloxicam 7.5mg Tablets 1 by mouth daily Unknown Cyclobenzaprine HCL 5mg Tablets 1 tab by mouth three times a day as needed for pelvic/low back pain Unknown Chlorthalidone 25mg Tablets 1 daily Unknown Effexor XR 75mg Caps ER 24HR 3 by mouth every day Unknown Metformin HCL 500mg Tablets 2 by mouth 2 x a day w/ meals Unknown Oxycodone-Acetaminophen 10-325mg T ablets 1 tab every 6 hours as needed pain Unknown Hydroxyzine HCL 50mg Tablets q 8hrs prn Unknown Breo Ellipta 100-25mcg/Inh Aerosol 1 inhalation daily Unknown Proair HFA 108(90Base) mcg/Act Aer osol 2 puffs four times a day as needed Unknown Oxybutynin Chloride ER 15mg Tablets ER 24HR 1 by mouth every day Unknown 000 Ambien 10mg Tablets 1 by mouth every night Unknown Flomax 0.4mg Capsules 1 by mouth every day Unknown Atorvastatin Calcium 10mg Tablets 1 qd Unknown Gabapentin 300mg Capsules 1 tab by mouth three x a day before meals Unknown Omeprazole 20mg Capsules DR Take One Capsule By Mouth Every Day Unknown Morphine Sulfate ER 15mg Tablets E R 1 twice a day 30tabs Loli Balderas NP Immunizations Description No Information Available Vital Signs Date Vital Result Comment 01/29/2020 10:38am BP Systolic 126 mmHg BP Diastolic 80 mmHg Height 69.5 inches 5'9.50" Weight 307.12 lb BMI (Body Mass Index) 44.7 kg/m2 [place] Body Weight 160 lb Weight 139.312 kg BSA (Body Surface Area) 2.49 m2 11/15/2018 10:35am Body Temperature 99.3 F Height 69.5 inches 5'9.50" Weight 280.00 lb BMI (Body Mass Index) 40.8 kg/m2 [place] Body Weight 160 lb Weight 127.008 kg BSA (Body Surface Area) 2.40 m2 Results Description No Information Available Procedures Description No Information Available Medical Devices Description No Information Available Encounters Description No Information Available Assessments Description No Information Available Plan of Treatment 01/18/2019 - Koffi Ramos MD* S93.432D Sprain of tibiofibular ligament of left ankle, subsequent encounter* New Orders:* Tall Walking Boot Left, Ordered: 01/18/19 * Follow up:* in 6 weeks left ankle reagan with SWM with repeat xrays * S82.392D Other fracture of lower end of left tibia, subsequent encounter for closed fracture with routine healing Functional Status Description No Information Available Mental Status Description No Information Available Referrals Refer to Reason for Referral Status Appt Date Torey Montez MD DYSPHAGIA, VENTRAL HERNIA, COLONOSCOPY Sc heduled 01/29/[address] [place] [address] [phone] Torey Montez MD EGD Scheduled 12/12/[address] [place] [address] [phone]
--- OUTSIDE RECORDS SUMMARY | 2020-03-19 08:24 | CCD ---
Author Author [facility] Organization [facility] Address Unknown Phone Unavailable Care Team Providers Care Poultice Machine Operator Name Role Phone Janey Herr Unavailable PROBLEMS Type Condition ICD9-CM Code XGY61-XF Code Onset Dates Condition S tatus SNOMED Code Notes Problem Intervertebral disc disorders with radiculopathy , lumbosacral region M51.17 Active 7414566 Problem Depression with anxiety F41.8 Active 50748607 6 Problem COPD exacerbation J44.1 Active 699554699 Problem Moderate chronic obstructive pulmonary disease J44 .9 Active 124115389 Problem Current smoker F17.200 Active 98831558 Problem Psychophysiological insomnia F51.04 Active 425 280062 Problem Chronic prescription opiate use Z79.891 Active 322916991 Problem Intervertebral disc disorder with radiculopathy of lumbosacral region M51.17 Active 13062058 Problem Hyperlipidemia E78.5 Active 50797458 Problem BPH loc w urin obs/LUTS N40.1 Active 14551890 7 Problem Abdominal pain, chronic, generalized R10.84 Act tayler 033984470 Problem Protrusion of intervertebral disc of lumbosacral region M51.27 Active 37964192 Problem Diabetes E11.9 Active 44484109 Problem Tobacco dependence due to cigarettes F17.210 Active 08916744228029159 Problem QUINTON (obstructive sleep apnea) G47.33 Active 24 952134 Problem Tobacco dependence F17.200 Active 67626392 Problem Polycythemia D75.1 Active 239087007 Problem Mixed hyperlipidemia E78.2 Active 719610191 Problem Morbid obesity with BMI of 40.0-44.9, adult E66.01 Active 206132238 Problem Prostate cancer screening Z12.5 Active 584528 002 Problem Bilateral low back pain, with sciatica presence unspecifie d M54.5 Active 861909879 Problem Insomnia, unspecified type G47.00 Active 54333 2001 Problem Incisional hernia K43.2 Active 875534785 Problem Feeling of incomplete bladder emptying R39.14 A ctive 835446015 Problem Chronic post-operative pain G89.28 Active 1097 21517358840 Problem Dysuria R30.0 Active 82734789 Problem Chronic prescription opiate use Z79.899 Active 663914962 Problem Other chronic pain G89.29 Active 44436203 Problem Chronic obstructive pulmonary disease, unspecified COPD ty pe J44.9 Active 29053720 Problem Leukocytosis, unspecified type D72.829 Active 1 57501642 Problem Vitamin D deficiency E55.9 Active 07533414 Problem Erectile dysfunction, unspecified erectile dysfunction typ e N52.9 Active 115018484 Problem BPH (benign prostatic hyperplasia) N40.0 Activ e 759717398 Problem Dysphagia, unspecified type R13.10 Active 4073 9000 Problem OAB (overactive bladder) N32.81 Active 7567682 02 Problem 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 Active 21344836 Problem Pain, chronic postoperative G89.28 Active 1097 58754255538 Problem Essential (primary) hypertension I10 Active 54426600 Problem Benign prostatic hyperplasia , unspecified whether lower urinary tract symptoms present N40.0 Active 700890695 Problem Nocturnal oxygen desaturation G47.34 Active 23 7472507 Problem Depression F32.9 Active 50504406 Problem Sacroiliitis M46.1 Active 32371949 Problem Obstructive sleep apnea G47.33 Active 37282036 ALLERGIES Allergen (clinical drug ingredient) Drug/Non Drug Allergy do cumented on EMR Reaction Allergy Type Onset Date Status Paper adhesion tape Burned skin off Non Drug Allergy Active metronidazole Flagyl([facility] Code:[address]-50) Hives Drug Allergy Active ENCOUNTERS from 1961 to 2020-02-05 Encounter Location Date Provider Diagnosis [facility] [place] [address] Jan Janey Herr IMMUNIZATIONS Vaccine Route Administration Date [...] Notes Total Score: 0 Interpretation: Alcohol Education Confucianism: Question Answer Notes Confucianism 21 Judaism Sexual Hx: Question Answer Notes [...] day for 30 Active Ergocalciferol 1.25 MG (92312 UT) 1 capsule Orally once a week [...] BY MOUTH ONCE A DAY EVERY M ORN for Active Omeprazole 20 MG Orally Active [...] RESULTS No Results REASON FOR VISIT refill MEDICAL (GENERAL) HISTORY Type Description Date Medical [...] Name:Loli Balderas, 2020-03-13 09 :30:00 AM, [address] [place], [address], Provider Name:Janey Herr, 2020-04 10:30:00 AM, [address] [place] [address], [phone], Insurance Providers Payer Name Payer Address Payer Phone Insured Name Patient Relati onship to Insured Coverage Start Date Coverage End Date MEDICARE Part A and B [address] [facility] [id number] NOEL MENDEZ self MEDICARE BLUE PPO [address] [facility] [address] [address] NOEL MENDEZ self
--- OUTSIDE RECORDS SUMMARY | 2020-03-19 08:24 | CCD ---
Author Author [facility] Organization [facility] Address Unknown Phone Unavailable Care Team Providers Care Integration Lead Name Role Phone Loli Balderas Unavailable PROBLEMS Type Condition ICD9-CM Code ART81-TN Code Onset Dates Condition S tatus SNOMED Code Notes Problem Intervertebral disc disorders with radiculopathy , lumbosacral region M51.17 Active 6770474 Problem Depression with anxiety F41.8 Active 29009924 6 Problem COPD exacerbation J44.1 Active 701020809 Problem Moderate chronic obstructive pulmonary disease J44 .9 Active 375583345 Problem Current smoker F17.200 Active 66734194 Problem Psychophysiological insomnia F51.04 Active 425 348126 Problem Chronic prescription opiate use Z79.891 Active 955045013 Problem Intervertebral disc disorder with radiculopathy of lumbosacral region M51.17 Active 88014954 Problem Hyperlipidemia E78.5 Active 02342641 Problem BPH loc w urin obs/LUTS N40.1 Active 05951840 7 Problem Abdominal pain, chronic, generalized R10.84 Act tayler 918939579 Problem Protrusion of intervertebral disc of lumbosacral region M51.27 Active 89620253 Problem Diabetes E11.9 Active 95061185 Problem Tobacco dependence due to cigarettes F17.210 Active 12759896282782491 Problem QUINTON (obstructive sleep apnea) G47.33 Active 51 390013 Problem Tobacco dependence F17.200 Active 30269287 Problem Polycythemia D75.1 Active 931833665 Problem Mixed hyperlipidemia E78.2 Active 623790511 Problem Morbid obesity with BMI of 40.0-44.9, adult E66.01 Active 602504963 Problem Prostate cancer screening Z12.5 Active 055106 002 Problem Bilateral low back pain, with sciatica presence unspecifie d M54.5 Active 864617355 Problem Insomnia, unspecified type G47.00 Active 78582 2001 Problem Incisional hernia K43.2 Active 149453696 Problem Feeling of incomplete bladder emptying R39.14 A ctive 183368022 Problem Chronic post-operative pain G89.28 Active 1097 72870009271 Problem Dysuria R30.0 Active 15050010 Problem Chronic prescription opiate use Z79.899 Active 036955578 Problem Other chronic pain G89.29 Active 68902083 Problem Chronic obstructive pulmonary disease, unspecified COPD ty pe J44.9 Active 20371925 Problem Leukocytosis, unspecified type D72.829 Active 1 12200516 Problem Vitamin D deficiency E55.9 Active 08482761 Problem Erectile dysfunction, unspecified erectile dysfunction typ e N52.9 Active 676006141 Problem BPH (benign prostatic hyperplasia) N40.0 Activ e 241054100 Problem Dysphagia, unspecified type R13.10 Active 4073 9000 Problem OAB (overactive bladder) N32.81 Active 7768906 02 Problem 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 Active 11964124 Problem Pain, chronic postoperative G89.28 Active 1097 17318429300 Problem Essential (primary) hypertension I10 Active 64973313 Problem Benign prostatic hyperplasia , unspecified whether lower urinary tract symptoms present N40.0 Active 439317516 Problem Nocturnal oxygen desaturation G47.34 Active 23 0432387 Problem Depression F32.9 Active 63421411 Problem Sacroiliitis M46.1 Active 95418048 Problem Obstructive sleep apnea G47.33 Active 01327108 ALLERGIES Allergen (clinical drug ingredient) Drug/Non Drug Allergy do cumented on EMR Reaction Allergy Type Onset Date Status Paper adhesion tape Burned skin off Non Drug Allergy Active metronidazole Flagyl([facility] Code:[address]-69) Hives Drug Allergy Active ENCOUNTERS from 1961 to 2020-02-06 Encounter Location Date Provider Diagnosis [facility] [address] [place] [id number] Jan, Loli Balderas Protrusion of intervertebral disc [...] Notes Total Score: 0 Interpretation: Alcohol Education Mu-Ism: Question Answer Notes Mu-Ism 21 Anabaptism Sexual Hx: Question Answer Notes Had sex [...] day for 30 Active Ergocalciferol 1.25 MG (62400 UT) 1 capsule Orally once a week [...] fracture with screws 0 11/28/18 Hospitalization History [facility] 10/2011 Hospitalization History multiple for surgeries Goals Section No Information Health Concerns No Information MEDICAL EQUIPMENT No Information MENTAL STATUS No Information FUNCTIONAL STATUS No Information ASSESSMENTS Encounter Date Diagnosis Assessment Notes Treatment Notes Treatm ent Clinical Notes Jan, Protrusion of intervertebral disc of [...] Name:Loli Balderas, 2020-03-13 09 :30:00 AM, [address] [place], [address], Provider Name:Janey Herr, 2020-04 10:30:00 AM, [address] [place] [address], [phone], Insurance Providers Payer Name Payer Address Payer Phone Insured Name Patient Relati onship to Insured Coverage Start Date Coverage End Date MEDICARE Part A and B [facility] [address] [facility] [id number] NOEL MENDEZ self MEDICARE BLUE PPO [address] [facility] [place] [address] NOEL MENDEZ self
--- OUTSIDE RECORDS SUMMARY | 2020-03-19 08:24 | CCD ---
Author Author [facility] Organization [facility] Address Unknown Phone Unavailable Care Team Providers Care Photographic Plate Maker Name Role Phone Janey Herr Unavailable PROBLEMS Type Condition ICD9-CM Code DWU90-DS Code Onset Dates Condition S tatus SNOMED Code Notes Problem Protrusion of intervertebral disc of lumbosacral region M51.27 Active 63947388 Problem COPD exacerbation J44.1 Active 256915161 Problem Intervertebral disc disorders with radiculopathy , lumbosacral region M51.17 Active 1094710 Problem Current smoker F17.200 Active 05038721 Problem Depression with anxiety F41.8 Active 36172248 6 Problem Chronic prescription opiate use Z79.891 Active 871537320 Problem Moderate chronic obstructive pulmonary disease J44 .9 Active 094563958 Problem BPH loc w urin obs/LUTS N40.1 Active 69232214 7 Problem Abdominal pain, chronic, generalized R10.84 Act tayler 489404831 Problem Feeling of incomplete bladder emptying R39.14 A ctive 900070213 Problem Chronic post-operative pain G89.28 Active 1091 05504119705 Problem Diabetes E11.9 Active 15494446 Problem Hyperlipidemia E78.5 Active 64277971 Problem QUINTON (obstructive sleep apnea) G47.33 Active 78 368691 Problem Pain, chronic postoperative G89.28 Active 1097 16095196803 Problem Mixed hyperlipidemia E78.2 Active 738606428 Problem Morbid obesity with BMI of 40.0-44.9, adult E66.01 Active 877759746 Problem Tobacco dependence due to cigarettes F17.210 Active 03674694123221833 Problem Depression F32.9 Active 00959467 Problem Insomnia, unspecified type G47.00 Active 65884 2001 Problem Incisional hernia K43.2 Active 228117992 Problem Tobacco dependence F17.200 Active 06031273 Problem Polycythemia D75.1 Active 105013973 Problem Dysuria R30.0 Active 41489341 Problem Chronic prescription opiate use Z79.899 Active 670566037 Problem Prostate cancer screening Z12.5 Active 699484 002 Problem Bilateral low back pain, with sciatica presence unspecifie d M54.5 Active 188369697 Problem Intervertebral disc disorder with radiculopathy of lumbosacral region M51.17 Active 47358441 Problem Other chronic pain G89.29 Active 39429688 Problem Chronic obstructive pulmonary disease, unspecified COPD ty pe J44.9 Active 22194170 Problem Obstructive sleep apnea G47.33 Active 30767650 Problem OAB (overactive bladder) N32.81 Active 5841129 02 Problem Vitamin D deficiency E55.9 Active 60256869 Problem Psychophysiological insomnia F51.04 Active 425 230581 Problem Essential (primary) hypertension I10 Active 78087699 Problem Erectile dysfunction, unspecified erectile dysfunction typ e N52.9 Active 523108482 Problem BPH (benign prostatic hyperplasia) N40.0 Activ e 208939400 Problem Leukocytosis, unspecified type D72.829 Active 1 62830431 Problem Benign prostatic hyperplasia , unspecified whether lower urinary tract symptoms present N40.0 Active 538161616 Problem 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 Active 46967012 Problem Nocturnal oxygen desaturation G47.34 Active 23 7536101 Problem Sacroiliitis M46.1 Active 77331504 ALLERGIES Allergen (clinical drug ingredient) Drug/Non Drug Allergy do cumented on EMR Reaction Allergy Type Onset Date Status Paper adhesion tape Burned skin off Non Drug Allergy Active metronidazole Flagyl([facility] Code:[address]-14) Hives Drug Allergy Active ENCOUNTERS from 1961 to 2020-01-16 Encounter Location Date Provider Diagnosis [facility] [place] [address] Dec Janey Herr Encounter for screening for lung cancer Z12.2 [...] Notes Total Score: 0 Interpretation: Alcohol Education Oriental Orthodox: Question Answer Notes [employer] 21 Worship Sexual Hx: Question Answer Notes Had sex [...] for 90 days Active Ergocalciferol 1.25 MG (32331 UT) 1 capsule Orally once a we [...] Information RESULTS No Results REASON FOR VISIT low dose lung ct MEDICAL (GENERAL) HISTORY Type Description Date Medical [...] fracture with screws 0 11/28/18 Hospitalization History [facility] 10/2011 Hospitalization History multiple for surgeries Goals Section No Information Health Concerns No Information MEDICAL EQUIPMENT No Information MENTAL STATUS No Information FUNCTIONAL STATUS No Information ASSESSMENTS Encounter Date Diagnosis Notes Dec, Encounter for screening for lung cancer (ICD-10 [...] capsule Orally Once a day for 30 Treatment Notes Test Name Order Date Low Dose Lung Screening CT Chest 2020-01-16 Next Appt Details Provider Name:Janey Herr, 2020-01 10:00:00 AM, [address] [place] [address], [phone], Provider Name:Loli Balderas, 2020-03-13 09 :30:00 AM, [address] [place], [address], Insurance Providers Payer Name Payer Address Payer Phone Insured Name Patient Relati onship to Insured Coverage Start Date Coverage End Date MEDICARE BLUE PPO [address] [facility]UE [address] [facility] [id number] NOEL MENDEZ self MEDICARE Part A and B [address] [place] [phone] NOEL MENDEZ self
--- OUTSIDE RECORDS SUMMARY | 2020-03-19 08:25 | CCD ---
Author Author [facility] Address Unknown Phone Unavailable Support Name Relationship Address Phone Ned MEZA Next Of Kin [address] [place] [address] YARELI PARKER Next Of Kin Unknown [phone] UNEMPLOYED Next Of Kin UNK UNK, UN UN DISABLED Next Of Kin Unknown Unavailable YARELI ALEXANDER Next Of Kin [id number] [facility] [address] [place] [address] YARELI KHAN Next Of Kin [id number] [place] [address] [address] [place] [address] UE Next Of Kin Unknown Unavailable YARELI ALEXANDER ECON [id number] [facility] [address] [place] [address] Unavailable Yareli Hunt ECON Unknown Unavailable Re-disclosure Warning The records that you are about to access may contain information from federally-assisted alcohol or drug abuse programs. If such information is present, then the following federally mandated warning applies: This information has been disclosed to you from records protected by federal confidentiality rules (42 CFR part 2). The federal rules prohibit you from making any further disclosure of this information unless further disclosure is expressly permitted by the written consent of the person to whom it pertains or as otherwise permitted by 42 CFR part 2. A general authorization for the release of medical or other information is NOT sufficient for this purpose. The Federal rules restrict any use of the information to criminally investigate or prosecute any alcohol or drug abuse patient.The records that you are about to access may contain highly sensitive health information, the redisclosure of which is protected by Article 27-F of the [facility] Public Health law. If you continue you may have access to information: Regarding HIV / AIDS; Provided by facilities licensed or operated by the [facility] Office of Mental Health; or Provided by the [facility] Office for People With Developmental Disabilities. If such information is present, then the following [facility] mandated warning applies: This information has been disclosed to you from confidential records which are protected by state law. State law prohibits you from making any further disclosure of this information without the specific written consent of the person to whom it pertains, or as otherwise permitted by law. Any unauthorized further disclosure in violation of state law may result in a fine or long term sentence or both. A general authorization for the release of medical or other information is NOT sufficient authorization for further disc losure. Allergies and Adverse Reactions Type Description Substance Reaction Status Data Source(s ) Drug allergy Flagyl Metronidazole Hives Active eCW1 ([facility]) Paper adhesion tape Paper adhesion tape Paper adhesion tape Burned skin off Active eCW1 ([facility]) Paper adhesion tape Paper adhesion tape Paper adhesion tape Burned skin off Active eCW1 ([facility]) Paper adhesion tape Paper adhesion tape Paper adhesion tape Burned skin off Active eCW1 ([facility]) Paper adhesion tape Paper adhesion tape Paper adhesion tape Burned skin off Active eCW1 ([facility]) Family History Family Member Name Family Member Gender Family Member Status Date o f Status Description Data Source(s) Unknown Unknown Problem MEDENT ([facility], ) Unknown Female Encounters Encounter Providers Location Date Indications Data Source(s ) [place] [address] [facility] [place] [address] 03/12/2020 12:00:00 AM EST eCW1 ([facility]) Unknown [address] [facility] [place] [address] 03/05/2020 12:00:00 AM EST eCW1 ([facility]) Unknown [address] [facility] [place] [address] 03/05/2020 12:00:00 AM EST eCW1 ([facility]) Unknown [address] [facility] [place] [address] 03/04/2020 12:00:00 AM EST eCW1 ([facility]) [place] [address] [facility] [place] [address] 03/03/2020 12:00:00 AM EST eCW1 ([facility]) [place] [address] [facility] [address] 02/15/2020 12:00:00 AM EST eCW1 ([facility]) [place] [address] [facility] [address] 02/13/2020 12:00:00 AM EST eCW1 ([facility]) [place] [address] [facility] [address] 02/13/2020 12:00:00 AM EST eCW1 ([facility]) [place] [address] [facility] [address] 02/04/2020 12:00:00 AM EST eCW1 ([facility]) [place] [address] [facility] [address] 02/04/2020 12:00:00 AM EST eCW1 ([facility]) [place] [address] [facility] [address] 02/04/2020 12:00:00 AM EST eCW1 ([facility]) [place] [address] [facility] [address] 01/21/2020 12:00:00 AM EST eCW1 ([facility]) Outpatient [address] [facility] [address] 01/17/2020 12:00:00 AM EST eCW1 ([facility]) [place] [address] [facility] [address] 01/17/2020 12:00:00 AM EST eCW1 ([facility]) [place] [address] [facility] [address] 01/14/2020 12:00:00 AM EST eCW1 ([facility]) Unknown [address] [facility] [address] 01/01/2020 12:00:00 AM EDT eCW1 ([facility]) [place]patient [address] [facility] [address] 12/12/2019 12:00:00 AM EDT eCW1 ([facility]) [place] [address] [facility] [address] 12/07/2019 12:00:00 AM EDT eCW1 ([facility]) [place] [address] [facility] [address] 12/07/2019 12:00:00 AM EDT eCW1 ([facility]) Unknown [address] [facility] [address] 09/26/2019 12:00:00 AM EDT eCW1 ([facility]) Unknown [address] [facility] [address] 09/25/2019 12:00:00 AM EDT eCW1 ([facility]) [facility] [address] [facility] [place] [address] 08/14/2019 12:00:00 AM EDT eCW1 ([facility]) Outpatient [address] [facility] [address] 08/13/2019 12:00:00 AM EDT eCW1 ([facility]) [facility] [address] [place] [address] 07/31/2019 12:00:00 AM EDT eCW1 ([facility]) [facility] [address] [place] [address] 07/27/2019 12:00:00 AM EDT eCW1 ([facility]) [facility] Center [address] [place] [address] 07/26/2019 12:00:00 AM EDT eCW1 ([facility]) [facility] [address] [facility] [place] [address] 07/23/2019 12:00:00 AM EDT eCW1 ([facility]) [facility] [address] [facility] [place] [address] 07/09/2019 12:00:00 AM EDT eCW1 ([facility]) [facility] [address] [place] [address] 07/02/2019 12:00:00 AM EDT eCW1 ([facility] [place]) [facility] Vernon Sanz [address] [place] [address] 06/27/2019 12:00:00 AM EDT eCW1 ([facility]) [facility] [address] [place] [address] 06/27/2019 12:00:00 AM EDT eCW1 ([facility] [place] Vernon Gonzalezbrenda [address] [place] [address] 06/27/2019 12:00:00 AM EDT eCW1 ([facility] [place]) [facility] Vernon Sanz [address] [place] [address] 06/20/2019 12:00:00 AM EDT eCW1 ([facility] [place] Vernon Sanz [address] [place] [address] 06/18/2019 12:00:00 AM EDT eCW1 ([facility]) Outpatient 06/10/2019 07:31:00 AM EDT [facility] [address] [place] [address] 06/08/2019 12:00:00 AM EDT eCW1 ([facility]) [facility] [address] [place] [phone] 05/30/2019 12:00:00 AM EDT eCW1 ([facility]) [facility] [address] [place] [address] 05/16/2019 12:00:00 AM EDT eCW1 ([facility]) [facility] Vernon Lisabrenda [address] [place] [address] 05/07/2019 12:00:00 AM EST eCW1 ([facility]) [facility] [address] [place] [phone] 05/01/2019 12:00:00 AM EST eCW1 ([facility]) [facility] [address] [place] [address] 04/11/2019 12:00:00 AM EST eCW1 ([facility]) [facility] [address] [place] [address] 04/03/2019 12:00:00 AM EST eCW1 ([facility]) [facility] Vernon Sanz [address] [place] [address] 03/14/2019 12:00:00 AM EST eCW1 ([facility]) [facility] Vernon Sanz [address] [place] [address] 03/14/2019 12:00:00 AM EST eCW1 ([facility]) [facility] Vernon Sanz [address] [place] [address] 03/12/2019 12:00:00 AM EST eCW1 ([facility]) [facility] [address] [place] [address] 03/05/2019 12:00:00 AM EST eCW1 ([facility]) [facility] [address] [place] [address] 03/05/2019 12:00:00 AM EST eCW1 ([facility]) [facility] Vernon Sanz [address] [place] [address] 03/01/2019 12:00:00 AM EST eCW1 ([facility]) [facility] Vernon Sanz [address] [place] [address] 02/27/2019 12:00:00 AM EST eCW1 ([facility]) [facility] [address] [place] [address] 02/26/2019 12:00:00 AM EST eCW1 ([facility]) [facility] Vernon Sanz [address] [place] [address] 02/21/2019 12:00:00 AM EST eCW1 ([facility]) [facility] Vernon Sanz [address] [place] [address] 02/19/2019 12:00:00 AM EST eCW1 ([facility]) [facility] Vernon Sanz [address] [place] [address] 02/12/2019 12:00:00 AM EST eCW1 ([facility]) [facility] [address] [place] [address] 02/09/2019 12:00:00 AM EST eCW1 ([facility]) [facility] [address] [place] [address] 01/30/2019 12:00:00 AM EST eCW1 ([facility]) [facility] Vernon Sanz [address] [place] [phone] 01/30/2019 12:00:00 AM EST eCW1 ([facility]) Immunizations Vaccine Date Status Description Data Source(s) influenza, recombinant, quadrIvalent,injectable, prese rvative free 12/04/2019 07:41:00 AM EDT completed eCW1 ([facility]) influenza, recombinant, quadrIvalent,injectable, prese rvative free 12/04/2019 07:41:00 AM EDT completed eCW1 ([facility]) influenza, recombinant, quadrIvalent,injectable, prese rvative free 12/04/2019 07:41:00 AM EDT completed eCW1 ([facility]) influenza, recombinant, quadrIvalent,injectable, prese rvative free 12/04/2019 07:41:00 AM EDT completed eCW1 ([facility]) influenza, recombinant, quadrIvalent,injectable, prese rvative free 12/04/2019 07:41:00 AM EDT completed eCW1 ([facility]) influenza, recombinant, quadrIvalent,injectable, prese rvative free 12/04/2019 07:41:00 AM EDT completed eCW1 ([facility]) influenza, recombinant, quadrIvalent,injectable, prese rvative free 12/04/2019 07:41:00 AM EDT completed eCW1 ([facility]) influenza, recombinant, quadrIvalent,injectable, prese rvative free 12/04/2019 07:41:00 AM EDT completed eCW1 ([facility]) influenza, recombinant, quadrIvalent,injectable, prese rvative free 12/04/2019 07:41:00 AM EDT completed eCW1 ([facility]) influenza, recombinant, quadrIvalent,injectable, prese rvative free 03/14/2019 03:01:00 PM EST completed eCW1 ([facility]) influenza, recombinant, quadrIvalent,injectable, prese rvative free 03/14/2019 03:01:00 PM EST completed eCW1 ([facility]) influenza, recombinant, quadrIvalent,injectable, prese rvative free 03/14/2019 03:01:00 PM EST completed eCW1 ([facility]) influenza, recombinant, quadrIvalent,injectable, prese rvative free 03/14/2019 03:01:00 PM EST completed eCW1 ([facility]) influenza, recombinant, quadrIvalent,injectable, prese rvative free 03/14/2019 03:01:00 PM EST completed eCW1 ([facility]) influenza, recombinant, quadrIvalent,injectable, prese rvative free 03/14/2019 03:01:00 PM EST completed eCW1 ([facility]) influenza, recombinant, quadrIvalent,injectable, prese rvative free 03/14/2019 03:01:00 PM EST completed eCW1 ([facility]) influenza, recombinant, quadrIvalent,injectable, prese rvative free 03/14/2019 03:01:00 PM EST completed eCW1 ([facility]) influenza, recombinant, quadrIvalent,injectable, prese rvative free 03/14/2019 03:01:00 PM EST completed eCW1 ([facility]) influenza, recombinant, quadrIvalent,injectable, prese rvative free 03/14/2019 03:01:00 PM EST completed eCW1 ([facility]) influenza, recombinant, quadrIvalent,injectable, prese rvative free 03/14/2019 03:01:00 PM EST completed eCW1 ([facility]) influenza, recombinant, quadrIvalent,injectable, prese rvative free 03/14/2019 03:01:00 PM EST completed eCW1 ([facility]) influenza, recombinant, quadrIvalent,injectable, prese rvative free 03/14/2019 03:01:00 PM EST completed eCW1 ([facility]) influenza, recombinant, quadrIvalent,injectable, prese rvative free 03/14/2019 03:01:00 PM EST completed eCW1 ([facility]) influenza, recombinant, quadrIvalent,injectable, prese rvative free 03/14/2019 03:01:00 PM EST completed eCW1 ([facility]) influenza, recombinant, quadrIvalent,injectable, prese rvative free 03/14/2019 03:01:00 PM EST completed eCW1 ([facility]) influenza, recombinant, quadrIvalent,injectable, prese rvative free 03/14/2019 03:01:00 PM EST completed eCW1 ([facility]) influenza, recombinant, quadrIvalent,injectable, prese rvative free 03/14/2019 03:01:00 PM EST completed eCW1 ([facility]) influenza, recombinant, quadrIvalent,injectable, prese rvative free 03/14/2019 03:01:00 PM EST completed eCW1 ([facility]) influenza, recombinant, quadrIvalent,injectable, prese rvative free 03/14/2019 03:01:00 PM EST completed eCW1 ([facility]) influenza, recombinant, quadrIvalent,injectable, prese rvative free 03/14/2019 03:01:00 PM EST completed eCW1 ([facility]) influenza, recombinant, quadrIvalent,injectable, prese rvative free 03/14/2019 03:01:00 PM EST completed eCW1 ([facility]) Medications Medication Brand Name Start Date Product Form Dose Route Admi nistrative Instructions Pharmacy Instructions Status Indications Reaction Description Data Source(s) 10-325 mg 03/16/2020 12:00:00 AM EST tablet 120 TAKE ONE TABLET BY MOUTH EVERY 6 HOURS NEEDED MAXIMUM DAILY DOSE = 4 TABLETS TAKE ONE TABLET BY MOUTH EVERY 6 HOURS NEEDED MAXIMUM DAILY DOSE = 4 TABLETS SOLD: 03/17/2020 [facility] Acetaminophen 325 MG / Oxycodone Hydroch loride 10 MG Oral Tablet Oxycodone- Acetaminophen 10-325 MG Oxycodone-Acetaminophen 10-325 MG 03/13/2020 12:00:00 AM EST 1.0 {tablet_as_needed} active O xycodone-Acetaminophen 10-325 MG eCW1 ([facility]) 1,250 mcg (50,000 unit) 03/11/2020 12:00:00 AM EST capsule 12 TAKE ONE CAPSULE BY MOUTH ONCE A WEEK TAKE ONE CAPSULE BY MOUTH ONCE A WEEK SOLD: 03/17/2020 [facility] 10 mg 03/05/2020 12:00:00 AM EST tablet 30 TAKE 1TABLET BY MOUTH DAILY AT BEDTIME NEEDED MAX DAILY DOSE = 1 TABLET TAKE 1TABLET BY MOUTH DAILY AT BEDTIME NEEDED MAX DAILY DOSE = 1 TABLET SOLD: 03/05/2020 [facility] 15 mg 03/04/2020 12:00:00 AM EST tablet extended release 60 TAKE ONE TABLET BY MOUTH EVERY 12 HOURS MAXIMUM DAILY DOSE = 2 TABLETS TAKE ONE TABLET BY MOUTH EVERY 12 HOURS MAXIMUM DAILY DOSE = 2 TABLETS SOLD: 03/05/2020 [facility] Morphine Sulfate 15 MG Extended Release Oral Tablet Mo rphine Sulfate ER 15 MG Morphine Sulfate ER 15 MG 03/03/2020 12:00:00 AM EST 1.0 {tablet} active Morphine Sulfate ER 15 MG eCW1 ( [facility]) Morphine Sulfate 15 MG Extended Release Oral Tablet Mo rphine Sulfate ER 15 MG Morphine Sulfate ER 15 MG 03/03/2020 12:00:00 AM EST 1.0 {tablet} active Morphine Sulfate ER 15 MG eCW1 ( [facility]) Morphine Sulfate 15 MG Extended Release Oral Tablet Mo rphine Sulfate ER 15 MG Morphine Sulfate ER 15 MG 03/03/2020 12:00:00 AM EST 1.0 {tablet} active Morphine Sulfate ER 15 MG eCW1 ( [facility]) Morphine Sulfate 15 MG Extended Release Oral Tablet Mo rphine Sulfate ER 15 MG Morphine Sulfate ER 15 MG 03/03/2020 12:00:00 AM EST 1.0 {tablet} active Morphine Sulfate ER 15 MG eCW1 ( [facility]) Morphine Sulfate 15 MG Extended Release Oral Tablet Mo rphine Sulfate ER 15 MG Morphine Sulfate ER 15 MG 03/03/2020 12:00:00 AM EST 1.0 {tablet} active Morphine Sulfate ER 15 MG eCW1 ( [facility]) Morphine Sulfate 15 MG Extended Release Oral Tablet Mo rphine Sulfate ER 15 MG Morphine Sulfate ER 15 MG 03/03/2020 12:00:00 AM EST 1.0 {tablet} active Morphine Sulfate ER 15 MG eCW1 ( [facility]) 100-25 mcg/dose 02/16/2020 12:00:00 AM EST blister with kostas ce 60 INHALE ONE PUFF BY MOUTH EVERY DAY INHALE ONE PUFF BY MOUTH EVERY DAY SOLD: 02/17/2020 [facility] 100-25 mcg/dose 02/16/2020 12:00:00 AM EST blister with kostas ce 60 INHALE ONE PUFF BY MOUTH EVERY DAY INHALE ONE PUFF BY MOUTH EVERY DAY SOLD: 03/17/2020 [facility] 10-325 mg 02/16/2020 12:00:00 AM EST tablet 120 TAKE ONE TABLET BY MOUTH EVERY 6 HOURS NEEDED MAXIMUM DAILY DOSE = 4 TABLETS TAKE ONE TABLET BY MOUTH EVERY 6 HOURS NEEDED MAXIMUM DAILY DOSE = 4 TABLETS SOLD: 02/17/2020 [facility] 40 mg 02/15/2020 12:00:00 AM EST capsule,delayed release (DR/EC) 90 TAKE ONE CAPSULE BY MOUTH EVERY DAY 30MIN.BEFORE MORNING MEAL TAKE ONE CAPSULE BY MOUTH EVERY DAY 30MIN.BEFORE MORNING MEAL SOLD: 02/17/2020 [facility] 15 mg 02/15/2020 12:00:00 AM EST tablet extended release 24hr 30 TAKE ONE TABLET BY MOUTH EVERY DAY TAKE ONE TABLET BY MOUTH EVERY DAY SOLD: 02/17/2020 [facility] 15 mg 02/15/2020 12:00:00 AM EST tablet extended release 24hr 30 TAKE ONE TABLET BY MOUTH EVERY DAY TAKE ONE TABLET BY MOUTH EVERY DAY SOLD: 03/17/2020 [facility] Acetaminophen 325 MG / Oxycodone Hydroch loride 10 MG Oral Tablet Oxycodone- Acetaminophen 10-325 MG Oxycodone-Acetaminophen 10-325 MG 02/13/2020 12:00:00 AM EST 1.0 {tablet_as_needed} active O xycodone-Acetaminophen 10-325 MG eCW1 ([facility]) Acetaminophen 325 MG / Oxycodone Hydroch loride 10 MG Oral Tablet Oxycodone- Acetaminophen 10-325 MG Oxycodone-Acetaminophen 10-325 MG 02/13/2020 12:00:00 AM EST 1.0 {tablet_as_needed} active O xycodone-Acetaminophen 10-325 MG eCW1 ([facility]) Acetaminophen 325 MG / Oxycodone Hydroch loride 10 MG Oral Tablet Oxycodone- Acetaminophen 10-325 MG Oxycodone-Acetaminophen 10-325 MG 02/13/2020 12:00:00 AM EST 1.0 {tablet_as_needed} active O xycodone-Acetaminophen 10-325 MG eCW1 ([facility]) Acetaminophen 325 MG / Oxycodone Hydroch loride 10 MG Oral Tablet Oxycodone- Acetaminophen 10-325 MG Oxycodone-Acetaminophen 10-325 MG 02/13/2020 12:00:00 AM EST 1.0 {tablet_as_needed} active O xycodone-Acetaminophen 10-325 MG eCW1 ([facility]) Acetaminophen 325 MG / Oxycodone Hydroch loride 10 MG Oral Tablet Oxycodone- Acetaminophen 10-325 MG Oxycodone-Acetaminophen 10-325 MG 02/13/2020 12:00:00 AM EST 1.0 {tablet_as_needed} active O xycodone-Acetaminophen 10-325 MG eCW1 ([facility]) Acetaminophen 325 MG / Oxycodone Hydroch loride 10 MG Oral Tablet Oxycodone- Acetaminophen 10-325 MG Oxycodone-Acetaminophen 10-325 MG 02/13/2020 12:00:00 AM EST 1.0 {tablet_as_needed} active O xycodone-Acetaminophen 10-325 MG eCW1 ([facility]) Acetaminophen 325 MG / Oxycodone Hydroch loride 10 MG Oral Tablet Oxycodone- Acetaminophen 10-325 MG Oxycodone-Acetaminophen 10-325 MG 02/13/2020 12:00:00 AM EST 1.0 {tablet_as_needed} active O xycodone-Acetaminophen 10-325 MG eCW1 ([facility]) Morphine Sulfate 15 MG Extended Release Oral Tablet Mo rphine Sulfate ER 15 MG Morphine Sulfate ER 15 MG 02/05/2020 12:00:00 AM EST 1.0 {tablet} active Morphine Sulfate ER 15 MG eCW1 ( [facility]) Morphine Sulfate 15 MG Extended Release Oral Tablet Mo rphine Sulfate ER 15 MG Morphine Sulfate ER 15 MG 02/05/2020 12:00:00 AM EST 1.0 {tablet} active Morphine Sulfate ER 15 MG eCW1 ( [facility]) meloxicam 7.5 MG Oral Tablet MELOXICAM 02/05/2020 12:00:00 AM EST tabl et 90 TAKE 1 TABLET BY MOUTH DAILY TAKE 1 TABLET BY MOUTH DAILY SOLD: 02/17/2020 [facility] Morphine Sulfate 15 MG Extended Release Oral Tablet Mo rphine Sulfate ER 15 MG Morphine Sulfate ER 15 MG 02/05/2020 12:00:00 AM EST 1.0 {tablet} active Morphine Sulfate ER 15 MG eCW1 ( [facility]) Morphine Sulfate 15 MG Extended Release Oral Tablet Mo rphine Sulfate ER 15 MG Morphine Sulfate ER 15 MG 02/05/2020 12:00:00 AM EST 1.0 {tablet} active Morphine Sulfate ER 15 MG eCW1 ( [facility]) Morphine Sulfate 15 MG Extended Release Oral Tablet Mo rphine Sulfate ER 15 MG Morphine Sulfate ER 15 MG 02/05/2020 12:00:00 AM EST 1.0 {tablet} active Morphine Sulfate ER 15 MG eCW1 ( [facility]) 15 mg 02/05/2020 12:00:00 AM EST tablet extended release 60 TAKE 1 TABLET BY MOUTH EVERY 12 HOURS MAX DAILY DOSE = 2 TABLETS TAKE 1 TABLET BY MOUTH EVERY 12 HOURS MAX DAILY DOSE = 2 TABLETS SOLD: 02/05/2020 [facility] Morphine Sulfate 15 MG Extended Release Oral Tablet Mo rphine Sulfate ER 15 MG Morphine Sulfate ER 15 MG 02/05/2020 12:00:00 AM EST 1.0 {tablet} active Morphine Sulfate ER 15 MG eCW1 ( [facility]) 10 mg 02/04/2020 12:00:00 AM EST tablet 30 TAKE 1 TABLET BY MOUTH ONCE A DAY AT BEDTIME NEEDED MAXIMUM DAILY DOSE = 1 TABLET TAKE 1 TABLET BY MOUTH ONCE A DAY AT BEDTIME NEEDED MAXIMUM DAILY DOSE = 1 TABLET SOLD: 02/04/2020 [facility] 10-325 mg 01/19/2020 12:00:00 AM EST tablet 120 TAKE 1 TABLET BY MOUTH EVERY 6 HOURS NEEDED MAXIMUM DAILY DOSE = 4 TABLETS TAKE 1 TABLET BY MOUTH EVERY 6 HOURS NEEDED MAXIMUM DAILY DOSE = 4 TABLETS SOLD: 01/19/2020 [facility] Morphine Sulfate 15 MG Extended Release Oral Tablet Mo rphine Sulfate ER 15 MG Morphine Sulfate ER 15 MG 01/15/2020 12:00:00 AM EST 1.0 {tablet} active Morphine Sulfate ER 15 MG eCW1 ( [facility]) Acetaminophen 325 MG / Oxycodone Hydroch loride 10 MG Oral Tablet Oxycodone- Acetaminophen 10-325 MG Oxycodone-Acetaminophen 10-325 MG 01/15/2020 12:00:00 AM EST 1.0 {tablet_as_needed} active O xycodone-Acetaminophen 10-325 MG eCW1 ([facility]) Acetaminophen 325 MG / Oxycodone Hydroch loride 10 MG Oral Tablet Oxycodone- Acetaminophen 10-325 MG Oxycodone-Acetaminophen 10-325 MG 01/15/2020 12:00:00 AM EST 1.0 {tablet_as_needed} active O xycodone-Acetaminophen 10-325 MG eCW1 ([facility]) Acetaminophen 325 MG / Oxycodone Hydroch loride 10 MG Oral Tablet Oxycodone- Acetaminophen 10-325 MG Oxycodone-Acetaminophen 10-325 MG 01/15/2020 12:00:00 AM EST 1.0 {tablet_as_needed} active O xycodone-Acetaminophen 10-325 MG eCW1 ([facility]) Morphine Sulfate 15 MG Extended Release Oral Tablet Mo rphine Sulfate ER 15 MG Morphine Sulfate ER 15 MG 01/15/2020 12:00:00 AM EST 1.0 {tablet} active Morphine Sulfate ER 15 MG eCW1 ( [facility]) Acetaminophen 325 MG / Oxycodone Hydroch loride 10 MG Oral Tablet Oxycodone- Acetaminophen 10-325 MG Oxycodone-Acetaminophen 10-325 MG 01/15/2020 12:00:00 AM EST 1.0 {tablet_as_needed} active O xycodone-Acetaminophen 10-325 MG eCW1 ([facility]) Morphine Sulfate 15 MG Extended Release Oral Tablet Mo rphine Sulfate ER 15 MG Morphine Sulfate ER 15 MG 01/15/2020 12:00:00 AM EST 1.0 {tablet} active Morphine Sulfate ER 15 MG eCW1 ( [facility]) Acetaminophen 325 MG / Oxycodone Hydroch loride 10 MG Oral Tablet Oxycodone- Acetaminophen 10-325 MG Oxycodone-Acetaminophen 10-325 MG 01/15/2020 12:00:00 AM EST 1.0 {tablet_as_needed} active O xycodone-Acetaminophen 10-325 MG eCW1 ([facility]) Acetaminophen 325 MG / Oxycodone Hydroch loride 10 MG Oral Tablet Oxycodone- Acetaminophen 10-325 MG Oxycodone-Acetaminophen 10-325 MG 01/15/2020 12:00:00 AM EST 1.0 {tablet_as_needed} active O xycodone-Acetaminophen 10-325 MG eCW1 ([facility]) Acetaminophen 325 MG / Oxycodone Hydroch loride 10 MG Oral Tablet Oxycodone- Acetaminophen 10-325 MG Oxycodone-Acetaminophen 10-325 MG 01/15/2020 12:00:00 AM EST 1.0 {tablet_as_needed} active O xycodone-Acetaminophen 10-325 MG eCW1 ([facility]) Acetaminophen 325 MG / Oxycodone Hydroch loride 10 MG Oral Tablet Oxycodone- Acetaminophen 10-325 MG Oxycodone-Acetaminophen 10-325 MG 01/15/2020 12:00:00 AM EST 1.0 {tablet_as_needed} active O xycodone-Acetaminophen 10-325 MG eCW1 ([facility]) Morphine Sulfate 15 MG Extended Release Oral Tablet Mo rphine Sulfate ER 15 MG Morphine Sulfate ER 15 MG 01/15/2020 12:00:00 AM EST 1.0 {tablet} active Morphine Sulfate ER 15 MG eCW1 ( [facility]) 15 mg 01/06/2020 12:00:00 AM EDT tablet extended release 60 TAKE ONE TABLET BY MOUTH EVERY 12 HOURS MAXIMUM DAILY DOSE = 2 TABLETS TAKE ONE TABLET BY MOUTH EVERY 12 HOURS MAXIMUM DAILY DOSE = 2 TABLETS SOLD: 01/06/2020 [facility] 0.4 mg 12/21/2019 12:00:00 AM EDT capsule 30 TAKE ONE CAPSULE BY MOUTH EVERY DAY TAKE ONE CAPSULE BY MOUTH EVERY DAY SOLD: 12/21/2019 [facility] 0.4 mg 12/21/2019 12:00:00 AM EDT capsule 30 TAKE ONE CAPSULE BY MOUTH EVERY DAY TAKE ONE CAPSULE BY MOUTH EVERY DAY SOLD: 02/17/2020 [facility] 0.4 mg 12/21/2019 12:00:00 AM EDT capsule 30 TAKE ONE CAPSULE BY MOUTH EVERY DAY TAKE ONE CAPSULE BY MOUTH EVERY DAY SOLD: 01/19/2020 [facility] 0.4 mg 12/21/2019 12:00:00 AM EDT capsule 30 TAKE ONE CAPSULE BY MOUTH EVERY DAY TAKE ONE CAPSULE BY MOUTH EVERY DAY SOLD: 03/17/2020 [facility] 10-325 mg 12/21/2019 12:00:00 AM EDT tablet 120 TAKE ONE TABLET BY MOUTH EVERY 6 HOURS NEEDED MAXIMUM DAILY DOSE = 4 TABLETS TAKE ONE TABLET BY MOUTH EVERY 6 HOURS NEEDED MAXIMUM DAILY DOSE = 4 TABLETS SOLD: 12/21/2019 [facility] Acetaminophen 325 MG / Oxycodone Hydroch loride 10 MG Oral Tablet Oxycodone- Acetaminophen 10-325 MG Oxycodone-Acetaminophen 10-325 MG 12/12/2019 12:00:00 AM EDT 1.0 {tablet_as_needed} active O xycodone-Acetaminophen 10-325 MG eCW1 ([facility]) Morphine Sulfate 15 MG Extended Release Oral Tablet Mo rphine Sulfate ER 15 MG Morphine Sulfate ER 15 MG 12/12/2019 12:00:00 AM EDT 1.0 {tablet} active Morphine Sulfate ER 15 MG eCW1 ( [facility]) Morphine Sulfate 15 MG Extended Release Oral Tablet Mo rphine Sulfate ER 15 MG Morphine Sulfate ER 15 MG 12/12/2019 12:00:00 AM EDT 1.0 {tablet} active Morphine Sulfate ER 15 MG eCW1 ( [facility]) Acetaminophen 325 MG / Oxycodone Hydroch loride 10 MG Oral Tablet Oxycodone- Acetaminophen 10-325 MG Oxycodone-Acetaminophen 10-325 MG 12/12/2019 12:00:00 AM EDT 1.0 {tablet_as_needed} active O xycodone-Acetaminophen 10-325 MG eCW1 ([facility]) 15 mg 12/08/2019 12:00:00 AM EDT tablet extended release 60 TAKE ONE TABLET BY MOUTH EVERY 12 HOURS MAXIMUM DAILY DOSE = 2 TABLETS TAKE ONE TABLET BY MOUTH EVERY 12 HOURS MAXIMUM DAILY DOSE = 2 TABLETS SOLD: 12/08/2019 [facility] Morphine Sulfate 15 MG Extended Release Oral Tablet Mo rphine Sulfate ER 15 MG Morphine Sulfate ER 15 MG 12/07/2019 12:00:00 AM EDT 1.0 {tablet} active Morphine Sulfate ER 15 MG eCW1 ( [facility]) 20 mg 12/04/2019 12:00:00 AM EDT capsule,delayed release (DR/EC) 90 TAKE ONE CAPSULE BY MOUTH EVERY DAY TAKE ONE CAPSULE BY MOUTH EVERY DAY SOLD: 12/08/2019 [facility] 50 mg 11/27/2019 12:00:00 AM EDT tablet 270 TAKE ONE TABLET BY MOUTH THREE TIMES A DAY TAKE ONE TABLET BY MOUTH THREE TIMES A DAY SOLD: 11/30/2019 [facility] 10 mg 11/27/2019 12:00:00 AM EDT tablet 30 TAKE ONE TABLET BY MOUTH EVERY NIGHT MAXIMUM DAILY DOSE = 1 TABLET TAKE ONE TABLET BY MOUTH EVERY NIGHT MAX IMUM DAILY DOSE = 1 TABLET SOLD: 11/30/2019 [facility] 50 mg 11/27/2019 12:00:00 AM EDT tablet 270 TAKE ONE TABLET BY MOUTH THREE TIMES A DAY TAKE ONE TABLET BY MOUTH THREE TIMES A DAY SOLD: 03/05/2020 [facility] 10-325 mg 11/22/2019 12:00:00 AM EDT tablet 120 TAKE ONE TABLET BY MOUTH EVERY 6 HOURS NEEDED FOR PAIN MAXIMUM DAILY DOSE = 4 TABLETS TAKE ONE TABLET BY MOUTH EVERY 6 HOURS NEEDED FOR PAIN MAXIMUM DAILY DOSE = 4 TABLETS SOLD: 11/22/2019 [facility] 15 mg 11/08/2019 12:00:00 AM EDT tablet extended release 60 TAKE ONE TABLET BY MOUTH TWICE A DAY MAXIMUM DAILY DOSE = 2 TABLETS TAKE ONE TABLET BY MOUTH TWICE A DAY MAXIMUM DAILY DOSE = 2 TABLETS SOLD: 11/09/2019 [facility] 10-325 mg 10/24/2019 12:00:00 AM EDT tablet 120 TAKE ONE TABLET BY MOUTH EVERY 6 HOURS NEEDED MAXIMUM DAILY DOSE = 4 TABLETS TAKE ONE TABLET BY MOUTH EVERY 6 HOURS NEEDED MAXIMUM DAILY DOSE = 4 TABLETS SOLD: 10/24/2019 [facility] 15 mg 10/09/2019 12:00:00 AM EDT tablet extended release 60 TAKE ONE TABLET BY MOUTH EVERY 12 HOURS MAXIMUM DAILY DOSE = 2 TABLETS TAKE ONE TABLET BY MOUTH EVERY 12 HOURS MAXIMUM DAILY DOSE = 2 TABLETS SOLD: 10/10/2019 [facility] Acetaminophen 325 MG / Oxycodone Hydroch loride 10 MG Oral Tablet Oxycodone- Acetaminophen 10-325 MG Oxycodone-Acetaminophen 10-325 MG 09/27/2019 12:00:00 AM EDT 1.0 {tablet_as_needed} active O xycodone-Acetaminophen 10-325 MG eCW1 ([facility]) Acetaminophen 325 MG / Oxycodone Hydroch loride 10 MG Oral Tablet Oxycodone- Acetaminophen 10-325 MG Oxycodone-Acetaminophen 10-325 MG 09/27/2019 12:00:00 AM EDT 1.0 {tablet_as_needed} active O xycodone-Acetaminophen 10-325 MG eCW1 ([facility]) Morphine Sulfate 15 MG Extended Release Oral Tablet Mo rphine Sulfate ER 15 MG Morphine Sulfate ER 15 MG 09/27/2019 12:00:00 AM EDT 1.0 {tablet} active Morphine Sulfate ER 15 MG eCW1 ( [facility]) 5 mg 09/26/2019 12:00:00 AM EDT tablet 120 TAKE 1 TABLET BY MOUTH IN THE MORNING & 1 TABLET MIDDAY & 2 TABLETS AT BEDTIME TAKE 1 TABLET BY MOUTH IN THE MORNING & 1 TABLET MIDDAY & 2 TABLETS AT BEDTIME SOLD: 02/17/2020 [facility] 5 mg 09/26/2019 12:00:00 AM EDT tablet 120 TAKE 1 TABLET BY MOUTH IN THE MORNING & 1 TABLET MIDDAY & 2 TABLETS AT BEDTIME TAKE 1 TABLET BY MOUTH IN THE MORNING & 1 TABLET MIDDAY & 2 TABLETS AT BEDTIME SOLD: 03/17/2020 [facility] 5 mg 09/26/2019 12:00:00 AM EDT tablet 120 TAKE 1 TABLET BY MOUTH IN THE MORNING & 1 TABLET MIDDAY & 2 TABLETS AT BEDTIME TAKE 1 TABLET BY MOUTH IN THE MORNING & 1 TABLET MIDDAY & 2 TABLETS AT BEDTIME SOLD: 01/19/2020 [facility] 5 mg 09/26/2019 12:00:00 AM EDT tablet 120 TAKE 1 TABLET BY MOUTH IN THE MORNING & 1 TABLET MIDDAY & 2 TABLETS AT BEDTIME TAKE 1 TABLET BY MOUTH IN THE MORNING & 1 TABLET MIDDAY & 2 TABLETS AT BEDTIME SOLD: 12/08/2019 [facility] 5 mg 09/26/2019 12:00:00 AM EDT tablet 120 TAKE 1 TABLET BY MOUTH IN THE MORNING & 1 TABLET MIDDAY & 2 TABLETS AT BEDTIME TAKE 1 TABLET BY MOUTH IN THE MORNING & 1 TABLET MIDDAY & 2 TABLETS AT BEDTIME SOLD: 11/09/2019 [facility] 5 mg 09/26/2019 12:00:00 AM EDT tablet 120 TAKE 1 TABLET BY MOUTH IN THE MORNING & 1 TABLET MIDDAY & 2 TABLETS AT BEDTIME TAKE 1 TABLET BY MOUTH IN THE MORNING & 1 TABLET MIDDAY & 2 TABLETS AT BEDTIME SOLD: 10/09/2019 [facility] 10-325 mg 09/25/2019 12:00:00 AM EDT tablet 120 TAKE ONE TABLET BY MOUTH EVERY 6 HOURS NEEDED MAXIMUM DAILY DOSE = 4 TABLETS TAKE ONE TABLET BY MOUTH EVERY 6 HOURS NEEDED MAXIMUM DAILY DOSE = 4 TABLETS SOLD: 09/25/2019 [facility] 600 mg 09/25/2019 12:00:00 AM EDT tablet 90 TAKE ONE TABLET BY MOUTH THREE TIMES A DAY TAKE ONE TABLET BY MOUTH THREE TIMES A DAY SOLD: 11/22/2019 [facility] 600 mg 09/25/2019 12:00:00 AM EDT tablet 90 TAKE ONE TABLET BY MOUTH THREE TIMES A DAY TAKE ONE TABLET BY MOUTH THREE TIMES A DAY SOLD: 10/24/2019 [facility] 600 mg 09/25/2019 12:00:00 AM EDT tablet 90 TAKE ONE TABLET BY MOUTH THREE TIMES A DAY TAKE ONE TABLET BY MOUTH THREE TIMES A DAY SOLD: 12/21/2019 [facility] 600 mg 09/25/2019 12:00:00 AM EDT tablet 90 TAKE ONE TABLET BY MOUTH THREE TIMES A DAY TAKE ONE TABLET BY MOUTH THREE TIMES A DAY SOLD: 01/19/2020 [facility] 600 mg 09/25/2019 12:00:00 AM EDT tablet 90 TAKE ONE TABLET BY MOUTH THREE TIMES A DAY TAKE ONE TABLET BY MOUTH THREE TIMES A DAY SOLD: 02/17/2020 [facility] Acetaminophen 325 MG / Oxycodone Hydroch loride 10 MG Oral Tablet Oxycodone- Acetaminophen 10-325 MG Oxycodone-Acetaminophen 10-325 MG 09/25/2019 12:00:00 AM EDT 1.0 {tablet_as_needed} active O xycodone-Acetaminophen 10-325 MG eCW1 ([facility]) 600 mg 09/25/2019 12:00:00 AM EDT tablet 90 TAKE ONE TABLET BY MOUTH THREE TIMES A DAY TAKE ONE TABLET BY MOUTH THREE TIMES A DAY SOLD: 09/25/2019 [facility] 15 mg 09/04/2019 12:00:00 AM EDT tablet extended release 60 TAKE ONE TABLET BY MOUTH EVERY 12 HOURS MAXIMUM DAILY DOSE = 2 TABLETS TAKE ONE TABLET BY MOUTH EVERY 12 HOURS MAXIMUM DAILY DOSE = 2 TABLETS SOLD: 09/11/2019 [facility] 10-325 mg 08/27/2019 12:00:00 AM EDT tablet 120 TAKE ONE TABLET BY MOUTH EVERY 6 HOURS NEEDED MAXIMUM DAILY DOSE = 4 TAKE ONE TABLET BY MOUTH EVERY 6 HOURS NEEDED MAXIMUM DAILY DOSE = 4 SOLD: 08/27/2019 [facility] atorvastatin 20 MG Oral Tablet ATORVASTATIN CALCIUM 08/27/2019 1 2:00:00 AM EDT tablet 90 TAKE 1 TABLET BY MOUTH ONCE A DAY TAKE 1 TABLET BY MOUTH ONCE A DAY SOLD: 12/21/2019 [facility] atorvastatin 20 MG Oral Tablet ATORVASTATIN CALCIUM 08/27/2019 1 2:00:00 AM EDT tablet 90 TAKE 1 TABLET BY MOUTH ONCE A DAY TAKE 1 TABLET BY MOUTH ONCE A DAY SOLD: 09/11/2019 [facility] Acetaminophen 325 MG / Oxycodone Hydroch loride 10 MG Oral Tablet Oxycodone- Acetaminophen 10-325 MG Oxycodone-Acetaminophen 10-325 MG 08/13/2019 12:00:00 AM EDT 1.0 {tablet_as_needed} active O xycodone-Acetaminophen 10-325 MG eCW1 ([facility]) Morphine Sulfate 15 MG Extended Release Oral Tablet Mo rphine Sulfate ER 15 MG Morphine Sulfate ER 15 MG 08/13/2019 12:00:00 AM EDT 1.0 {tablet} active Morphine Sulfate ER 15 MG eCW1 ( [facility]) Morphine Sulfate 15 MG Extended Release Oral Tablet Mo rphine Sulfate ER 15 MG Morphine Sulfate ER 15 MG 08/13/2019 12:00:00 AM EDT 1.0 {tablet} active Morphine Sulfate ER 15 MG eCW1 ( [facility]) 15 mg 08/07/2019 12:00:00 AM EDT tablet extended release 60 TAKE 1 TABLET BY MOUTH EVERY 12 HOURS MAX DAILY DOSE = 2 TABLETS TAKE 1 TABLET BY MOUTH EVERY 12 HOURS MAX DAILY DOSE = 2 TABLETS SOLD: 08/08/2019 [facility] 100-25 mcg/dose 08/01/2019 12:00:00 AM EDT blister with kostas ce 60 INHALE ONE PUFF BY MOUTH EVERY DAY INHALE ONE PUFF BY MOUTH EVERY DAY SOLD: 11/09/2019 [facility] Morphine Sulfate 15 MG Extended Release Oral Tablet Mo rphine Sulfate ER 15 MG Morphine Sulfate ER 15 MG 08/01/2019 12:00:00 AM EDT active 1 tablet eCW1 ([facility]) 100-25 mcg/dose 08/01/2019 12:00:00 AM EDT blister with kostas ce 60 INHALE ONE PUFF BY MOUTH EVERY DAY INHALE ONE PUFF BY MOUTH EVERY DAY SOLD: 10/09/2019 [facility] Acetaminophen 325 MG / Oxycodone Hydroch loride 10 MG Oral Tablet Oxycodone- Acetaminophen 10-325 MG Oxycodone-Acetaminophen 10-325 MG 08/01/2019 12:00:00 AM EDT active 1 tablet as neede d eCW1 ([facility]) 100-25 mcg/dose 08/01/2019 12:00:00 AM EDT blister with kostas ce 60 INHALE ONE PUFF BY MOUTH EVERY DAY INHALE ONE PUFF BY MOUTH EVERY DAY SOLD: 09/11/2019 [facility] 100-25 mcg/dose 08/01/2019 12:00:00 AM EDT blister with kostas ce 60 INHALE ONE PUFF BY MOUTH EVERY DAY INHALE ONE PUFF BY MOUTH EVERY DAY SOLD: 12/08/2019 [facility] 100-25 mcg/dose 08/01/2019 12:00:00 AM EDT blister with kostas ce 60 INHALE ONE PUFF BY MOUTH EVERY DAY INHALE ONE PUFF BY MOUTH EVERY DAY SOLD: 01/19/2020 [facility] 100-25 mcg/dose 08/01/2019 12:00:00 AM EDT blister with kostas ce 60 INHALE ONE PUFF BY MOUTH EVERY DAY INHALE ONE PUFF BY MOUTH EVERY DAY SOLD: 08/08/2019 [facility] 10-325 mg 07/29/2019 12:00:00 AM EDT tablet 120 TAKE ONE TABLET BY MOUTH EVERY 6 HOURS NEEDED MAXIMUM DAILY DOSE = 4 TABLETS TAKE ONE TABLET BY MOUTH EVERY 6 HOURS NEEDED MAXIMUM DAILY DOSE = 4 TABLETS SOLD: 07/29/2019 [facility] Acetaminophen 325 MG / Oxycodone Hydroch loride 10 MG Oral Tablet Oxycodone- Acetaminophen 10-325 MG Oxycodone-Acetaminophen 10-325 MG 07/27/2019 12:00:00 AM EDT active 1 tablet as neede d eCW1 ([facility]) 10 mg 07/12/2019 12:00:00 AM EDT tablet 30 TAKE 1 TABLET BY MOUTH DAILY AT BEDTIME NEEDED MAX DAILY DOSE = 1 TABLET TAKE 1 TABLET BY MOUTH DAILY AT BEDTIME NEEDED MAX DAILY DOSE = 1 TABLET SOLD: 10/09/2019 [facility] 10 mg 07/12/2019 12:00:00 AM EDT tablet 30 TAKE 1 TABLET BY MOUTH DAILY AT BEDTIME NEEDED MAX DAILY DOSE = 1 TABLET TAKE 1 TABLET BY MOUTH DAILY AT BEDTIME NEEDED MAX DAILY DOSE = 1 TABLET SOLD: 01/03/2020 [facility] 10 mg 07/12/2019 12:00:00 AM EDT tablet 30 TAKE 1 TABLET BY MOUTH DAILY AT BEDTIME NEEDED MAX DAILY DOSE = 1 TABLET TAKE 1 TABLET BY MOUTH DAILY AT BEDTIME NEEDED MAX DAILY DOSE = 1 TABLET SOLD: 07/13/2019 [facility] 10 mg 07/12/2019 12:00:00 AM EDT tablet 30 TAKE 1 TABLET BY MOUTH DAILY AT BEDTIME NEEDED MAX DAILY DOSE = 1 TABLET TAKE 1 TABLET BY MOUTH DAILY AT BEDTIME NEEDED MAX DAILY DOSE = 1 TABLET SOLD: 08/26/2019 [facility] 15 mg 07/08/2019 12:00:00 AM EDT tablet extended release 60 TAKE ONE TABLET BY MOUTH EVERY 12 HOURS MAX 2TABS/DAY TAKE ONE TABLET BY MOUTH EVERY 12 HOURS MAX 2TABS/DAY SOLD: 07/09/2019 [facility] 10-325 mg 06/30/2019 12:00:00 AM EDT tablet 120 TAKE ONE TABLET BY MOUTH EVERY 6 HOURS NEEDED MAXIMUM DAILY DOSE = 4 TABLETS TAKE ONE TABLET BY MOUTH EVERY 6 HOURS NEEDED MAXIMUM DAILY DOSE = 4 TABLETS SOLD: 06/30/2019 [facility] Morphine Sulfate 15 MG Extended Release Oral Tablet Mo rphine Sulfate ER 15 MG Morphine Sulfate ER 15 MG 06/27/2019 12:00:00 AM EDT active 1 tablet eCW1 ([facility]) Morphine Sulfate 15 MG Extended Release Oral Tablet Mo rphine Sulfate ER 15 MG Morphine Sulfate ER 15 MG 06/27/2019 12:00:00 AM EDT active 1 tablet eCW1 ([facility]) Acetaminophen 325 MG / Oxycodone Hydroch loride 10 MG Oral Tablet Oxycodone- Acetaminophen 10-325 MG Oxycodone-Acetaminophen 10-325 MG 06/27/2019 12:00:00 AM EDT active 1 tablet as neede d eCW1 ([facility]) Acetaminophen 325 MG / Oxycodone Hydroch loride 10 MG Oral Tablet Oxycodone- Acetaminophen 10-325 MG Oxycodone-Acetaminophen 10-325 MG 06/27/2019 12:00:00 AM EDT active 1 tablet as neede d eCW1 ([facility]) 15 mg 06/11/2019 12:00:00 AM EDT tablet extended release 60 TAKE ONE TABLET BY MOUTH EVERY 12 HOURS. MAXIMUM DAILY DOSE = 2 TABLETS TAKE ONE TABLET BY MOUTH EVERY 12 HOURS. MAXIMUM DAILY DOSE = 2 TABLETS SOLD: 06/11/2019 [facility] 10-325 mg 06/01/2019 12:00:00 AM EDT tablet 120 TAKE ONE TABLET BY MOUTH EVERY 6 HOURS NEEDED. MAXIMUM DAILY DOSE = 4 TAKE ONE TABLET BY MOUTH EVERY 6 HOURS NEEDED. MAXIMUM DAILY DOSE = 4 SOLD: 06/01/2019 [facility] Acetaminophen 325 MG / Oxycodone Hydroch loride 10 MG Oral Tablet Oxycodone- Acetaminophen 10-325 MG Oxycodone-Acetaminophen 10-325 MG 05/30/2019 12:00:00 AM EDT active 1 tablet as neede d eCW1 ([facility]) Morphine Sulfate 15 MG Extended Release Oral Tablet Mo rphine Sulfate ER 15 MG Morphine Sulfate ER 15 MG 05/30/2019 12:00:00 AM EDT active 1 tablet eCW1 ([facility]) 25 mg 05/29/2019 12:00:00 AM EDT tablet 90 TAKE ONE TABLET BY MOUTH EVERY MORNING TAKE ONE TABLET BY MOUTH EVERY MORNING SOLD: 06/01/2019 [facility] 25 mg 05/29/2019 12:00:00 AM EDT tablet 90 TAKE ONE TABLET BY MOUTH EVERY MORNING TAKE ONE TABLET BY MOUTH EVERY MORNING SOLD: 09/11/2019 [facility] 25 mg 05/29/2019 12:00:00 AM EDT tablet 90 TAKE ONE TABLET BY MOUTH EVERY MORNING TAKE ONE TABLET BY MOUTH EVERY MORNING SOLD: 12/21/2019 [facility] 500 mg 05/21/2019 12:00:00 AM EDT tablet 180 TAKE 2 TABLETS BY MOUTH TWICE A DAY TAKE 2 TABLETS BY MOUTH TWICE A DAY SOLD: 09/11/2019 [facility] 500 mg 05/21/2019 12:00:00 AM EDT tablet 180 TAKE 2 TABLETS BY MOUTH TWICE A DAY TAKE 2 TABLETS BY MOUTH TWICE A DAY SOLD: 07/29/2019 [facility] 500 mg 05/21/2019 12:00:00 AM EDT tablet 180 TAKE 2 TABLETS BY MOUTH TWICE A DAY TAKE 2 TABLETS BY MOUTH TWICE A DAY SOLD: 06/01/2019 [facility] 15 mg 05/13/2019 12:00:00 AM EST tablet extended release 60 TAKE 1 TABLET BY MOUTH EVERY 12 HOURS MAX DAILY DOSE = 2 TABLETS TAKE 1 TABLET BY MOUTH EVERY 12 HOURS MAX DAILY DOSE = 2 TABLETS SOLD: 05/13/2019 [facility] meloxicam 7.5 MG Oral Tablet MELOXICAM 05/13/2019 12:00:00 AM EST tabl et 90 TAKE ONE TABLET BY MOUTH DAILY TAKE ONE TABLET BY MOUTH DAILY SOLD: 11/09/2019 [facility] 7.5 mg 05/13/2019 12:00:00 AM EST tablet 90 TAKE ONE TABLET BY MOUTH DAILY TAKE ONE TABLET BY MOUTH DAILY SOLD: 05/13/2019 [facility] 7.5 mg 05/13/2019 12:00:00 AM EST tablet 90 TAKE ONE TABLET BY MOUTH DAILY TAKE ONE TABLET BY MOUTH DAILY SOLD: 08/08/2019 [facility] 10 mg 05/12/2019 12:00:00 AM EST tablet 30 TAKE ONE TABLET BY MOUTH EVERY DAY AT BEDTIME NEEDED MAXIMUM DAILY DOSE = 10MG TAKE ONE TABLET BY MOUTH EVERY DAY AT BEDTIME NEEDED MAXIMUM DAILY DOSE = 10MG SOLD: 06/13/2019 [facility] 10 mg 05/12/2019 12:00:00 AM EST tablet 30 TAKE ONE TABLET BY MOUTH EVERY DAY AT BEDTIME NEEDED MAXIMUM DAILY DOSE = 10MG TAKE ONE TABLET BY MOUTH EVERY DAY AT BEDTIME NEEDED MAXIMUM DAILY DOSE = 10MG SOLD: 05/13/2019 [facility] 150 mg 05/08/2019 12:00:00 AM EST capsule,extended releas e 24hr 90 TAKE ONE CAPSULE BY MOUTH EVERY DAY WITH FOOD TAKE ONE CAPSULE BY MOUTH EVERY DAY WITH FOOD SOLD: 05/13/2019 [facility] 150 mg 05/08/2019 12:00:00 AM EST capsule,extended releas e 24hr 90 TAKE ONE CAPSULE BY MOUTH EVERY DAY WITH FOOD TAKE ONE CAPSULE BY MOUTH EVERY DAY WITH FOOD SOLD: 02/17/2020 [facility] 75 mg 05/08/2019 12:00:00 AM EST capsule,extended releas e 24hr 90 TAKE ONE CAPSULE BY MOUTH EVERY DAY TAKE ONE CAPSULE BY MOUTH EVERY DAY SOLD: 02/17/2020 [facility] 150 mg 05/08/2019 12:00:00 AM EST capsule,extended releas e 24hr 90 TAKE ONE CAPSULE BY MOUTH EVERY DAY WITH FOOD TAKE ONE CAPSULE BY MOUTH EVERY DAY WITH FOOD SOLD: 08/08/2019 [facility] 150 mg 05/08/2019 12:00:00 AM EST capsule,extended releas e 24hr 90 TAKE ONE CAPSULE BY MOUTH EVERY DAY WITH FOOD TAKE ONE CAPSULE BY MOUTH EVERY DAY WITH FOOD SOLD: 11/09/2019 [facility] 75 mg 05/08/2019 12:00:00 AM EST capsule,extended releas e 24hr 90 TAKE ONE CAPSULE BY MOUTH EVERY DAY TAKE ONE CAPSULE BY MOUTH EVERY DAY SOLD: 11/09/2019 [facility] 75 mg 05/08/2019 12:00:00 AM EST capsule,extended releas e 24hr 90 TAKE ONE CAPSULE BY MOUTH EVERY DAY TAKE ONE CAPSULE BY MOUTH EVERY DAY SOLD: 08/08/2019 [facility] 75 mg 05/08/2019 12:00:00 AM EST capsule,extended releas e 24hr 90 TAKE ONE CAPSULE BY MOUTH EVERY DAY TAKE ONE CAPSULE BY MOUTH EVERY DAY SOLD: 05/13/2019 [facility] 10-325 mg 05/03/2019 12:00:00 AM EST tablet 120 TAKE 1 TABLET BY MOUTH EVERY 6 HOURS NEEDED MAX DAILY DOSE = 4 TABLETS TAKE 1 TABLET BY MOUTH EVERY 6 HOURS NEEDED MAX DAILY DOSE = 4 TABLETS SOLD: 05/03/2019 [facility] 5 mg 05/02/2019 12:00:00 AM EST tablet 120 TAKE ONE TABLET BY MOUTH EVERY MORNING, 1 AT MIDDAY & 2 AT BEDTIME DAILY TAKE ONE TABLET BY MOUTH EVERY MORNING, 1 AT MIDDAY & 2 AT BEDTIME DAILY SOLD: 06/01/2019 [facility] 5 mg 05/02/2019 12:00:00 AM EST tablet 120 TAKE ONE TABLET BY MOUTH EVERY MORNING, 1 AT MIDDAY & 2 AT BEDTIME DAILY TAKE ONE TABLET BY MOUTH EVERY MORNING, 1 AT MIDDAY & 2 AT BEDTIME DAILY SOLD: 05/03/2019 [facility] 5 mg 05/02/2019 12:00:00 AM EST tablet 120 TAKE ONE TABLET BY MOUTH EVERY MORNING, 1 AT MIDDAY & 2 AT BEDTIME DAILY TAKE ONE TABLET BY MOUTH EVERY MORNING, 1 AT MIDDAY & 2 AT BEDTIME DAILY SOLD: 06/30/2019 [facility] Acetaminophen 325 MG / Oxycodone Hydroch loride 10 MG Oral Tablet Oxycodone- Acetaminophen 10-325 MG Oxycodone-Acetaminophen 10-325 MG 05/01/2019 12:00:00 AM EST active 1 tablet as neede d eCW1 ([facility]) Morphine Sulfate 15 MG Extended Release Oral Tablet Mo rphine Sulfate ER 15 MG Morphine Sulfate ER 15 MG 05/01/2019 12:00:00 AM EST active 1 tablet eCW1 ([facility]) Morphine Sulfate 15 MG Extended Release Oral Tablet Mo rphine Sulfate ER 15 MG Morphine Sulfate ER 15 MG 05/01/2019 12:00:00 AM EST active 1 tablet eCW1 ([facility]) Acetaminophen 325 MG / Oxycodone Hydroch loride 10 MG Oral Tablet Oxycodone- Acetaminophen 10-325 MG Oxycodone-Acetaminophen 10-325 MG 05/01/2019 12:00:00 AM EST active 1 tablet as neede d eCW1 ([facility]) 15 mg 04/12/2019 12:00:00 AM EST tablet extended release 60 TAKE ONE TABLET BY MOUTH EVERY 12 HOURS MAXIMUM DAILY DOSE = 2 TAKE ONE TABLET BY MOUTH EVERY 12 HOURS MAXIMUM DAILY DOSE = 2 SOLD: 04/14/2019 [facility] 10-325 mg 04/04/2019 12:00:00 AM EST tablet 120 TAKE ONE TABLET BY MOUTH EVERY 6 HOURS NEEDED MAXIMUM DAILY DOSE = 4 TABLETS TAKE ONE TABLET BY MOUTH EVERY 6 HOURS NEEDED MAXIMUM DAILY DOSE = 4 TABLETS SOLD: 04/04/2019 [facility] Acetaminophen 325 MG / Oxycodone Hydroch loride 10 MG Oral Tablet Oxycodone- Acetaminophen 10-325 MG Oxycodone-Acetaminophen 10-325 MG 04/03/2019 12:00:00 AM EST active 1 tablet as neede d eCW1 ([facility]) Morphine Sulfate 15 MG Extended Release Oral Tablet Mo rphine Sulfate ER 15 MG Morphine Sulfate ER 15 MG 04/03/2019 12:00:00 AM EST active 1 tablet eCW1 ([facility]) 50 mg 04/03/2019 12:00:00 AM EST tablet 270 TAKE 1 TABLET BY MOUTH EVERY 8 HOURS NEEDED TAKE 1 TABLET BY MOUTH EVERY 8 HOURS NEEDED SOLD: 020 [facility] 1,250 mcg (50,000 unit) 03/16/2019 12:00:00 AM EST capsule 12 TAKE 1 CAPSULE BY MOUTH EVERY WEEK TAKE 1 CAPSULE BY MOUTH EVERY WEEK SOLD: 06/30/2019 [facility] 1,250 mcg (50,000 unit) 03/16/2019 12:00:00 AM EST capsule 12 TAKE 1 CAPSULE BY MOUTH EVERY WEEK TAKE 1 CAPSULE BY MOUTH EVERY WEEK SOLD: 09/25/2019 [facility] 1,250 mcg (50,000 unit) 03/16/2019 12:00:00 AM EST capsule 12 TAKE 1 CAPSULE BY MOUTH EVERY WEEK TAKE 1 CAPSULE BY MOUTH EVERY WEEK SOLD: 04/10/2019 [facility] 1,250 mcg (50,000 unit) 03/16/2019 12:00:00 AM EST capsule 12 TAKE 1 CAPSULE BY MOUTH EVERY WEEK TAKE 1 CAPSULE BY MOUTH EVERY WEEK SOLD: 12/21/2019 [facility] 15 mg 03/15/2019 12:00:00 AM EST tablet extended release 60 TAKE ONE TABLET BY MOUTH EVERY 12 HOURS MAXIMUM DAILY DOSE = 2 TABLETS TAKE ONE TABLET BY MOUTH EVERY 12 HOURS MAXIMUM DAILY DOSE = 2 TABLETS SOLD: 03/15/2019 [facility] Ergocalciferol 12590 UNT Oral Capsule Ergocalciferol 1 .25 MG (74472 UT) Ergocalciferol 1.25 MG (85174 UT) 03/14/2019 12:00:00 AM EST 1.0 {c apsule} active Ergocalciferol 1.25 MG (5 0000 UT) eCW1 ([facility]) Oxygen UNK 03/14/2019 12:00:00 AM EST active Oxygen eCW1 ([facility]) Ergocalciferol 31101 UNT Oral Capsule Ergocalciferol 1 .25 MG (19341 UT) Ergocalciferol 1.25 MG (64629 UT) 03/14/2019 12:00:00 AM EST 1.0 {c apsule} active Ergocalciferol 1.25 MG (5 0000 UT) eCW1 ([facility]) Oxygen UNK 03/14/2019 12:00:00 AM EST active Oxygen eCW1 ([facility]) Ergocalciferol 34605 UNT Oral Capsule Ergocalciferol 1 .25 MG (16016 UT) Ergocalciferol 1.25 MG (61622 UT) 03/14/2019 12:00:00 AM EST 1.0 {c apsule} active Ergocalciferol 1.25 MG (5 0000 UT) eCW1 ([facility]) Oxygen UNK 03/14/2019 12:00:00 AM EST active Oxygen eCW1 ([facility]) Oxygen UNK 03/14/2019 12:00:00 AM EST active Oxygen eCW1 ([facility]) Oxygen UNK 03/14/2019 12:00:00 AM EST active Oxygen eCW1 ([facility]) Oxygen UNK 03/14/2019 12:00:00 AM EST active as directed eCW1 ([facility]) Ergocalciferol 80020 UNT Oral Capsule Ergocalciferol 1 .25 MG (43276 UT) Ergocalciferol 1.25 MG (30641 UT) 03/14/2019 12:00:00 AM EST 1.0 {c apsule} active Ergocalciferol 1.25 MG (5 0000 UT) eCW1 ([facility]) Oxygen UNK 03/14/2019 12:00:00 AM EST active Oxygen eCW1 ([facility]) Oxygen UNK 03/14/2019 12:00:00 AM EST active Oxygen eCW1 ([facility]) Oxygen UNK 03/14/2019 12:00:00 AM EST active Oxygen eCW1 ([facility]) Ergocalciferol 89041 UNT Oral Capsule Ergocalciferol 1 .25 MG (53015 UT) Ergocalciferol 1.25 MG (24905 UT) 03/14/2019 12:00:00 AM EST 1.0 {c apsule} active Ergocalciferol 1.25 MG (5 0000 UT) eCW1 ([facility]) Ergocalciferol 25404 UNT Oral Capsule Ergocalciferol 1 .25 MG (07574 UT) Ergocalciferol 1.25 MG (69218 UT) 03/14/2019 12:00:00 AM EST 1.0 {c apsule} active Ergocalciferol 1.25 MG (5 0000 UT) eCW1 ([facility]) Ergocalciferol 64818 UNT Oral Capsule Ergocalciferol 1 .25 MG (48814 UT) Ergocalciferol 1.25 MG (08816 UT) 03/14/2019 12:00:00 AM EST active 1 capsule eCW1 ([facility]) Ergocalciferol 47056 UNT Oral Capsule Ergocalciferol 1 .25 MG (35100 UT) Ergocalciferol 1.25 MG (36668 UT) 03/14/2019 12:00:00 AM EST 1.0 {c apsule} active Ergocalciferol 1.25 MG (5 0000 UT) eCW1 ([facility]) Oxygen UNK 03/14/2019 12:00:00 AM EST active Oxygen eCW1 ([facility]) Oxygen UNK 03/14/2019 12:00:00 AM EST active Oxygen eCW1 ([facility]) Oxygen UNK 03/14/2019 12:00:00 AM EST active Oxygen eCW1 ([facility]) Ergocalciferol 36924 UNT Oral Capsule Ergocalciferol 1 .25 MG (39060 UT) Ergocalciferol 1.25 MG (77150 UT) 03/14/2019 12:00:00 AM EST 1.0 {c apsule} active Ergocalciferol 1.25 MG (5 0000 UT) eCW1 ([facility]) Ergocalciferol 21938 UNT Oral Capsule Ergocalciferol 1 .25 MG (01315 UT) Ergocalciferol 1.25 MG (00244 UT) 03/14/2019 12:00:00 AM EST active 1 capsule eCW1 ([facility]) Oxygen UNK 03/14/2019 12:00:00 AM EST active Oxygen eCW1 ([facility]) Oxygen UNK 03/14/2019 12:00:00 AM EST active Oxygen eCW1 ([facility]) Ergocalciferol 92536 UNT Oral Capsule Ergocalciferol 1 .25 MG (84465 UT) Ergocalciferol 1.25 MG (96290 UT) 03/14/2019 12:00:00 AM EST 1.0 {c apsule} active Ergocalciferol 1.25 MG (5 0000 UT) eCW1 ([facility]) Ergocalciferol 42803 UNT Oral Capsule Ergocalciferol 1 .25 MG (64080 UT) Ergocalciferol 1.25 MG (37983 UT) 03/14/2019 12:00:00 AM EST 1.0 {c apsule} active Ergocalciferol 1.25 MG (5 0000 UT) eCW1 ([facility]) Ergocalciferol 70660 UNT Oral Capsule Ergocalciferol 1 .25 MG (79389 UT) Ergocalciferol 1.25 MG (25477 UT) 03/14/2019 12:00:00 AM EST 1.0 {c apsule} active Ergocalciferol 1.25 MG (5 0000 UT) eCW1 ([facility]) Oxygen UNK 03/14/2019 12:00:00 AM EST active Oxygen eCW1 ([facility]) Oxygen UNK 03/14/2019 12:00:00 AM EST active Oxygen eCW1 ([facility]) Ergocalciferol 71206 UNT Oral Capsule Ergocalciferol 1 .25 MG (36329 UT) Ergocalciferol 1.25 MG (49140 UT) 03/14/2019 12:00:00 AM EST 1.0 {c apsule} active Ergocalciferol 1.25 MG (5 0000 UT) eCW1 ([facility]) Ergocalciferol 32259 UNT Oral Capsule Ergocalciferol 1 .25 MG (47118 UT) Ergocalciferol 1.25 MG (95388 UT) 03/14/2019 12:00:00 AM EST 1.0 {c apsule} active Ergocalciferol 1.25 MG (5 0000 UT) eCW1 ([facility]) Oxygen UNK 03/14/2019 12:00:00 AM EST active Oxygen eCW1 ([facility]) Oxygen UNK 03/14/2019 12:00:00 AM EST active Oxygen eCW1 ([facility]) Ergocalciferol 61180 UNT Oral Capsule Ergocalciferol 1 .25 MG (06186 UT) Ergocalciferol 1.25 MG (58842 UT) 03/14/2019 12:00:00 AM EST 1.0 {c apsule} active Ergocalciferol 1.25 MG (5 0000 UT) eCW1 ([facility]) Oxygen UNK 03/14/2019 12:00:00 AM EST active as directed eCW1 ([facility]) Ergocalciferol 78313 UNT Oral Capsule Ergocalciferol 1 .25 MG (95238 UT) Ergocalciferol 1.25 MG (10996 UT) 03/14/2019 12:00:00 AM EST 1.0 {c apsule} active Ergocalciferol 1.25 MG (5 0000 UT) eCW1 ([facility]) Ergocalciferol 40134 UNT Oral Capsule Ergocalciferol 1 .25 MG (50964 UT) Ergocalciferol 1.25 MG (06642 UT) 03/14/2019 12:00:00 AM EST active 1 capsule eCW1 ([facility]) Ergocalciferol 67385 UNT Oral Capsule Ergocalciferol 1 .25 MG (19952 UT) Ergocalciferol 1.25 MG (57579 UT) 03/14/2019 12:00:00 AM EST active 1 capsule eCW1 ([facility]) Ergocalciferol 11238 UNT Oral Capsule Ergocalciferol 1 .25 MG (57953 UT) Ergocalciferol 1.25 MG (31412 UT) 03/14/2019 12:00:00 AM EST 1.0 {c apsule} active Ergocalciferol 1.25 MG (5 0000 UT) eCW1 ([facility]) Oxygen UNK 03/14/2019 12:00:00 AM EST active Oxygen eCW1 ([facility]) Oxygen UNK 03/14/2019 12:00:00 AM EST active Oxygen eCW1 ([facility]) Oxygen UNK 03/14/2019 12:00:00 AM EST active Oxygen eCW1 ([facility]) Ergocalciferol 75654 UNT Oral Capsule Ergocalciferol 1 .25 MG (52716 UT) Ergocalciferol 1.25 MG (31827 UT) 03/14/2019 12:00:00 AM EST 1.0 {c apsule} active Ergocalciferol 1.25 MG (5 0000 UT) eCW1 ([facility]) Oxygen UNK 03/14/2019 12:00:00 AM EST active Oxygen eCW1 ([facility]) Ergocalciferol 57871 UNT Oral Capsule Ergocalciferol 1 .25 MG (81767 UT) Ergocalciferol 1.25 MG (26463 UT) 03/14/2019 12:00:00 AM EST 1.0 {c apsule} active Ergocalciferol 1.25 MG (5 0000 UT) eCW1 ([facility]) Ergocalciferol 00871 UNT Oral Capsule Ergocalciferol 1 .25 MG (59879 UT) Ergocalciferol 1.25 MG (43907 UT) 03/14/2019 12:00:00 AM EST 1.0 {c apsule} active Ergocalciferol 1.25 MG (5 0000 UT) eCW1 ([facility]) Oxygen UNK 03/14/2019 12:00:00 AM EST active Oxygen eCW1 ([facility]) Ergocalciferol 87640 UNT Oral Capsule Ergocalciferol 1 .25 MG (23902 UT) Ergocalciferol 1.25 MG (38776 UT) 03/14/2019 12:00:00 AM EST 1.0 {c apsule} active Ergocalciferol 1.25 MG (5 0000 UT) W1 ([facility]) Ergocalciferol 27742 UNT Oral Capsule Ergocalciferol 1 .25 MG (60847 UT) Ergocalciferol 1.25 MG (36032 UT) 03/14/2019 12:00:00 AM EST 1.0 {c apsule} active Ergocalciferol 1.25 MG (5 0000 UT) [facility] ([facility]) Oxygen UNK 03/14/2019 12:00:00 AM EST active as directed eCW1 ([facility]) 10-325 mg 03/05/2019 12:00:00 AM EST tablet 120 TAKE ONE TABLET BY MOUTH EVERY 6 HOURS NEEDED MAX 4TABS/DAY TAKE ONE TABLET BY MOUTH EVERY 6 HOURS A S NEEDED MAX 4TABS/DAY SOLD: 03/05/2019 [facility] 600 mg 02/26/2019 12:00:00 AM EST tablet 90 TAKE 1 TABLET BY MOUTH 3 TIMES A DAY MAXIMUM DAILY DOSE = 3 TABLETS TAKE 1 TABLET BY MOUTH 3 TIMES A DAY MAX IMUM DAILY DOSE = 3 TABLETS SOLD: 07/09/2019 [facility] 600 mg 02/26/2019 12:00:00 AM EST tablet 90 TAKE 1 TABLET BY MOUTH 3 TIMES A DAY MAXIMUM DAILY DOSE = 3 TABLETS TAKE 1 TABLET BY MOUTH 3 TIMES A DAY MAX IMUM DAILY DOSE = 3 TABLETS SOLD: 05/13/2019 [facility] 600 mg 02/26/2019 12:00:00 AM EST tablet 90 TAKE 1 TABLET BY MOUTH 3 TIMES A DAY MAXIMUM DAILY DOSE = 3 TABLETS TAKE 1 TABLET BY MOUTH 3 TIMES A DAY MAX IMUM DAILY DOSE = 3 TABLETS SOLD: 06/11/2019 [facility] Morphine Sulfate 15 MG Extended Release Oral Tablet Mo rphine Sulfate ER 15 MG Morphine Sulfate ER 15 MG 02/26/2019 12:00:00 AM EST active 1 tablet eCW1 ([facility]) 600 mg 02/26/2019 12:00:00 AM EST tablet 90 TAKE 1 TABLET BY MOUTH 3 TIMES A DAY MAXIMUM DAILY DOSE = 3 TABLETS TAKE 1 TABLET BY MOUTH 3 TIMES A DAY MAX IMUM DAILY DOSE = 3 TABLETS SOLD: 03/01/2019 [facility] Morphine Sulfate 15 MG Extended Release Oral Tablet Mo rphine Sulfate ER 15 MG Morphine Sulfate ER 15 MG 02/26/2019 12:00:00 AM EST active 1 tablet eCW1 ([facility]) 600 mg 02/26/2019 12:00:00 AM EST tablet 90 TAKE 1 TABLET BY MOUTH 3 TIMES A DAY MAXIMUM DAILY DOSE = 3 TABLETS TAKE 1 TABLET BY MOUTH 3 TIMES A DAY MAX IMUM DAILY DOSE = 3 TABLETS SOLD: 04/10/2019 [facility] Acetaminophen 325 MG / Oxycodone Hydroch loride 10 MG Oral Tablet Oxycodone- Acetaminophen 10-325 MG Oxycodone-Acetaminophen 10-325 MG 02/26/2019 12:00:00 AM EST active 1 tablet as neede d eCW1 ([facility]) 600 mg 02/26/2019 12:00:00 AM EST tablet 90 TAKE 1 TABLET BY MOUTH 3 TIMES A DAY MAXIMUM DAILY DOSE = 3 TABLETS TAKE 1 TABLET BY MOUTH 3 TIMES A DAY MAX IMUM DAILY DOSE = 3 TABLETS SOLD: 08/08/2019 [facility] Acetaminophen 325 MG / Oxycodone Hydroch loride 10 MG Oral Tablet Oxycodone- Acetaminophen 10-325 MG Oxycodone-Acetaminophen 10-325 MG 02/26/2019 12:00:00 AM EST active 1 tablet as neede d eCW1 ([facility]) atorvastatin 20 MG Oral Tablet ATORVASTATIN CALCIUM 02/15/2019 1 2:00:00 AM EST tablet 90 TAKE 1 TABLET BY MOUTH ONCE A DAY TAKE 1 TABLET BY MOUTH ONCE A DAY SOLD: 03/01/2019 [facility] atorvastatin 20 MG Oral Tablet ATORVASTATIN CALCIUM 02/15/2019 1 2:00:00 AM EST tablet 90 TAKE 1 TABLET BY MOUTH ONCE A DAY TAKE 1 TABLET BY MOUTH ONCE A DAY SOLD: 06/01/2019 [facility] 15 mg 02/13/2019 12:00:00 AM EST tablet extended release 60 TAKE ONE TABLET BY MOUTH EVERY 12 HOURS MAXIMUM DAILY DOSE = 2 TABLETS TAKE ONE TABLET BY MOUTH EVERY 12 HOURS MAXIMUM DAILY DOSE = 2 TABLETS SOLD: 02/13/2019 [facility] 15 mg 02/07/2019 12:00:00 AM EST tablet extended release 24hr 30 TAKE ONE TABLET BY MOUTH EVERY DAY TAKE ONE TABLET BY MOUTH EVERY DAY SOLD: 10/09/2019 [facility] 15 mg 02/07/2019 12:00:00 AM EST tablet extended release 24hr 30 TAKE ONE TABLET BY MOUTH EVERY DAY TAKE ONE TABLET BY MOUTH EVERY DAY SOLD: 04/14/2019 [facility] 15 mg 02/07/2019 12:00:00 AM EST tablet extended release 24hr 30 TAKE ONE TABLET BY MOUTH EVERY DAY TAKE ONE TABLET BY MOUTH EVERY DAY SOLD: 07/09/2019 [facility] 15 mg 02/07/2019 12:00:00 AM EST tablet extended release 24hr 30 TAKE ONE TABLET BY MOUTH EVERY DAY TAKE ONE TABLET BY MOUTH EVERY DAY SOLD: 05/13/2019 [facility] 15 mg 02/07/2019 12:00:00 AM EST tablet extended release 24hr 30 TAKE ONE TABLET BY MOUTH EVERY DAY TAKE ONE TABLET BY MOUTH EVERY DAY SOLD: 06/11/2019 [facility] 15 mg 02/07/2019 12:00:00 AM EST tablet extended release 24hr 30 TAKE ONE TABLET BY MOUTH EVERY DAY TAKE ONE TABLET BY MOUTH EVERY DAY SOLD: 02/09/2019 [facility] 15 mg 02/07/2019 12:00:00 AM EST tablet extended release 24hr 30 TAKE ONE TABLET BY MOUTH EVERY DAY TAKE ONE TABLET BY MOUTH EVERY DAY SOLD: 08/08/2019 [facility] 15 mg 02/07/2019 12:00:00 AM EST tablet extended release 24hr 30 TAKE ONE TABLET BY MOUTH EVERY DAY TAKE ONE TABLET BY MOUTH EVERY DAY SOLD: 12/08/2019 [facility] 15 mg 02/07/2019 12:00:00 AM EST tablet extended release 24hr 30 TAKE ONE TABLET BY MOUTH EVERY DAY TAKE ONE TABLET BY MOUTH EVERY DAY SOLD: 09/11/2019 [facility] 15 mg 02/07/2019 12:00:00 AM EST tablet extended release 24hr 30 TAKE ONE TABLET BY MOUTH EVERY DAY TAKE ONE TABLET BY MOUTH EVERY DAY SOLD: 03/15/2019 [facility] 15 mg 02/07/2019 12:00:00 AM EST tablet extended release 24hr 30 TAKE ONE TABLET BY MOUTH EVERY DAY TAKE ONE TABLET BY MOUTH EVERY DAY SOLD: 01/19/2020 [facility] 15 mg 02/07/2019 12:00:00 AM EST tablet extended release 24hr 30 TAKE ONE TABLET BY MOUTH EVERY DAY TAKE ONE TABLET BY MOUTH EVERY DAY SOLD: 11/09/2019 [facility] 10-325 mg 02/04/2019 12:00:00 AM EST tablet 120 TAKE ONE TABLET BY MOUTH EVERY 6 HOURS NEEDED MAXIMUM DAILY DOSE = 4 TABLETS TAKE ONE TABLET BY MOUTH EVERY 6 HOURS NEEDED MAXIMUM DAILY DOSE = 4 TABLETS SOLD: 02/04/2019 [facility] 10 mg 01/31/2019 12:00:00 AM EST tablet 30 TAKE ONE TABLET BY MOUTH AT BEDTIME NEEDED MAXIMUM DAILY DOSE = 1 TABLET TAKE ONE TABLET BY MOUTH AT BEDTIME NEEDED MAXIMUM DAILY DOSE = 1 TABLET SOLD: 03/15/2019 [facility] Morphine Sulfate 15 MG Extended Release Oral Tablet Mo rphine Sulfate ER 15 MG Morphine Sulfate ER 15 MG 01/31/2019 12:00:00 AM EST active 1 tablet eCW1 ([facility]) Acetaminophen 325 MG / Oxycodone Hydroch loride 10 MG Oral Tablet Oxycodone- Acetaminophen 10-325 MG Oxycodone-Acetaminophen 10-325 MG 01/31/2019 12:00:00 AM EST active 1 tablet as neede d eCW1 ([facility]) 10 mg 01/31/2019 12:00:00 AM EST tablet 30 TAKE ONE TABLET BY MOUTH AT BEDTIME NEEDED MAXIMUM DAILY DOSE = 1 TABLET TAKE ONE TABLET BY MOUTH AT BEDTIME NEEDED MAXIMUM DAILY DOSE = 1 TABLET SOLD: 01/31/2019 [facility] 10 mg 01/31/2019 12:00:00 AM EST tablet 30 TAKE ONE TABLET BY MOUTH AT BEDTIME NEEDED MAXIMUM DAILY DOSE = 1 TABLET TAKE ONE TABLET BY MOUTH AT BEDTIME NEEDED MAXIMUM DAILY DOSE = 1 TABLET SOLD: 04/14/2019 [facility] 300 mg 01/30/2019 12:00:00 AM EST capsule 90 TAKE ONE CAPSULE BY MOUTH THREE TIMES A DAY FOR PAIN TAKE ONE CAPSULE BY MOUTH THREE TIMES A DAY FOR PAIN S OLD: 02/04/2019 [facility] 5 mg 01/30/2019 12:00:00 AM EST tablet 120 TAKE ONE TABLET BY MOUTH EVERY MORNING 1 AT MIDDAY TAKE TWO TABLETS BY MOUTH AT BEDTIME TAKE ONE TABLET BY MOUTH EVERY MORNING 1 AT MIDDAY TAKE TWO TABLETS BY MOUTH AT BEDTIME SOLD: 02/09/2019 [facility] 5 mg 01/30/2019 12:00:00 AM EST tablet 120 TAKE ONE TABLET BY MOUTH EVERY MORNING 1 AT MIDDAY TAKE TWO TABLETS BY MOUTH AT BEDTIME TAKE ONE TABLET BY MOUTH EVERY MORNING 1 AT MIDDAY TAKE TWO TABLETS BY MOUTH AT BEDTIME SOLD: 04/10/2019 [facility] 500 mg 12/01/2018 12:00:00 AM EDT tablet 180 TAKE TWO TABLETS BY MOUTH TWICE A DAY TAKE TWO TABLETS BY MOUTH TWICE A DAY SOLD: 04/10/2019 [facility] 500 mg 12/01/2018 12:00:00 AM EDT tablet 180 TAKE TWO TABLETS BY MOUTH TWICE A DAY TAKE TWO TABLETS BY MOUTH TWICE A DAY SOLD: 02/09/2019 [facility] 5 mg 12/01/2018 12:00:00 AM EDT tablet 120 TAKE 1 TABLET BY MOUTH EVERY A.M.1 AT MIDDAY TAKE 2 TABLETS BY MOUTH AT BEDTIME TAKE 1 TABLET BY MOUTH EVERY A.M.1 AT MIDDAY TAKE 2 TABLETS BY MOUTH AT BEDTIME SOLD: 03/15/2019 [facility] 75 mg 11/07/2018 12:00:00 AM EDT capsule,extended releas e 24hr 30 TAKE ONE CAPSULE BY MOUTH ONCE A DAY TAKE ONE CAPSULE BY MOUTH ONCE A DAY SOLD: 02/09/2019 [facility] 75 mg 11/07/2018 12:00:00 AM EDT capsule,extended releas e 24hr 30 TAKE ONE CAPSULE BY MOUTH ONCE A DAY TAKE ONE CAPSULE BY MOUTH ONCE A DAY SOLD: 03/15/2019 [facility] 75 mg 11/07/2018 12:00:00 AM EDT capsule,extended releas e 24hr 30 TAKE ONE CAPSULE BY MOUTH ONCE A DAY TAKE ONE CAPSULE BY MOUTH ONCE A DAY SOLD: 04/14/2019 [facility] 7.5 mg 11/06/2018 12:00:00 AM EDT tablet 30 TAKE ONE TABLET BY MOUTH DAILY TAKE ONE TABLET BY MOUTH DAILY SOLD: 02/09/2019 [facility] 7.5 mg 11/06/2018 12:00:00 AM EDT tablet 30 TAKE ONE TABLET BY MOUTH DAILY TAKE ONE TABLET BY MOUTH DAILY SOLD: 03/15/2019 [facility] 7.5 mg 11/06/2018 12:00:00 AM EDT tablet 30 TAKE ONE TABLET BY MOUTH DAILY TAKE ONE TABLET BY MOUTH DAILY SOLD: 04/14/2019 [facility] 150 mg 10/12/2018 12:00:00 AM EDT capsule,extended releas e 24hr 30 TAKE ONE CAPSULE BY MOUTH ONCE A DAY WITH FOOD TAKE ONE CAPSULE BY MOUTH ONCE A DAY WIT H FOOD SOLD: 03/15/2019 [facility] 150 mg 10/12/2018 12:00:00 AM EDT capsule,extended releas e 24hr 30 TAKE ONE CAPSULE BY MOUTH ONCE A DAY WITH FOOD TAKE ONE CAPSULE BY MOUTH ONCE A DAY WIT H FOOD SOLD: 02/13/2019 [facility] 0.4 mg 10/05/2018 12:00:00 AM EDT capsule 30 TAKE ONE CAPSULE BY MOUTH ONCE A DAY TAKE ONE CAPSULE BY MOUTH ONCE A DAY SOLD: 05/13/2019 [facility] 0.4 mg 10/05/2018 12:00:00 AM EDT capsule 30 TAKE ONE CAPSULE BY MOUTH ONCE A DAY TAKE ONE CAPSULE BY MOUTH ONCE A DAY SOLD: 09/11/2019 [facility] 0.4 mg 10/05/2018 12:00:00 AM EDT capsule 30 TAKE ONE CAPSULE BY MOUTH ONCE A DAY TAKE ONE CAPSULE BY MOUTH ONCE A DAY SOLD: 08/08/2019 [facility] 0.4 mg 10/05/2018 12:00:00 AM EDT capsule 30 TAKE ONE CAPSULE BY MOUTH ONCE A DAY TAKE ONE CAPSULE BY MOUTH ONCE A DAY SOLD: 04/14/2019 [facility] 0.4 mg 10/05/2018 12:00:00 AM EDT capsule 30 TAKE ONE CAPSULE BY MOUTH ONCE A DAY TAKE ONE CAPSULE BY MOUTH ONCE A DAY SOLD: 06/11/2019 [facility] 0.4 mg 10/05/2018 12:00:00 AM EDT capsule 30 TAKE ONE CAPSULE BY MOUTH ONCE A DAY TAKE ONE CAPSULE BY MOUTH ONCE A DAY SOLD: 02/09/2019 [facility] 0.4 mg 10/05/2018 12:00:00 AM EDT capsule 30 TAKE ONE CAPSULE BY MOUTH ONCE A DAY TAKE ONE CAPSULE BY MOUTH ONCE A DAY SOLD: 07/09/2019 [facility] 0.4 mg 10/05/2018 12:00:00 AM EDT capsule 30 TAKE ONE CAPSULE BY MOUTH ONCE A DAY TAKE ONE CAPSULE BY MOUTH ONCE A DAY SOLD: 03/15/2019 [facility] 25 mg 09/08/2018 12:00:00 AM EDT tablet 90 TAKE 1 TABLET BY MOUTH EVERY MORNING TAKE 1 TABLET BY MOUTH EVERY MORNING SOLD: 03/05/2019 [facility] 100-25 mcg/dose 09/08/2018 12:00:00 AM EDT blister with kostas ce 60 INHALE 1 PUFF BY MOUTH ONCE DAILY INHALE 1 PUFF BY MOUTH ONCE DAILY SOLD: 04/10/2019 [facility] Insurance Providers Payer name Policy type / Coverage type Policy ID Covered democrat ID Covered democrat's relationship to [place] Policy [place] Plan Information MEDICARE BLUE PPO 306 [id number] SP [id number] EXCELLUS BCBS B [id number] S VYM [id number] MEDICARE BLUE PPO [id number] SP [id number] MEDICARE [id number] SP [id number] A MEDICARE C [id number] S [id number] A EXCELLUS BCBS B [id number] S [id number] [id number] MEDICARE BLUE PPO 306 [id number] SP [id number] ANSI-Medicare Part B [id number] ANSI-Medicaid [id number] ANSI-Medicare Part B [id number] ANSI-Medicaid [id number] ANSI-Medicare Part B [id number] ANSI-Medicare Part B [id number] MEDICARE BLUE PPO 306 [id number] SP [id number] ANSI-Medicare Part B [id number] ANSI-Medicaid [id number] ANSI-Medicare Part B [id number] ANSI-Medicaid [id number] ANSI-Medicare Part B [id number] ANSI-Medicare Part B [id number] ANSI-Medicare Part B [id number] ANSI-Medicare Part B [id number] ANSI-Medicaid [id number] ANSI-Medicare Part B [id number] ANSI-Medicare Part B [id number] ANSI-Medicaid [id number] ANSI-Medicaid [id number] ANSI-Medicare Part B [id number] ANSI-Medicare Part B [id number] ANSI-Medicare Part B [id number] ANSI-Medicaid [id number] ANSI-Medicare Part B [id number] ANSI-Medicare Part B [id number] ANSI-Medicaid [id number] ANSI-Medicare Part B [id number] ANSI-Medicare Part B [id number] ANSI-Medicare Part B [id number] ANSI-Medicaid [id number] ANSI-Medicare Part B [id number] ANSI-Medicaid [id number] ANSI-Medicare Part B [id number] ANSI-Medicare Part B [id number] ANSI-Medicaid [id number] ANSI-Medicare Part B [id number] ANSI-Medicaid [id number] ANSI-Medicare Part B [id number] ANSI-Medicare Part B [id number] ANSI-Medicare Part B [id number] ANSI-Medicare Part B [id number] ANSI-Medicaid [id number] ANSI-Medicare Part B [id number] ANSI-Medicare Part B [id number] ANSI-Medicaid [id number] ANSI-Medicare Part B [id number] ANSI-Medicare Part B [id number] ANSI-Medicaid [id number] ANSI-Medicaid [id number] ANSI-Medicare Part B [id number] ANSI-Medicare Part B [id number] ANSI-Medicare Part B [id number] ANSI-Medicaid [id number] ANSI-Medicare Part B [id number] ANSI-Medicare Part B [id number] ANSI-Medicaid [id number] ANSI-Medicare Part B [id number] ANSI-Medicare Part B [id number] ANSI-Medicare Part B [id number] ANSI-Medicaid [id number] [facility] MEDICARE BLUE PPO G [id number] Self [id number] ANSI-Medicare Part B [id number] ANSI-Medicare Part B [id number] ANSI-Medicaid [id number] ANSI-Medicare Part B [id number] ANSI-Medicaid [id number] ANSI-Medicare Part B [id number] ANSI-Medicaid [id number] ANSI-Medicare Part B [id number] ANSI-Medicare Part B [id number] ANSI-Medicaid [id number] ANSI-Medicare Part B [id number] ANSI-Medicare Part B [id number] ANSI-Medicare Part B [id number] ANSI-Medicare Part B [id number] ANSI-Medicaid [id number] ANSI-Medicaid [id number] ANSI-Medicare Part B [id number] ANSI-Medicare Part B [id number] ANSI-Medicare Part B [id number] ANSI-Medicare Part B [id number] ANSI-Medicaid [id number] ANSI-Medicare Part B [id number] ANSI-Medicare Part B [id number] ANSI-Medicaid [id number] ANSI-Medicare Part B [id number] ANSI-Medicaid [id number] ANSI-Medicare Part B [id number] ANSI-Medicaid [id number] ANSI-Medicare Part B [id number] ANSI-Medicare Part B [id number] ANSI-Medicare Part B [id number] ANSI-Medicaid [id number] ANSI-Medicare Part B [id number] ANSI-Medicare Part B [id number] ANSI-Medicaid [id number] ANSI-Medicare Part B [id number] ANSI-Medicare Part B [id number] ANSI-Medicaid [id number] ANSI-Medicare Part B [id number] ANS-Medicaid [id number] ANSI-Medicare Part B [id number] ANSI-Medicare Part B [id number] ANSI-Medicare Part B [id number] ANSI-Medicare Part B [id number] ANSI-Medicaid [id number] ANSI-Medicare Part B [id number] ANSI-Medicare Part B [id number] ANS-Medicaid [id number] ANSI-Medicare Part B [id number] ANSI-Medicaid [id number] ANSI-Medicare Part B [id number] ANSI-Medicaid [id number] ANSI-Medicare Part B [id number] ANSI-Medicare Part B [id number] ANSI-Medicaid [id number] ANSI-Medicare Part B [id number] ANSI-Medicare Part B [id number] ANSI-Medicaid [id number] ANSI-Medicare Part B [id number] ANSI-Medicare Part B [id number] Medicare [facility] Medicare Primary [id number] Self [id number] [place]ig[place] Part [place] [id number] Self [id number] Medicare Blue Ppo Commercial [id number] Self [id number] ANSI-Medicaid [id number] ANSI-Medicare Part B [id number] ANSI-Medicare Part B [id number] ANSI-Medicare Part B [id number] ANSI-Medicare Part B [id number] ANSI-Medicaid [id number] ANSI-Medicare Part B [id number] ANSI-Medicare Part B [id number] ANSI-Medicaid [id number] ANSI-Medicare Part B [id number] ANSI-Medicare Part B [id number] ANSI-Medicaid [id number] ANSI-Medicare Part B [id number] ANSI-Medicaid [id number] ANSI-Medicare Part B [id number] [facility] [id number] SP [id number] MEDICARE COMPLETE [id number] SP [id number] MEDICAID [id number] SP [id number] MEDICARE COMPLETE [id number] SP [id number] Medicare [place] Medicare Primary [id number] Self [id number] [place] Medig[place] Part B [id number] Self [id number] [facility] [employer] [facility] (HMO) [id number] Self [id number] SELF PAY ONLY UNAVAILABLE SP UNAV AILABLE [facility] [id number] SP [id number] MEDICARE [id number] SP [id number] A [facility] [id number] SP [id number] UN COMM[employer]ITY PLAN [facility] [id number] SP [id number] MEDICAID [id number] Gretel [id number] [facility] MEDICARE [id number] Gretel [id number] MEDICAID [id number] SP [id number] [place] Med[place] Part B Self [place]/[facility] Medicare Primary Self [facility] [id number] SP [id number] MVP [facility] [id number] SP [id number] MVP Medicaid Commercial Self [facility] Community Plan Medigap Part B Self [place] Self MVP HEALTH CARE O [id number] S [id number] MEDICAID M [id number] S [id number] SELF PAY UNAVAILABLE UNAVAILA BLE UN COMMUNITY PLAN [facility] [id number] SP [id number] [facility] P UNAVAILABLE S UNAVAILABLE MEDICAID M [id number] Self [id number] [facility] I [id number] Self [id number] Problems, Conditions, and Diagnoses Code Display Name Description Problem Type Effective Dates Data Source(s) R13.10 42004136 Dysphagia, unspecified type Problem 01/17/20 20 12:00:00 AM EST eCW1 ([facility]) G47.33 43704391 Obstructive sleep apnea Problem 03/14/2019 1 2:00:00 AM EST eCW1 ([facility]) E55.9 [id number] Vitamin D deficiency Problem 03/14/2019 12:0 0:00 AM EST eCW1 ([facility]) E55.9 [id number] Vitamin D deficiency Problem 03/14/2019 12:0 0:00 AM EST eCW1 ([facility]) M46.1 35248147 Sacroiliitis Problem 02/26/2019 12:00:00 AM EST eCW1 ([facility]) M46.1 80086012 Sacroiliitis Problem 02/26/2019 12:00:00 AM EST eCW1 ([facility]) Surgeries/Procedures Procedure Description Date Indications Data Source(s) PHYSICIAN TELEPHONE EVALUATION 11-20 MIN 07/02/2019 12 :00:00 AM EDT eCW1 ([facility]) INJECT SACROILIAC JOINT 05/16/2019 12:00:00 AM EDT eCW1 ([facility]) RADXPS IN END [id number] PXD 05/16/2019 12:00:00 AM ED T eCW1 ([facility]) Office Visit, Est Pt., Level 2 FC 03/14/2019 12:00:00 AM EST eCW1 ([facility]) Office Visit, Est Pt., Level 3 PC 03/14/2019 12:00:00 AM EST eCW1 ([facility]) RIV4 VACC RECOMBINANT DNA IM 03/14/2019 12:00:00 AM ES T eCW1 ([facility]) Administration of influenza virus vaccine 03/14/2019 1 2:00:00 AM EST eCW1 ([facility]) VENIPUNCT, ROUTINE* 03/12/2019 12:00:00 AM EST eCW1 ([facility]) ESTABILISHED PATIENT [facility] FACILITY CHARGE 019 12:00:00 AM EST eCW1 ([facility]) Results ID Date Data Source [id number] 03/14/2020 11:00:00 AM EST [facility] Name Value Range Interpretation Code Description Data Rose Mary rce(s) Supporting Document(s) SARS coronavirus 2 RNA Not Detected [facility] [place] This lab was ordered by [facility] and reported by [facility]. ID Date Data Source [id number] 02/15/2020 09:50:00 AM EST [facility] Name Value Range Interpretation Code Description Data Rose Mary rce(s) Supporting Document(s) SARS coronavirus 2 RNA [facility] This lab was ordered by [facility] and reported by [facility]. ID Date Data Source VITB12 & FOL 03/12/2019 12:00:00 AM EST eCW1 ([facility]) Name Value Range Interpretation Code Description Data Rose Mary rce(s) Supporting Document(s) 888 VITAMIN B12 LEVEL eCW1 ([facility]) 8.9 FOLATE eCW1 ([facility]) ID Date Data Source VITAMIN D 25-HYDROXY 03/12/2019 12:00:00 AM EST eCW1 ([facility]) Name Value Range Interpretation Code Description Data Rose Mary rce(s) Supporting Document(s) 12.5 30.0-100.0 TOTAL 25(OH) VITAMIN D eC W1 ([facility]) ID Date Data Source TSH 03/12/2019 12:00:00 AM EST eCW1 ([facility]) Name Value Range Interpretation Code Description Data Rose Mary rce(s) Supporting Document(s) 3.590 0.358-3.740 THYROID STIMULATING HORM ONE eCW1 ([facility]) ID Date Data Source LIPID PANEL (CARDIAC RISK) 03/12/2019 12:00:00 AM EST eCW1 ( [facility]) Name Value Range Interpretation Code Description Data Rose Mary rce(s) Supporting Document(s) Triglyceride [Mass/volume] in Serum or Plasma by calculation 192 <150 TRIGLYCERIDES LEVEL eCW1 ([facility]) Cholesterol [Moles/volume] in Serum or Plasma 130 <200 CHOLESTEROL LEVEL eCW1 ([facility]) Cholesterol in LDL [Mass/volume] in Serum or Plasma by calculation 63 <100 LDL CHOLESTEROL eCW1 ([facility]) 101 NON-HDL-C eCW1 ([facility]) 4.482 <5 CHOLESTEROL RISK RATIO eCW1 ([facility]) Cholesterol in HDL [Moles/volume] in Serum or Plasma 29 >40 HDL CHOLESTEROL eCW1 ([facility]) ID Date Data Source [id number] 03/12/2019 12:00:00 AM EST eCW1 ([facility]) Name Value Range Interpretation Code Description Data Rose Mary rce(s) Supporting Document(s) Hemoglobin A1c/Hemoglobin.total in Blood 6.1 HEMOGLOBIN A1c eCW1 ([facility]) ID Date Data Source Comprehensive Metabolic Profile (CMP) 03/12/2019 12:00:00 AM EST eCW1 ([facility]) Name Value Range Interpretation Code Description Data Rose Mary rce(s) Supporting Document(s) 99 70-100 GLUCOSE, FASTING eCW1 ([facility]) 23 7-18 BLOOD UREA NITROGEN eCW1 ([facility]) 3.8 3.5-5.1 POTASSIUM SERUM eCW1 ([facility]) > 60.0 >56 GLOMERULAR FILTRATION RATE eCW 1 ([facility]) 140 136-145 SODIUM LEVEL eCW1 ([facility]) 1.20 0.70-1.30 CREATININE FOR GFR eCW1 ([facility]) 29 21-32 CARBON DIOXIDE LEVEL eCW1 ([facility]) 105 98-107 CHLORIDE LEVEL eCW1 ([facility]) 9.1 8.5-10.1 CALCIUM LEVEL eCW1 ([facility]) 27 7-37 AST/SGOT eCW1 ([facility]) 0.6 0.2-1.0 BILIRUBIN,TOTAL eCW1 ([facility]) 120 45-117 ALKALINE PHOSPHATASE eCW1 ([facility]) 7.4 6.4-8.2 TOTAL PROTEIN eCW1 ([facility]) 26 12-78 ALT/SGPT eCW1 ([facility]) 0.95 1.00-1.93 ALBUMIN/GLOBULIN RATIO eCW1 ([facility]) 3.6 3.2-5.2 ALBUMIN eCW1 ([facility]) ID Date Data Source CBC with Differential 03/12/2019 12:00:00 AM EST eCW1 ([facility]) Name Value Range Interpretation Code Description Data Rose Mary rce(s) Supporting Document(s) 6.8 4.0-10.0 WHITE BLOOD COUNT eCW1 ([facility]) 15.4 13.5-17.5 HEMOGLOBIN eCW1 ([facility]) 5.57 4.30-6.10 RED BLOOD COUNT eCW1 ([facility]) 49.8 42.0-52.0 HEMATOCRIT eCW1 ([facility]) 13.8 11.5-14.5 RED CELL DISTRIBUTION WID TH eCW1 ([facility]) 89.4 80.0-96.0 MEAN CORPUSCULAR VOLUME e CW1 ([facility]) 30.9 32.0-36.5 MEAN CORPUSCULAR HGB CONC eCW1 ([facility]) 27.6 27.0-33.0 MEAN CORPUSCULAR HEMOGLOB IN eCW1 ([facility]) 24.9 24.0-44.0 LYMPH % eCW1 ([facility]) 209 150-450 PLATELET COUNT, AUTOMATED eCW1 ([facility]) 60.1 36.0-66.0 NEUTROPHILS % eCW1 ([facility]) 4.1 1.5-8.5 NEUTROPHILS # eCW1 ([facility]) 3.7 0.0-3.0 EOS % eCW1 ([facility]) 0.6 0.0-1.0 BASO % eCW1 ([facility]) 10.4 0.0-5.0 MONO % eCW1 ([facility]) 0.0 0.0-0.2 BASO # eCW1 ([facility]) 1.7 1.5-5.0 LYMPH # eCW1 ([facility]) 0.3 0.0-0.5 EOS # eCW1 ([facility]) 0.7 0.0-0.8 MONO # eCW1 ([facility]) Procedure Social History Code Duration Value Status Description Data Source(s ) Smoking 01/17/2020 12:00:00 AM EST Current Smoker completed Curre nt Smoker eCW1 ([facility]) Smoking 01/17/2020 12:00:00 AM EST Current Smoker completed Curre nt Smoker eCW1 ([facility]) Smoking 01/17/2020 12:00:00 AM EST Current Smoker completed Curre nt Smoker eCW1 ([facility]) Smoking 01/17/2020 12:00:00 AM EST Current Smoker completed Curre nt Smoker eCW1 ([facility]) Smoking 01/17/2020 12:00:00 AM EST Current Smoker completed Curre nt Smoker eCW1 ([facility]) Smoking 01/17/2020 12:00:00 AM EST Current Smoker completed Curre nt Smoker eCW1 ([facility]) Smoking 01/17/2020 12:00:00 AM EST Current Smoker completed Curre nt Smoker eCW1 ([facility]) Smoking 01/17/2020 12:00:00 AM EST Current Smoker completed Curre nt Smoker eCW1 ([facility]) Smoking 01/17/2020 12:00:00 AM EST Current Smoker completed Curre nt Smoker eCW1 ([facility]) Smoking 01/17/2020 12:00:00 AM EST Current Smoker completed Curre nt Smoker eCW1 ([facility]) Smoking 01/17/2020 12:00:00 AM EST Current Smoker completed Curre nt Smoker eCW1 ([facility]) Smoking 01/17/2020 12:00:00 AM EST Current Smoker completed Curre nt Smoker eCW1 ([facility]) Smoking 01/17/2020 12:00:00 AM EST Current Smoker completed Curre nt Smoker eCW1 ([facility]) Smoking 01/17/2020 12:00:00 AM EST Current Smoker completed Curre nt Smoker eCW1 ([facility]) Smoking 12/12/2019 12:00:00 AM EDT Current Smoker completed Curre nt Smoker eCW1 ([facility]) Smoking 12/12/2019 12:00:00 AM EDT Current Smoker completed Curre nt Smoker eCW1 ([facility]) Smoking 12/12/2019 12:00:00 AM EDT Current Smoker completed Curre nt Smoker eCW1 ([facility]) Smoking 12/12/2019 12:00:00 AM EDT Current Smoker completed Curre nt Smoker eCW1 ([facility]) Smoking 08/13/2019 12:00:00 AM EDT Current Smoker completed Curre nt Smoker eCW1 ([facility]) Smoking 08/13/2019 12:00:00 AM EDT Current Smoker completed Curre nt Smoker eCW1 ([facility]) Smoking 08/13/2019 12:00:00 AM EDT Current Smoker completed Curre nt Smoker eCW1 ([facility]) Smoking 08/13/2019 12:00:00 AM EDT Current Smoker completed Curre nt Smoker eCW1 ([facility]) Vital Signs ID Date Data Source UNK Name Value Range Interpretation Code Description Data Source(s) Body surface area Derived from formula 2.49 m2 2.49 m2 [facility] ([facility]) Body weight 139.312 kg 139.312 kg [facility] ([facility] [place] body weight 160 [lb_av] 160 [lb_av] MEDEN T ([facility]) Body mass index (BMI) [Ratio] 44.7 kg/m2 44.7 k g/m2 [facility] ([facility]) Body weight 307.12 [lb_av] 307.12 [[facility]_av[facility] Body height 69.5 [in_i] 69.5 [in_i] [facility] ([facility]) 5'9.50" Diastolic blood pressure 80 mm[Hg] 80 mm[Hg] [facility] ([facility]) Systolic blood pressure 126 mm[Hg] 126 mm[Hg] M EDENT ([facility]) Diastolic blood pressure 81 mm[Hg] 81 mm[Hg] eCW1 ([facility]) Systolic blood pressure 139 mm[Hg] 139 mm[Hg] e CW1 ([facility]) Body temperature 98.4 [degF] 98.4 [degF] eCW1 ( [facility]) Respiratory rate 18 /min 18 /min eCW1 ([facility]) Heart rate 95 /min 95 /min eCW1 ([facility]) Body mass index (BMI) [Ratio] 44.68 kg/m2 44.68 kg/m2 W1 ([facility]) Body height 69.5 [in_i] 69.5 [in_i] eCW1 ([facility]) Body weight [lb_av] eCW1 ([facility]) Diastolic blood pressure 78 mm[Hg] 78 mm[Hg] eCW1 ([facility]) Systolic blood pressure 142 mm[Hg] 142 mm[Hg] e CW1 ([facility]) Body temperature 97.6 [degF] 97.6 [degF] eCW1 ( [facility]) Respiratory rate 18 /min 18 /min eCW1 ([facility]) Heart rate 99 /min 99 /min eCW1 ([facility]ly [facility]) Body mass index (BMI) [Ratio] 45.38 kg/m2 45.38 kg/m2 eCW1 ([facility]) Body height 69.5 [in_i] 69.5 [in_i] eCW1 ([facility]) Body weight 311.8 [lb_av] 311.8 [lb_av] eCW1 ([facility]) Diastolic blood pressure 91 mm[Hg] 91 mm[Hg] eCW1 ([facility]) Systolic blood pressure 137 mm[Hg] 137 mm[Hg] e CW1 ([facility]) Body temperature 97.3 [degF] 97.3 [degF] eCW1 ( [facility]) Respiratory rate 18 /min 18 /min eCW1 ([facility]) Heart rate 101 /min 101 /min eCW1 ([facility]) Body mass index (BMI) [Ratio] 44.86 kg/m2 44.86 kg/m2 eCW1 ([facility]) Body height 69.5 [in_i] 69.5 [in_i] eCW1 ([facility]) Body weight 308.2 [lb_av] 308.2 [lb_av] eCW1 ([facility]) Diastolic blood pressure 78 mm[Hg] 78 mm[Hg] eCW1 ([facility]) Systolic blood pressure 140 mm[Hg] 140 mm[Hg] e CW1 ([facility]) Body temperature 97.4 [degF] 97.4 [degF] eCW1 ( [facility]) Respiratory rate 18 /min 18 /min eCW1 ([facility]) Heart rate 91 /min 91 /min eCW1 ([facility]) Body mass index (BMI) [Ratio] 42.41 kg/m2 42.41 kg/m2 eCW1 ([facility]) Body height 69.5 [in_us] 69.5 [in_us] eCW1 ([facility]) Body weight Measured 291.4 [lb_av] 291.4 [lb_av ] eCW1 ([facility]) Diastolic blood pressure 79 mm[Hg] 79 mm[Hg] eCW1 ([facility]) Systolic blood pressure 121 mm[Hg] 121 mm[Hg] e CW1 ([facility]) Body temperature 98.8 [degF] 98.8 [degF] eCW1 ( [facility]) Respiratory rate 18 /min 18 /min eCW1 ([facility]) Heart rate 92 /min 92 /min eCW1 ([facility]) Body mass index (BMI) [Ratio] 42.21 kg/m2 42.21 kg/m2 eCW1 ([facility]) Body height 69.5 [in_us] 69.5 [in_us] eCW1 ([facility]) Body weight Measured [lb_av] eCW1 ([facility]) Diastolic blood pressure 78 mm[Hg] 78 mm[Hg] eCW1 ([facility]) Systolic blood pressure 146 mm[Hg] 146 mm[Hg] e CW1 ([facility]) Body temperature 98.9 [degF] 98.9 [degF] eCW1 ( [facility]) Respiratory rate 18 /min 18 /min eCW1 ([facility]) Heart rate 99 /min 99 /min eCW1 ([facility]) Body mass index (BMI) [Ratio] 42.24 kg/m2 42.24 kg/m2 eCW1 ([facility]) Body height 69.5 [in_us] 69.5 [in_us] eCW1 ([facility]) Body weight Measured 290.2 [lb_av] 290.2 [lb_av ] eCW1 ([facility]) Patient Treatment Plan of Care Planned Activity Planned Date Details Description Data Source (s) Acetaminophen 325 MG / Oxycodone Hydrochloride 10 MG O ral Tablet 03/13/2020 12:00:00 AM EST eCW1 (Formerly [facility]) Morphine Sulfate 15 MG Extended Release Oral Tablet 03/03/20 12:00:00 AM EST eCW1 ([facility]) Morphine Sulfate 15 MG Extended Release Oral Tablet 03/03/20 12:00:00 AM EST eCW1 ([facility]) Morphine Sulfate 15 MG Extended Release Oral Tablet 03/03/20 12:00:00 AM EST eCW1 ([facility]) Morphine Sulfate 15 MG Extended Release Oral Tablet 03/03/20 12:00:00 AM EST eCW1 ([facility]) Morphine Sulfate 15 MG Extended Release Oral Tablet 03/03/20 12:00:00 AM EST eCW1 ([facility]) Morphine Sulfate 15 MG Extended Release Oral Tablet 03/03/20 12:00:00 AM EST eCW1 ([facility]) Acetaminophen 325 MG / Oxycodone Hydrochloride 10 MG O ral Tablet 02/13/2020 12:00:00 AM EST eCW1 (Formerly [facility]) Acetaminophen 325 MG / Oxycodone Hydrochloride 10 MG O ral Tablet 02/13/2020 12:00:00 AM EST eCW1 ([facility]ly [facility]) Acetaminophen 325 MG / Oxycodone Hydrochloride 10 MG O ral Tablet 02/13/2020 12:00:00 AM EST eCW1 ([facility]ly [facility]) Acetaminophen 325 MG / Oxycodone Hydrochloride 10 MG O ral Tablet 02/13/2020 12:00:00 AM EST eCW1 ([facility]ly [facility]) Acetaminophen 325 MG / Oxycodone Hydrochloride 10 MG O ral Tablet 02/13/2020 12:00:00 AM EST eCW1 ([facility]) Acetaminophen 325 MG / Oxycodone Hydrochloride 10 MG O ral Tablet 02/13/2020 12:00:00 AM EST eCW1 ([facility]) Acetaminophen 325 MG / Oxycodone Hydrochloride 10 MG O ral Tablet 02/13/2020 12:00:00 AM EST eCW1 (Formerly [facility]) Morphine Sulfate 15 MG Extended Release Oral Tablet 02/05/20 12:00:00 AM EST eCW1 ([facility]) Morphine Sulfate 15 MG Extended Release Oral Tablet 02/05/20 12:00:00 AM EST eCW1 ([facility]) Morphine Sulfate 15 MG Extended Release Oral Tablet 02/05/20 12:00:00 AM EST eCW1 ([facility]) Morphine Sulfate 15 MG Extended Release Oral Tablet 02/05/20 12:00:00 AM EST eCW1 ([facility]) Morphine Sulfate 15 MG Extended Release Oral Tablet 02/05/20 12:00:00 AM EST eCW1 ([facility]) Morphine Sulfate 15 MG Extended Release Oral Tablet 02/05/20 12:00:00 AM EST eCW1 ([facility]) Morphine Sulfate 15 MG Extended Release Oral Tablet 01/15/20 12:00:00 AM EST eCW1 ([facility]) Acetaminophen 325 MG / Oxycodone Hydrochloride 10 MG O ral Tablet 01/15/2020 12:00:00 AM EST eCW1 ([facility]) Morphine Sulfate 15 MG Extended Release Oral Tablet 01/15/20 12:00:00 AM EST eCW1 ([facility]) Acetaminophen 325 MG / Oxycodone Hydrochloride 10 MG O ral Tablet 01/15/2020 12:00:00 AM EST eCW1 ([facility]) Morphine Sulfate 15 MG Extended Release Oral Tablet 12/12/19 12:00:00 AM EDT eCW1 ([facility]) Acetaminophen 325 MG / Oxycodone Hydrochloride 10 MG O ral Tablet 12/12/2019 12:00:00 AM EDT eCW1 ([facility]) Morphine Sulfate 15 MG Extended Release Oral Tablet 12/12/19 12:00:00 AM EDT eCW1 ([facility]) Acetaminophen 325 MG / Oxycodone Hydrochloride 10 MG O ral Tablet 12/12/2019 12:00:00 AM EDT eCW1 ([facility]) Morphine Sulfate 15 MG Extended Release Oral Tablet 12/07/19 12:00:00 AM EDT eCW1 ([facility]) Acetaminophen 325 MG / Oxycodone Hydrochloride 10 MG O ral Tablet 09/27/2019 12:00:00 AM EDT eCW1 ([facility]) Acetaminophen 325 MG / Oxycodone Hydrochloride 10 MG O ral Tablet 09/27/2019 12:00:00 AM EDT eCW1 ([facility]) Morphine Sulfate 15 MG Extended Release Oral Tablet 09/27/19 12:00:00 AM EDT eCW1 ([facility]) Acetaminophen 325 MG / Oxycodone Hydrochloride 10 MG O ral Tablet 09/25/2019 12:00:00 AM EDT eCW1 ([facility]) Morphine Sulfate 15 MG Extended Release Oral Tablet 08/13/19 12:00:00 AM EDT eCW1 ([facility]) Acetaminophen 325 MG / Oxycodone Hydrochloride 10 MG O ral Tablet 08/13/2019 12:00:00 AM EDT eCW1 ([facility]) Morphine Sulfate 15 MG Extended Release Oral Tablet 08/13/19 12:00:00 AM EDT eCW1 ([facility]) Morphine Sulfate 15 MG Extended Release Oral Tablet 08/01/19 12:00:00 AM EDT eCW1 ([facility]) Acetaminophen 325 MG / Oxycodone Hydrochloride 10 MG O ral Tablet 08/01/2019 12:00:00 AM EDT eCW1 ([facility]) Acetaminophen 325 MG / Oxycodone Hydrochloride 10 MG O ral Tablet 07/27/2019 12:00:00 AM EDT eCW1 ([facility]) Morphine Sulfate 15 MG Extended Release Oral Tablet 06/27/19 12:00:00 AM EDT eCW1 ([facility]) Morphine Sulfate 15 MG Extended Release Oral Tablet 06/27/19 12:00:00 AM EDT eCW1 ([facility]) Acetaminophen 325 MG / Oxycodone Hydrochloride 10 MG O ral Tablet 06/27/2019 12:00:00 AM EDT eCW1 ([facility]) Acetaminophen 325 MG / Oxycodone Hydrochloride 10 MG O ral Tablet 06/27/2019 12:00:00 AM EDT eCW1 ([facility]) Acetaminophen 325 MG / Oxycodone Hydrochloride 10 MG O ral Tablet 05/30/2019 12:00:00 AM EDT eCW1 ([facility]) Morphine Sulfate 15 MG Extended Release Oral Tablet 05/30/19 12:00:00 AM EDT eCW1 ([facility]) Acetaminophen 325 MG / Oxycodone Hydrochloride 10 MG O ral Tablet 05/01/2019 12:00:00 AM EST eCW1 ([facility]) Morphine Sulfate 15 MG Extended Release Oral Tablet 05/01/19 12:00:00 AM EST eCW1 ([facility]) Morphine Sulfate 15 MG Extended Release Oral Tablet 04/03/19 12:00:00 AM EST eCW1 ([facility]) Acetaminophen 325 MG / Oxycodone Hydrochloride 10 MG O ral Tablet 04/03/2019 12:00:00 AM EST eCW1 ([facility]) Oxygen 03/14/2019 12:00:00 AM EST e CW1 ([facility]) Ergocalciferol 12279 UNT Oral Capsule 03/14/2019 12:00:00 AM EST eCW1 ([facility]) Ergocalciferol 70502 UNT Oral Capsule 03/14/2019 12:00:00 AM EST eCW1 ([facility]) Morphine Sulfate 15 MG Extended Release Oral Tablet 02/27/20 12:00:00 AM EST eCW1 ([facility]) Acetaminophen 325 MG / Oxycodone Hydrochloride 10 MG O ral Tablet 02/26/2019 12:00:00 AM EST eCW1 ([facility]) Acetaminophen 325 MG / Oxycodone Hydrochloride 10 MG O ral Tablet 01/31/2019 12:00:00 AM EST eCW1 ([facility]) Morphine Sulfate 15 MG Extended Release Oral Tablet 02/01/20 12:00:00 AM EST eCW1 ([facility])
[2020-03-19] MEDS ORDERED: LIDOCAINE 2% 100MG/5ML SDV (FOR ANES.) As Ordered ONE (10:15)
[2020-03-19] MEDS ORDERED: propofoL 500 MG/50 ML VIAL As Ordered ONE (10:15)
[2020-03-19] MEDS ORDERED: fentaNYL 100 MCG/2 ML INJECTION (J3010) As Ordered ONE (10:15)
--- NOTE | 2020-03-19 10:23 | ROOR ---
Patient Name: Rio Dinero Procedure Date: 03/19/2020 10:05 AM Date of : 1960 Age: 59 Room: [facility] Gender: Male Note Status: Finalized Procedure: Upper GI endoscopy Indications: Esophageal dysphagia Providers: Torey Montez MD Referring MD: SILVERIO Infante pa-c Requesting Provider: Medicines: Monitored Anesthesia Care Complications: No immediate complications. Procedure: Pre-Anesthesia Assessment: - Prior to the procedure, a History and Physical was performed, and patient medications and allergies were reviewed. The patient is competent. The risks and benefits of the procedure and the sedation options and risks were discussed with the patient. All questions were answered and informed consent was obtained. Patient identification and proposed procedure were verified by the physician, the nurse and the anesthesiologist in the endoscopy suite. Mental Status Examination: alert and oriented. Airway Examination: normal oropharyngeal airway and neck mobility. Respiratory Examination: clear to auscultation. CV Examination: normal. Prophylactic Antibiotics: The patient does not require prophylactic antibiotics. Prior Anticoagulants: The patient has taken no previous anticoagulant or antiplatelet agents. ASA Grade Assessment: III - A patient with severe systemic disease. After reviewing the risks and benefits, the patient was deemed in satisfactory condition to undergo the procedure. The anesthesia plan was to use monitored anesthesia care (MAC). Immediately prior to administration of medications, the patient was re-assessed for adequacy to receive sedatives. The heart rate, respiratory rate, oxygen saturations, blood pressure, adequacy of pulmonary ventilation, and response to care were monitored throughout the procedure. The physical status of the patient was re-assessed after the procedure. The Endoscope was introduced through the mouth, and advanced to the second part of duodenum. The upper GI endoscopy was technically difficult and complex due to presence of food. The patient tolerated the procedure fairly well. Findings: Food was found in the entire esophagus. A medium amount of food (residue) was found in the gastric fundus and in the gastric body. Patchy mild inflammation characterized by erythema was found in the gastric antrum. Estimated blood loss: none. The duodenal bulb, first portion of the duodenum and second portion of the duodenum were normal. Impression: - Food in the esophagus. - A medium amount of food (residue) in the stomach. - Chronic gastritis. - Normal duodenal bulb, first portion of the duodenum and second portion of the duodenum. - No specimens collected. - suspect gastroesophageal reflux, gastroparesis Recommendation: - Discharge patient to home (ambulatory). - Use Prilosec (omeprazole) 40 mg PO daily indefinitely. Procedure Code(s): --- Professional --- 75441, Esophagogastroduodenoscopy, flexible, transoral; diagnostic, including collection of specimen(s) by brushing or washing, when performed (separate procedure) Diagnosis Code(s): --- Professional --- T18.128A, Food in esophagus causing other injury, initial encounter R13.14, Dysphagia, pharyngoesophageal phase K29.50, Unspecified chronic gastritis without bleeding CPT copyright 2019 [employer]. All rights reserved. The codes documented in this report are preliminary and upon molder machine review may be revised to meet current compliance requirements. Torey Montez MD Torey Montez MD 03/19/2020 10:23:08 AM Electronically signed by Torey Montez MD Number of Addenda: 0 Note Initiated On: 03/19/2020 10:05 AM Estimated Blood Loss: Estimated blood loss: none.
[2020-03-19 10:40] VITALS: BP 105/73
== END 2020-03-19 10:50 | disposition home or self-care (01) ==
LOC: M OPP 08:18
PROVIDERS: ATTEND Surgery
DX: R13.14 Dysphagia, pharyngoesophageal phase (principal); K29.50 Unspecified chronic gastritis without bleeding; I10 Essential (primary) hypertension; E78.5 Hyperlipidemia, unspecified; E11.9 Type 2 diabetes mellitus without complications; R12 Heartburn; M19.90 Unspecified osteoarthritis, unspecified site; F41.9 Anxiety disorder, unspecified; F32.9 Major depressive disorder, single episode, unspecified; J44.9 Chronic obstructive pulmonary disease, unspecified; G47.30 Sleep apnea, unspecified; F17.210 Nicotine dependence, cigarettes, uncomplicated; Z86.14 Personal history of Methicillin resistant Staphylococcus aureus infection; Z88.8 Allergy status to other drugs, medicaments and biological substances; Z91.09 Other allergy status, other than to drugs and biological substances; Z79.51 Long term (current) use of inhaled steroids; Z79.84 Long term (current) use of oral hypoglycemic drugs; Z79.891 Long term (current) use of opiate analgesic; Z79.899 Other long term (current) drug therapy
CPT/HCPCS: 43235; J3010

== ENCOUNTER → 2020-03-24 | Outpatient (CLI) | payer MEDICARE ==
[~2020-03-24] MED LIST changes: -LIDOCAINE 2% 100MG/5ML SDV (FOR ANES.) As Ordered ONE; -NS 1,000 ML IV ONE; -propofoL 200 MG/20 ML VIAL As Ordered ONE
--- NOTE | 2020-03-26 00:57 | ECWPNPC ---
PATIENT NAME: NOEL MENDEZ : 1960 GENDER: MALE VISIT DATE: 03/24/2020 DISCHARGE DATE: 03/24/20 1043 VISIT LOCKED DATE TIME: PHYSICIAN: ARMANDO ORR PHYSICIAN PAGER NO: ACTIVE RESOURCE: ARMANDO ORR REASON FOR APPOINTMENT 1. LOW BACK PAIN HISTORY OF PRESENT ILLNESS DEPRESSION SCREENING: PHQ-2 (2015 EDITION) LITTLE INTEREST OR PLEASURE IN DOING THINGS?NOT AT ALL FEELING DOWN, DEPRESSED, OR HOPELESS?NOT AT ALL TOTAL SCORE0 GENERAL: HERE FOR FOLLOW-UP AND MEDICATION MANAGEMENT VISIT. SUFFERS FROM CHRONIC LOW BACK PAIN. FINDS CURRENT MEDICINE REGIMEN SOMEWHAT EFFECTIVE AT REDUCING PAIN AND KEEPING HIM FUNCTIONAL. DENIES ADVERSE SIDE EFFECTS. BRINGS IN HIS MEDICATION WHICH IS APPROPRIATE FOR WHAT WAS DISPENSED. -. FALL RISK SCREENING: SCREENING :NO FALLS REPORTED IN THE LAST YEAR PAIN SCREENING: PATIENT HAS A COMPLAINT OF ACUTE OR CHRONIC PAIN :YES LOCATION OF PAIN:ABDOMEN, LOW BACK INTENSITY OF PAIN (SCALE OF 1 TO 10):7 WHAT DOES YOUR PAIN FEEL LIKE:ACHING, BURNING, SHARP, STABBING, THROBBING, SHOOTING DURATION:CONTINOUS, CONSTANT, ALL DAY PAIN IS INCREASED BY:ACTIVITIES PAIN IS DECREASED BY:USE OF PAIN MEDICATIONS TREATMENT/MEDICATIONS USED TO MANAGE PAIN:OPIOIDS LEVEL OF RELIEF FROM PAIN TREATMENTS IN THE PAST:50% PAIN HAS INTERFERED WITH THE FOLLOWING:BATHING/DRESSING, WALKING ABILITY, SLEEP NURSING NOTE: -. PAIN CENTER INTAKE QUESTIONS: DO YOU HAVE A HISTORY OF MRSA? :NO DO YOU TAKE A BLOOD THINNERS? :NO DO YOU HAVE ANY BLEEDING DISORDERS? :NO ANY NEW NUMBNESS OR WEAKNESS IN YOUR LEGS OR ARMS? :NO ANY PACEMAKER,DEFIBRILLATOR, OR DORSAL COLUMN STIMULATOR? :NO DO YOU HAVE ANY RASHES OR OPEN SORES? :NO ARE YOU ALLERGIC TO IV DYE? :NO ARE YOU DIABETIC? :NO ANY NEW PROBLEMS WITH YOUR MEDICATIONS? :NO HAVE YOU RECEIVED A VACCINE IN THE PAST 30 DAYS? :NO DO YOU PLAN TO RECEIVE A VACCINE IN THE NEXT 21 DAYS? :NO DO YOU NEED ANY PRESCRIPTION? :NO DO YOU TAKE ANY IMMUNOSUPPRESSIVE MEDICATIONS? :NO IS THERE A CHANCE YOU COULD BE ? :NO ARE YOU BREAST FEEDING? :NO CURRENT MEDICATIONS TAKING GLUCOMETER 1 METER FOR TEST BLOOD SUGARS ONCE DAILY DX E11.9 TAKING LANCETS - MISCELLANEOUS 1 LANCET FOR DM TESTING DAILY DX E11.9 TAKING ACURA BLOOD GLUCOSE TEST - STRIP DIRECTED (ANY GENERIC STRIP AVAILABLE) IN VITRO DAILY DX E11.9 TAKING OVERNIGHT PULSE OXIMETRY DIRECTED TAKING NOCTURNAL OXIMETRY ROOM AIR DIRECTED TAKING OXYGEN DIRECTED NASAL CANNULA TAKING PROAIR HFA 108 (90 BASE) MCG/ACT AEROSOL SOLUTION 2 PUFFS NEEDED INHALATION EVERY 4 HRS TAKING HYDROXYZINE HCL 50 MG TABLET 1 TABLET NEEDED ORALLY EVERY 8 HRS TAKING EFFEXOR XR 75 MG CAPSULE EXTENDED RELEASE 24 HOUR 1 CAP ORALLY ONCE A DAY TAKING EFFEXOR XR 150 MG CAPSULE EXTENDED RELEASE 24 HOUR 1 CAPSULE WITH FOOD ORALLY ONCE A DAY TAKING CHLORTHALIDONE 25 MG TABLET TAKE ONE TABLET BY MOUTH ONCE A DAY EVERY MORNING TAKING GABAPENTIN 600 MG TABLET 1 CAPSULE ORALLY TID TAKING FLOMAX 0.4 MG CAPSULE 1 CAPSULE ORALLY ONCE A DAY TAKING CYCLOBENZAPRINE HCL 5 MG TABLET 1 TABLET ORALLY 1 TAB AM,1 TAB MIDDAY AND 2 AT BEDTIME TAKING MELOXICAM 7.5MG TABLET 1 TAB(S) ORALLY DAILY TAKING OMEPRAZOLE 40 MG CAPSULE DELAYED RELEASE 1 CAPSULE 30 MINUTES BEFORE MORNING MEAL ORALLY DAILY TAKING BREO ELLIPTA 100-25 MCG/INH AEROSOL POWDER BREATH ACTIVATED 1 PUFF INHALATION ONCE A DAY TAKING OXYBUTYNIN CHLORIDE ER 15 MG TABLET EXTENDED RELEASE 24 HOUR 1 TABLET ORALLY ONCE A DAY TAKING MORPHINE SULFATE ER 15 MG TABLET EXTENDED RELEASE 1 TABLET ORALLY EVERY 12 HRS MDD2 TAKING ZOLPIDEM TARTRATE 10 MG TABLET 1 TABLET AT BEDTIME NEEDED ORALLY ONCE A DAY TAKING ERGOCALCIFEROL 1.25 MG (72707 UT) CAPSULE 1 CAPSULE ORALLY ONCE A WEEK TAKING OXYCODONE-ACETAMINOPHEN 10-325 MG TABLET 1 TABLET NEEDED ORALLY EVERY 6 HRS MDD4 TAKING METFORMIN HCL 500 MG TABLET TAKE TWO TABLETS BY MOUTH TWICE A DAY TAKING ATORVASTATIN CALCIUM 20 MG TABLET 1 TABLET ORALLY ONCE A DAY NOT-TAKING ASPIRIN 81 81 MG TABLET CHEWABLE 1 TABLET ORALLY ONCE A DAY MEDICATION LIST REVIEWED AND RECONCILED WITH THE PATIENT PAST MEDICAL HISTORY LARGE VENTRAL HERNIAS RENAL CYST S/P PARTIAL RIGHT NEPHRECTOMY NEUROPATHY 2005 INITIAL INJURY TO LOWER BACK HERNIATED DISC.. 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 STATUS POST PARTIAL RIGHT NEPHRECTOMY. BENIGN LEFT HEPATIC CYST. STATUS POST PREVIOUS PARTIAL COLONIC RESECTIONS. ALLERGIES FLAGYL: HIVES - SIDE EFFECTS PAPER ADHESION TAPE: BURNED SKIN OFF - ALLERGY SURGICAL HISTORY 2 HERNIA REPAIRS TO ABDOMINAL WALL DIVERTICULITIS SURGERY(4 SURGERIES WITH IN 2011 FOR THIS) 10/2011 HERNIA REPAIR ABDOMINAL WALL 10/02/2013 RIGHT RENAL CYST ASPIRATION 09/26/13 L HIP REPLACEMENT 02/06/14 RIGHT PARTIAL NEPHRECTOMY 02/04/15 CARDIAC CATH 05/26/2016 REPAIR LEFT ANKLE FRACTURE WITH SCREWS 11/28/18 FAMILY HISTORY FATHER: , DIAGNOSED WITH UNSPECIFIED HEART DISEASE MOTHER: , DIABETES SIBLINGS: ALIVE, ONE BROTHER ON A FISHING TRIP. THREE SISTER'S , UNSPECIFIED HEART DISEASE, DIABETES SON(S): ALIVE DAUGHTER(S): ALIVE 2 BROTHER(S) , 8 SISTER(S) . 2 SON(S) , 1 DAUGHTER(S) . SOCIAL HISTORY GENERAL: TOBACCO USE ARE YOU A:CURRENT SMOKER ARE YOU INTERESTED IN QUITTING?NOT READY TO QUIT COUNSELED THE PATIENT ON SMOKING EFFECTS, EDUCATION [id number]/18/2021 HOW MANY CIGARETTES A DAY DO YOU SMOKE?11-20 HOW SOON AFTER YOU WAKE UP DO YOU SMOKE YOUR FIRST CIGARETTE?6-30 MIN HOW OFTEN DO YOU SMOKE CIGARETTES?EVERY DAY PATIENT COUNSELED ON THE DANGERS OF TOBACCO USE AND URGED TO QUIT:07/02/2019 ADDITIONAL FINDINGS: TOBACCO USERHEAVY CIGARETTE SMOKER (20-39 CIGS/DAY) SMOKING CESSATION INFORMATION GIVEN12/12/2019 VAPORNO E-CIGARETTENO LATEX QUESTIONNAIRE LATEX ALLERGY : HAVE YOU EVER DEVELOPED ANY TYPE OF REACTION AFTER HANDLING LATEX PRODUCTS SUCH RUBBER GLOVES, CONDOMS, DIAPHRAGMS, BALLOONS, SOCKS, OR UNDERWEAR?NO LATEX ALLERGY : HAVE YOU EVER DEVELOPED ANY TYPE OF REACTION DURING OR AFTER DENTAL APPOINTMENT, VAGINAL/RECTAL EXAMINATION, SURGICAL PROCEDURE, OR ANY OTHER EXPOSURE?NO DATE ASKED : 07/02/2019 LATEX RISK : HAVE YOU EVER HAD ANY DIFFICULTY BREATHING OR HIVES AFTER EATING OR HANDLING ANY FRUITS, OR VEGETABLES; SUCH KIWI, BANANAS, STONE FRUITS, OR CHESTNUTSNO LATEX RISK : DO YOU HAVE A PREVIOUS PERSONAL HISTORY OF MORE THAN NINE SURGERIES, SPINA BIFIDA, OR REPEATED CATHERIZATIONS? YES - PLEASE INDICATE : > 9 SURGERIES LATEX RISK : ARE YOU FREQUENTLY EXPOSED TO LATEX PRODUCTS IN YOUR OCCUPATION?NO LUNG CANCER SCREENING SMOKING STATUS:CURRENT SMOKER IS THE PATIENT BETWEEN THE AGE OF 56 AND 78?YES HAS THE PATIENT EVER BEEN DIAGNOSED WITH LUNG CANCER?NO PACK YEARS = NUMBER OF PACKS PER DAY SMOKED X NUMBER OF YEARS SMOKED:40 CREATE REFERRAL:GENERATE AND CREATE REFERRAL TO THE ONCOLOGY NURSE NAVIGATOR (SMP) LISTING USING THE LDCT SCAN PROCEDURE BMI CARE GOAL FOLLOW-UP ABOVE NORMAL BMI FOLLOW-UPGIVING ENCOURAGEMENT TO EXERCISE ALCOHOL SCREENING DID YOU HAVE A DRINK CONTAINING ALCOHOL IN THE PAST YEAR?NO POINTS0 INTERPRETATIONNEGATIVE RECREATIONAL DRUG USE DRUG USE?NO CAFFEINE CAFFEINE USE?YES 1 PEPSI A DAY SEXUAL HX HAD SEX IN THE LAST 12 MONTHS (VAGINAL, ORAL, OR ANAL)?YES WITHWOMEN ONLY USE PROTECTION?NO HAVE YOU EVER HAD AN STD?NO HIV / HEP-C SCREENING HIV TEST OFFERED TO PATIENT:YES DATE OFFERED:11/22/2018 CONSENT ON FILE TEST ACCEPTED:NO HEP-C TEST OFFERED TO PATIENT:YES DATE OFFERED:11/22/2018 REASON:PATIENT DECLINED TESTED IN PAST TEST ACCEPTED:NO REASON:PATIENT DECLINED CONSENT ON FILE BROCHURE PROVIDED TO PATIENTNO -DECLINED LATTER DAY [id number] [employer]. 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 DIET: REGULAR. EXERCISE: NONE. MARITAL STATUS: SINGLE. OTHERS AT HOME: CHILD. PAIN CLINIC PFS, CLERGY, PUBLIC HEALTH REFERRALS PFS REFERRAL NEEDED?NO CLERGY REFERRAL NEEDED?NO PUBLIC HEALTH REFERRAL NEEDED?NO WAS THE PROVIDER NOTIFIED OF ANY PERTINENT INFO?YES HAS THE PATIENT BEEN EDUCATED REGARDING HIS/HER PLAN OF CARE?YES HAS THE PATIENT BEEN EDUCATED REGARDING PAIN, THE RISK FOR PAIN, THE IMPORTANCE OF EFFECTIVE PAIN MANAGEMENT, AND THE PAIN ASSESSMENT PROCESS?YES ADVANCE DIRECTIVE ADVANCE DIRECTIVE DISCUSSED WITH PATIENT:YES PT DOES NOT HAVE ANY ADVANCED DIRECTIVES, HCP INFORMATION GIVEN AT LAST VISIT, DECLINED ASSISTANCE WITH FORM. HOSPITALIZATION/MAJOR DIAGNOSTIC PROCEDURE [facility] 10/2011 MULTIPLE FOR SURGERIES REVIEW OF SYSTEMS CONSTITUTIONAL: ANY RECENT FEVER NO . CHILLS NO . GASTROENTEROLOGY: BOWEL INCONTINENCE NO . ANY NEW CHANGE IN BOWEL CONTROL? NO . HISTORY OF UNUSUAL ABDOMINAL PAIN OR CRAMPING NOT MENTIONED NO . CONSTIPATION NO . GENITOURINARY: ANY NEW CHANGE IN BLADDER CONTROL? NO . IS THERE A CHANCE YOU COULD BE ? NO . URINARY INCONTINENCE NO . CARDIOLOGY: NEW CHEST PRESSURE NO . HISTORY OF CHEST PAIN,IRREGULAR HEART BEAT NOT MENTIONED NO . RESPIRATORY: COUGH NO . SHORTNESS OF BREATH NO . VITAL SIGNS WT 304 LBS, HT 69.5 IN, BMI 44.24 INDEX, BP 145/77 MM HG, HR 97 /MIN, RR 18 /MIN, TEMP 95.9 F, OXYGEN SAT % 95, BLOOD GLUCOSE LEVEL DID NOT CHECK, SAFE IN ENV? (Y/N) YEST.MANNY LANDA. EXAMINATION GENERAL EXAMINATION: GENERALAWAKE,ALERT ,PLEASANT . PSYCHAFFECT NORMAL . LUNGS:LUNG BOYD ARE CLEAR TO AUSCULTATION BILATERALLY. GOOD MOVEMENT OF AIR . HEART:S1, S2 IN A REGULAR RATE AND RHYTHM. NO SIGNIFICANT MURMURS, RUBS OR GALLOPS NOTED . 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.27 (PRIMARY) CHRONIC PRESCRIPTION OPIATE USE - Z79.899 TREATMENT PROTRUSION OF INTERVERTEBRAL DISC OF LUMBOSACRAL REGION CONTINUE GABAPENTIN TABLET, 600 MG, 1 CAPSULE, ORALLY, TID REFILL CYCLOBENZAPRINE HCL TABLET, 5 MG, 1 TABLET, ORALLY, 1 TAB AM,1 TAB MIDDAY AND 2 AT BEDTIME, 30 DAYS, 120, REFILLS 3 CONTINUE MELOXICAM TABLET, 7.5MG, 1 TAB(S), ORALLY, DAILY REFILL MORPHINE SULFATE ER TABLET EXTENDED RELEASE, 15 MG, 1 TABLET, ORALLY, EVERY 12 HRS MDD2, 30 DAYS, 60, REFILLS 0 REFILL OXYCODONE-ACETAMINOPHEN TABLET, 10-325 MG, 1 TABLET NEEDED, ORALLY, EVERY 6 HRS MDD4, 30 DAYS, 120, REFILLS 0 NOTES: PATIENT WILL RETURN TO CLINIC IN 1 MONTH FOR A NURSING VISIT/URINE TOXICOLOGY. HE IS UNABLE TO URINATE TODAY. HE IS UNABLE TO TOLERATE ORAL SWAB. CONTINUE CURRENT CHRONIC PAIN MEDICATION. MEDICATION MANAGEMENT FOLLOW-UP IS SCHEDULED IN 3 MONTHS. PROCEDURE CODES FA211 ESTABILISHED PATIENT [facility] CHARGE DISPOSITION & COMMUNICATION FOLLOW UP 1 MONTH AND 3 MONTHS (REASON: 1 MONTH NURSING VISIT/URINE TOXICOLOGY-3 MONTHS MEDICATION MANAGEMENT/REVIEW TOXICOLOGY) ELECTRONICALLY SIGNED BY MILTON MEAD ON 03/25/2020 AT 10:44 AM EST DISCLAIMER : THIS IS A VISIT SUMMARY EXTRACTED FROM THE [employer] CHART. IT IS NOT A COPY OF THE [employer] PROGRESS NOTE. ANGELA
== END ==
LOC: M PAIN 10:30
PROVIDERS: ATTEND Nurse Practitioner Family
DX: M51.27 Other intervertebral disc displacement, lumbosacral region (principal); Z79.899 Other long term (current) drug therapy; J44.9 Chronic obstructive pulmonary disease, unspecified; I10 Essential (primary) hypertension; E78.5 Hyperlipidemia, unspecified; E66.01 Morbid (severe) obesity due to excess calories; Z68.41 Body mass index [BMI] 40.0-44.9, adult; F17.210 Nicotine dependence, cigarettes, uncomplicated; G47.33 Obstructive sleep apnea (adult) (pediatric); D75.1 Secondary polycythemia; E11.9 Type 2 diabetes mellitus without complications; Z79.84 Long term (current) use of oral hypoglycemic drugs; Z79.1 Long term (current) use of non-steroidal anti-inflammatories (NSAID); Z79.891 Long term (current) use of opiate analgesic; Z88.1 Allergy status to other antibiotic agents; Z91.048 Other nonmedicinal substance allergy status

== ENCOUNTER → 2020-04-25 | Outpatient (CLI) | payer MEDICARE ==
[2020-04-25 11:13] LABS: BASO % 0.5 % (0.0-1.0); EOS # 0.2 10^3/uL (0.0-0.5); EOS % 4.1 % (0.0-3.0); HEMOGLOBIN 15.7 g/dl (13.5-17.5); LYMPH # 1.6 10^3/uL (1.5-5.0); LYMPH % 26.5 % (24.0-44.0); MEAN CORPUSCULAR HEMOGLOBIN 28.3 pg (27.0-33.0); MEAN CORPUSCULAR HGB CONC 31.4 g/dl (32.0-36.5); MEAN CORPUSCULAR VOLUME 90.1 fl (80.0-96.0); MONO # 0.7 10^3/uL (0.0-0.8); MONO % 11.4 % (2.0-8.0); NEUTROPHILS # 3.4 10^3/uL (1.5-8.5); NEUTROPHILS % 57.2 % (36.0-66.0); PLATELET COUNT, AUTOMATED 192 10^3/uL (150-450); RED BLOOD COUNT 5.55 10^6/uL (4.30-6.10); WHITE BLOOD COUNT 5.9 10^3/uL (4.0-10.0)
[2020-04-25 11:42] LABS: HEMOGLOBIN A1c 6.3 %
[2020-04-25 11:45] LABS: ALBUMIN 3.7 GM/DL (3.2-5.2); ALT/SGPT 55 U/L (12-78); BILIRUBIN,DIRECT 0.2 MG/DL (0.0-0.2); BILIRUBIN,TOTAL 0.3 MG/DL (0.2-1.0); BLOOD UREA NITROGEN 21 MG/DL (7-18); CALCIUM LEVEL 9.4 MG/DL (8.5-10.1); CARBON DIOXIDE LEVEL 31 MEQ/L (21-32); CHLORIDE LEVEL 100 MEQ/L (98-107); CHOLESTEROL LEVEL 184 MG/DL (<200); CHOLESTEROL RISK RATIO 6.344 (<5); CREATININE FOR GFR 1.18 MG/DL (0.70-1.30); FREE T4 0.86 NG/DL (0.76-1.46); GLOMERULAR FILTRATION RATE > 60.0 (>56); GLUCOSE, FASTING 120 MG/DL (70-100); HDL CHOLESTEROL 29 MG/DL (>40); LDL CHOLESTEROL 108 MG/DL (<100); NON-HDL-C 155 MG/DL; POTASSIUM SERUM 3.8 MEQ/L (3.5-5.1); SODIUM LEVEL 138 MEQ/L (136-145); TOTAL PROTEIN 7.9 GM/DL (6.4-8.2); TRIGLYCERIDES LEVEL 236 MG/DL (<150)
== END ==
LOC: M LAB 10:40
PROVIDERS: ATTEND Physician Assistant
DX: R79.89 Other specified abnormal findings of blood chemistry (principal); E78.2 Mixed hyperlipidemia; E11.9 Type 2 diabetes mellitus without complications

== ENCOUNTER → 2020-04-25 | Outpatient (CLI) | payer MEDICARE ==
--- NOTE | 2020-04-28 00:18 | ECWPNPC ---
PATIENT NAME: NOEL MENDEZ : 1960 GENDER: MALE VISIT DATE: 04/25/2020 DISCHARGE DATE: 04/25/20 1155 VISIT LOCKED DATE TIME: PHYSICIAN: ARMANDO ORR PHYSICIAN PAGER NO: ACTIVE RESOURCE: ARMANDO ORR REASON FOR APPOINTMENT 1. 1 MONTH NURSING VISIT/URINE TOXICOLOGY-3 MONTHS MEDICATION MANAGEMENT/REVIEW TOXICOLOGY ALLERGIES NO[ALLERGIES VERIFIED] DISPOSITION & COMMUNICATION ELECTRONICALLY SIGNED BY MILTON MEAD ON 04/27/2020 AT 07:43 PM EST DISCLAIMER : THIS IS A VISIT SUMMARY EXTRACTED FROM THE [employer] CHART. IT IS NOT A COPY OF THE [employer] PROGRESS NOTE. ANGELA
== END ==
LOC: M PAIN 11:00
PROVIDERS: ATTEND Nurse Practitioner Family
DX: Z79.899 Other long term (current) drug therapy (principal)

== ENCOUNTER → 2020-07-15 | Outpatient (CLI) | payer MEDICARE ==
--- NOTE | 2020-07-17 02:23 | ECWPNPC ---
PATIENT NAME: NOEL MENDEZ : 1960 GENDER: MALE VISIT DATE: 07/15/2020 DISCHARGE DATE: 07/15/20 1150 VISIT LOCKED DATE TIME: PHYSICIAN: ARMANDO ORR PHYSICIAN PAGER NO: ACTIVE RESOURCE: ARMANDO ORR REASON FOR APPOINTMENT 1. 3 MONTHS MEDICATION MANAGEMENT/REVIEW TOXICOLOGY HISTORY OF PRESENT ILLNESS GENERAL: HERE FOR FOLLOW-UP AND MEDICATION MANAGEMENT VISIT. SUFFERS FROM CHRONIC LOW BACK PAIN. FINDS CURRENT MEDICINE REGIMEN SOMEWHAT EFFECTIVE AT REDUCING PAIN AND KEEPING HIM FUNCTIONAL. DENIES ADVERSE SIDE EFFECTS. BRINGS IN HIS MEDICATION WHICH IS APPROPRIATE FOR WHAT WAS DISPENSED. - -. FALL RISK SCREENING: SCREENING : NO FALLS REPORTED IN THE LAST YEAR. PAIN SCREENING: PATIENT HAS A COMPLAINT OF ACUTE OR CHRONIC PAIN :YES LOCATION OF PAIN:LOW BACK INTENSITY OF PAIN (SCALE OF 1 TO 10):5 WHAT DOES YOUR PAIN FEEL LIKE:CONTINOUS, SORE DURATION:CONTINOUS, CONSTANT, ALL DAY PAIN IS INCREASED BY:ACTIVITIES, PROLONGED STANDING PAIN IS DECREASED BY:USE OF PAIN MEDICATIONS, SITTING NURSING NOTE: -. PAIN CENTER INTAKE QUESTIONS: DO YOU HAVE A HISTORY OF MRSA? :YES 2013 DO YOU TAKE A BLOOD THINNERS? :NO DO YOU HAVE ANY BLEEDING DISORDERS? :NO ANY NEW NUMBNESS OR WEAKNESS IN YOUR LEGS OR ARMS? :NO ANY PACEMAKER,DEFIBRILLATOR, OR DORSAL COLUMN STIMULATOR? :NO DO YOU HAVE ANY RASHES OR OPEN SORES? :NO ARE YOU ALLERGIC TO IV DYE? :NO ARE YOU DIABETIC? :NO PRE DIABETIC ANY NEW PROBLEMS WITH YOUR MEDICATIONS? :NO HAVE YOU RECEIVED A VACCINE IN THE PAST 30 DAYS? :NO DO YOU PLAN TO RECEIVE A VACCINE IN THE NEXT 21 DAYS? :NO DO YOU NEED ANY PRESCRIPTION? :NO DO YOU TAKE ANY IMMUNOSUPPRESSIVE MEDICATIONS? :NO IS THERE A CHANCE YOU COULD BE ? :NO ARE YOU BREAST FEEDING? :NO CURRENT MEDICATIONS TAKING GLUCOMETER 1 METER FOR TEST BLOOD SUGARS ONCE DAILY DX E11.9 TAKING LANCETS - MISCELLANEOUS 1 LANCET FOR DM TESTING DAILY DX E11.9 TAKING ACURA BLOOD GLUCOSE TEST - STRIP DIRECTED (ANY GENERIC STRIP AVAILABLE) IN VITRO DAILY DX E11.9 TAKING OXYBUTYNIN CHLORIDE ER 15 MG TABLET EXTENDED RELEASE 24 HOUR 1 TABLET ORALLY ONCE A DAY TAKING MELOXICAM 7.5MG TABLET 1 TAB(S) ORALLY DAILY TAKING CYCLOBENZAPRINE HCL 5 MG TABLET 1 TABLET ORALLY 1 TAB AM,1 TAB MIDDAY AND 2 AT BEDTIME TAKING GABAPENTIN 600 MG TABLET 1 CAPSULE ORALLY TID TAKING PROAIR HFA 108 (90 BASE) MCG/ACT AEROSOL SOLUTION 2 PUFFS NEEDED INHALATION EVERY 4 HRS TAKING ZOLPIDEM TARTRATE 10 MG TABLET 1 TABLET AT BEDTIME NEEDED ORALLY ONCE A DAY TAKING EFFEXOR XR 150 MG CAPSULE EXTENDED RELEASE 24 HOUR 1 CAPSULE WITH FOOD ORALLY ONCE A DAY TAKING EFFEXOR XR 75 MG CAPSULE EXTENDED RELEASE 24 HOUR 1 CAP ORALLY ONCE A DAY TAKING FLOMAX 0.4 MG CAPSULE 1 CAPSULE ORALLY ONCE A DAY TAKING BREO ELLIPTA 100-25 MCG/INH AEROSOL POWDER BREATH ACTIVATED 1 PUFF INHALATION ONCE A DAY TAKING OMEPRAZOLE 40 MG CAPSULE DELAYED RELEASE 1 CAPSULE 30 MINUTES BEFORE MORNING MEAL ORALLY DAILY TAKING ERGOCALCIFEROL 1.25 MG ([id number] UT) CAPSULE 1 CAPSULE ORALLY ONCE A WEEK TAKING ATORVASTATIN CALCIUM 20 MG TABLET 1 TABLET ORALLY ONCE A DAY TAKING METFORMIN HCL 500 MG TABLET TAKE TWO TABLETS BY MOUTH TWICE A DAY TAKING CHLORTHALIDONE 25 MG TABLET TAKE ONE TABLET BY MOUTH ONCE A DAY EVERY MORNING TAKING HYDROXYZINE HCL 50 MG TABLET 1 TABLET NEEDED ORALLY EVERY 8 HRS TAKING MORPHINE SULFATE ER 15 MG TABLET EXTENDED RELEASE 1 TABLET ORALLY EVERY 12 HRS MDD2 TAKING OXYCODONE-ACETAMINOPHEN 10-325 MG TABLET 1 TABLET NEEDED ORALLY EVERY 6 HRS MDD4 NOT-TAKING OVERNIGHT PULSE OXIMETRY DIRECTED NOT-TAKING NOCTURNAL OXIMETRY ROOM AIR DIRECTED NOT-TAKING OXYGEN DIRECTED NASAL CANNULA NOT-TAKING ASPIRIN 81 81 MG TABLET CHEWABLE 1 TABLET ORALLY ONCE A DAY MEDICATION LIST REVIEWED AND RECONCILED WITH THE PATIENT PAST MEDICAL HISTORY LARGE VENTRAL HERNIAS RENAL CYST S/P PARTIAL RIGHT NEPHRECTOMY NEUROPATHY 2005 INITIAL INJURY TO LOWER BACK HERNIATED DISC.. 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 STATUS POST PARTIAL RIGHT NEPHRECTOMY. BENIGN LEFT HEPATIC CYST. STATUS POST PREVIOUS PARTIAL COLONIC RESECTIONS. ALLERGIES FLAGYL: HIVES - SIDE EFFECTS PAPER ADHESION TAPE: BURNED SKIN OFF - ALLERGY SOCIAL HISTORY GENERAL: TOBACCO USE ARE YOU A:CURRENT SMOKER ARE YOU INTERESTED IN QUITTING?NOT READY TO QUIT COUNSELED THE PATIENT ON SMOKING EFFECTS, EDUCATION GENNDYZV82/11/2021 HOW MANY CIGARETTES A DAY DO YOU SMOKE?11-20 HOW SOON AFTER YOU WAKE UP DO YOU SMOKE YOUR FIRST CIGARETTE?6-30 MIN HOW OFTEN DO YOU SMOKE CIGARETTES?EVERY DAY PATIENT COUNSELED ON THE DANGERS OF TOBACCO USE AND URGED TO QUIT:07/02/2019 ADDITIONAL FINDINGS: TOBACCO USERHEAVY CIGARETTE SMOKER (20-39 CIGS/DAY) SMOKING CESSATION INFORMATION GIVEN12/12/2019 VAPORNO E-CIGARETTENO LATEX QUESTIONNAIRE LATEX ALLERGY : HAVE YOU EVER DEVELOPED ANY TYPE OF REACTION AFTER HANDLING LATEX PRODUCTS SUCH RUBBER GLOVES, CONDOMS, DIAPHRAGMS, BALLOONS, SOCKS, OR UNDERWEAR?NO LATEX ALLERGY : HAVE YOU EVER DEVELOPED ANY TYPE OF REACTION DURING OR AFTER DENTAL APPOINTMENT, VAGINAL/RECTAL EXAMINATION, SURGICAL PROCEDURE, OR ANY OTHER EXPOSURE?NO LATEX RISK : HAVE YOU EVER HAD ANY DIFFICULTY BREATHING OR HIVES AFTER EATING OR HANDLING ANY FRUITS, OR VEGETABLES; SUCH KIWI, BANANAS, STONE FRUITS, OR CHESTNUTSNO LATEX RISK : DO YOU HAVE A PREVIOUS PERSONAL HISTORY OF MORE THAN NINE SURGERIES, SPINA BIFIDA, OR REPEATED CATHERIZATIONS? YES - PLEASE INDICATE : > 9 SURGERIES LATEX RISK : ARE YOU FREQUENTLY EXPOSED TO LATEX PRODUCTS IN YOUR OCCUPATION?NO DATE ASKED : 07/15/2020 ALCOHOL USE: NO. LUNG CANCER SCREENING SMOKING STATUS:CURRENT SMOKER IS THE PATIENT BETWEEN THE AGE OF 56 AND 78?YES HAS THE PATIENT EVER BEEN DIAGNOSED WITH LUNG CANCER?NO PACK YEARS = NUMBER OF PACKS PER DAY SMOKED X NUMBER OF YEARS SMOKED:40 CREATE REFERRAL:GENERATE AND CREATE REFERRAL TO THE ONCOLOGY NURSE NAVIGATOR (SMP) LISTING USING THE LDCT SCAN PROCEDURE BMI CARE GOAL FOLLOW-UP ABOVE NORMAL BMI FOLLOW-UPGIVING ENCOURAGEMENT TO EXERCISE ALCOHOL SCREENING DID YOU HAVE A DRINK CONTAINING ALCOHOL IN THE PAST YEAR?NO POINTS0 INTERPRETATIONNEGATIVE RECREATIONAL DRUG USE DRUG USE?NO CAFFEINE CAFFEINE USE?YES 1 PEPSI A DAY SEXUAL HX HAD SEX IN THE LAST 12 MONTHS (VAGINAL, ORAL, OR ANAL)?YES WITHWOMEN ONLY USE PROTECTION?NO HAVE YOU EVER HAD AN STD?NO HIV / HEP-C SCREENING HIV TEST OFFERED TO PATIENT:YES DATE OFFERED:11/22/2018 CONSENT ON FILE TEST ACCEPTED:NO HEP-C TEST OFFERED TO PATIENT:YES DATE OFFERED:11/22/2018 REASON:PATIENT DECLINED TESTED IN PAST TEST ACCEPTED:NO REASON:PATIENT DECLINED CONSENT ON FILE BROCHURE PROVIDED TO PATIENTNO -DECLINED BAPTISM [id number] EPISCOPAL LANGUAGE LITHU[place]IAN. 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 DIET: REGULAR. EXERCISE: NONE. MARITAL STATUS: SINGLE. OTHERS AT HOME: CHILD. - PFS REFERRAL NEEDED?NO CLERGY REFERRAL NEEDED?NO PUBLIC HEALTH REFERRAL NEEDED?NO WAS THE PROVIDER NOTIFIED OF ANY PERTINENT INFO?YES HAS THE PATIENT BEEN EDUCATED REGARDING HIS/HER PLAN OF CARE?YES HAS THE PATIENT BEEN EDUCATED REGARDING PAIN, THE RISK FOR PAIN, THE IMPORTANCE OF EFFECTIVE PAIN MANAGEMENT, AND THE PAIN ASSESSMENT PROCESS?YES ADVANCE DIRECTIVE ADVANCE DIRECTIVE DISCUSSED WITH PATIENT:YES PT DOES NOT HAVE ANY ADVANCED DIRECTIVES, HCP INFORMATION GIVEN AT LAST VISIT, DECLINED ASSISTANCE WITH FORM. REVIEW OF SYSTEMS CONSTITUTIONAL: ANY RECENT FEVER NO . CHILLS NO . GASTROENTEROLOGY: BOWEL INCONTINENCE NO . ANY NEW CHANGE IN BOWEL CONTROL? NO . HISTORY OF UNUSUAL ABDOMINAL PAIN OR CRAMPING NOT MENTIONED NO . CONSTIPATION NO . GENITOURINARY: ANY NEW CHANGE IN BLADDER CONTROL? NO . IS THERE A CHANCE YOU COULD BE ? NO . URINARY INCONTINENCE NO . CARDIOLOGY: NEW CHEST PRESSURE NO . HISTORY OF CHEST PAIN,IRREGULAR HEART BEAT NOT MENTIONED NO . RESPIRATORY: COUGH NO . SHORTNESS OF BREATH NO . VITAL SIGNS WT 296.8 LBS, HT 69.5 IN, BMI 43.20 INDEX, BP 138/78 MM HG, HR 117 /MIN, RR 20 /MIN, TEMP 97.0 F, OXYGEN SAT % 90%, SAFE IN ENV? (Y/N) YES, NA INITIALS AW 1114T.MANNY LANDA. EXAMINATION GENERAL EXAMINATION: GENERALAWAKE,ALERT ,PLEASANT . PSYCHAFFECT NORMAL . LUNGS:LUNG BOYD ARE CLEAR TO AUSCULTATION BILATERALLY. GOOD MOVEMENT OF AIR . HEART:S1, S2 IN A REGULAR RATE AND RHYTHM. NO SIGNIFICANT MURMURS, RUBS OR GALLOPS NOTED . 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.27 (PRIMARY) CHRONIC POST-OPERATIVE PAIN - G89.28 TREATMENT PROTRUSION OF INTERVERTEBRAL DISC OF LUMBOSACRAL REGION CONTINUE MELOXICAM TABLET, 7.5MG, 1 TAB(S), ORALLY, DAILY CONTINUE CYCLOBENZAPRINE HCL TABLET, 5 MG, 1 TABLET, ORALLY, 1 TAB AM,1 TAB MIDDAY AND 2 AT BEDTIME CONTINUE GABAPENTIN TABLET, 600 MG, 1 CAPSULE, ORALLY, TID REFILL MORPHINE SULFATE ER TABLET EXTENDED RELEASE, 15 MG, 1 TABLET, ORALLY, EVERY 12 HRS MDD2, 30 DAYS, 60, REFILLS 0 REFILL OXYCODONE-ACETAMINOPHEN TABLET, 10-325 MG, 1 TABLET NEEDED, ORALLY, EVERY 6 HRS MDD4, 30 DAYS, 120, REFILLS 0 NOTES: ISTOP REGISTRY REVIEWED AND DEMONSTRATES COMPLLIANCE. BRINGS IN MEDICATIONS WHICH IS APPROPRIATE FOR WHAT WAS DISPENSED. RECENT ORAL SWAB TOXICOLOGY REVIEWED. NO UNAUTHORIZED MEDICATIONS. NO ILLICIT SUBSTANCES AND PRESCRIBED MEDICATIONS WERE PRESENT. PROCEDURE CODES FA211 ESTABILISHED PATIENT [facility] CHARGE DISPOSITION & COMMUNICATION FOLLOW UP 3 MONTHS (REASON: MED MGMNT/UTOX) ELECTRONICALLY SIGNED BY MILTON MEAD ON 07/16/2020 AT 02:20 PM EDT DISCLAIMER : THIS IS A VISIT SUMMARY EXTRACTED FROM THE [employer] CHART. IT IS NOT A COPY OF THE [employer] PROGRESS NOTE. JOSSD
== END ==
LOC: M PAIN 11:15
PROVIDERS: ATTEND Nurse Practitioner Family
DX: M51.27 Other intervertebral disc displacement, lumbosacral region (principal); G89.28 Other chronic postprocedural pain; E11.9 Type 2 diabetes mellitus without complications; J44.9 Chronic obstructive pulmonary disease, unspecified; G47.33 Obstructive sleep apnea (adult) (pediatric); F17.210 Nicotine dependence, cigarettes, uncomplicated; Z86.14 Personal history of Methicillin resistant Staphylococcus aureus infection; Z88.1 Allergy status to other antibiotic agents; Z91.09 Other allergy status, other than to drugs and biological substances; E66.01 Morbid (severe) obesity due to excess calories; Z68.41 Body mass index [BMI] 40.0-44.9, adult; Z79.51 Long term (current) use of inhaled steroids; Z79.84 Long term (current) use of oral hypoglycemic drugs; Z79.891 Long term (current) use of opiate analgesic; Z79.899 Other long term (current) drug therapy

== ENCOUNTER → 2020-08-13 | Outpatient (CLI) | payer MEDICARE ==
[2020-08-13 11:53] LABS: HEMATOCRIT 51.4 % (42.0-52.0); HEMOGLOBIN 16.6 g/dl (13.5-17.5); MEAN CORPUSCULAR HEMOGLOBIN 28.9 pg (27.0-33.0); MEAN CORPUSCULAR HGB CONC 32.3 g/dl (32.0-36.5); MEAN CORPUSCULAR VOLUME 89.5 fl (80.0-96.0); PLATELET COUNT, AUTOMATED 203 10^3/uL (150-450); RED BLOOD COUNT 5.74 10^6/uL (4.30-6.10); WHITE BLOOD COUNT 7.5 10^3/uL (4.0-10.0)
[2020-08-13 12:24] LABS: ATYPICAL LYMPH 3 % (0-5); BASOPHILS 1 % (0-1); EOSINOPHILS 5 % (0-3); LYMPHOCYTES 29 % (16-44); MONOCYTES 9 % (0-5); NEUTROPHILS 53 % (28-66); PLATELET ESTIMATE NORMAL (NORMAL)
[2020-08-13 16:08] LABS: ALBUMIN 3.6 GM/DL (3.2-5.2); ALT/SGPT 50 U/L (12-78); BILIRUBIN,TOTAL 0.3 MG/DL (0.2-1.0); BLOOD UREA NITROGEN 15 MG/DL (7-18); CALCIUM LEVEL 9.3 MG/DL (8.5-10.1); CARBON DIOXIDE LEVEL 31 MEQ/L (21-32); CHLORIDE LEVEL 100 MEQ/L (98-107); CHOLESTEROL LEVEL 157 MG/DL (<200); CHOLESTEROL RISK RATIO 4.485 (<5); CREATININE FOR GFR 1.18 MG/DL (0.70-1.30); GLOMERULAR FILTRATION RATE > 60.0 (>56); GLUCOSE, FASTING 110 MG/DL (70-100); HDL CHOLESTEROL 35 MG/DL (>40); LDL CHOLESTEROL 79 MG/DL (<100); NON-HDL-C 122 MG/DL; POTASSIUM SERUM 3.2 MEQ/L (3.5-5.1); SODIUM LEVEL 139 MEQ/L (136-145); TOTAL 25(OH) VITAMIN D 41.7 NG/ML (30.0-100.0); TOTAL PROTEIN 7.8 GM/DL (6.4-8.2); TRIGLYCERIDES LEVEL 214 MG/DL (<150)
[2020-08-13 20:04] LABS: HEMOGLOBIN A1c 5.9 %
== END ==
LOC: M LAB 09:02
PROVIDERS: ATTEND Physician Assistant
DX: E78.5 Hyperlipidemia, unspecified (principal); I10 Essential (primary) hypertension; E11.9 Type 2 diabetes mellitus without complications; E55.9 Vitamin D deficiency, unspecified; F41.9 Anxiety disorder, unspecified

== ENCOUNTER → 2020-08-18 | Outpatient (REF) | payer MEDICARE ==
[2020-08-18 18:37] LABS: BLOOD UREA NITROGEN 21 MG/DL (7-18); CARBON DIOXIDE LEVEL 28 MEQ/L (21-32); CHLORIDE LEVEL 101 MEQ/L (98-107); CREATININE FOR GFR 1.29 MG/DL (0.70-1.30); GLOMERULAR FILTRATION RATE > 60.0 (>56); GLUCOSE, FASTING 111 MG/DL (70-100); POTASSIUM SERUM 3.6 MEQ/L (3.5-5.1); SODIUM LEVEL 137 MEQ/L (136-145)
[2020-08-18 18:38] LABS: ALBUMIN 3.8 GM/DL (3.2-5.2); ALT/SGPT 60 U/L (12-78); BILIRUBIN,TOTAL 0.3 MG/DL (0.2-1.0); CALCIUM LEVEL 9.5 MG/DL (8.5-10.1); TOTAL PROTEIN 8.2 GM/DL (6.4-8.2)
== END ==
LOC: M SFHCCAPE 10:15
PROVIDERS: ATTEND Physician Assistant
DX: R94.6 Abnormal results of thyroid function studies (principal)

== ENCOUNTER 2020-08-21 10:35 | Inpatient (IN) | payer MEDICARE ==
[~2020-08-21] VITALS: Ht 177.8 cm; Wt 138.3 kg
[2020-08-21] MEDS: ONDANSETRON 4MG/2ML VIAL IV SCH ×3 (05:00→23:41)
[2020-08-21] MEDS ORDERED: NS 1,000 ML IV SCH (10:45)
[2020-08-21] MEDS ORDERED: ONDANSETRON 4MG/2ML VIAL IV ONE (10:50)
[2020-08-21 11:52] LABS: BASO # 0.1 10^3/uL (0.0-0.2); BASO % 0.4 % (0.0-1.0); EOS % 0.3 % (0.0-3.0); HEMATOCRIT 54.3 % (42.0-52.0); HEMOGLOBIN 17.3 g/dl (13.5-17.5); LYMPH # 1.1 10^3/uL (1.5-5.0); LYMPH % 8.7 % (24.0-44.0); MEAN CORPUSCULAR HEMOGLOBIN 28.3 pg (27.0-33.0); MEAN CORPUSCULAR HGB CONC 31.9 g/dl (32.0-36.5); MEAN CORPUSCULAR VOLUME 88.9 fl (80.0-96.0); MONO # 0.7 10^3/uL (0.0-0.8); MONO % 5.4 % (2.0-8.0); NEUTROPHILS # 10.3 10^3/uL (1.5-8.5); NEUTROPHILS % 84.5 % (36.0-66.0); PLATELET COUNT, AUTOMATED 221 10^3/uL (150-450); RED BLOOD COUNT 6.11 10^6/uL (4.30-6.10); WHITE BLOOD COUNT 12.2 10^3/uL (4.0-10.0)
[2020-08-21 12:15] LABS: BILIRUBIN,DIRECT 0.2 MG/DL (0.0-0.2); BILIRUBIN,TOTAL 0.8 MG/DL (0.2-1.0); TOTAL PROTEIN 8.2 GM/DL (6.4-8.2)
[2020-08-21] MEDS: GASTROGRAFIN SOLUTION 30ML PO SCH ×2 (12:33→14:21)
[2020-08-21] MEDS: MORPHINE 4 MG/ML 1ML VIAL/SYRINGE (J2270) IV PRN ×2 (12:33→14:25)
[2020-08-21] MEDS ORDERED: ISOVUE-370 76% 100ML VIAL As Ordered ONE (12:57)
--- NOTE | 2020-08-21 13:32 | REP ---
INDICATION: abd pain vomiting hernia COMPARISON: 06/28/2018. TECHNIQUE: CT Scan of the abdomen and pelvis was performed with intravenous administration of 100 cc of Isovue 370, and oral contrast. FINDINGS: Lung bases: There are fibro atelectatic changes in the lung bases bilaterally. Liver: There is a stable cyst in the liver. Gallbladder: Unremarkable. Spleen: Normal. Adrenals: Normal. Pancreas: Normal. Kidneys: No significant abnormality. No hydronephrosis. Prior partial right nephrectomy. Small and large bowel: There is a large anterior abdominal hernia in the midline containing both large bowel and small bowel loops. In the inferior aspect of the hernia there is a small bowel loop which is obstructed within the hernia, as it exits the hernia sac, with diffuse moderate proximal small bowel dilatation, and collapse of the distal small bowel. There has been a prior partial colectomy. Free fluid: None. Abdominal aorta: No aneurysm or dissection. Adenopathy: None. Osseous structures: There are degenerative changes of the spine without compression deformity. There is a left hip prosthesis. Pelvis: No mass. There is a small right inguinal hernia containing noninflamed fat. IMPRESSION: Small-bowel obstruction, the transition point is at the margin of the large anterior abdominal hernia as the obstructed small bowel loop exits the hernia sac. No free air or free fluid. <Electronically signed by Madi Gilliam > 08/21/20 [id number]
[2020-08-21] MEDS ORDERED: VENL150C43 PO (15:49)
[2020-08-21] MEDS ORDERED: OMEP-221 PO (15:49)
[2020-08-21] MEDS ORDERED: ATOR1TAB21 PO (15:49)
[2020-08-21] MEDS ORDERED: ERGO500029 PO (15:49)
[2020-08-21] MEDS: HYDROMORPHONE HCL 0.5 MG/ 0.5 ML SYRINGE (J1170 PER 1) IV PRN ×2 (16:05→18:07)
[2020-08-21 16:53] LABS: RSV AMPLIFICATION NEGATIVE (NEGATIVE)
[2020-08-21] MEDS ORDERED: ALBUTEROL 90 MCG/ACT 8GM HFA INHALER INH PRN (17:00)
[2020-08-21] MEDS ORDERED: GLUCOSE 4GM CHEW TABLET PO PRN (17:00)
[2020-08-21] MEDS ORDERED: DEXTROSE 50% 50 ML SYRINGE IV PRN (17:00)
[2020-08-21] MEDS ORDERED: LORazepam 2 MG/ML VIAL IV STA (17:00)
[2020-08-21] MEDS ORDERED: GLUCAGON INJ 1MG VIAL SC PRN (17:00)
--- NOTE | 2020-08-21 18:44 | HPEPDOC ---
[facility] Medical History & Physical Date of Admission Aug 21, 2020 Date of Service: Aug 21, 2020 Attending Physician: MEHRDAD WAGNER MD MPH History and Physical CHIEF COMPLAINT: N/V/ABD PAIN HISTORY OF PRESENT ILLNESS: Mr. Dinero is an obese 59 year old male with extensive history of abdominal wall hernia with multiple repairs including with mesh who presents to the [facility] ED for progressive abdominal discomfort and nausea and vomiting that started last night. Patient states he was eating a pizza and could only manage two pieces before he felt himself getting backed up. He has no hematemesis and has not recently had a bowel movement (last was about 3 days ago) he also denies passing flatus. ED provider spoke with general surgeon who recommends NGT decompression with possible OR in the morning if patient fails to progress otherwise possibly outpatient management after symptomatic improvement. PAST MEDICAL HISTORY: LARGE VENTRAL HERNIAS RENAL CYST S/P PARTIAL RIGHT NEPHRECTOMY NEUROPATHY 2005 INITIAL INJURY TO LOWER BACK HERNIATED DISC.. 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 STATUS POST PARTIAL RIGHT NEPHRECTOMY. BENIGN LEFT HEPATIC CYST. STATUS POST PREVIOUS PARTIAL COLONIC RESECTIONS. SOCIAL HISTORY: Marital status: single [place] in: [place] self Children: one Employment: retired [employer] Tobacco use:2ppd since age 19 ETOH: occasional FAMILY HISTORY: Non contributory ALLERGIES: Please see below. REVIEW OF SYSTEMS: 10 Point ROS was obtained and was unremarkable except as noted above. HOME MEDICATIONS: Please see below. PHYSICAL EXAMINATION: VITAL SIGNS: As per below GENERAL APPEARANCE: uncomfortable appearing older male, obese, sitting at angle in bed, very large visible ventral hernia HEENT: blood at bilateral nares from ngt attempts CARDIOVASCULAR: rrr, no m/r/g LUNGS: CTAB, diminished throughout ABDOMEN: obese, moderately distended, hypoactive bowel sounds. ventral hernia is >1 foot in diameter and has areas of firmness and air filled portions. Mild ttp with slight palpation MUSCULOSKELETAL: moving all extremities, no obvious deformities EXTREMITIES: no rashes, petechiae NEUROLOGICAL: AOx3 LABORATORY DATA: See below. IMAGING: Reviewed CT Abd MICROBIOLOGY: Please see below. ASSESSMENT: Mr. Dinero is a 59 year old male with multiple prior bowel surgeries and prior SBO presenting with SBO on CT imaging. Will place NGT and decompress with follow up with general surgery in the morning. PLAN: # SBO: Lactic acid is trending up. Will aggressively fluid resuscitate and continue NPO status with NGT which has successfully been placed by ED. Concern for incarceration and therefore will engage with general surgery again in the morning. - NPO - NGT to LIWS - Ativan PRN agitation - Morphine PRN Pain - Trend lactate - ISS while NPO # Leukocytosis: Possibly demargination from pain and SBO, however possible gut translocation and therefore trending blood cultures. Will monitor for SIRS and hydrate overnight balancing risk of bowel swelling from fluid with need to clear lactic acid. - follow blood cultures - low threshold to initiate abx - daily CBC # acute liver injury, mild: This is in the setting of SBO. Will keep NPO and check LFTs in the AM. # polycythemia: This is chronic and unchanged in the setting of dehydration. Will have patient follow up as outpatient. # Tobacco use disorder: Will provide nicotine cessation information. Dispo: Med Surg Code: Full Code Diet: NPO DVT Prophy: Lovenox Consults: PFS, PT/OT, General surgery Vital Signs Vital Signs Date Time Temp Pulse Resp B/P (MAP) Pulse Ox O2 Delivery O2 Flow Rate FiO2 08/21/20 18:07 20 99 Room Air 08/21/20 16:20 116 125/96 (106) 08/21/20 14:25 97.9 Laboratory Data Labs 24H Laboratory Tests 2 08/21/20 11:40: Immature Granulocyte % (Auto) 0.7, Neutrophils (%) (Auto) 84.5H, Lymphocytes (%) (Auto) 8.7L, Monocytes (%) (Auto) 5.4, Eosinophils (%) (Auto) 0.3, Basophils (%) (Auto) 0.4, Neutrophils # (Auto) 10.3H, Lymphocytes # (Auto) 1.1L, Monocytes # (Auto) 0.7, Eosinophils # (Auto) 0.0, Basophils # (Auto) 0.1, Nucleated Red Blood Cells % (auto) 0.0, Total Bilirubin 0.8, Direct Bilirubin 0.2, Aspartate Amino Transf (AST/SGOT) 60H, Alanine Aminotransferase (ALT/SGPT) 62, Alkaline Phosphatase 125H, Total Protein 8.2, Albumin 4.0, Albumin/Globulin Ratio 1.0, Lipase 113 08/21/20 11:41: POC Glucose (Misc Panel) 198H, POC Sodium (Misc Panel) 139, POC Potassium (Misc Panel) 3.7, POC Chloride (Misc Panel) 98, POC Total CO2 (Misc Panel) 26.0, POC Blood Urea Nitrogen (Misc Panel 27H, POC Ionized Calcium (Misc Panel) 4.8, POC Creatinine (Misc Panel) 1.1, POC Hematocrit (Misc Panel) 54.0H 08/21/20 14:43: POC Lactate (Misc Panel) 3.37*H 08/21/20 16:06: Coronavirus (COVID-19)(PCR) NEGATIVE, Influenza Type A (RT-PCR) NEGATIVE, Influenza Type B (RT-PCR) NEGATIVE, Respiratory Syncytial Virus (PCR) NEGATIVE 08/21/20 18:10: CBC/BMP Laboratory Tests 08/21/20 11:40 Home Medications Scheduled Atorvastatin Calcium (Atorvastatin Calcium) 20 Mg Tablet, 20 MG PO DAILY Chlorthalidone (Chlorthalidone) 25 Mg Tab, 25 MG PO DAILY Cyclobenzaprine HCl (Cyclobenzaprine HCl) 5 Mg Tab, 5 MG PO TID Ergocalciferol (Vitamin D2) (Vitamin D2) 50,000 Units Cap, 50,000 UNITS PO QWEEK FRIDAYS Fluticasone/Vilanterol (Breo Ellipta 100-25 Mcg INH) 1 Inh Inh, 1 PUFF INH DAILY Gabapentin (Neurontin) 300 Mg Cap, 600 MG PO TID Meloxicam (Mobic) 7.5 Mg Tablet, 7.5 MG PO DAILY Metformin HCl (Metformin HCl) 500 Mg Tab, 1,000 MG PO BID Morphine Sulfate (Morphine Sulfate ER) 15 Mg Tabcr, 15 MG PO BID Omeprazole (Omeprazole) 40 Mg Capsule.dr, 40 MG PO DAILY Oxybutynin Chloride (Oxybutynin Chloride ER) 15 Mg Tab, 15 MG PO DAILY Tamsulosin HCl (Flomax) 0.4 Mg Cap, 0.4 MG PO DAILY Venlafaxine HCl (Venlafaxine HCl ER) 75 Mg Capcr, 75 MG PO DAILY TAKES WITH 150MG DOSE FOR TOTAL DOSE OF 225MG Venlafaxine HCl (Venlafaxine HCl ER) 150 Mg Cap.er.24h, 150 MG PO DAILY TAKES WITH 75MG DOSE FOR TOTAL DOSE OF 225MG Zolpidem Tartrate (Ambien) 10 Mg Tab, 10 MG PO QHS for SLEEP Scheduled PRN Albuterol Sulfate (Proair Hfa) 108 Mcg/Act Aer, 2 PUFF INH Q4-6HP PRN for SOB/WHEEZING Hydroxyzine HCl (Hydroxyzine HCl) 50 Mg Tab, 50 MG PO TID PRN for ANXIETY Oxycodone HCl/Acetaminophen (Oxycodone-Acetaminophen 10-325) 1 Tab Tab, 1 TAB PO QID PRN for PAIN Allergies Coded Allergies: adhesive tape (Verified Allergy, Intermediate, paper tape strickland skin, 03/11/20) metronidazole (Verified Allergy, Intermediate, hives, 03/11/20) A-FIB/CHADSVASC A-FIB History Current/History of A-Fib/PAF?: No Current PO Anticoag Therapy: No Age/Risk Factor Scoring CHADSVASC: CHADSVASC Response (Comments) Value Age Risk Factor Age < 65 years old 0 Gender Risk Factor Male 0 Hx of CHF No 0 Hx of HTN Yes 1 Hx of Stroke/TIA/or VTE No 0 Hx of Diabetes Yes 1 Hx of Vascular Disease No 0 Total 2 MEHRDAD WAGNER MD MPH Aug 21, 2020 18:44
[2020-08-21 20:56] VITALS: BP 158/92
[2020-08-21] MEDS ORDERED: HumaLOG INSULIN (NovoLOG) PER UNIT SC SCH (21:00)
--- NOTE | 2020-08-21 21:24 | ECGEPIP ---
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
[2020-08-21] MEDS: MORPHINE 2 MG/ML 1ML VIAL (J2270) IV PRN (22:10)
[2020-08-21] MEDS: D5W/0.9% SODIUM CHLORIDE 1,000 ML IV SCH (22:26)
[2020-08-22] MEDS ORDERED: HumaLOG INSULIN (NovoLOG) PER UNIT SC SCH
[2020-08-22] MEDS: MORPHINE 2 MG/ML 1ML VIAL (J2270) IV PRN ×7 (00:45→20:22)
[2020-08-22] MEDS ORDERED: CHLORASEPTIC SPRAY MT PRN (01:15)
[2020-08-22] MEDS: HumaLOG INSULIN (NovoLOG) PER UNIT SC SCH ×3 (01:39→12:00)
[2020-08-22 02:00] VITALS: BP 174/80
[2020-08-22] MEDS ORDERED: LORazepam 2 MG/ML VIAL IV ONE ×2 (02:35→12:08)
[2020-08-22] MEDS: D5W/0.9% SODIUM CHLORIDE 1,000 ML IV SCH (03:28)
[2020-08-22] MEDS ORDERED: HYDROMORPHONE HCL 0.5 MG/ 0.5 ML SYRINGE (J1170 PER 1) IV ONE ×2 (04:25→05:40)
[2020-08-22] MEDS: ONDANSETRON 4MG/2ML VIAL IV SCH ×5 (04:39→20:21)
[2020-08-22 06:00] VITALS: BP 120/77
[2020-08-22 06:16] LABS: HEMATOCRIT 54.6 % (42.0-52.0); HEMOGLOBIN 17.7 g/dl (13.5-17.5); MEAN CORPUSCULAR HEMOGLOBIN 28.7 pg (27.0-33.0); MEAN CORPUSCULAR HGB CONC 32.4 g/dl (32.0-36.5); MEAN CORPUSCULAR VOLUME 88.5 fl (80.0-96.0); PLATELET COUNT, AUTOMATED 234 10^3/uL (150-450); RED BLOOD COUNT 6.17 10^6/uL (4.30-6.10); WHITE BLOOD COUNT 8.2 10^3/uL (4.0-10.0)
[2020-08-22 06:37] LABS: BLOOD UREA NITROGEN 27 MG/DL (7-18); CARBON DIOXIDE LEVEL 29 MEQ/L (21-32); CHLORIDE LEVEL 102 MEQ/L (98-107); CREATININE FOR GFR 1.21 MG/DL (0.70-1.30); GLOMERULAR FILTRATION RATE > 60.0 (>56); GLUCOSE, FASTING 137 MG/DL (70-100); POTASSIUM SERUM 3.8 MEQ/L (3.5-5.1); SODIUM LEVEL 138 MEQ/L (136-145)
[2020-08-22] MEDS: KETOROLAC 30 MG/ML 1ML VIAL IV PRN ×2 (06:52→21:09)
[2020-08-22] MEDS: NS 1,000 ML IV SCH ×3 (06:53→20:22)
--- NOTE | 2020-08-22 08:26 | REPVR ---
PROCEDURE INFORMATION: Exam: XR Complete Acute Abdomen Series Including Chest Exam date and time: 08/22/2020 5:23 AM Age: 59 years old Clinical indication: Other: Sbo TECHNIQUE: Imaging protocol: XR complete acute abdomen series, including 2 or more views of the abdomen and a single view chest. COMPARISON: CT ABD/PEL W/IV ORAL CONTRAS 08/21/2020 12:59 PM FINDINGS: Tubes, catheters and devices: A nasogastric tube is present with the tip in the stomach. Lungs: There is no significant consolidation. Pleural spaces: No pleural effusions or pneumothorax identified. Heart/Mediastinum: The heart is normal in size. Gastrointestinal tract: There is a dilated loop of small bowel in the center of the abdomen. The abdomen is relatively opaque, which may be due to fluid-filled bowel or collapsed bowel. There is air and stool within the distal colon without significant dilation. Intraperitoneal space: There is no evidence of free intraperitoneal air. Bones/joints: There is a left hip prosthesis. Soft tissues: Normal. IMPRESSION: 1. Nasogastric tube tip is in the stomach. 2. At least 1 dilated loop of small bowel is identified, which is concordant with the findings of small bowel obstruction on the prior CT scan. Electronically signed by: Brunilda Corbett On 08/22/2020 08:26:24 AM
--- NOTE | 2020-08-22 08:38 | REPVR ---
PROCEDURE INFORMATION: Exam: CT Abdomen And Pelvis Without Contrast Exam date and time: 08/22/2020 5:33 AM Age: 59 years old Clinical indication: Other: Sbo; Additional info: Small bowel obstruction TECHNIQUE: Imaging protocol: Computed tomography of the abdomen and pelvis without contrast. Radiation optimization: All CT scans at this facility use at least one of these dose optimization techniques: automated exposure control; mA and/or kV adjustment per patient size (includes targeted exams where dose is matched to clinical indication); or iterative reconstruction. COMPARISON: CT ABD/PEL W/IV ORAL CONTRAS 08/21/2020 12:59 PM FINDINGS: Limitations: There is artifact in the pelvis related to the hip prosthesis. Tubes, catheters and devices: A nasogastric tube is present with the tip in the stomach. Lungs: There is patchy consolidation in the bilateral lung bases, increased compared to the prior exam. Liver: There is a simple hepatic cyst measuring 3.6 cm in diameter. There is a heterogeneous decrease in hepatic parenchymal density, consistent with fatty infiltration. Gallbladder and bile ducts: The gallbladder is normal with no stones or biliary ductal dilation. Pancreas: There is diffuse, benign fatty infiltration of the pancreas. Spleen: The spleen is normal. Adrenal glands: The adrenal glands are normal. Kidneys and ureters: There is focal parenchymal thinning and an associated dystrophic calcification at the right kidney lower pole, unchanged. There is a small amount of residual excreted contrast in the bilateral renal collecting systems. There are no ureteral stones or hydronephrosis. Stomach and bowel: A large midline upper abdominal wall hernia containing the transverse colon and small bowel loops is again seen. There is a 2nd, smaller hernia in the midline immediately inferior to the larger hernia which contains a loop of small bowel. There are multiple dilated, fluid filled small bowel loops with nondilated distal small bowel loops, consistent with a small bowel obstruction. The transition point is at the exit point from the smaller hernia sac, as seen on the prior exam. The degree of dilation of the small bowel appears similar to the prior exam. An ileocolic anastomosis is seen at the right mid abdomen, which may be from a resection of the cecum or a right hemicolectomy. There is a suture line in the distal colon, likely from a prior partial sigmoid resection. No significant thickening of the small bowel or the colon is identified. Appendix: The appendix is surgically absent. Intraperitoneal space: There is mild infiltration of the small bowel mesentery. There is a trace of free fluid in the paracolic gutters bilaterally. There is no free intraperitoneal air. Vasculature: No aortic aneurysm. Atherosclerotic changes are present in the abdominal aorta and the iliac arteries. Lymph nodes: No lymphadenopathy is seen. Urinary bladder: There is residual excreted contrast in the bladder. No bladder wall thickening. Reproductive: The prostate gland appears normal. Bones/joints: There is a left hip prosthesis. Soft tissues: There is infiltration most consistent with scar tissue in the midline in the lower anterior abdominal wall. IMPRESSION: 1. Nasogastric tube now seen with the tip in the stomach. 2. Small-bowel obstruction again identified, related to the more inferior of the 2 upper anterior abdominal wall hernias. The degree of distention of the small bowel is similar to the prior exam. 3. Other nonacute findings are without significant change. Electronically signed by: Brunilda Corbett On 08/22/2020 08:37:49 AM
[2020-08-22] MEDS ORDERED: PANTOPRAZOLE 40MG VIAL (C9113 PER 1) IV SCH (09:00)
[2020-08-22] MEDS ORDERED: NS 1,000 ML IV ONE (09:00)
[2020-08-22] MEDS ORDERED: ENOXAPARIN 40MG/0.4ML SYRINGE (J1650 PER 10MG) SC SCH (09:00)
[2020-08-22 10:00] VITALS: BP 111/79
[2020-08-22] MEDS ORDERED: LORazepam 2 MG/ML VIAL IV STA ×2 (10:49→12:08)
[2020-08-22] MEDS ORDERED: CETACAINE SPRAY 5GM TOP ONE (11:00)
--- NOTE | 2020-08-22 11:04 | CR.PDOC ---
General Date of Consultation: Aug 22, [address] Geiger. HISTORY OF PRESENT ILLNESS: The patient is a 59-year-old male with history of large ventral hernia, history of repair with mesh as per Dr. Marti 10/18, who presented to the emergency department with progressive abdominal discomfort, nausea and vomiting. He had reported his last bowel movement was 3 days prior and had not been having any flatus. He had been having abdominal pain prior. The patient was admitted for SBO and general surgery consulted. ALLERGIES: Please see below. HOME MEDICATIONS: Please see below. PAST MEDICAL HISTORY/PAST SURGICAL HISTORY: Large ventral hernia/status post previous repair with mesh Previous partial colon resection, history of SBO and diverticulitis. Partial right nephrectomy/renal cyst Fatty liver Chronic back pain/sciatica, chronic pain. On chronic narcotics. Neuropathy COPD Hypertension Hyperlipidemia QUINTON, noncompliant with CPAP DM 2 Polycythemia Osteoarthritis Obesity. BMI 43.7 Colonoscopy 2016 EGD 2020 SOCIAL HISTORY: Tobacco use. 2 packs per day. REVIEW OF SYSTEMS: As noted in HPI otherwise 10 point review systems unremarkable. PHYSICAL EXAMINATION: VITAL SIGNS: Please see below. GENERAL APPEARANCE: Resting in bed, currently comfortable. HEENT: NG tube in place RESPIRATORY: Decreased breath sounds but CTA CARDIOVASCULAR: RRR ABDOMEN: Obese, distention noted but soft, large ventral hernia but no specific areas of tenderness around the hernia on exam. Some slight TTP was noted in the right upper abdomen. No erythema. No skin discoloration. EXTREMITIES: No edema LABORATORY DATA: Please see below. CT A/P 08/21/20 IMPRESSION: Small-bowel obstruction, the transition point is at the margin of the large anterior abdominal hernia as the obstructed small bowel loop exits the hernia sac. No free air or free fluid. <Electronically signed by Madi Gilliam > 08/21/[address] A/P IMPRESSION: 1. Nasogastric tube now seen with the tip in the stomach. 2. Small-bowel obstruction again identified, related to the more inferior of the 2 upper anterior abdominal wall hernias. The degree of distention of the small bowel is similar to the prior exam. 3. Other nonacute findings are without significant change. Electronically signed by: Brunilda Corbett On 08/22/2020 08:37:49 AM AXR IMPRESSION: 1. Nasogastric tube tip is in the stomach. 2. At least 1 dilated loop of small bowel is identified, which is concordant with the findings of small bowel obstruction on the prior CT scan. Electronically signed by: Brunilda Corbett On 08/22/2020 08:26:24 AM ASSESSMENT/PLAN: Large ventral hernia with previous repair with mesh 2013, history of SBO and multiple prior bowel surgeries, admitted with SBO. The patient is reviewed and examined by Dr. Geiger. Continue NPO Continue NGT LIS. 900 mL recorded NG output yesterday. 150 mL so far today. Continue IVF. Monitor strict I/O. Monitor urine output, only 200 mL recorded since admission. Leukocytosis improved this morning to 8.2 compared with 12.2 on admission. Serum creatinine 1.21 with GFR greater than 60. Follow-up lactic acid 3.1 at 9:30 AM today, 4.0 at 5:30 this morning. IV fluid bolus ordered this morning. The patient's imaging is reviewed by Dr. Geiger. Imaging this morning appears slightly improved compared with admission yesterday. Would recommend to continue with supportive care. Continue to closely monitor. Vital Signs/I&O Vital Signs Date Time Temp Pulse Resp B/P (MAP) Pulse Ox O2 Delivery O2 Flow Rate FiO2 08/22/20 09:18 20 Room Air 08/22/20 06:00 98.6 144 120/77 (91) 94 I&O- Last 24 Hours up to 6 AM 08/22/20 06:00 Intake Total 2650 ml Output Total 1250 ml Balance 1400 ml Laboratory Data Labs 24H Laboratory Tests 2 08/21/20 11:40: Immature Granulocyte % (Auto) 0.7, Neutrophils (%) (Auto) 84.5H, Lymphocytes (%) (Auto) 8.7L, Monocytes (%) (Auto) 5.4, Eosinophils (%) (Auto) 0.3, Basophils (%) (Auto) 0.4, Neutrophils # (Auto) 10.3H, Lymphocytes # (Auto) 1.1L, Monocytes # (Auto) 0.7, Eosinophils # (Auto) 0.0, Basophils # (Auto) 0.1, Nucleated Red Blood Cells % (auto) 0.0, Total Bilirubin 0.8, Direct Bilirubin 0.2, Aspartate Amino Transf (AST/SGOT) 60H, Alanine Aminotransferase (ALT/SGPT) 62, Alkaline Phosphatase 125H, Total Protein 8.2, Albumin 4.0, Albumin/Globulin Ratio 1.0, Lipase 113 08/21/20 11:41: POC Glucose (Misc Panel) 198H, POC Sodium (Misc Panel) 139, POC Potassium (Misc Panel) 3.7, POC Chloride (Misc Panel) 98, POC Total CO2 (Misc Panel) 26.0, POC Blood Urea Nitrogen (Misc Panel 27H, POC Ionized Calcium (Misc Panel) 4.8, POC Creatinine (Misc Panel) 1.1, POC Hematocrit (Misc Panel) 54.0H 08/21/20 14:43: POC Lactate (Misc Panel) 3.37*H 08/21/20 16:06: Coronavirus (COVID-19)(PCR) NEGATIVE, Influenza Type A (RT-PCR) NEGATIVE, Influenza Type B (RT-PCR) NEGATIVE, Respiratory Syncytial Virus (PCR) NEGATIVE 08/21/20 18:10: Lactic Acid Level 3.6*H 08/21/20 22:31: Lactic Acid Followup at 4 Hours 3.7*H 08/22/20 00:13: Bedside Glucose (Misc Panel) 179H 08/22/20 05:30: Lactic Acid Level 4.0*H, Nucleated Red Blood Cells % (auto) 0.0, Anion Gap 7L, Glomerular Filtration Rate > 60.0, Calcium Level 9.0 08/22/20 06:16: Bedside Glucose (Misc Panel) 144H 08/22/20 09:32: Lactic Acid Level 3.1*H CBC/BMP Laboratory Tests 08/21/20 11:40 08/22/20 05:30 Allergies Coded Allergies: adhesive tape (Verified Allergy, Intermediate, paper tape [place]rick[place] skin, 03/11/20) metronidazole (Verified Allergy, Intermediate, hives, 03/11/20) Home Medications Scheduled Atorvastatin Calcium (Atorvastatin Calcium) 20 Mg Tablet, 20 MG PO DAILY, (Reported) Chlorthalidone (Chlorthalidone) 25 Mg Tab, 25 MG PO DAILY, (Reported) Cyclobenzaprine HCl (Cyclobenzaprine HCl) 5 Mg Tab, 5 MG PO TID, (Reported) Ergocalciferol (Vitamin D2) (Vitamin D2) 50,000 Units Cap, 50,000 UNITS PO QWEEK, (Reported) FRIDAYS Fluticasone/Vilanterol (Breo Ellipta 100-25 Mcg INH) 1 Inh Inh, 1 PUFF INH DAILY, (Reported) Gabapentin (Neurontin) 300 Mg Cap, 600 MG PO TID, (Reported) Meloxicam (Mobic) 7.5 Mg Tablet, 7.5 MG PO DAILY, (Reported) Metformin HCl (Metformin HCl) 500 Mg Tab, 1,000 MG PO BID, (Reported) Morphine Sulfate (Morphine Sulfate ER) 15 Mg Tabcr, 15 MG PO BID, (Reported) Omeprazole (Omeprazole) 40 Mg Capsule.dr, 40 MG PO DAILY, (Reported) Oxybutynin Chloride (Oxybutynin Chloride ER) 15 Mg Tab, 15 MG PO DAILY, (Reported) Tamsulosin HCl (Flomax) 0.4 Mg Cap, 0.4 MG PO DAILY, (Reported) Venlafaxine HCl (Venlafaxine HCl ER) 75 Mg Capcr, 75 MG PO DAILY, (Reported) TAKES WITH 150MG DOSE FOR TOTAL DOSE OF 225MG Venlafaxine HCl (Venlafaxine HCl ER) 150 Mg Cap.er.24h, 150 MG PO DAILY, (Reported) TAKES WITH 75MG DOSE FOR TOTAL DOSE OF 225MG Zolpidem Tartrate (Ambien) 10 Mg Tab, 10 MG PO QHS for SLEEP, (Reported) Scheduled PRN Albuterol Sulfate (Proair Hfa) 108 Mcg/Act Aer, 2 PUFF INH Q4-6HP PRN for SOB/WHEEZING, (Reported) Hydroxyzine HCl (Hydroxyzine HCl) 50 Mg Tab, 50 MG PO TID PRN for ANXIETY, (Reported) Oxycodone HCl/Acetaminophen (Oxycodone-Acetaminophen 10-325) 1 Tab Tab, 1 TAB PO QID PRN for PAIN, (Reported) Winnie Johnson Aug 22, 2020 11:04
[2020-08-22] MEDS ORDERED: ACETAMINOPHEN 650 MG SUPP PR PRN (12:05)
[2020-08-22] MEDS ORDERED: LORazepam 2 MG/ML VIAL IV PRN (12:15)
[2020-08-22 14:00] VITALS: BP 134/80
--- NOTE | 2020-08-22 15:08 | IPNPDOC ---
Text Note Date of Service The patient was seen on 08/22/20. NOTE SUBJECTIVE: Patient decompressed fairly well overnight, however NGT stopped working and after attempts by gen surg to reposition, decision was made to take out NGT and place larger size tube. This has not been successfully placed yet. Patient has needed several doses of ativan to tolerate attempts at NGT placement. PHYSICAL EXAMINATION: VITAL SIGNS: As per below GENERAL APPEARANCE: uncomfortable appearing older male, obese, sitting at angle in bed, very large visible ventral hernia through hospital gown HEENT: AT/NC, no NGT in place CARDIOVASCULAR: rrr, no m/r/g LUNGS: CTAB, diminished throughout ABDOMEN: obese, moderately distended, hypoactive bowel sounds. ventral hernia is >1 foot in diameter and has areas of firmness and air filled portions. Mild ttp with slight palpation, no peritoneal signs MUSCULOSKELETAL: moving all extremities, no obvious deformities EXTREMITIES: no rashes, petechiae NEUROLOGICAL: AOx3 LABORATORY DATA: See below. IMAGING: Abd XR: IMPRESSION: 1. Nasogastric tube tip is in the stomach. 2. At least 1 dilated loop of small bowel is identified, which is concordant with the findings of small bowel obstruction on the prior CT scan. Abd CT: FINDINGS: Limitations: There is artifact in the pelvis related to the hip prosthesis. Tubes, catheters and devices: A nasogastric tube is present with the tip in the stomach. Lungs: There is patchy consolidation in the bilateral lung bases, increased compared to the prior exam. Liver: There is a simple hepatic cyst measuring 3.6 cm in diameter. There is a heterogeneous decrease in hepatic parenchymal density, consistent with fatty infiltration. Gallbladder and bile ducts: The gallbladder is normal with no stones or biliary ductal dilation. Pancreas: There is diffuse, benign fatty infiltration of the pancreas. Spleen: The spleen is normal. Adrenal glands: The adrenal glands are normal. Kidneys and ureters: There is focal parenchymal thinning and an associated dystrophic calcification at the right kidney lower pole, unchanged. There is a small amount of residual excreted contrast in the bilateral renal collecting systems. There are no ureteral stones or hydronephrosis. Stomach and bowel: A large midline upper abdominal wall hernia containing the transverse colon and small bowel loops is again seen. There is a 2nd, smaller hernia in the midline immediately inferior to the larger hernia which contains a loop of small bowel. There are multiple dilated, fluid filled small bowel loops with nondilated distal small bowel loops, consistent with a small bowel obstruction. The transition point is at the exit point from the smaller hernia sac, as seen on the prior exam. The degree of dilation of the small bowel appears similar to the prior exam. An ileocolic anastomosis is seen at the right mid abdomen, which may be from a resection of the cecum or a right hemicolectomy. There is a suture line in the distal colon, likely from a prior partial sigmoid resection. No significant thickening of the small bowel or the colon is identified. Appendix: The appendix is surgically absent. Intraperitoneal space: There is mild infiltration of the small bowel mesentery. There is a trace of free fluid in the paracolic gutters bilaterally. There is no free intraperitoneal air. Vasculature: No aortic aneurysm. Atherosclerotic changes are present in the abdominal aorta and the iliac arteries. Lymph nodes: No lymphadenopathy is seen. Urinary bladder: There is residual excreted contrast in the bladder. No bladder wall thickening. Reproductive: The prostate gland appears normal. Bones/joints: There is a left hip prosthesis. Soft tissues: There is infiltration most consistent with scar tissue in the midline in the lower anterior abdominal wall. IMPRESSION: 1. Nasogastric tube now seen with the tip in the stomach. 2. Small-bowel obstruction again identified, related to the more inferior of the 2 upper anterior abdominal wall hernias. The degree of distention of the small bowel is similar to the prior exam. 3. Other nonacute findings are without significant change. ASSESSMENT: Mr. Dinero is a 59 year old male with multiple prior bowel surgeries and prior SBO presenting with SBO on CT imaging. Will continue to attempt NGT placement for decompression and appreciate General Surgery engagement. PLAN: # SBO: Lactic acid has trended back down. Continuing to monitor. Continuing IVF while NPO and have initiated Reglan for gut mobility. NGT placement and effectiveness has remained difficult and patient does not currently have NGT but also does not have an acute abdomen. Repeat CT scan abdomen this morning shows stable/slight improvement in SBO. Will encourage patient ambulation and see if he is able to resolve this without urgent surgical intervention. Spoke at length with Dr. Geiger who agreed that NGT should continue to be attempted, however if patient is not in acute pain and is not having refractory emesis, can attempt ambulation and reglan first. Meds: -Reglan 10mg IV Q6H - Morphine PRN severe pain - NPO - NGT to LIWS once placed - Ativan PRN agitation and NGT placement - Trend lactate - ISS while NPO # Leukocytosis: Possibly demargination from pain and SBO, however possible gut translocation and therefore trending blood cultures. Will monitor for SIRS and hydrate overnight balancing risk of bowel swelling from fluids with need to clear lactic acid. WBC has improved today and patient remains afebrile. - follow blood cultures - low threshold to initiate abx - daily CBC # acute liver injury, mild: This is in the setting of SBO. Will keep NPO and check LFTs in the AM. These studies continue to improve. # polycythemia: This is chronic and unchanged in the setting of dehydration. Will have patient follow up as outpatient. # Tobacco use disorder: Will provide nicotine cessation information. Dispo: Med Surg Code: Full Code Diet: NPO DVT Prophy: Lovenox Consults: PFS, PT/OT, General surgery VS,Fishbone, I+O VS, Fishbone, I+O Laboratory Tests 08/22/20 05:30 Vital Signs Date Time Temp Pulse Resp B/P (MAP) Pulse Ox O2 Delivery O2 Flow Rate FiO2 08/22/20 10:00 100.7 102 22 111/79 (90) 97 08/22/20 09:18 Room Air I&O- Last 24 Hours up to 6 AM 08/22/20 05:59 Intake Total 1300 ml Output Total 1050 ml Balance 250 ml MEHRDAD WAGNER MD [facility] Aug 22, 2020 15:08
[2020-08-22] MEDS: METOCLOPRAMIDE INJ 10MG/2ML VIAL (J2765 PER 1) IV SCH ×2 (15:51→21:09)
[2020-08-22 18:00] VITALS: BP 133/74
[2020-08-22 22:00] VITALS: BP 124/66
== END 2020-08-22 22:29 | disposition left against medical advice (07) | DRG 394 ==
LOC: M ED 10:35 → EDBD 10:35 → M ED INP 17:00 → ENRESERV 19:56 → M MSPAV 20:56
PROVIDERS: ADMIT General Practice; ATTEND General Practice
DX: K46.0 Unspecified abdominal hernia with obstruction, without gangrene (principal); Z68.41 Body mass index [BMI] 40.0-44.9, adult; M51.26 Other intervertebral disc displacement, lumbar region; J44.9 Chronic obstructive pulmonary disease, unspecified; I10 Essential (primary) hypertension; E78.5 Hyperlipidemia, unspecified; E66.01 Morbid (severe) obesity due to excess calories; G47.33 Obstructive sleep apnea (adult) (pediatric); E11.40 Type 2 diabetes mellitus with diabetic neuropathy, unspecified; K76.0 Fatty (change of) liver, not elsewhere classified; F17.200 Nicotine dependence, unspecified, uncomplicated; D75.1 Secondary polycythemia; E86.0 Dehydration; Z20.822 Contact with and (suspected) exposure to COVID-19; Z79.891 Long term (current) use of opiate analgesic; Z79.84 Long term (current) use of oral hypoglycemic drugs; Z79.899 Other long term (current) drug therapy; Z88.8 Allergy status to other drugs, medicaments and biological substances; Z91.048 Other nonmedicinal substance allergy status

== ENCOUNTER 2020-08-27 16:20 | Emergency (ER) | payer MEDICARE ==
[~2020-08-27] VITALS: Ht 177.8 cm; Wt 130.9 kg
[~2020-08-27 16:20] MED LIST changes: +ATOR1TAB21 PO; +ERGO500029 PO; +OMEP-221 PO; +VENL150C43 PO
[2020-08-27 16:25] VITALS: BP 144/92
== END 2020-08-27 18:14 | disposition left against medical advice (07) ==
LOC: M ED 16:20
DX: Z53.21 Procedure and treatment not carried out due to patient leaving prior to being seen by health care provider (principal)

== ENCOUNTER → 2020-11-21 | Outpatient (CLI) | payer MEDICARE ==
[~2020-11-21] MED LIST changes: -OMEP-221 PO; +OMEP40CA5 PO
== END ==
LOC: M PAIN 11:45
PROVIDERS: ATTEND Anesthesiology
DX: M51.27 Other intervertebral disc displacement, lumbosacral region (principal); I10 Essential (primary) hypertension; E78.5 Hyperlipidemia, unspecified; E66.01 Morbid (severe) obesity due to excess calories; G47.33 Obstructive sleep apnea (adult) (pediatric); E11.9 Type 2 diabetes mellitus without complications; K76.0 Fatty (change of) liver, not elsewhere classified; Z88.1 Allergy status to other antibiotic agents; Z91.048 Other nonmedicinal substance allergy status; Z79.84 Long term (current) use of oral hypoglycemic drugs; Z79.891 Long term (current) use of opiate analgesic; Z79.899 Other long term (current) drug therapy

== ENCOUNTER → 2020-12-04 | Outpatient (REF) | payer MEDICARE ==
[~2020-12-04] MED LIST changes: +OMEP-221 PO; -OMEP40CA5 PO
[2020-12-04 17:05] LABS: HEMOGLOBIN A1c 5.8 %
[2020-12-04 17:12] LABS: BASO # 0.1 10^3/uL (0.0-0.2); BASO % 0.7 % (0.0-1.0); EOS # 0.3 10^3/uL (0.0-0.5); EOS % 3.3 % (0.0-3.0); HEMATOCRIT 51.8 % (42.0-52.0); LYMPH # 2.1 10^3/uL (1.5-5.0); LYMPH % 25.7 % (24.0-44.0); MEAN CORPUSCULAR HEMOGLOBIN 29.4 pg (27.0-33.0); MEAN CORPUSCULAR HGB CONC 32.8 g/dl (32.0-36.5); MEAN CORPUSCULAR VOLUME 89.5 fl (80.0-96.0); MONO # 0.8 10^3/uL (0.0-0.8); MONO % 10.2 % (2.0-8.0); NEUTROPHILS # 4.8 10^3/uL (1.5-8.5); NEUTROPHILS % 59.6 % (36.0-66.0); PLATELET COUNT, AUTOMATED 213 10^3/uL (150-450); RED BLOOD COUNT 5.79 10^6/uL (4.30-6.10); WHITE BLOOD COUNT 8.1 10^3/uL (4.0-10.0)
[2020-12-04 17:28] LABS: ALBUMIN 3.7 GM/DL (3.2-5.2); ALT/SGPT 48 U/L (12-78); BILIRUBIN,TOTAL 0.3 MG/DL (0.2-1.0); BLOOD UREA NITROGEN 22 MG/DL (7-18); CALCIUM LEVEL 9.7 MG/DL (8.5-10.1); CARBON DIOXIDE LEVEL 28 MEQ/L (21-32); CHLORIDE LEVEL 102 MEQ/L (98-107); CHOLESTEROL LEVEL 182 MG/DL (<200); CHOLESTEROL RISK RATIO 5.687 (<5); CREATININE FOR GFR 1.12 MG/DL (0.70-1.30); GLOMERULAR FILTRATION RATE > 60.0 (>56); GLUCOSE, FASTING 129 MG/DL (70-100); HDL CHOLESTEROL 32 MG/DL (>40); LDL CHOLESTEROL 85 MG/DL (<100); NON-HDL-C 150 MG/DL; POTASSIUM SERUM 3.9 MEQ/L (3.5-5.1); SODIUM LEVEL 138 MEQ/L (136-145); TOTAL 25(OH) VITAMIN D 43.1 NG/ML (30.0-100.0); TOTAL PROTEIN 7.9 GM/DL (6.4-8.2); TRIGLYCERIDES LEVEL 326 MG/DL (<150)
== END ==
LOC: M SFHCCAPE 07:02
PROVIDERS: ATTEND Physician Assistant
DX: I10 Essential (primary) hypertension (principal); E11.9 Type 2 diabetes mellitus without complications; E78.5 Hyperlipidemia, unspecified; F41.9 Anxiety disorder, unspecified; E55.9 Vitamin D deficiency, unspecified

== ENCOUNTER → 2021-01-09 | Outpatient (CLI) | payer MEDICARE | LOC: M PAIN 09:15 | PROVIDERS: ATTEND Anesthesiology | DX: M51.27 Other intervertebral disc displacement, lumbosacral region (principal); I10 Essential (primary) hypertension; E11.40 Type 2 diabetes mellitus with diabetic neuropathy, unspecified; J44.9 Chronic obstructive pulmonary disease, unspecified; K76.0 Fatty (change of) liver, not elsewhere classified; E78.5 Hyperlipidemia, unspecified; E66.01 Morbid (severe) obesity due to excess calories; G47.33 Obstructive sleep apnea (adult) (pediatric); F17.210 Nicotine dependence, cigarettes, uncomplicated; Z68.41 Body mass index [BMI] 40.0-44.9, adult; Z79.891 Long term (current) use of opiate analgesic; Z79.1 Long term (current) use of non-steroidal anti-inflammatories (NSAID); Z79.84 Long term (current) use of oral hypoglycemic drugs; Z79.899 Other long term (current) drug therapy; Z88.1 Allergy status to other antibiotic agents; Z91.048 Other nonmedicinal substance allergy status ==

== ENCOUNTER → 2021-02-19 | Outpatient (CLI) | payer MEDICARE ==
[~2021-02-19] MED LIST changes: -OMEP-221 PO; +OMEP40CA5 PO
== END ==
LOC: M PLAIMG 10:42
PROVIDERS: ATTEND Anesthesiology
DX: M54.50 Low back pain, unspecified (principal); M51.36 Other intervertebral disc degeneration, lumbar region; M51.26 Other intervertebral disc displacement, lumbar region; M51.27 Other intervertebral disc displacement, lumbosacral region

== ENCOUNTER → 2021-04-16 | Outpatient (REF) | payer MEDICARE ==
[2021-04-16 16:13] LABS: BASO # 0.1 10^3/uL (0.0-0.2); BASO % 0.8 % (0.0-1.0); EOS # 0.3 10^3/uL (0.0-0.5); EOS % 2.8 % (0.0-3.0); HEMATOCRIT 52.9 % (42.0-52.0); HEMOGLOBIN 17.3 g/dl (13.5-17.5); LYMPH # 1.9 10^3/uL (1.5-5.0); LYMPH % 21.4 % (24.0-44.0); MEAN CORPUSCULAR HEMOGLOBIN 29.1 pg (27.0-33.0); MEAN CORPUSCULAR HGB CONC 32.7 g/dl (32.0-36.5); MEAN CORPUSCULAR VOLUME 89.1 fl (80.0-96.0); MONO # 0.8 10^3/uL (0.0-0.8); MONO % 8.3 % (2.0-8.0); NEUTROPHILS % 66.3 % (36.0-66.0); PLATELET COUNT, AUTOMATED 234 10^3/uL (150-450); RED BLOOD COUNT 5.94 10^6/uL (4.30-6.10)
[2021-04-16 16:49] LABS: ALBUMIN 3.7 GM/DL (3.2-5.2); ALT/SGPT 54 U/L (12-78); BILIRUBIN,TOTAL 0.5 MG/DL (0.2-1.0); BLOOD UREA NITROGEN 22 MG/DL (7-18); CALCIUM LEVEL 9.5 MG/DL (8.5-10.1); CARBON DIOXIDE LEVEL 27 MEQ/L (21-32); CHLORIDE LEVEL 101 MEQ/L (98-107); CHOLESTEROL LEVEL 170 MG/DL (<200); CHOLESTEROL RISK RATIO 5.151 (<5); CREATININE FOR GFR 1.26 MG/DL (0.70-1.30); GLOMERULAR FILTRATION RATE > 60.0 (>56); GLUCOSE, FASTING 119 MG/DL (70-100); HDL CHOLESTEROL 33 MG/DL (>40); LDL CHOLESTEROL 77 MG/DL (<100); NON-HDL-C 137 MG/DL; POTASSIUM SERUM 3.7 MEQ/L (3.5-5.1); SODIUM LEVEL 139 MEQ/L (136-145); TRIGLYCERIDES LEVEL 300 MG/DL (<150)
== END ==
LOC: M SFHCCAPE 10:03
PROVIDERS: ATTEND Physician Assistant
DX: E55.9 Vitamin D deficiency, unspecified (principal); E11.9 Type 2 diabetes mellitus without complications; R74.8 Abnormal levels of other serum enzymes

== ENCOUNTER → 2021-04-21 | Outpatient (CLI) | payer MEDICARE | LOC: M PAIN 14:00 | PROVIDERS: ATTEND Nurse Practitioner Family | DX: M79.18 Myalgia, other site (principal); E66.01 Morbid (severe) obesity due to excess calories; G47.33 Obstructive sleep apnea (adult) (pediatric); I10 Essential (primary) hypertension; E78.5 Hyperlipidemia, unspecified; E11.40 Type 2 diabetes mellitus with diabetic neuropathy, unspecified; K76.0 Fatty (change of) liver, not elsewhere classified; F17.210 Nicotine dependence, cigarettes, uncomplicated; Z79.84 Long term (current) use of oral hypoglycemic drugs; Z79.891 Long term (current) use of opiate analgesic; Z79.899 Other long term (current) drug therapy; Z88.1 Allergy status to other antibiotic agents; Z91.048 Other nonmedicinal substance allergy status; Z68.41 Body mass index [BMI] 40.0-44.9, adult ==

== ENCOUNTER → 2021-05-12 | Outpatient (REF) | payer MEDICARE ==
[2021-05-12 16:36] LABS: MALB URINE SIEMENS 22.4 MG/L; MAU/CREAT RATIO 19.8 MCG/MG (0.0-30.0)
== END ==
LOC: M SFHCCAPE 15:34
PROVIDERS: ATTEND Physician Assistant
DX: E55.9 Vitamin D deficiency, unspecified (principal); E11.9 Type 2 diabetes mellitus without complications

== ENCOUNTER → 2021-09-28 | Outpatient (CLI) | payer MEDICARE | LOC: M LABSMTC 10:47 | PROVIDERS: ATTEND Anesthesiology | DX: Z11.52 Encounter for screening for COVID-19 (principal) ==

== ENCOUNTER → 2021-10-01 | Outpatient (CLI) | payer MEDICARE ==
[~2021-10-01] MED LIST changes: +BUPIVACAINE HCL 0.25% 10ML VIAL As Ordered ONE; +BUPIVACAINE HCL 0.25% 30ML VIAL As Ordered ONE; +TRIAMCINOLONE ACETONIDE SUSP 40 MG/ML VIAL (J3301) As Ordered ONE; +diazePAM 5MG TABLET As Ordered ONE; +oxyCODONE 5MG TAB As Ordered ONE
== END ==
LOC: M PAIN 08:30
PROVIDERS: ATTEND Anesthesiology
DX: M79.18 Myalgia, other site (principal); Z90.5 Acquired absence of kidney; K43.9 Ventral hernia without obstruction or gangrene; E11.40 Type 2 diabetes mellitus with diabetic neuropathy, unspecified; J44.9 Chronic obstructive pulmonary disease, unspecified; I10 Essential (primary) hypertension; E78.5 Hyperlipidemia, unspecified; E66.01 Morbid (severe) obesity due to excess calories; G47.33 Obstructive sleep apnea (adult) (pediatric); D75.1 Secondary polycythemia; Z87.81 Personal history of (healed) traumatic fracture; K76.0 Fatty (change of) liver, not elsewhere classified; F17.210 Nicotine dependence, cigarettes, uncomplicated; Z79.1 Long term (current) use of non-steroidal anti-inflammatories (NSAID); Z79.891 Long term (current) use of opiate analgesic; Z79.899 Other long term (current) drug therapy; Z79.84 Long term (current) use of oral hypoglycemic drugs; Z68.41 Body mass index [BMI] 40.0-44.9, adult
CPT/HCPCS: 20553; J3301

== ENCOUNTER → 2021-11-11 | Outpatient (CLI) | payer MEDICARE ==
[~2021-11-11] MED LIST changes: -BUPIVACAINE HCL 0.25% 10ML VIAL As Ordered ONE; -BUPIVACAINE HCL 0.25% 30ML VIAL As Ordered ONE; -TRIAMCINOLONE ACETONIDE SUSP 40 MG/ML VIAL (J3301) As Ordered ONE; -diazePAM 5MG TABLET As Ordered ONE; -oxyCODONE 5MG TAB As Ordered ONE
== END ==
LOC: M PAIN 10:15
PROVIDERS: ATTEND Nurse Practitioner Family
DX: G89.29 Other chronic pain (principal); Z79.891 Long term (current) use of opiate analgesic; M51.16 Intervertebral disc disorders with radiculopathy, lumbar region; K43.9 Ventral hernia without obstruction or gangrene; J44.9 Chronic obstructive pulmonary disease, unspecified; I10 Essential (primary) hypertension; E78.5 Hyperlipidemia, unspecified; E66.01 Morbid (severe) obesity due to excess calories; G47.33 Obstructive sleep apnea (adult) (pediatric); E11.9 Type 2 diabetes mellitus without complications; K76.0 Fatty (change of) liver, not elsewhere classified; F17.210 Nicotine dependence, cigarettes, uncomplicated; Z68.41 Body mass index [BMI] 40.0-44.9, adult; E11.40 Type 2 diabetes mellitus with diabetic neuropathy, unspecified; Z79.1 Long term (current) use of non-steroidal anti-inflammatories (NSAID); Z79.84 Long term (current) use of oral hypoglycemic drugs; Z79.899 Other long term (current) drug therapy; Z88.1 Allergy status to other antibiotic agents; Z91.048 Other nonmedicinal substance allergy status

== ENCOUNTER → 2022-02-03 | Outpatient (CLI) | payer MEDICARE | LOC: M PAIN 08:30 | PROVIDERS: ATTEND Anesthesiology | DX: M79.18 Myalgia, other site (principal); G57.01 Lesion of sciatic nerve, right lower limb; K42.9 Umbilical hernia without obstruction or gangrene; J44.9 Chronic obstructive pulmonary disease, unspecified; I10 Essential (primary) hypertension; E78.5 Hyperlipidemia, unspecified; E66.01 Morbid (severe) obesity due to excess calories; G47.33 Obstructive sleep apnea (adult) (pediatric); E11.42 Type 2 diabetes mellitus with diabetic polyneuropathy; K76.0 Fatty (change of) liver, not elsewhere classified; Z87.81 Personal history of (healed) traumatic fracture; F17.210 Nicotine dependence, cigarettes, uncomplicated; Z79.84 Long term (current) use of oral hypoglycemic drugs; Z79.891 Long term (current) use of opiate analgesic; Z79.1 Long term (current) use of non-steroidal anti-inflammatories (NSAID); Z79.899 Other long term (current) drug therapy; Z88.1 Allergy status to other antibiotic agents; Z91.048 Other nonmedicinal substance allergy status; Z68.41 Body mass index [BMI] 40.0-44.9, adult ==

== ENCOUNTER → 2022-05-06 | Outpatient (CLI) | payer MEDICARE | LOC: M LABSMTC 10:13 | PROVIDERS: ATTEND Anesthesiology | DX: Z01.812 Encounter for preprocedural laboratory examination (principal) ==

== ENCOUNTER → 2022-05-07 | Outpatient (CLI) | payer MEDICARE | LOC: M PAIN 14:00 | PROVIDERS: ATTEND Anesthesiology | DX: M79.18 Myalgia, other site (principal); K43.9 Ventral hernia without obstruction or gangrene; J44.9 Chronic obstructive pulmonary disease, unspecified; I10 Essential (primary) hypertension; E78.5 Hyperlipidemia, unspecified; E66.01 Morbid (severe) obesity due to excess calories; G47.33 Obstructive sleep apnea (adult) (pediatric); E11.40 Type 2 diabetes mellitus with diabetic neuropathy, unspecified; K76.0 Fatty (change of) liver, not elsewhere classified; F17.210 Nicotine dependence, cigarettes, uncomplicated; Z68.41 Body mass index [BMI] 40.0-44.9, adult; Z79.891 Long term (current) use of opiate analgesic; Z79.1 Long term (current) use of non-steroidal anti-inflammatories (NSAID); Z79.84 Long term (current) use of oral hypoglycemic drugs; Z79.899 Other long term (current) drug therapy; Z88.1 Allergy status to other antibiotic agents; Z91.048 Other nonmedicinal substance allergy status | CPT/HCPCS: 76000; G0463 ==

== ENCOUNTER → 2022-05-10 | Outpatient (CLI) | payer MEDICARE ==
[~2022-05-10] MED LIST changes: +BUPIVACAINE HCL 0.25% 10ML VIAL As Ordered ONE; +BUPIVACAINE HCL 0.25% 30ML VIAL As Ordered ONE; +TRIAMCINOLONE ACETONIDE SUSP 40MG/ML 1ML VIAL As Ordered ONE
== END ==
LOC: M PAIN 07:50
PROVIDERS: ATTEND Anesthesiology
DX: M79.18 Myalgia, other site (principal); E11.40 Type 2 diabetes mellitus with diabetic neuropathy, unspecified; J44.9 Chronic obstructive pulmonary disease, unspecified; I10 Essential (primary) hypertension; E78.5 Hyperlipidemia, unspecified; E66.01 Morbid (severe) obesity due to excess calories; G47.33 Obstructive sleep apnea (adult) (pediatric); F17.210 Nicotine dependence, cigarettes, uncomplicated; Z79.84 Long term (current) use of oral hypoglycemic drugs; Z79.1 Long term (current) use of non-steroidal anti-inflammatories (NSAID); Z79.891 Long term (current) use of opiate analgesic; Z79.899 Other long term (current) drug therapy; Z88.1 Allergy status to other antibiotic agents; Z91.048 Other nonmedicinal substance allergy status; Z68.41 Body mass index [BMI] 40.0-44.9, adult

== ENCOUNTER → 2022-06-18 | Outpatient (CLI) | payer MEDICARE ==
[~2022-06-18] MED LIST changes: -BUPIVACAINE HCL 0.25% 10ML VIAL As Ordered ONE; -BUPIVACAINE HCL 0.25% 30ML VIAL As Ordered ONE; -TRIAMCINOLONE ACETONIDE SUSP 40MG/ML 1ML VIAL As Ordered ONE
== END ==
LOC: M PAIN 09:45
PROVIDERS: ATTEND Nurse Practitioner Family
DX: M79.18 Myalgia, other site (principal); M51.16 Intervertebral disc disorders with radiculopathy, lumbar region; E11.40 Type 2 diabetes mellitus with diabetic neuropathy, unspecified; J44.9 Chronic obstructive pulmonary disease, unspecified; I10 Essential (primary) hypertension; E78.5 Hyperlipidemia, unspecified; E66.01 Morbid (severe) obesity due to excess calories; G47.33 Obstructive sleep apnea (adult) (pediatric); K76.0 Fatty (change of) liver, not elsewhere classified; F17.210 Nicotine dependence, cigarettes, uncomplicated; Z79.1 Long term (current) use of non-steroidal anti-inflammatories (NSAID); Z79.891 Long term (current) use of opiate analgesic; Z79.899 Other long term (current) drug therapy; Z88.1 Allergy status to other antibiotic agents; Z91.048 Other nonmedicinal substance allergy status; Z68.41 Body mass index [BMI] 40.0-44.9, adult

== ENCOUNTER → 2022-07-08 | Outpatient (CLI) | payer MEDICARE | LOC: M RAD 07:21 | PROVIDERS: ATTEND Physician Assistant | DX: Z12.2 Encounter for screening for malignant neoplasm of respiratory organs (principal); F17.210 Nicotine dependence, cigarettes, uncomplicated; R91.8 Other nonspecific abnormal finding of lung field ==

== ENCOUNTER → 2022-08-03 | Outpatient (CLI) | payer MEDICARE | LOC: M PAIN 10:45 | PROVIDERS: ATTEND Nurse Practitioner Family | DX: M79.18 Myalgia, other site (principal); M51.16 Intervertebral disc disorders with radiculopathy, lumbar region; G89.29 Other chronic pain; M54.50 Low back pain, unspecified; J44.9 Chronic obstructive pulmonary disease, unspecified; I10 Essential (primary) hypertension; E78.5 Hyperlipidemia, unspecified; E66.01 Morbid (severe) obesity due to excess calories; G47.33 Obstructive sleep apnea (adult) (pediatric); E11.40 Type 2 diabetes mellitus with diabetic neuropathy, unspecified; F17.210 Nicotine dependence, cigarettes, uncomplicated; Z79.891 Long term (current) use of opiate analgesic; Z88.1 Allergy status to other antibiotic agents; Z91.048 Other nonmedicinal substance allergy status; Z68.41 Body mass index [BMI] 40.0-44.9, adult; Z79.1 Long term (current) use of non-steroidal anti-inflammatories (NSAID); Z79.84 Long term (current) use of oral hypoglycemic drugs; Z79.899 Other long term (current) drug therapy ==

== ENCOUNTER → 2022-08-17 | Outpatient (CLI) | payer MEDICARE | LOC: M PAIN 15:15 | PROVIDERS: ATTEND Nurse Practitioner Family | DX: M79.10 Myalgia, unspecified site (principal); Z79.891 Long term (current) use of opiate analgesic; M51.16 Intervertebral disc disorders with radiculopathy, lumbar region; J44.9 Chronic obstructive pulmonary disease, unspecified; I10 Essential (primary) hypertension; E78.5 Hyperlipidemia, unspecified; E66.01 Morbid (severe) obesity due to excess calories; G47.33 Obstructive sleep apnea (adult) (pediatric); E11.40 Type 2 diabetes mellitus with diabetic neuropathy, unspecified; D75.1 Secondary polycythemia; F17.210 Nicotine dependence, cigarettes, uncomplicated; Z68.41 Body mass index [BMI] 40.0-44.9, adult; Z79.84 Long term (current) use of oral hypoglycemic drugs; Z79.899 Other long term (current) drug therapy; Z88.1 Allergy status to other antibiotic agents; Z91.048 Other nonmedicinal substance allergy status ==

== ENCOUNTER → 2022-09-06 | Outpatient (REF) | payer MEDICARE ==
[2022-09-06 17:10] LABS: BASO # 0.1 10^3/uL (0.0-0.2); BASO % 0.7 % (0.0-1.0); EOS # 0.2 10^3/uL (0.0-0.5); EOS % 1.9 % (0.0-3.0); HEMATOCRIT 52.9 % (42.0-52.0); HEMOGLOBIN 17.1 g/dl (13.5-17.5); LYMPH % 23.6 % (24.0-44.0); MEAN CORPUSCULAR HEMOGLOBIN 28.4 pg (27.0-33.0); MEAN CORPUSCULAR HGB CONC 32.3 g/dl (32.0-36.5); MEAN CORPUSCULAR VOLUME 87.7 fl (80.0-96.0); MONO # 0.9 10^3/uL (0.0-0.8); MONO % 7.3 % (2.0-8.0); NEUTROPHILS # 8.3 10^3/uL (1.5-8.5); NEUTROPHILS % 65.9 % (36.0-66.0); PLATELET COUNT, AUTOMATED 261 10^3/uL (150-450); RED BLOOD COUNT 6.03 10^6/uL (4.30-6.10); WHITE BLOOD COUNT 12.6 10^3/uL (4.0-10.0)
[2022-09-06 17:25] LABS: HEMOGLOBIN A1c 6.6 % (4.0-6.0)
[2022-09-06 17:36] LABS: CREATININE, URINE 89.1 MG/DL; MAU/CREAT RATIO 34.7 MCG/MG (0.0-30.0)
[2022-09-06 17:39] LABS: ALBUMIN 4.1 G/DL (3.2-5.2); ALKALINE PHOSPHATASE 97 U/L (46-116); ALT/SGPT 37 U/L (7.0-40); AST/SGOT 39 U/L (<34); BILIRUBIN,TOTAL 0.3 MG/DL (0.3-1.2); BLOOD UREA NITROGEN 20 MG/DL (9-23); CALCIUM LEVEL 9.6 MG/DL (8.3-10.6); CARBON DIOXIDE LEVEL 29 MMOL/L (20-31); CHLORIDE LEVEL 101 MMOL/L (98-107); CHOLESTEROL LEVEL 175 MG/DL (<200); CHOLESTEROL RISK RATIO 4.14 (<5); CREATININE FOR GFR 1.08 MG/DL (0.70-1.30); GLOMERULAR FILTRATION RATE > 60.0 (>49); GLUCOSE, FASTING 120 MG/DL (74-106); HDL CHOLESTEROL 42.2 MG/DL (>40); LDL CHOLESTEROL 100.6 MG/DL (<100); NON-HDL-C 132.8 MG/DL; SODIUM LEVEL 138 MMOL/L (136-145); TOTAL PROTEIN 7.8 G/DL (5.7-8.2); TRIGLYCERIDES LEVEL 161 MG/DL (<150)
[2022-09-06 17:42] LABS: FREE T4 0.91 NG/DL (0.89-1.76)
[2022-09-06 17:43] LABS: TOTAL 25(OH) VITAMIN D 25.5 NG/ML (20.0-100.0)
== END ==
LOC: M SFHCCAPE 08:34
PROVIDERS: ATTEND Physician Assistant
DX: E11.9 Type 2 diabetes mellitus without complications (principal); I10 Essential (primary) hypertension; E78.2 Mixed hyperlipidemia; E55.9 Vitamin D deficiency, unspecified; Z12.5 Encounter for screening for malignant neoplasm of prostate; Z79.899 Other long term (current) drug therapy
CPT/HCPCS: 80053; 80061; 82043; 82306; 83036; 84439; 84443; 85025; G0103

== ENCOUNTER → 2022-11-04 | Outpatient (CLI) | payer MEDICARE | LOC: M PLAIMG 12:44 | PROVIDERS: ATTEND Physician Assistant | DX: J98.11 Atelectasis (principal) ==

== ENCOUNTER → 2023-01-10 | Outpatient (CLI) | payer MEDICARE ==
[~2023-01-10] MED LIST changes: +E-Z-GAS II EFFERVESCENT PACKET (SODIUM BICARB./CITRIC ACID/SIMETHICONE) As Ordered ONE; +E-Z-HD 98% w/w 340GM SUSP BTL As Ordered ONE; +E-Z-PAQUE 96% w/w SUSP 176GM BTL As Ordered ONE
== END ==
LOC: M RAD 09:13
PROVIDERS: ATTEND Physician Assistant
DX: R13.10 Dysphagia, unspecified (principal); K22.2 Esophageal obstruction

== ENCOUNTER → 2023-08-15 | Outpatient (REF) | payer MEDICARE ==
[~2023-08-15] MED LIST changes: +ALBU8.5H; +ATOR80TA59 PO; -E-Z-GAS II EFFERVESCENT PACKET (SODIUM BICARB./CITRIC ACID/SIMETHICONE) As Ordered ONE; -E-Z-HD 98% w/w 340GM SUSP BTL As Ordered ONE; -E-Z-PAQUE 96% w/w SUSP 176GM BTL As Ordered ONE; +EZET10TA21 PO; +GABA600T4 PO; +HYDR50TA70 PO; +MELO7.5T35 PO; +SEMA0.257; +TRAZ-257 PO; +VARE1TAB2 PO
[2023-08-15 17:39] LABS: BASO # 0.1 10^3/uL (0.0-0.2); BASO % 0.9 % (0.0-1.0); EOS # 0.4 10^3/uL (0.0-0.5); EOS % 4.3 % (0.0-3.0); HEMATOCRIT 47.9 % (42.0-52.0); HEMOGLOBIN 15.7 g/dl (13.5-17.5); LYMPH # 2.3 10^3/uL (1.5-5.0); LYMPH % 23.9 % (24.0-44.0); MEAN CORPUSCULAR HEMOGLOBIN 29.7 pg (27.0-33.0); MEAN CORPUSCULAR HGB CONC 32.8 g/dl (32.0-36.5); MEAN CORPUSCULAR VOLUME 90.5 fl (80.0-96.0); MONO # 0.8 10^3/uL (0.0-0.8); MONO % 8.4 % (2.0-8.0); NEUTROPHILS # 5.9 10^3/uL (1.5-8.5); NEUTROPHILS % 61.9 % (36.0-66.0); PLATELET COUNT, AUTOMATED 240 10^3/uL (150-450); RED BLOOD COUNT 5.29 10^6/uL (4.30-6.10); WHITE BLOOD COUNT 9.5 10^3/uL (4.0-10.0)
[2023-08-15 17:45] LABS: ALKALINE PHOSPHATASE 103 U/L (46-116); ALT/SGPT 50 U/L (7.0-40); AST/SGOT 49 U/L (<34); BILIRUBIN,TOTAL 0.4 MG/DL (0.3-1.2); BLOOD UREA NITROGEN 24 MG/DL (9-23); CALCIUM LEVEL 9.3 MG/DL (8.3-10.6); CARBON DIOXIDE LEVEL 27 MMOL/L (20-31); CHLORIDE LEVEL 103 MMOL/L (98-107); CHOLESTEROL LEVEL 119 MG/DL (<200); CHOLESTEROL RISK RATIO 3.44 (<5); CREATININE FOR GFR 1.12 MG/DL (0.70-1.30); GLOMERULAR FILTRATION RATE > 60.0 (>49); GLUCOSE, FASTING 114 MG/DL (74-106); HDL CHOLESTEROL 34.5 MG/DL (>40); LDL CHOLESTEROL 58.9 MG/DL (<100); NON-HDL-C 84.5 MG/DL; POTASSIUM SERUM 4.2 MMOL/L (3.5-5.1); PSA SCREENING 0.82 NG/ML (< 4.00); SODIUM LEVEL 138 MMOL/L (136-145); TOTAL PROTEIN 7.6 G/DL (5.7-8.2); TRIGLYCERIDES LEVEL 128 MG/DL (<150)
[2023-08-15 17:48] LABS: FREE T4 1.01 NG/DL (0.89-1.76)
[2023-08-15 17:49] LABS: THYROID STIMULATING HORMONE 4.492 uIU/ML (0.55-4.78)
[2023-08-15 17:51] LABS: VITAMIN B12 LEVEL 363 PG/ML (211-911)
[2023-08-15 18:17] LABS: HEMOGLOBIN A1c 5.6 % (4.0-6.0)
== END ==
LOC: M SFHCLERA 10:36
PROVIDERS: ATTEND Physician Assistant
DX: E78.5 Hyperlipidemia, unspecified (principal); F32.9 Major depressive disorder, single episode, unspecified; I10 Essential (primary) hypertension; E11.69 Type 2 diabetes mellitus with other specified complication; Z79.899 Other long term (current) drug therapy; Z12.5 Encounter for screening for malignant neoplasm of prostate
CPT/HCPCS: 80053; 80061; 82306; 82607; 82746; 83036; 84439; 84443; 85025; G0103

== ENCOUNTER → 2023-12-29 | Outpatient (CLI) | payer MEDICARE ==
[~2023-12-29] MED LIST changes: -ALBU8.5H; +ALBU8.5H INH; +GABA-1490 PO; -GABA600T4 PO; -SEMA0.257; +SEMA0.257 SC
== END ==
LOC: M RAD 06:15
PROVIDERS: ATTEND Family Medicine
DX: Z12.2 Encounter for screening for malignant neoplasm of respiratory organs (principal); F17.210 Nicotine dependence, cigarettes, uncomplicated; I25.10 Atherosclerotic heart disease of native coronary artery without angina pectoris; K43.9 Ventral hernia without obstruction or gangrene; R91.8 Other nonspecific abnormal finding of lung field

== ENCOUNTER 2024-11-24 11:56 | Inpatient (IN) | payer MEDICARE, MEDICAID ==
[~2024-11-24] VITALS: Ht 175.3 cm; Wt 110.7 kg
[2024-11-24] VITALS (41 sets, daily range): BP systolic 81–126; BP diastolic 42–72; TEMP 96.8–98.5; O2SAT 88–98
[~2024-11-24 11:56] MED LIST changes: -AMBI10TA PO; -CELE1CAP88 PO; +CELE400C PO; -CYCL5TAB PO; +CYCL5TAB4 PO; -EZET10TA21 PO; +EZET10TA57 PO; -FLOM0.4C39 PO; +MORP-138 PO; -MORP15TASA PO; +TAMS-18 PO; +ZOLP-533 PO
[2024-11-24 12:42] LABS: ABG BASE EXCESS -19.9 (-2.0-2.0); ABG HCO3 9.7 MMOL/L (22.0-26.0); ABG O2 SATURATION 89.6 % (95.0-99.0); ABG PARTIAL PRESSURE CO2 37.2 mmHg (35.0-45.0); ABG PARTIAL PRESSURE O2 74.7 mmHg (75.0-100.0); ABG STANDARD HCO3 9.6 MMOL/L. (22.0-26.0); ABG TOTAL CO2 10.9 MMOL/L (23.0-31.0)
[2024-11-24] MEDS: NS (Normal Saline) 0.9% 1,000 ML IV ONE ×2 (12:42→13:20)
[2024-11-24 12:46] LABS: ABG pH (ARTERIAL) 7.036 UNITS (7.350-7.450)
[2024-11-24 12:54] LABS: PLATELET COUNT, AUTOMATED 490 10^3/uL (150-450)
[2024-11-24] MEDS ORDERED: HOME MED LIST COMPLETE! XX SCH (12:55)
[2024-11-24 13:01] LABS: INR 1.32
[2024-11-24 13:03] LABS: CK-MB VALUE MASS 22.8 NG/ML (<3.6); ETHYL ALCOHOL (ETHANOL) < 0.003 % (0.000-0.010)
[2024-11-24 13:05] LABS: CPK CREATINE PHOSPHOKINASE 432 U/L (46-171); MB/CK RELATIVE INDEX 5.27 (< OR =4)
[2024-11-24] MEDS: CEFEPIME HCL 2 GM in DEXTROSE 5% (D5W) ADV/MINI-BAG 50 ML IV ONE (13:24)
[2024-11-24 13:25] LABS: ATYPICAL LYMPH 1 % (0-5); LYMPHOCYTES 4 % (16-44); METAMYELOCYTES 3 % (0-0); MONOCYTES 4 % (0-5); MYELOCYTES 2 % (0-0); NEUTROPHILS 67 % (28-66)
[2024-11-24 13:26] LABS: PLATELET CLUMPS SMALL AMT; PLATELET ESTIMATE INCREASED (NORMAL)
[2024-11-24] MEDS ORDERED: NOREPINEPHRINE 4 MG IN D5W 250 ML IVBAG (16 MCG/ML) As Ordered ONE (13:37)
[2024-11-24] MEDS: NOREPINEPHRINE 4MG IN D5 250ML 4 MG in IV 1 EA IV SCH ×2 (13:44→19:37)
[2024-11-24 13:50] LABS: ALT/SGPT 26 U/L (7.0-40); AST/SGOT 58 U/L (<34); CALCIUM LEVEL 7.5 MG/DL (8.3-10.6); CARBON DIOXIDE LEVEL < 10.0 MMOL/L (20-31); CHLORIDE LEVEL 94 MMOL/L (98-107); CREATININE FOR GFR 12.78 MG/DL (0.70-1.30); GLOMERULAR FILTRATION RATE 4.0 (>49); POTASSIUM SERUM 6.2 MMOL/L (3.5-5.1); SODIUM LEVEL 130 MMOL/L (136-145)
[2024-11-24] MEDS: DEXTROSE 50% 50 ML SYRINGE IV STA ×2 (13:57→18:07)
[2024-11-24] MEDS: CALCIUM GLUCONATE 1,000 MG in DEXTROSE 5% (D5W) MINI-BAG PLU 100 ML IV ONE (13:57)
[2024-11-24] MEDS: HumuLIN R (REGULAR) INSULIN (NovoLIN R) **100 U/ML** PER UNIT IV ONE (14:08)
[2024-11-24] MEDS: NS 0.9% IV ONE (14:11)
[2024-11-24] MEDS: [UNRECOGNIZED DRUG - OTHER] IV ONE (14:11)
[2024-11-24 14:19] LABS: CK-MB VALUE MASS 23.9 NG/ML (<3.6)
[2024-11-24 14:20] LABS: CPK CREATINE PHOSPHOKINASE 474.0 U/L (46-171); MB/CK RELATIVE INDEX 5.04 (< OR =4)
[2024-11-24] MEDS ORDERED: PROPOFOL 1,000 MG/100 ML VIAL As Ordered ONE (14:24)
[2024-11-24] MEDS: ETOMIDATE 20 MG/10 ML VIAL IV ONE (14:26)
[2024-11-24] MEDS: SUCCINYLCHOLINE INJ 200MG/10ML VIAL IV ONE (14:26)
[2024-11-24] MEDS: SODIUM BICARBONATE 150 MEQ in STERILE WATER LITER BAG 1,000 ML IV SCH ×2 (14:39→22:46)
[2024-11-24] MEDS ORDERED: MIDAZOLAM 100MG/100ML-0.9%NACL 100 MG in IV 1 EA IV SCH (15:10)
[2024-11-24] MEDS ORDERED: LIDOCAINE 2% MDV 20 ML VIAL As Ordered ONE (15:15)
[2024-11-24] MEDS ORDERED: LIDOCAINE 1% MDV 20 ML VIAL As Ordered ONE (15:18)
[2024-11-24] MEDS: VASOPRESSIN IN 0.9 % NACL 20 UNIT in IV 1 EA IV SCH (16:46)
[2024-11-24] MEDS: LIDOCAINE 1% MDV 20 ML VIAL XX ONE (16:53)
[2024-11-24 17:57] LABS: ALT/SGPT 24.0 U/L (7.0-40); AST/SGOT 70.0 U/L (<34); CALCIUM LEVEL 6.9 MG/DL (8.3-10.6); CARBON DIOXIDE LEVEL 14.0 MMOL/L (20-31); CHLORIDE LEVEL 97.0 MMOL/L (98-107); CREATININE FOR GFR 12.06 MG/DL (0.70-1.30); GLOMERULAR FILTRATION RATE 4.3 (>49); MAGNESIUM LEVEL 2.0 MG/DL (1.8-2.4); PHOSPHORUS LEVEL 13.8 MG/DL (2.4-5.1); POTASSIUM SERUM 6.2 MMOL/L (3.5-5.1); SODIUM LEVEL 129.0 MMOL/L (136-145)
[2024-11-24] MEDS: PIPERACILLIN/TAZOBACTAM SOD 2.25 GM in DEXTROSE 5% (D5W) ADV/MINI-BAG 50 ML IV SCH (18:03)
[2024-11-24] MEDS: HumuLIN R (REGULAR) INSULIN (NovoLIN R) **100 U/ML** PER UNIT IV STA (18:10)
[2024-11-24] MEDS: PANTOPRAZOLE 40MG VIAL IV SCH (18:10)
[2024-11-24] MEDS: IPRATROPIUM 0.5 MG/ALBUTEROL 2.5 MG INH SOL UD 3 ML NEB SCH (18:12)
[2024-11-24] MEDS: CALCIUM GLUCONATE 1,000 MG in DEXTROSE 5% (D5W) MINI-BAG PLU 100 ML IV SCH (18:13)
[2024-11-24] MEDS: SOD POLYSTYRENE SULFONATE SUSP 15GM 60ML UD PO SCH (18:14)
[2024-11-24] MEDS ORDERED: HEPARIN 1,000 UNITS/ML 10 ML VIAL (FOR RADIOLOGY & DIALYSIS ONLY) IV PRN (18:30)
[2024-11-24] MEDS ORDERED: FENTANYL DRIP LOCK BOX KEY 1 EACH XX PRN (18:45)
[2024-11-24 18:47] LABS: KETONE, URINE AUTO RFX NEGATIVE (NEGATIVE); LEUKOCYTE ESTERASE UR AUTO RFX NEGATIVE (NEGATIVE); MUCUS, URINE RFX SMALL (NEGATIVE); NITRITE, URINE AUTO RFX NEGATIVE (NEGATIVE); RBC, URINE AUTO RFX 16 /HPF (0-3); SQUAM EPITHELIAL CELL UR AURFX 0 /HPF (0-6); WBC, URINE AUTO RFX 9 /HPF (0-3)
[2024-11-24 19:08] LABS: AMPHETAMINES LEVEL URINE NEGATIVE (NEGATIVE); BARBITURATES URINE NEGATIVE (NEGATIVE); BENZODIAZEPINES URINE NEGATIVE (NEGATIVE); CANNABINOIDS URINE NEGATIVE (NEGATIVE); METHADONE URINE NEGATIVE (NEGATIVE); PHENCYCLIDINE URINE NEGATIVE (NEGATIVE)
[2024-11-24 19:10] LABS: COCAINE METABOLITE URINE POSITIVE (NEGATIVE); OPIATES URINE POSITIVE (NEGATIVE)
[2024-11-24] MEDS: fentaNYL CITRATE/NaCl 1,000 MCG in IV 1 EA IV SCH (19:38)
[2024-11-24 21:37] LABS: KETONE, URINE AUTO RFX NEGATIVE (NEGATIVE); LEUKOCYTE ESTERASE UR AUTO RFX NEGATIVE (NEGATIVE); NITRITE, URINE AUTO RFX NEGATIVE (NEGATIVE); RBC, URINE AUTO RFX 8 /HPF (0-3); SQUAM EPITHELIAL CELL UR AURFX 1 /HPF (0-6); WBC, URINE AUTO RFX 8 /HPF (0-3)
[2024-11-24] MEDS: HEPARIN SOD 5000 UNITS/ML 1 ML VIAL/SYRINGE SC SCH (22:38)
[2024-11-25] VITALS (100 sets, daily range): BP systolic 85–155; BP diastolic 43–80; TEMP 97.7–99.7; O2SAT 91–97
[2024-11-25] MEDS: PIPERACILLIN/TAZOBACTAM SOD 2.25 GM in DEXTROSE 5% (D5W) ADV/MINI-BAG 50 ML IV SCH (02:19)
[2024-11-25 02:27] LABS: PLATELET COUNT, AUTOMATED 351 10^3/uL (150-450)
[2024-11-25 02:38] LABS: INR 1.17
[2024-11-25 03:06] LABS: CALCIUM LEVEL 7.5 MG/DL (8.3-10.6); CARBON DIOXIDE LEVEL 19.0 MMOL/L (20-31); CHLORIDE LEVEL 97.0 MMOL/L (98-107); CREATININE FOR GFR 7.98 MG/DL (0.70-1.30); GLOMERULAR FILTRATION RATE 7.0 (>49); MAGNESIUM LEVEL 1.8 MG/DL (1.8-2.4); PHOSPHORUS LEVEL 8.9 MG/DL (2.4-5.1); POTASSIUM SERUM 4.7 MMOL/L (3.5-5.1); SODIUM LEVEL 135.0 MMOL/L (136-145)
[2024-11-25] MEDS: HEPARIN 1000 UNIT/ML CRRT ONE (04:46)
[2024-11-25] MEDS: MAG SULF 1GM/100ML (MAG RUN) 1 GM in IV 1 EA IV ONE (04:47)
[2024-11-25] MEDS: CALCIUM GLUCONATE 1,000 MG, VIAL MATE ADAPTER 1 EACH in NS 100 ML IV SCH ×2 (06:09→21:55)
[2024-11-25 08:36] LABS: PLATELET COUNT, AUTOMATED 319 10^3/uL (150-450)
[2024-11-25 09:01] LABS: CALCIUM LEVEL 7.6 MG/DL (8.3-10.6); CARBON DIOXIDE LEVEL 22.0 MMOL/L (20-31); CHLORIDE LEVEL 97.0 MMOL/L (98-107); CREATININE FOR GFR 6.54 MG/DL (0.70-1.30); GLOMERULAR FILTRATION RATE 8.9 (>49); MAGNESIUM LEVEL 2.0 MG/DL (1.8-2.4); PHOSPHORUS LEVEL 7.9 MG/DL (2.4-5.1); POTASSIUM SERUM 4.8 MMOL/L (3.5-5.1); SODIUM LEVEL 133.0 MMOL/L (136-145)
[2024-11-25 09:04] LABS: INR 1.29
[2024-11-25 09:11] LABS: ESTIMATED AVERAGE GLUCOSE 120.0 MG/DL (60-110)
[2024-11-25] MEDS: CALCIUM GLUCONATE 1,000 MG in DEXTROSE 5% (D5W) MINI-BAG PLU 100 ML IV SCH ×2 (10:09→15:11)
[2024-11-25] MEDS: PIPERACILLIN/TAZOBACTAM SOD 4.5 GM in DEXTROSE 5% (D5W) ADV/MINI-BAG 50 ML IV SCH (10:09)
[2024-11-25] MEDS ORDERED: MIDAZOLAM INJ 2 MG/2 ML VIAL As Ordered ONE (11:20)
[2024-11-25] MEDS: MIDAZOLAM INJ 2 MG/2 ML VIAL IV STA (11:23)
[2024-11-25] MEDS: HEPARIN 1000 UNIT/ML CRRT 20,000 UNITS in IV 1 EA CRRT SCH (11:26)
[2024-11-25 14:19] LABS: PLATELET COUNT, AUTOMATED 323 10^3/uL (150-450)
[2024-11-25 14:40] LABS: CALCIUM LEVEL 8.1 MG/DL (8.3-10.6); CARBON DIOXIDE LEVEL 24.0 MMOL/L (20-31); CHLORIDE LEVEL 97.0 MMOL/L (98-107); CREATININE FOR GFR 4.92 MG/DL (0.70-1.30); GLOMERULAR FILTRATION RATE 12.5 (>49); MAGNESIUM LEVEL 2.0 MG/DL (1.8-2.4); PHOSPHORUS LEVEL 7.3 MG/DL (2.4-5.1); POTASSIUM SERUM 5.0 MMOL/L (3.5-5.1); SODIUM LEVEL 133.0 MMOL/L (136-145)
[2024-11-25 14:43] LABS: INR 1.17
[2024-11-25 20:30] LABS: PLATELET COUNT, AUTOMATED 274 10^3/uL (150-450)
[2024-11-25 20:44] LABS: INR 1.16
[2024-11-25 21:02] LABS: CALCIUM LEVEL 8.0 MG/DL (8.3-10.6); CARBON DIOXIDE LEVEL 25.0 MMOL/L (20-31); CHLORIDE LEVEL 96.0 MMOL/L (98-107); CREATININE FOR GFR 3.71 MG/DL (0.70-1.30); GLOMERULAR FILTRATION RATE 17.5 (>49); MAGNESIUM LEVEL 2.1 MG/DL (1.8-2.4); PHOSPHORUS LEVEL 6.4 MG/DL (2.4-5.1); POTASSIUM SERUM 4.9 MMOL/L (3.5-5.1); SODIUM LEVEL 135.0 MMOL/L (136-145)
[2024-11-26] VITALS (106 sets, daily range): BP systolic 74–146; BP diastolic 40–68; TEMP 96.8–101.3; O2SAT 74–99
[2024-11-26 02:40] LABS: PLATELET COUNT, AUTOMATED 261 10^3/uL (150-450)
[2024-11-26 02:54] LABS: INR 1.16
[2024-11-26 03:05] LABS: CALCIUM LEVEL 8.2 MG/DL (8.3-10.6); CARBON DIOXIDE LEVEL 28.0 MMOL/L (20-31); CHLORIDE LEVEL 96.0 MMOL/L (98-107); CREATININE FOR GFR 2.8 MG/DL (0.70-1.30); GLOMERULAR FILTRATION RATE 24.6 (>49); MAGNESIUM LEVEL 2.0 MG/DL (1.8-2.4); PHOSPHORUS LEVEL 5.7 MG/DL (2.4-5.1); POTASSIUM SERUM 4.4 MMOL/L (3.5-5.1); SODIUM LEVEL 135.0 MMOL/L (136-145)
[2024-11-26] MEDS: NICOTINE 21 MG/24 HR 1 EA TRANSDERMAL TD ONE (03:14)
[2024-11-26] MEDS: CALCIUM GLUCONATE 1,000 MG, VIAL MATE ADAPTER 1 EACH in NS 100 ML IV SCH (04:32)
[2024-11-26] MEDS ORDERED: METOPROLOL 5 MG/5 ML VIAL As Ordered ONE (05:57)
[2024-11-26] MEDS: METOPROLOL 5 MG/5 ML VIAL IV STA (06:00)
[2024-11-26] MEDS: DIGOXIN INJ 0.5 MG/2 ML AMP IV STA (06:32)
[2024-11-26] MEDS ORDERED: AMIODARONE HCL 360 MG/200 ML PREMIXED BAG As Ordered ONE (06:46)
[2024-11-26] MEDS ORDERED: AMIODARONE HCL 150 MG/100 ML PREMIXED BAG As Ordered ONE (06:49)
[2024-11-26] MEDS: AMIODARONE HCL 150 MG in IV 1 EA IV STA (06:50)
[2024-11-26] MEDS ORDERED: MAGNESIUM SULFATE 1 GM/100 ML D5W BAG (10MG/ML) As Ordered ONE (06:51)
[2024-11-26] MEDS: MAG SULF 1GM/100ML (MAG RUN) 1 GM in IV 1 EA IV STA (06:55)
[2024-11-26] MEDS: NS 500 ML IV ONE (07:11)
[2024-11-26 07:20] LABS: PLATELET COUNT, AUTOMATED 264 10^3/uL (150-450)
[2024-11-26] MEDS: PHENYLEPHRINE HCL INJ 50 MG in D5W 495 ML IV SCH (07:51)
[2024-11-26 07:53] LABS: CALCIUM LEVEL 8.2 MG/DL (8.3-10.6); CARBON DIOXIDE LEVEL 28.0 MMOL/L (20-31); CHLORIDE LEVEL 94.0 MMOL/L (98-107); CREATININE FOR GFR 2.42 MG/DL (0.70-1.30); GLOMERULAR FILTRATION RATE 29.3 (>49); MAGNESIUM LEVEL 2.0 MG/DL (1.8-2.4); PHOSPHORUS LEVEL 5.6 MG/DL (2.4-5.1); POTASSIUM SERUM 4.6 MMOL/L (3.5-5.1); SODIUM LEVEL 131.0 MMOL/L (136-145)
[2024-11-26] MEDS: ACETAMINOPHEN *IV* 1,000 MG in IV 1 EA IV PRN (09:14)
[2024-11-26] MEDS: AMIODARONE HCL 360 MG in IV 1 EA IV SCH ×2 (09:38→14:15)
[2024-11-26] MEDS: AMIODARONE HCL 150 MG in IV 1 EA IV SCH (09:38)
[2024-11-26] MEDS: MIDAZOLAM INJ 2 MG/2 ML VIAL IV STA (09:38)
[2024-11-26 09:49] LABS: ABG BASE EXCESS 3.5 (-2.0-2.0); ABG HCO3 26.1 MMOL/L (22.0-26.0); ABG O2 SATURATION 92.8 % (95.0-99.0); ABG PARTIAL PRESSURE CO2 32.2 mmHg (35.0-45.0); ABG PARTIAL PRESSURE O2 65.7 mmHg (75.0-100.0); ABG STANDARD HCO3 27.5 MMOL/L. (22.0-26.0); ABG TOTAL CO2 27.1 MMOL/L (23.0-31.0); ABG pH (ARTERIAL) 7.527 UNITS (7.350-7.450)
[2024-11-26] MEDS ORDERED: HEPARIN 1000 UNIT/ML CRRT 20,000 UNITS in IV 1 EA CRRT SCH (11:55)
[2024-11-26 13:05] LABS: INR 1.11
[2024-11-26 13:08] LABS: PLATELET COUNT, AUTOMATED 289 10^3/uL (150-450)
[2024-11-26 13:32] LABS: CALCIUM LEVEL 7.5 MG/DL (8.3-10.6); CARBON DIOXIDE LEVEL 26.0 MMOL/L (20-31); CHLORIDE LEVEL 92.0 MMOL/L (98-107); CREATININE FOR GFR 2.52 MG/DL (0.70-1.30); GLOMERULAR FILTRATION RATE 27.9 (>49); MAGNESIUM LEVEL 2.2 MG/DL (1.8-2.4); POTASSIUM SERUM 4.3 MMOL/L (3.5-5.1); SODIUM LEVEL 131.0 MMOL/L (136-145)
[2024-11-26] MEDS: CALCIUM GLUCONATE 1,000 MG in NS 100 ML IV SCH (15:42)
[2024-11-26 18:54] LABS: PLATELET COUNT, AUTOMATED 263 10^3/uL (150-450)
[2024-11-26 19:17] LABS: CALCIUM LEVEL 7.9 MG/DL (8.3-10.6); CARBON DIOXIDE LEVEL 27.0 MMOL/L (20-31); CHLORIDE LEVEL 94.0 MMOL/L (98-107); CREATININE FOR GFR 2.01 MG/DL (0.70-1.30); GLOMERULAR FILTRATION RATE 36.6 (>49); MAGNESIUM LEVEL 2.1 MG/DL (1.8-2.4); PHOSPHORUS LEVEL 5.1 MG/DL (2.4-5.1); POTASSIUM SERUM 4.1 MMOL/L (3.5-5.1); SODIUM LEVEL 132.0 MMOL/L (136-145)
[2024-11-27] VITALS (95 sets, daily range): BP systolic 97–163; BP diastolic 43–69; TEMP 96.6–98.6; O2SAT 89–98
[2024-11-27 00:16] LABS: PLATELET COUNT, AUTOMATED 234 10^3/uL (150-450)
[2024-11-27 00:31] LABS: CALCIUM LEVEL 7.8 MG/DL (8.3-10.6); CARBON DIOXIDE LEVEL 26.0 MMOL/L (20-31); CHLORIDE LEVEL 98.0 MMOL/L (98-107); CREATININE FOR GFR 1.66 MG/DL (0.70-1.30); GLOMERULAR FILTRATION RATE 46.0 (>49); MAGNESIUM LEVEL 2.0 MG/DL (1.8-2.4); PHOSPHORUS LEVEL 4.6 MG/DL (2.4-5.1); POTASSIUM SERUM 3.8 MMOL/L (3.5-5.1); SODIUM LEVEL 132.0 MMOL/L (136-145)
[2024-11-27] MEDS: CALCIUM GLUCONATE 1,000 MG, VIAL MATE ADAPTER 1 EACH in NS 100 ML IV ONE ×3 (00:59→14:43)
[2024-11-27] MEDS: KCL 20MEQ IN 100ML SWI (KRUN) 20 MEQ in IV 1 EA IV ONE ×3 (01:30→13:19)
[2024-11-27 06:00] LABS: ABG BASE EXCESS 1.5 (-2.0-2.0); ABG HCO3 24.6 MMOL/L (22.0-26.0); ABG O2 SATURATION 97.1 % (95.0-99.0); ABG PARTIAL PRESSURE CO2 33.0 mmHg (35.0-45.0); ABG PARTIAL PRESSURE O2 99.0 mmHg (75.0-100.0); ABG STANDARD HCO3 25.8 MMOL/L. (22.0-26.0); ABG TOTAL CO2 25.7 MMOL/L (23.0-31.0); ABG pH (ARTERIAL) 7.491 UNITS (7.350-7.450)
[2024-11-27 06:12] LABS: PLATELET COUNT, AUTOMATED 210 10^3/uL (150-450)
[2024-11-27 06:38] LABS: CALCIUM LEVEL 7.7 MG/DL (8.3-10.6); CARBON DIOXIDE LEVEL 25.0 MMOL/L (20-31); CHLORIDE LEVEL 100.0 MMOL/L (98-107); CREATININE FOR GFR 1.45 MG/DL (0.70-1.30); GLOMERULAR FILTRATION RATE 54.2 (>49); MAGNESIUM LEVEL 1.9 MG/DL (1.8-2.4); PHOSPHORUS LEVEL 3.8 MG/DL (2.4-5.1); POTASSIUM SERUM 3.7 MMOL/L (3.5-5.1); SODIUM LEVEL 133.0 MMOL/L (136-145)
[2024-11-27] MEDS: MAG SULF 1GM/100ML (MAG RUN) 1 GM in IV 1 EA IV ONE ×2 (06:57→20:37)
[2024-11-27 11:59] LABS: PLATELET COUNT, AUTOMATED 199 10^3/uL (150-450)
[2024-11-27 12:43] LABS: CALCIUM LEVEL 7.9 MG/DL (8.3-10.6); CARBON DIOXIDE LEVEL 24.0 MMOL/L (20-31); CHLORIDE LEVEL 98.0 MMOL/L (98-107); CREATININE FOR GFR 1.29 MG/DL (0.70-1.30); GLOMERULAR FILTRATION RATE 62.3 (>49); MAGNESIUM LEVEL 2.0 MG/DL (1.8-2.4); PHOSPHORUS LEVEL 3.6 MG/DL (2.4-5.1); POTASSIUM SERUM 3.7 MMOL/L (3.5-5.1); SODIUM LEVEL 134.0 MMOL/L (136-145)
[2024-11-27] MEDS: MIDAZOLAM INJ 2 MG/2 ML VIAL IV STA ×2 (15:06→18:10)
[2024-11-27] MEDS: ROCURONIUM BROMIDE 50MG/5ML VIAL IV ONE (18:10)
[2024-11-27] MEDS ORDERED: ROCURONIUM BROMIDE 50MG/5ML VIAL As Ordered ONE (18:17)
[2024-11-27 18:52] LABS: CALCIUM LEVEL 8.2 MG/DL (8.3-10.6); CARBON DIOXIDE LEVEL 24.0 MMOL/L (20-31); CHLORIDE LEVEL 102.0 MMOL/L (98-107); CREATININE FOR GFR 1.14 MG/DL (0.70-1.30); GLOMERULAR FILTRATION RATE 72.3 (>49); MAGNESIUM LEVEL 1.9 MG/DL (1.8-2.4); PHOSPHORUS LEVEL 3.3 MG/DL (2.4-5.1); POTASSIUM SERUM 3.6 MMOL/L (3.5-5.1); SODIUM LEVEL 135.0 MMOL/L (136-145)
[2024-11-27 19:13] LABS: PLATELET COUNT, AUTOMATED 216 10^3/uL (150-450)
[2024-11-27] MEDS: KCL 20MEQ IN 100ML SWI (KRUN) 20 MEQ in IV 1 EA IV SCH (20:37)
[2024-11-28] VITALS (102 sets, daily range): BP systolic 107–161; BP diastolic 41–65; TEMP 97.8–98.9; O2SAT 92–98
[2024-11-28 00:32] LABS: PLATELET COUNT, AUTOMATED 208 10^3/uL (150-450)
[2024-11-28 00:58] LABS: CALCIUM LEVEL 7.9 MG/DL (8.3-10.6); CARBON DIOXIDE LEVEL 26.0 MMOL/L (20-31); CHLORIDE LEVEL 101.0 MMOL/L (98-107); CREATININE FOR GFR 1.08 MG/DL (0.70-1.30); GLOMERULAR FILTRATION RATE 77.1 (>49); MAGNESIUM LEVEL 1.9 MG/DL (1.8-2.4); PHOSPHORUS LEVEL 3.3 MG/DL (2.4-5.1); POTASSIUM SERUM 3.9 MMOL/L (3.5-5.1); SODIUM LEVEL 137.0 MMOL/L (136-145)
[2024-11-28] MEDS: KCL 20MEQ IN 100ML SWI (KRUN) 20 MEQ in IV 1 EA IV ONE ×4 (01:33→20:08)
[2024-11-28] MEDS: MAG SULF 1GM/100ML (MAG RUN) 1 GM in IV 1 EA IV ONE ×4 (01:35→20:08)
[2024-11-28] MEDS: CALCIUM GLUCONATE 1,000 MG in DEXTROSE 5% (D5W) MINI-BAG PLU 100 ML IV ONE (01:55)
[2024-11-28 06:15] LABS: PLATELET COUNT, AUTOMATED 181 10^3/uL (150-450)
[2024-11-28 06:55] LABS: CALCIUM LEVEL 8.1 MG/DL (8.3-10.6); CARBON DIOXIDE LEVEL 26.0 MMOL/L (20-31); CHLORIDE LEVEL 100.0 MMOL/L (98-107); CREATININE FOR GFR 1.04 MG/DL (0.70-1.30); GLOMERULAR FILTRATION RATE 80.7 (>49); MAGNESIUM LEVEL 1.9 MG/DL (1.8-2.4); PHOSPHORUS LEVEL 3.3 MG/DL (2.4-5.1); POTASSIUM SERUM 3.7 MMOL/L (3.5-5.1); SODIUM LEVEL 135.0 MMOL/L (136-145)
[2024-11-28 12:35] LABS: PLATELET COUNT, AUTOMATED 172 10^3/uL (150-450)
[2024-11-28 13:39] LABS: CALCIUM LEVEL 8.0 MG/DL (8.3-10.6); CARBON DIOXIDE LEVEL 24.0 MMOL/L (20-31); CHLORIDE LEVEL 101.0 MMOL/L (98-107); CREATININE FOR GFR 1.05 MG/DL (0.70-1.30); GLOMERULAR FILTRATION RATE 79.8 (>49); MAGNESIUM LEVEL 1.9 MG/DL (1.8-2.4); PHOSPHORUS LEVEL 3.4 MG/DL (2.4-5.1); POTASSIUM SERUM 3.8 MMOL/L (3.5-5.1); SODIUM LEVEL 136.0 MMOL/L (136-145)
[2024-11-28] MEDS ORDERED: GLUCAGON INJ 1 MG VIAL SC PRN (18:00)
[2024-11-28] MEDS ORDERED: DEXTROSE 50% 50 ML SYRINGE IV PRN (18:00)
[2024-11-28] MEDS ORDERED: GLUCOSE 4 GM CHEW PO PRN (18:00)
[2024-11-28 18:15] LABS: PLATELET COUNT, AUTOMATED 155 10^3/uL (150-450)
[2024-11-28 18:52] LABS: CALCIUM LEVEL 7.8 MG/DL (8.3-10.6); CARBON DIOXIDE LEVEL 24.0 MMOL/L (20-31); CHLORIDE LEVEL 101.0 MMOL/L (98-107); CREATININE FOR GFR 0.96 MG/DL (0.70-1.30); GLOMERULAR FILTRATION RATE 88.8 (>49); MAGNESIUM LEVEL 1.8 MG/DL (1.8-2.4); PHOSPHORUS LEVEL 3.1 MG/DL (2.4-5.1); POTASSIUM SERUM 3.7 MMOL/L (3.5-5.1); SODIUM LEVEL 135.0 MMOL/L (136-145)
[2024-11-28] MEDS: INSULIN LISPRO (NovoLOG) PER UNIT SC SCH (19:16)
[2024-11-28] MEDS: CALCIUM GLUCONATE 1,000 MG, VIAL MATE ADAPTER 1 EACH in NS 100 ML IV ONE (19:44)
[2024-11-29] VITALS (96 sets, daily range): BP systolic 106–148; BP diastolic 38–67; TEMP 97.2–100.2; O2SAT 92–100
[2024-11-29 00:19] LABS: PLATELET COUNT, AUTOMATED 145 10^3/uL (150-450)
[2024-11-29 00:49] LABS: CALCIUM LEVEL 8.3 MG/DL (8.3-10.6); CARBON DIOXIDE LEVEL 25 MMOL/L (20-31); CHLORIDE LEVEL 102 MMOL/L (98-107); CREATININE FOR GFR 0.89 MG/DL (0.70-1.30); GLOMERULAR FILTRATION RATE > 90.0 (>49); MAGNESIUM LEVEL 1.9 MG/DL (1.8-2.4); PHOSPHORUS LEVEL 3.6 MG/DL (2.4-5.1); POTASSIUM SERUM 3.5 MMOL/L (3.5-5.1); SODIUM LEVEL 136 MMOL/L (136-145)
[2024-11-29] MEDS: KCL 20MEQ IN 100ML SWI (KRUN) 20 MEQ in IV 1 EA IV SCH (01:51)
[2024-11-29] MEDS: MAG SULF 1GM/100ML (MAG RUN) 1 GM in IV 1 EA IV ONE (01:52)
[2024-11-29 06:11] LABS: PLATELET COUNT, AUTOMATED 149 10^3/uL (150-450)
[2024-11-29 07:09] LABS: CALCIUM LEVEL 8.3 MG/DL (8.3-10.6); CARBON DIOXIDE LEVEL 26 MMOL/L (20-31); CHLORIDE LEVEL 102 MMOL/L (98-107); CREATININE FOR GFR 0.87 MG/DL (0.70-1.30); GLOMERULAR FILTRATION RATE > 90.0 (>49); MAGNESIUM LEVEL 2.0 MG/DL (1.8-2.4); PHOSPHORUS LEVEL 3.4 MG/DL (2.4-5.1); POTASSIUM SERUM 4.0 MMOL/L (3.5-5.1); SODIUM LEVEL 137 MMOL/L (136-145)
[2024-11-29] MEDS: HEPARIN 1,000 UNITS/ML 10 ML VIAL (FOR RADIOLOGY & DIALYSIS ONLY) CRRT PRN ×2 (10:02)
[2024-11-29] MEDS: SODIUM CHLORIDE 0.9% INJ 10 ML SYR CRRT PRN ×2 (10:02)
[2024-11-29 10:03] LABS: ABG BASE EXCESS 1.4 (-2.0-2.0); ABG HCO3 25.4 MMOL/L (22.0-26.0); ABG O2 SATURATION 98.3 % (95.0-99.0); ABG PARTIAL PRESSURE CO2 37.4 mmHg (35.0-45.0); ABG PARTIAL PRESSURE O2 140.1 mmHg (75.0-100.0); ABG STANDARD HCO3 25.7 MMOL/L. (22.0-26.0); ABG TOTAL CO2 26.5 MMOL/L (23.0-31.0); ABG pH (ARTERIAL) 7.449 UNITS (7.350-7.450)
[2024-11-29] MEDS: cefTRIAXone SOD 2 GM in DEXTROSE 5% (D5W) ADV/MINI-BAG 50 ML IV SCH (15:20)
[2024-11-30] VITALS (68 sets, daily range): BP systolic 73–147; BP diastolic 39–72; TEMP 99.1–101.3; O2SAT 92–99
[2024-11-30 04:29] LABS: ABG BASE EXCESS 1.9 (-2.0-2.0); ABG HCO3 25.4 MMOL/L (22.0-26.0); ABG O2 SATURATION 98.3 % (95.0-99.0); ABG PARTIAL PRESSURE CO2 35.2 mmHg (35.0-45.0); ABG PARTIAL PRESSURE O2 126.9 mmHg (75.0-100.0); ABG STANDARD HCO3 26.2 MMOL/L. (22.0-26.0); ABG TOTAL CO2 26.5 MMOL/L (23.0-31.0); ABG pH (ARTERIAL) 7.476 UNITS (7.350-7.450)
[2024-11-30 04:38] LABS: PLATELET COUNT, AUTOMATED 153 10^3/uL (150-450)
[2024-11-30 05:12] LABS: LYMPHOCYTES 4 % (16-44); MONOCYTES 8 % (0-5); NEUTROPHILS 85 % (28-66)
[2024-11-30 05:13] LABS: PLATELET ESTIMATE NORMAL (NORMAL)
[2024-11-30 05:17] LABS: ALT/SGPT 24.0 U/L (7.0-40); AST/SGOT 67.0 U/L (<34); CALCIUM LEVEL 7.7 MG/DL (8.3-10.6); CARBON DIOXIDE LEVEL 25.0 MMOL/L (20-31); CHLORIDE LEVEL 104.0 MMOL/L (98-107); CREATININE FOR GFR 1.19 MG/DL (0.70-1.30); GLOMERULAR FILTRATION RATE 68.6 (>49); MAGNESIUM LEVEL 1.4 MG/DL (1.8-2.4); PHOSPHORUS LEVEL 4.5 MG/DL (2.4-5.1); POTASSIUM SERUM 3.0 MMOL/L (3.5-5.1); SODIUM LEVEL 138.0 MMOL/L (136-145)
[2024-11-30] MEDS: MAG SULF 1GM/100ML (MAG RUN) 1 GM in IV 1 EA IV SCH (05:37)
[2024-11-30] MEDS: KCL 20MEQ IN 100ML SWI (KRUN) 20 MEQ in IV 1 EA IV SCH (05:37)
[2024-11-30] MEDS: dexmedeTOMidine 200 MCG in IV 1 EA IV SCH (14:03)
[2024-11-30] MEDS: PIPERACILLIN/TAZOBACTAM SOD 4.5 GM in DEXTROSE 5% (D5W) ADV/MINI-BAG 50 ML IV SCH (19:41)
[2024-11-30 20:55] LABS: ABG BASE EXCESS 0.7 (-2.0-2.0); ABG HCO3 25.2 MMOL/L (22.0-26.0); ABG O2 SATURATION 97.1 % (95.0-99.0); ABG PARTIAL PRESSURE CO2 39.5 mmHg (35.0-45.0); ABG PARTIAL PRESSURE O2 95.2 mmHg (75.0-100.0); ABG STANDARD HCO3 25.1 MMOL/L. (22.0-26.0); ABG TOTAL CO2 26.4 MMOL/L (23.0-31.0); ABG pH (ARTERIAL) 7.422 UNITS (7.350-7.450)
[2024-11-30] MEDS: VANCOMYCIN HCL 1,000 MG, VIAL MATE ADAPTER 1 EACH in NS 250 ML IV ONE (21:06)
[2024-12-01] VITALS (41 sets, daily range): BP systolic 85–133; BP diastolic 46–72; TEMP 99.5–101.8; O2SAT 88–100
[2024-12-01 02:11] LABS: CALCIUM LEVEL 7.9 MG/DL (8.3-10.6); CARBON DIOXIDE LEVEL 25.0 MMOL/L (20-31); CHLORIDE LEVEL 103.0 MMOL/L (98-107); CREATININE FOR GFR 1.5 MG/DL (0.70-1.30); GLOMERULAR FILTRATION RATE 52.0 (>49); MAGNESIUM LEVEL 1.7 MG/DL (1.8-2.4); PHOSPHORUS LEVEL 5.5 MG/DL (2.4-5.1); POTASSIUM SERUM 3.2 MMOL/L (3.5-5.1); SODIUM LEVEL 141.0 MMOL/L (136-145)
[2024-12-01] MEDS: MAG SULF 1GM/100ML (MAG RUN) 1 GM in IV 1 EA IV SCH (03:18)
[2024-12-01] MEDS: KCL 20MEQ IN 100ML SWI (KRUN) 20 MEQ in IV 1 EA IV ONE (05:16)
[2024-12-01 07:07] LABS: PLATELET COUNT, AUTOMATED 157 10^3/uL (150-450)
[2024-12-01 07:30] LABS: ATYPICAL LYMPH 1 % (0-5); BASOPHILS 1 % (0-1); EOSINOPHILS 3 % (0-3); LYMPHOCYTES 15 % (16-44); METAMYELOCYTES 2 % (0-0); MYELOCYTES 1 % (0-0); NEUTROPHILS 76 % (28-66); NUCLEATED RED BLOOD CELL 1 % (0-0); PLATELET ESTIMATE NORMAL (NORMAL)
[2024-12-01 07:42] LABS: ALT/SGPT 22.0 U/L (7.0-40); AST/SGOT 64.0 U/L (<34); CALCIUM LEVEL 7.4 MG/DL (8.3-10.6); CARBON DIOXIDE LEVEL 24.0 MMOL/L (20-31); CHLORIDE LEVEL 104.0 MMOL/L (98-107); CREATININE FOR GFR 1.6 MG/DL (0.70-1.30); GLOMERULAR FILTRATION RATE 48.1 (>49); MAGNESIUM LEVEL 2.0 MG/DL (1.8-2.4); PHOSPHORUS LEVEL 5.3 MG/DL (2.4-5.1); POTASSIUM SERUM 3.3 MMOL/L (3.5-5.1); SODIUM LEVEL 138.0 MMOL/L (136-145)
[2024-12-01] MEDS: FUROSEMIDE 100 MG/10 ML VIAL IV ONE (08:56)
[2024-12-01] MEDS: POTASSIUM CHLORIDE 10% LIQ 20MEQ/15ML UDC PO ONE (08:57)
[2024-12-01] MEDS ORDERED: TRIMETHOPRIM/SULFAMETHOXAZOLE 160 MG in D5W 500 ML IV SCH (09:00)
[2024-12-01] MEDS: TRIMETHOPRIM/SULFAMETHOXAZOLE 160 MG in D5W 250 ML IV SCH (10:29)
[2024-12-01 10:30] LABS: KETONE, URINE AUTO RFX NEGATIVE (NEGATIVE); LEUKOCYTE ESTERASE UR AUTO RFX NEGATIVE (NEGATIVE); MUCUS, URINE RFX SMALL (NEGATIVE); NITRITE, URINE AUTO RFX NEGATIVE (NEGATIVE); RBC, URINE AUTO RFX 0 /HPF (0-3); SQUAM EPITHELIAL CELL UR AURFX 0 /HPF (0-6); WBC, URINE AUTO RFX 2 /HPF (0-3)
[2024-12-01 10:46] LABS: AMPHETAMINES LEVEL URINE NEGATIVE (NEGATIVE)
[2024-12-01 10:47] LABS: BARBITURATES URINE NEGATIVE (NEGATIVE); BENZODIAZEPINES URINE NEGATIVE (NEGATIVE); CANNABINOIDS URINE NEGATIVE (NEGATIVE); COCAINE METABOLITE URINE NEGATIVE (NEGATIVE); METHADONE URINE NEGATIVE (NEGATIVE); OPIATES URINE NEGATIVE (NEGATIVE); PHENCYCLIDINE URINE NEGATIVE (NEGATIVE)
[2024-12-01] MEDS: MEROPENEM 1 GM in IV 1 EA IV SCH (12:24)
[2024-12-01 13:15] LABS: PLATELET COUNT, AUTOMATED 163 10^3/uL (150-450)
[2024-12-01] MEDS: VANCOMYCIN HCL 1,000 MG, VIAL MATE ADAPTER 1 EACH in NS 250 ML IV ONE (13:17)
[2024-12-01 13:31] LABS: EOSINOPHILS 1 % (0-3); LYMPHOCYTES 15 % (16-44); METAMYELOCYTES 2 % (0-0); MONOCYTES 2 % (0-5); NEUTROPHILS 80 % (28-66); PLATELET ESTIMATE NORMAL (NORMAL)
[2024-12-01 13:45] LABS: CK-MB VALUE MASS 3.4 NG/ML (<3.6)
[2024-12-01 13:49] LABS: ALT/SGPT 27.0 U/L (7.0-40); AST/SGOT 79.0 U/L (<34); CALCIUM LEVEL 7.1 MG/DL (8.3-10.6); CARBON DIOXIDE LEVEL 22.0 MMOL/L (20-31); CHLORIDE LEVEL 105.0 MMOL/L (98-107); CPK CREATINE PHOSPHOKINASE 347.0 U/L (46-171); CREATININE FOR GFR 1.57 MG/DL (0.70-1.30); GLOMERULAR FILTRATION RATE 49.2 (>49); MB/CK RELATIVE INDEX 0.97 (< OR =4); POTASSIUM SERUM 3.2 MMOL/L (3.5-5.1); SODIUM LEVEL 139.0 MMOL/L (136-145)
[2024-12-01] MEDS ORDERED: KCL 10MEQ/100ML SWI (KRUN) 10 MEQ in IV 1 EA IV SCH (15:00)
[2024-12-01] MEDS: CALCIUM GLUCONATE 1,000 MG in DEXTROSE 5% (D5W) MINI-BAG PLU 100 ML IV ONE (15:02)
[2024-12-01] MEDS ORDERED: KCL 20MEQ IN 100ML SWI (KRUN) 20 MEQ in IV 1 EA IV ONE (16:00)
[2024-12-01] MEDS: KCL 10MEQ/100ML SWI (KRUN) 10 MEQ in IV 1 EA IV SCH (16:12)
[2024-12-01] MEDS: VANCOMYCIN HCL 1,000 MG, VIAL MATE ADAPTER 1 EACH in NS 250 ML IV SCH (18:00)
[2024-12-02] VITALS (33 sets, daily range): BP systolic 83–120; BP diastolic 46–59; TEMP 98.3–100.6; O2SAT 89–97
[2024-12-02 05:48] LABS: ABG BASE EXCESS -0.9 (-2.0-2.0); ABG HCO3 23.1 MMOL/L (22.0-26.0); ABG O2 SATURATION 94.2 % (95.0-99.0); ABG PARTIAL PRESSURE CO2 35.5 mmHg (35.0-45.0); ABG PARTIAL PRESSURE O2 75.8 mmHg (75.0-100.0); ABG STANDARD HCO3 23.7 MMOL/L. (22.0-26.0); ABG TOTAL CO2 24.2 MMOL/L (23.0-31.0); ABG pH (ARTERIAL) 7.432 UNITS (7.350-7.450)
[2024-12-02 06:19] LABS: BASO # 0.0 10^3/uL (0.0-0.2); BASO % 0.3 % (0.0-1.0); EOS # 0.2 10^3/uL (0.0-0.5); EOS % 1.9 % (0.0-3.0); LYMPH # 0.8 10^3/uL (1.5-5.0); LYMPH % 7.9 % (24.0-44.0); MONO # 0.9 10^3/uL (0.0-0.8); MONO % 9.2 % (2.0-8.0); NEUTROPHILS # 7.6 10^3/uL (1.5-8.5); NEUTROPHILS % 75.7 % (36.0-66.0); PLATELET COUNT, AUTOMATED 211 10^3/uL (150-450)
[2024-12-02 06:30] LABS: CK-MB VALUE MASS 3.4 NG/ML (<3.6)
[2024-12-02 06:34] LABS: CPK CREATINE PHOSPHOKINASE 294.0 U/L (46-171); MB/CK RELATIVE INDEX 1.15 (< OR =4)
[2024-12-02 06:35] LABS: FREE T4 0.56 NG/DL (0.89-1.76)
[2024-12-02 06:41] LABS: ALT/SGPT 33.0 U/L (7.0-40); AST/SGOT 88.0 U/L (<34); CALCIUM LEVEL 7.1 MG/DL (8.3-10.6); CARBON DIOXIDE LEVEL 22.0 MMOL/L (20-31); CHLORIDE LEVEL 105.0 MMOL/L (98-107); CREATININE FOR GFR 1.53 MG/DL (0.70-1.30); GLOMERULAR FILTRATION RATE 50.8 (>49); MAGNESIUM LEVEL 1.7 MG/DL (1.8-2.4); POTASSIUM SERUM 2.9 MMOL/L (3.5-5.1); SODIUM LEVEL 140.0 MMOL/L (136-145)
[2024-12-02] MEDS: KCL 10MEQ/100ML SWI (KRUN) 10 MEQ in IV 1 EA IV SCH ×2 (08:15→11:57)
[2024-12-02] MEDS: MAG SULF 1GM/100ML (MAG RUN) 1 GM in IV 1 EA IV ONE (08:15)
[2024-12-02] MEDS: FUROSEMIDE 100 MG/10 ML VIAL IV ONE (08:16)
[2024-12-02] MEDS: CISATRACURIUM 10 MG/ML 20 ML VIAL IV PRN (08:46)
[2024-12-02] MEDS ORDERED: FLUCONAZOLE IV ONE (17:00)
[2024-12-02 17:48] LABS: CALCIUM LEVEL 7.3 MG/DL (8.3-10.6); CARBON DIOXIDE LEVEL 22.0 MMOL/L (20-31); CHLORIDE LEVEL 106.0 MMOL/L (98-107); CREATININE FOR GFR 1.58 MG/DL (0.70-1.30); GLOMERULAR FILTRATION RATE 48.9 (>49); MAGNESIUM LEVEL 1.9 MG/DL (1.8-2.4); POTASSIUM SERUM 3.8 MMOL/L (3.5-5.1); SODIUM LEVEL 138.0 MMOL/L (136-145)
[2024-12-02] MEDS: FLUCONAZOLE 400 MG in IV 1 EA IV SCH (18:34)
[2024-12-03] VITALS (40 sets, daily range): BP systolic 95–166; BP diastolic 52–75; TEMP 97.9–99.3; O2SAT 83–98
[2024-12-03 05:50] LABS: ABG BASE EXCESS -3.5 (-2.0-2.0); ABG HCO3 20.9 MMOL/L (22.0-26.0); ABG O2 SATURATION 97.8 % (95.0-99.0); ABG PARTIAL PRESSURE CO2 34.6 mmHg (35.0-45.0); ABG PARTIAL PRESSURE O2 112.7 mmHg (75.0-100.0); ABG STANDARD HCO3 21.6 MMOL/L. (22.0-26.0); ABG TOTAL CO2 22.0 MMOL/L (23.0-31.0); ABG pH (ARTERIAL) 7.399 UNITS (7.350-7.450)
[2024-12-03 08:09] LABS: BASO # 0.0 10^3/uL (0.0-0.2); BASO % 0.2 % (0.0-1.0); EOS # 0.0 10^3/uL (0.0-0.5); EOS % 0.0 % (0.0-3.0); LYMPH # 1.0 10^3/uL (1.5-5.0); LYMPH % 9.8 % (24.0-44.0); MONO # 0.8 10^3/uL (0.0-0.8); MONO % 8.2 % (2.0-8.0); NEUTROPHILS # 8.0 10^3/uL (1.5-8.5); NEUTROPHILS % 80.4 % (36.0-66.0); PLATELET COUNT, AUTOMATED 330 10^3/uL (150-450)
[2024-12-03 08:14] LABS: ERYTHROCYTE SEDIMENTATION RATE 77 mm/hr (0-20)
[2024-12-03 09:10] LABS: ALT/SGPT 46.0 U/L (7.0-40); AST/SGOT 108.0 U/L (<34); C REACTIVE PROTEIN QUANTITATIV 13.14 MG/DL (<1.0); CALCIUM LEVEL 7.5 MG/DL (8.3-10.6); CARBON DIOXIDE LEVEL 22.0 MMOL/L (20-31); CHLORIDE LEVEL 106.0 MMOL/L (98-107); CREATININE FOR GFR 1.36 MG/DL (0.70-1.30); GLOMERULAR FILTRATION RATE 58.5 (>49); MAGNESIUM LEVEL 1.9 MG/DL (1.8-2.4); POTASSIUM SERUM 4.1 MMOL/L (3.5-5.1); SODIUM LEVEL 141.0 MMOL/L (136-145)
[2024-12-03] MEDS: FUROSEMIDE 100 MG/10 ML VIAL IV ONE (12:41)
[2024-12-03] MEDS ORDERED: SODIUM BICARBONATE 8.4% INJ 50ML SYRINGE As Ordered ONE (19:13)
[2024-12-03] MEDS: SODIUM BICARBONATE 8.4% INJ 50ML SYRINGE IV STA (19:20)
[2024-12-03] MEDS: ROCURONIUM BROMIDE 50MG/5ML VIAL IV ONE (19:23)
[2024-12-03] MEDS: FLUCONAZOLE 400 MG in IV 1 EA IV SCH (21:10)
[2024-12-04] VITALS (37 sets, daily range): BP systolic 92–113; BP diastolic 46–58; TEMP 97.6–99.7; O2SAT 94–98
[2024-12-04 05:12] LABS: BASO # 0.0 10^3/uL (0.0-0.2); BASO % 0.2 % (0.0-1.0); EOS # 0.0 10^3/uL (0.0-0.5); EOS % 0.0 % (0.0-3.0); LYMPH # 0.7 10^3/uL (1.5-5.0); LYMPH % 5.5 % (24.0-44.0); MONO # 0.7 10^3/uL (0.0-0.8); MONO % 5.5 % (2.0-8.0); NEUTROPHILS # 10.4 10^3/uL (1.5-8.5); NEUTROPHILS % 87.6 % (36.0-66.0)
[2024-12-04 05:17] LABS: PLATELET COUNT, AUTOMATED 496 10^3/uL (150-450)
[2024-12-04 05:28] LABS: ALT/SGPT 74.0 U/L (7.0-40); AST/SGOT 147.0 U/L (<34); CALCIUM LEVEL 8.0 MG/DL (8.3-10.6); CARBON DIOXIDE LEVEL 23.0 MMOL/L (20-31); CHLORIDE LEVEL 107.0 MMOL/L (98-107); CREATININE FOR GFR 1.3 MG/DL (0.70-1.30); GLOMERULAR FILTRATION RATE 61.7 (>49); POTASSIUM SERUM 4.0 MMOL/L (3.5-5.1); SODIUM LEVEL 144.0 MMOL/L (136-145)
[2024-12-04 05:30] LABS: ABG BASE EXCESS -1.6 (-2.0-2.0); ABG HCO3 23.6 MMOL/L (22.0-26.0); ABG O2 SATURATION 99.3 % (95.0-99.0); ABG PARTIAL PRESSURE CO2 41.5 mmHg (35.0-45.0); ABG PARTIAL PRESSURE O2 150.5 mmHg (75.0-100.0); ABG STANDARD HCO3 23.2 MMOL/L. (22.0-26.0); ABG TOTAL CO2 24.8 MMOL/L (23.0-31.0); ABG pH (ARTERIAL) 7.372 UNITS (7.350-7.450)
[2024-12-04] MEDS ORDERED: VANCOMYCIN HCL 1,250 MG, VIAL MATE ADAPTER 1 EACH in NS 250 ML IV SCH (13:00)
[2024-12-04 13:02] LABS: FREE T4 0.57 NG/DL (0.89-1.76)
[2024-12-04] MEDS: CISATRACURIUM 10 MG/ML 20 ML VIAL IV ONE (14:29)
[2024-12-04] MEDS: INSULIN LISPRO (NovoLOG) PER UNIT SC SCH (18:00)
[2024-12-05] VITALS (47 sets, daily range): BP systolic 91–141; BP diastolic 52–73; TEMP 98.1–100.9; O2SAT 92–98
[2024-12-05 04:33] LABS: PLATELET COUNT, AUTOMATED 578 10^3/uL (150-450)
[2024-12-05 04:57] LABS: VANCOMYCIN RANDOM 11.8 UG/ML
[2024-12-05 05:00] LABS: ALT/SGPT 75.0 U/L (7.0-40); AST/SGOT 123.0 U/L (<34); CALCIUM LEVEL 8.2 MG/DL (8.3-10.6); CARBON DIOXIDE LEVEL 26.0 MMOL/L (20-31); CHLORIDE LEVEL 109.0 MMOL/L (98-107); CREATININE FOR GFR 0.98 MG/DL (0.70-1.30); GLOMERULAR FILTRATION RATE 86.7 (>49); POTASSIUM SERUM 3.9 MMOL/L (3.5-5.1); SODIUM LEVEL 143.0 MMOL/L (136-145); TRIGLYCERIDES LEVEL 485.0 MG/DL (<150)
[2024-12-05 05:38] LABS: ABG BASE EXCESS 0.9 (-2.0-2.0); ABG HCO3 25.3 MMOL/L (22.0-26.0); ABG O2 SATURATION 99.2 % (95.0-99.0); ABG PARTIAL PRESSURE CO2 39.3 mmHg (35.0-45.0); ABG STANDARD HCO3 25.3 MMOL/L. (22.0-26.0); ABG TOTAL CO2 26.5 MMOL/L (23.0-31.0); ABG pH (ARTERIAL) 7.427 UNITS (7.350-7.450)
[2024-12-05] MEDS: VANCOMYCIN HCL 1,250 MG, VIAL MATE ADAPTER 1 EACH in NS 250 ML IV SCH (08:50)
[2024-12-05] MEDS: FUROSEMIDE 100 MG/10 ML VIAL IV ONE (09:21)
[2024-12-06] VITALS (12 sets, daily range): BP systolic 111–139; BP diastolic 58–70; TEMP 98.3–100.9; O2SAT 89–95
[2024-12-06 11:23] LABS: BASO # 0.0 10^3/uL (0.0-0.2); BASO % 0.1 % (0.0-1.0); EOS # 0.0 10^3/uL (0.0-0.5); EOS % 0.0 % (0.0-3.0); LYMPH # 1.0 10^3/uL (1.5-5.0); LYMPH % 9.6 % (24.0-44.0); MONO # 0.5 10^3/uL (0.0-0.8); MONO % 4.5 % (2.0-8.0); NEUTROPHILS # 9.0 10^3/uL (1.5-8.5); NEUTROPHILS % 85.2 % (36.0-66.0); PLATELET COUNT, AUTOMATED 667 10^3/uL (150-450)
[2024-12-06 11:50] LABS: ALT/SGPT 128 U/L (7.0-40); AST/SGOT 203 U/L (<34); CALCIUM LEVEL 8.7 MG/DL (8.3-10.6); CARBON DIOXIDE LEVEL 29 MMOL/L (20-31); CHLORIDE LEVEL 109 MMOL/L (98-107); CREATININE FOR GFR 0.89 MG/DL (0.70-1.30); GLOMERULAR FILTRATION RATE > 90.0 (>49); MAGNESIUM LEVEL 1.7 MG/DL (1.8-2.4); PHOSPHORUS LEVEL 2.4 MG/DL (2.4-5.1); POTASSIUM SERUM 3.3 MMOL/L (3.5-5.1); SODIUM LEVEL 149 MMOL/L (136-145)
[2024-12-06] MEDS: D5W/0.45% SODIUM CHLORIDE 1,000 ML IV SCH (13:18)
[2024-12-06 13:56] LABS: HEPATITIS C VIRUS ABY INDEX 0.12 INDEX (<0.8)
[2024-12-06 13:57] LABS: C REACTIVE PROTEIN QUANTITATIV 4.40 MG/DL (<1.0)
[2024-12-06] MEDS: KCL 10MEQ/100ML SWI (KRUN) 10 MEQ in IV 1 EA IV SCH (14:26)
[2024-12-06] MEDS: MAG SULF 1GM/100ML (MAG RUN) 1 GM in IV 1 EA IV SCH (17:45)
[2024-12-07] VITALS (7 sets, daily range): BP systolic 128–147; BP diastolic 62–67; TEMP 97.8–98.6; O2SAT 87–95
[2024-12-07] MEDS: IPRATROPIUM 0.5 MG/ALBUTEROL 2.5 MG INH SOL UD 3 ML NEB PRN (04:00)
[2024-12-07 05:18] LABS: PLATELET COUNT, AUTOMATED 659 10^3/uL (150-450)
[2024-12-07 05:40] LABS: C REACTIVE PROTEIN QUANTITATIV 2.91 MG/DL (<1.0)
[2024-12-07 05:43] LABS: FREE T4 0.82 NG/DL (0.89-1.76)
[2024-12-07 05:52] LABS: ALT/SGPT 180 U/L (7.0-40); AST/SGOT 281 U/L (<34); CALCIUM LEVEL 8.6 MG/DL (8.3-10.6); CARBON DIOXIDE LEVEL 29 MMOL/L (20-31); CHLORIDE LEVEL 113 MMOL/L (98-107); CREATININE FOR GFR 0.86 MG/DL (0.70-1.30); GLOMERULAR FILTRATION RATE > 90.0 (>49); MAGNESIUM LEVEL 1.8 MG/DL (1.8-2.4); POTASSIUM SERUM 3.2 MMOL/L (3.5-5.1); SODIUM LEVEL 150 MMOL/L (136-145)
[2024-12-07 06:04] LABS: LYMPHOCYTES 7 % (16-44); MONOCYTES 5 % (0-5); NEUTROPHILS 88 % (28-66); PLATELET ESTIMATE INCREASED (NORMAL)
[2024-12-07] MEDS: KCL 10MEQ/100ML SWI (KRUN) 10 MEQ in IV 1 EA IV SCH (06:32)
[2024-12-07] MEDS: KCL 40MEQ IN D5/0.45NS 1000ML 1,000 ML IV SCH (06:33)
[2024-12-07] MEDS: KCL 20MEQ IN D5/0.45NS 1000ML 1,000 ML IV SCH (07:55)
[2024-12-07] MEDS: MULTIVITAMIN PO SCH (11:21)
[2024-12-07] MEDS: MINERALS PO SCH (11:21)
[2024-12-07 12:50] LABS: CALCIUM LEVEL 8.6 MG/DL (8.3-10.6); CARBON DIOXIDE LEVEL 28 MMOL/L (20-31); CHLORIDE LEVEL 112 MMOL/L (98-107); CREATININE FOR GFR 0.86 MG/DL (0.70-1.30); GLOMERULAR FILTRATION RATE > 90.0 (>49); POTASSIUM SERUM 3.7 MMOL/L (3.5-5.1); SODIUM LEVEL 150 MMOL/L (136-145)
[2024-12-07 17:52] LABS: CALCIUM LEVEL 8.4 MG/DL (8.3-10.6); CARBON DIOXIDE LEVEL 27 MMOL/L (20-31); CHLORIDE LEVEL 113 MMOL/L (98-107); CREATININE FOR GFR 0.84 MG/DL (0.70-1.30); GLOMERULAR FILTRATION RATE > 90.0 (>49); POTASSIUM SERUM 3.7 MMOL/L (3.5-5.1); SODIUM LEVEL 148 MMOL/L (136-145)
[2024-12-07] MEDS: CEFDINIR 300 MG CAP NG SCH (20:13)
[2024-12-07] MEDS ORDERED: CEFDINIR 300 MG CAP PO SCH (21:00)
[2024-12-08 00:08] VITALS: BP 124/60; TEMP 98; O2SAT 90
[2024-12-08 04:03] VITALS: BP 129/58; TEMP 98.1; O2SAT 90
[2024-12-08 04:36] LABS: ALT/SGPT 324 U/L (7.0-40); AST/SGOT 404 U/L (<34); C REACTIVE PROTEIN QUANTITATIV 2.02 MG/DL (<1.0); CALCIUM LEVEL 8.5 MG/DL (8.3-10.6); CARBON DIOXIDE LEVEL 26 MMOL/L (20-31); CHLORIDE LEVEL 113 MMOL/L (98-107); CREATININE FOR GFR 0.85 MG/DL (0.70-1.30); GLOMERULAR FILTRATION RATE > 90.0 (>49); MAGNESIUM LEVEL 1.6 MG/DL (1.8-2.4); POTASSIUM SERUM 3.4 MMOL/L (3.5-5.1); SODIUM LEVEL 149 MMOL/L (136-145)
[2024-12-08 04:43] LABS: BASO # 0.0 10^3/uL (0.0-0.2); BASO % 0.1 % (0.0-1.0); EOS # 0.0 10^3/uL (0.0-0.5); EOS % 0.1 % (0.0-3.0); LYMPH # 1.7 10^3/uL (1.5-5.0); LYMPH % 16.6 % (24.0-44.0); MONO # 0.5 10^3/uL (0.0-0.8); MONO % 5.0 % (2.0-8.0); NEUTROPHILS # 7.9 10^3/uL (1.5-8.5); NEUTROPHILS % 77.9 % (36.0-66.0); PLATELET COUNT, AUTOMATED 589 10^3/uL (150-450)
[2024-12-08] MEDS: MAG SULF 1GM/100ML (MAG RUN) 1 GM in IV 1 EA IV SCH (05:01)
[2024-12-08] MEDS: POTASSIUM CHLORIDE 10% LIQ 20MEQ/15ML UDC NG ONE (05:01)
[2024-12-08 08:00] VITALS: BP 155/67; TEMP 98.4; O2SAT 92
[2024-12-08] MEDS ORDERED: ISOVUE-370 76% 100 ML VIAL As Ordered ONE (09:41)
[2024-12-08 12:00] VITALS: BP 129/61; TEMP 98.3; O2SAT 93
[2024-12-08] MEDS: MORPHINE 4 MG/ML 1 ML VIAL IV PRN ×2 (15:19→16:50)
[2024-12-08] MEDS: SCOPOLAMINE 1MG TRANSDERMAL PATCH TOP PRN (19:45)
[2024-12-09] MEDS: LORazepam 1 MG TAB SL PRN (07:50)
[2024-12-09] MEDS: OLANZapine ORAL DISINTEGRATING TAB 5MG PO SCH (09:09)
[2024-12-10 06:36] VITALS: O2SAT 60
[2024-12-10] MEDS ORDERED: LORazepam 1 MG TAB PO PRN (11:10)
[2024-12-10] MEDS: MORPHINE 10 MG/0.5 ML ORAL CONCENTRATE SOLUTION U/D SL PRN ×2 (11:30→14:14)
[2024-12-10] MEDS: LORazepam 1 MG TAB PO SCH (13:00)
[2024-12-10] MEDS: MORPHINE 10 MG/0.5 ML ORAL CONCENTRATE SOLUTION U/D SL SCH (13:25)
== END 2024-12-10 15:45 | disposition expired | DRG 870 ==
LOC: M ED 11:56 → M ED INP 15:06 → M ICU 15:38
PROVIDERS: ADMIT Internal Medicine Pulmonary Disease; ATTEND Internal Medicine Pulmonary Disease
PROC: 5A1955Z Respiratory Ventilation, Greater than 96 Consecutive Hours (ICD-10-PCS; principal; 2024-11-24)
PROC: 02HV33Z Insertion of Infusion Device into Superior Vena Cava, Percutaneous Approach (ICD-10-PCS; 2024-11-24)
PROC: 0BJ08ZZ Inspection of Tracheobronchial Tree, Via Natural or Artificial Opening Endoscopic (ICD-10-PCS; 2024-11-24)
PROC: 06HM33Z Insertion of Infusion Device into Right Femoral Vein, Percutaneous Approach (ICD-10-PCS; 2024-11-24)
PROC: 0BH17EZ Insertion of Endotracheal Airway into Trachea, Via Natural or Artificial Opening (ICD-10-PCS; 2024-11-24)
PROC: 5A2204Z Restoration of Cardiac Rhythm, Single (ICD-10-PCS; 2024-11-26)
PROC: 04HY32Z Insertion of Monitoring Device into Lower Artery, Percutaneous Approach (ICD-10-PCS; 2024-11-26)
PROC: 3E1F88Z Irrigation of Respiratory Tract using Irrigating Substance, Via Natural or Artificial Opening Endoscopic (ICD-10-PCS; 2024-11-26)
PROC: B246ZZZ Ultrasonography of Right and Left Heart (ICD-10-PCS; 2024-11-27)
PROC: 0B21XEZ Change Endotracheal Airway in Trachea, External Approach (ICD-10-PCS; 2024-12-03)
DX: A41.01 Sepsis due to Methicillin susceptible Staphylococcus aureus (principal); R65.21 Severe sepsis with septic shock; G93.41 Metabolic encephalopathy; J18.9 Pneumonia, unspecified organism; J69.0 Pneumonitis due to inhalation of food and vomit; J96.01 Acute respiratory failure with hypoxia; N17.9 Acute kidney failure, unspecified; E87.20 Acidosis, unspecified; E87.0 Hyperosmolality and hypernatremia; T85.628A Displacement of other specified internal prosthetic devices, implants and grafts, initial encounter; J44.0 Chronic obstructive pulmonary disease with (acute) lower respiratory infection; G93.1 Anoxic brain damage, not elsewhere classified; G72.81 Critical illness myopathy; J44.1 Chronic obstructive pulmonary disease with (acute) exacerbation; Z66 Do not resuscitate; R68.0 Hypothermia, not associated with low environmental temperature; E87.5 Hyperkalemia; E83.39 Other disorders of phosphorus metabolism; E83.51 Hypocalcemia; I10 Essential (primary) hypertension; E07.81 Sick-euthyroid syndrome; I48.91 Unspecified atrial fibrillation; I46.9 Cardiac arrest, cause unspecified; E78.5 Hyperlipidemia, unspecified; G47.33 Obstructive sleep apnea (adult) (pediatric); E11.42 Type 2 diabetes mellitus with diabetic polyneuropathy; M19.90 Unspecified osteoarthritis, unspecified site; K43.9 Ventral hernia without obstruction or gangrene; E66.01 Morbid (severe) obesity due to excess calories; K76.0 Fatty (change of) liver, not elsewhere classified; Z90.49 Acquired absence of other specified parts of digestive tract; Z87.891 Personal history of nicotine dependence; Z79.51 Long term (current) use of inhaled steroids; Z79.84 Long term (current) use of oral hypoglycemic drugs; Z79.899 Other long term (current) drug therapy; Z88.8 Allergy status to other drugs, medicaments and biological substances; Z91.048 Other nonmedicinal substance allergy status; Z90.5 Acquired absence of kidney